=== PATIENT | male | born 1945 | race Caucasian/White ===

== ENCOUNTER 2025-05-04 09:21 | Day surgery (SDC) | payer OTHER ==
[~2025-05-04] VITALS: Ht 170.2 cm; Wt 70.3 kg
[~2025-05-04 09:21] MED LIST: AMLO1TAB23 PO; ASPI1TAB19 PO; ATOR20TA PO; LATA0.008 EACHEYE; TIMO0.5S28 RIGHTEYE
[2025-05-04] MEDS ORDERED: IODIXANOL 320MG/ML 100ML BTL IV ONE (11:57)
[2025-05-04] MEDS ORDERED: MIDAZOLAM HCL 2MG/2ML 2ml VIAL (1mg/ml) ONE (12:44)
[2025-05-04] MEDS ORDERED: fentaNYL CITRATE 100 MCG/2 ML VL ONE (12:44)
[2025-05-04] MEDS ORDERED: VERAPAMIL 2.5MG/ML INJ 2ML VIAL IV ONE (12:44)
[2025-05-04] MEDS ORDERED: LIDOCAINE 2%HCL (LOCAL ANESTH.) INJ 20ML MDV ONE (12:45)
[2025-05-04] MEDS ORDERED: HEPARIN SODIUM (PORCINE) 5000 UNITS/ML 1ML VIAL ONE (13:49)
--- NOTE | 2025-05-04 13:56 | DVHOP2 ---
Operative Report Operative Report CARDIAC BUSINESS INTERN PROCEDURE REPORT [place], [place] Date of Service: 05/04/25 Story Reader: Reyna Bermudez MD PROCEDURES PERFORMED: Coronary angiogram, , conscious sedation administration and supervision, less than 15 minutes; fluoroscopy use and interpretation. US guided vascular access to L LINTER OPERATOR and L Radial artery . PREOPERATIVE DIAGNOSES: Abnormal stress test with CCS class 3 angina, POSTOP DIAGNOSIS: cad DESCRIPTION OF PROCEDURE: The patient or appropriate family signed informed consent understanding the risks, benefits and alternatives of the procedure, they wished to proceed. The patient was brought to the cardiac brine room laborer in n.p.o. state. The patient was prepped in a sterile fashion. Sedation was used per cardiac cath protocol. I administered 2 mL of 2% lidocaine to the right wrist. With an antegrade front wall puncture. I cannulated the right radial artery and placed a 6-Indonesian Glidesheath slender. Next, an intra-arterial spasmolytic was administered. I wired with glide up to shoulder but 4 F and 5F catheter would not go as pt spasm despite getting access in 1 attempt with seamless access. pt has a R sided hostile groin with previous surgery ?endarterectomy .so with US guidance I cannulated the L LINTER OPERATOR with excellent flow but wire wouldn not cross. pt tells me that he was told he has severe pad and his surgeon couldnt cross the vessel. next i got access to L radial artery with US guidance saved to pacsy stem and placed a 6F glidesheat. 200 mcg of IA nitro given. Next, a - 4 F JR4 and JL catheter nd were used for coronary angiogram At the completion of procedure, all guides and wires were removed, and there were no immediate complications. 3000 U of IV heparin given. FINDINGS: RCA: Moderate vessel off the right sinus of Valsalva, there is no severe flow limiting stenosis. mild 30 % mid vessel stenosis LEFT MAIN: Moderate size left main, it bifurcates into LAD and circumflex. no severe stenosis CIRCUMFLEX: Moderate caliber vessel coming off the left main with no flow limiting stenosis. mild plaque .5% mid CX /om stenosis LAD: LAD is a moderate caliber vessel coming of the left main. no severe stenosis in prox mid and distal. D1 has prox 80% stenosis but very small vessel CONCLUSIONS: 1. moderate non critical CAD PLAN: Aggressive risk factor modification and medical management for the patient. REYNA BERMUDEZ MD May 04, 2025 13:56
[2025-05-04 14:00] VITALS: BP 99/63; PULSE 67; RESP 16; TEMP 97.8; O2SAT 93
[2025-05-04 14:15] VITALS: BP 124/72; PULSE 68; RESP 19; O2SAT 92
[2025-05-04 14:30] VITALS: BP 129/72; PULSE 67; RESP 14; O2SAT 94
[2025-05-04 14:45] VITALS: BP 118/75; PULSE 67; RESP 15; O2SAT 93
[2025-05-04 15:00] VITALS: BP 128/78; PULSE 69; RESP 16; O2SAT 94
== END 2025-05-04 16:10 | disposition home or self-care (01) ==
LOC: CATH 09:21
PROVIDERS: ATTEND Internal Medicine
DX: R94.39 Abnormal result of other cardiovascular function study (principal); I25.119 Atherosclerotic heart disease of native coronary artery with unspecified angina pectoris; Z88.2 Allergy status to sulfonamides; Z88.0 Allergy status to penicillin; Z79.899 Other long term (current) drug therapy
CPT/HCPCS: 93454; C1769; C1894; J1644; J2250; J3010; Q9967; 99152; 99153

== ENCOUNTER 2025-05-13 11:56 | Inpatient (IN) | payer OTHER ==
[~2025-05-13] VITALS: Ht 172.7 cm; Wt 72.6 kg
--- NOTE | 2025-05-13 12:31 | ED.PDOC ---
History of Present Illness HPI Comments 79-year-old male with PMHx HTN, HLD brought in by EMS presents with a chief complaint of fall injury x onset midnight this morning. Patient states that he had a mechanical fall and he fell onto his right side. Patient states that he did lose consciousness, but came to and was able to self ambulate back up and onto a chair. Patient is now complaining of 5/10 right hip pain. There is some shortening and rotation to his right leg. Chief Complaint: Fall Injury Time Seen by MD: 12:49 Reviewed Notes: Medications, Allergies Allergies: Coded Allergies: Sulfa Antibiotics (Verified Allergy, Intermediate, HIVES, 05/01/25) Penicillins (Verified Allergy, Unknown, "GOT SICK", 05/01/25) Home Meds Reported Medications Timolol Maleate (Timolol Maleate Ophthalmi) 0.5 % Xuan, 1 DROP RIGHTEYE BID for GLAUCOMA 05/01/25 Latanoprost (LATANOPROST) 0.005 % Xuan, 1 DROP EACHEYE QPM for GLAUCOMA 05/01/25 Aspirin (Aspirin) 81 Mg Tab, 1 TAB PO QAM for HEART DISEASE 05/01/25 Atorvastatin Calcium (Lipitor) 20 Mg Tab, 1 TAB PO QPM for HIGH CHOLESTEROL 05/01/25 Amlodipine Besylate (Amlodipine Besylate) 10 Mg Tab, 1 TAB PO QAM for HYPERTENSION 05/01/25 Information Source: Patient Mode of Arrival: EMS Severity: Moderate Timing: Hours Duration: Since onset Prehospital treatment: Forest Technician, Pain Meds Past Medical History PAST MEDICAL HISTORY: High Lipids, HTN Surgical History: Denies all surgeries Family History Family History: Reviewed,noncontributory to illness Social History Smoker: Non-Smoker Alcohol: Denies ETOH Use Drugs: Denies Drug Use Lives In: Home Constitutional: denies: chills, diaphoresis, fatigue, fever, malaise, sweats, weakness, others EENTM: denies: blurred vision, double vision, ear bleeding, ear discharge, ear drainage, ear pain, ear ringing, eye pain, eye redness, hearing loss, mouth pain, mouth swelling, nasal discharge, nose bleeding, nose congestion, nose pain, photophobia, tearing, throat pain, throat swelling, voice changes, others Respiratory: denies: cough, hemoptysis, orthopnea, SOB at rest, shortness of breath, SOB with excertion, stridor, wheezing, others Cardiovascular: denies: chest pain, dizzy spells, diaphoresis, Dyspnea on exertion, edema, irregular heart beat, left arm pain, lightheadedness, palpitations, PND, syncope, others Gastrointestinal: denies: abdomen distended, abdominal pain, blood streaked bowels, constipated, diarrhea, dysphagia, difficulty swallowing, hematemesis, melena, nausea, poor appetite, poor fluid intake, rectal bleeding, rectal pain, vomiting, others Genitourinary: denies: burning, dysuria, flank pain, frequency, hematuria, incontinence, penile discharge, penile sore, pain, testicle pain, testicle swelling, urgency, others Neurological: denies: dizziness, fainting, headache, left sided numbness, left sided weakness, numbness, paresthesia, pre-existing deficit, right sided numbness, right sided weakness, seizure, speech problems, tingling, tremors, weakness, others Musculoskeletal: reports: joint pain; denies: back pain, gout, joint swelling, muscle pain, muscle stiffness, neck pain, others Integumetry: denies: bruises, change in color, change in hair/nails, dryness, laceration, lesions, lumps, rash, wounds, others Allergic/Immunocompromised: denies: Difficulty Healing, Frequent Infections, Hives, Itching, others Hematologic/Lymphatic: denies: anemia, blood clots, easy bleeding, easy bruising, swollen glands, others Endocrine: denies: excessive hunger, excessive sweating, excessive thirst, excessive urination, flushing, intolerance to cold, intolerance to heat, unexplained weight gain, unexplained weight loss, others Psychiatric: denies: anxiety, bipolar disorder, depression, hopeless, panic disorder, schizophrenia, sleepless, suicidal, others All Other Systems: Reviewed and Negative Physical Exam General Appearance: No Apparent Distress, Normal HEENT: Normal ENT Inspection, Pharynx Normal, TMs Normal Neck: Full Range of Motion, Non-Tender, Normal, Normal Inspection Respiratory: Chest Non-Tender, Lungs Clear, No Accessory Muscle Use, No Respiratory Distress, Normal Breath Sounds Cardiovascular: No Edema, No JVD, No Murmur, No Gallop, Normal Peripheral Pulses, Regular Rate/Rhythm Breast Exam: Deferred Gastrointestinal: No Organomegaly, Non Tender, No Pulsatile Mass, Normal Bowel Sounds, Soft Genitalia: Deferred Pelvic: Deferred Rectal: Deferred Extremities: No calf tenderness, Normal capillary refill, Normal inspection, Normal range of motion, Non-tender, No pedal edema Musculoskeletal : Apperance: Normal Neurologic: Alert, territory service representative II-XII nml as Tested, No Motor Deficits, Normal Affect, Normal Mood, No Sensory Deficits Cerebellar Function: Normal Reflexes: Normal Skin: Dry, Normal Color, Warm Lymphatic: No Adenopathy Was a procedure done? Was a procedure done?: No Differential Dx Considerations may include: Brain bleed, hip fracture, muscle strain X-Ray, Labs, Meds, VS Vital Signs Date Time Temp Pulse Resp B/P (MAP) Pulse Ox O2 Delivery O2 Flow Rate FiO2 05/13/25 13:45 81 17 147/68 05/13/25 13:25 68 18 147/68 05/13/25 12:45 98.0 79 20 162/76 (104) 95 98.0 05/13/25 12:45 79 20 95 Room Air* 0 21 05/13/25 12:18 98.4 76 16 129/72 (91) 97 98.4 Lab Test 05/13/25 13:30 05/13/25 12:44 05/13/25 12:27 Range/Units Troponin I High Sensitivity Pending 7 </=54 ng/L White Blood Count 12.2 H 4.4-10.8 10^3/uL Red Blood Count 3.47 L 4.5-5.90 10^6/uL Hemoglobin 11.8 L 13.5-17.5 g/dL Hematocrit 34.7 L 41.0-53.0 % Mean Corpuscular Volume 99.8 80.0-100.0 fL Mean Corpuscular Hemoglobin 34.0 H 28.0-32.0 pg Mean Corpuscular Hemoglobin Concent 34.0 32.0-36.0 g/dL Red Cell Distribution Width 13.8 11.8-14.3 % Platelet Count 256 140-450 10^3/uL Mean Platelet Volume 7.9 6.9-10.8 fL Neutrophils (%) (Auto) 79.6 37.0-80.0 % Lymphocytes (%) (Auto) 11.0 10.0-50.0 % Monocytes (%) (Auto) 8.5 0.0-12.0 % Eosinophils (%) (Auto) 0.5 0.0-7.0 % Basophils (%) (Auto) 0.4 0.0-2.0 % Neutrophils # (Auto) 9.7 H 1.6-8.6 10 ^3/uL Lymphocytes # (Auto) 1.3 0.4-5.4 10 ^3/uL Monocytes # (Auto) 1.0 0-1.3 10 ^3/uL Eosinophils # (Auto) 0.1 0-0.8 10 ^3/uL Basophils # (Auto) 0 0-0.2 10 ^3/uL Nucleated Red Blood Cells 0.1 % Sodium Level 138 136-145 mmol/L Potassium Level 4.1 3.5-5.1 mmol/L Chloride Level 105 98-107 mmol/L Carbon Dioxide Level 23 20-31 mmol/L Anion Gap 10 5-15 Blood Urea Nitrogen 24 H 9-23 mg/dL Creatinine 1.34 H 0.700-1.30 mg/dL Glomerular Filtration Rate Calc 54 >90 mL/min BUN/Creatinine Ratio 17.9 10.0-20.0 Serum Glucose 103 74-106 mg/dL Calcium Level 9.6 8.7-10.4 mg/dL Urine Color Yellow Yellow Urine Clarity Clear Clear Urine pH 5.5 5.0-9.0 Urine Specific Reva 1.016 1.001-1.035 Urine Protein Trace H Negative Urine Ketones Negative Negative Urine Blood 1+ H Negative /uL Urine Nitrite Negative Negative Urine Bilirubin Negative Negative Urine Urobilinogen Normal Negative mg/dL Urine Leukocyte Esterase 2+ Negative /uL Urine RBC 5 0 - 3 /hpf Urine Microscopic WBC 68 H 0-3 /HPF Urine Squamous Epithelial Cells Few <5 /hpf Urine Bacteria None seen None Seen /hpf Urine Glucose Normal Normal mg/dL Current Medications Medications (Trade) Dose Ordered Sig/Promise Route Start Time Stop Time Status Last Admin Sodium Chloride 1,000 ml @ 1,000 mls/hr Q1H ONCE IV 05/13/25 12:30 05/13/25 13:29 DC 05/13/25 12:47 Ondansetron HCl (Zofran) 4 mg ONCE ONCE IV 05/13/25 12:30 05/13/25 12:31 DC 05/13/25 13:25 Morphine Sulfate 4 mg ONCE ONCE IV 05/13/25 12:30 7/9/25 12:31 DC 05/13/25 13:25 Time of 1ST Reevaluation: 12:49 Reevaluation 1ST: Unchanged Patient Education/Counseling: Diagnosis, Treatment, Need For Follow Up Family Education/Counseling: No Family Present SEPSIS Sepsis Screen Date sepsis recognized/suspect: May 13, 2025 Time Sepsis recognized/suspect: 1200 Recent Procedure: No On Antibiotic Therapy: No Respiratory Rate >20: No Heart Rate >90: No Temp<36 C (96.8 F) or >38.3 C: No SBP <90 or MAP <65 mmHG: No New Acute Mental Status Change: No Is the patient on CPAP, BIPAP,: No Physician Orders R Hip Complete Xray (05/13/25 12:21) Chest Portable (05/13/25 12:21) Troponin-I Hs (05/13/25 13:21) Troponin-I Hs (05/13/25 15:21) Head Without Contrast (05/13/25 12:21) Electrocardigram (05/13/25 12:21) Electrocardigram (05/13/25 13:21) Electrocardigram (05/13/25 15:21) Insert/Manage Urinary Catheter QSHIFT (05/13/25 12:55) * Orthopedic Consult (05/13/25 13:58) Vital Signs Date Time Temp Pulse Resp B/P (MAP) Pulse Ox O2 Delivery O2 Flow Rate FiO2 05/13/25 13:45 81 17 147/68 05/13/25 13:25 68 18 147/68 05/13/25 12:45 98.0 79 20 162/76 (104) 95 98.0 05/13/25 12:45 79 20 95 Room Air* 0 21 05/13/25 12:18 98.4 76 16 129/72 (91) 97 98.4 Laboratory Tests Test 05/13/25 12:44 White Blood Count 12.2 10^3/uL (4.4-10.8) H Medications Medications Dose Ordered Sig/Promise Route Start Time Stop Time Status Last Admin Dose Admin Morphine Sulfate 4 mg ONCE ONCE IV 05/13/25 12:30 05/13/25 12:31 DC 05/13/25 13:25 Ondansetron HCl 4 mg ONCE ONCE IV 05/13/25 12:30 05/13/25 12:31 DC 05/13/25 13:25 Sodium Chloride 1,000 ml @ 1,000 mls/hr Q1H ONCE IV 05/13/25 12:30 05/13/25 13:29 DC 05/13/25 12:47 Departure 1 Departure Time of Disposition: 13:59 (Patient with impacted femoral neck fracture. We will admit patient for further workup and expert consultation.) Impression: Primary Impression: Fracture of femoral neck, right Qualified Codes: S72.001A - Fracture of unspecified part of neck of right femur, initial encounter for closed fracture Additional Impression: Fall Qualified Codes: W19.XXXA - Unspecified fall, initial encounter Disposition: ADMITTED INPATIENT Admit to: Med Surg Condition: Serious Critical Care Note Critical Care Time?: Yes Critical care comment: Hip fracture with intractable pain Authorized and Performed by: Catrachito Nascimento MD Total critical care time: Approximately 41 minutes Due to a high probability of clinically significant, life threatening deterioration, the patient required my highest level of preparedness to intervene emergently and I personally spent this critical care time directly and personally managing the patient. This critical care time included obtaining a history; examining the patient; pulse oximetry; ordering and review of studies; arranging urgent treatment with development of a management plan; evaluation of patient's response to treatment; frequent reassessment; and, discussions with other providers. This critical care time was performed to assess and manage the high probability of imminent, life-threatening deterioration that could result in multi-organ failure. It was exclusive of separately billable procedures and treating other patients and teaching time. Please see my other sections and the rest of the note for further information on patient assessment and treatment. Stability Stability form required: No Heart Score Heart Score: Heart Score Response (Comments) Value History N/A 0 EKG N/A 0 Age N/A 0 Risk Factors N/A 0 Troponin N/A 0 Total 0 I personally scribed for CATRACHITO NASCIMENTO MD ([email or web address]) on 05/13/25 at 12:31. Electronically submitted by Corwin Tyler ([email or web address]). CATRACHITO NASCIMENTO MD May 13, 2025 12:31
[2025-05-13 12:45] VITALS: PULSE 79; RESP 20; O2SAT 95
[2025-05-13] MEDS: SODIUM CHLORIDE 0.9% 1,000 ML IV ONE (12:47)
--- NOTE | 2025-05-13 13:05 | DVH ---
CLINICAL INDICATION: Trauma TECHNIQUE: 2 radiographic views of the right hip were obtained. Comparison: None FINDINGS/IMPRESSION: Impacted fracture in the right femoral neck.
[2025-05-13 13:15] LABS: Chloride 105 mmol/L (98-107); Potassium 4.1 mmol/L (3.5-5.1); Sodium 138 mmol/L (136-145)
--- NOTE | 2025-05-13 13:15 | DVH ---
EXAM: XY CHEST PORTABLE Indication: pain Technique: Single frontal view of the chest was obtained Comparison: None FINDINGS: Lines and Tubes: None Lungs: No focal consolidation. Pleura: No effusion. No pneumothorax. Cardiomediastinal contours: Unremarkable Bones: No acute osseous abnormality. IMPRESSION: No acute cardiopulmonary disease.
[2025-05-13 13:16] LABS: Anion Gap 10 (5-15); Carbon Dioxide 23 mmol/L (20-31)
[2025-05-13 13:17] LABS: Calcium 9.6 mg/dL (8.7-10.4)
[2025-05-13 13:21] LABS: BUN/Creatinine Ratio 17.9 (10.0-20.0); Glucose 103 mg/dL (74-106)
--- NOTE | 2025-05-13 13:21 | DVH ---
Procedure: CT HEAD WITHOUT CONTRAST Study Date and Requested Time: 05/13/2025 12:23 PM History: fall Comparison: None Dose: CTDI: 56.9 mGy DLP: 1121.41 mGycm Technique: Multiplanar images obtained through the brain without intravenous contrast. Findings: Moderate diffuse brain atrophy. Mild chronic small vessel ischemic changes. No hemorrhages, masses, mass effect, midline shift, herniation or cytotoxic edema following a large v ascular territory. No intra-axial or extra-axial fluid collections. No evidence of hydrocephalus. The basal cisterns are patent. The pituitary gland, sella and parasellar regions are unremarkable. The cerebellar tonsils are in nor mal position. The cerebellum is unremarkable. Bilateral lens replacement. Otherwise, orbits and globes are unremarkable. Pansinus mucoperiosteal t hickening. The mastoids are clear. There are no worrisome calvarial lesions. Ayhr-sz-[id number] athero sclerotic calcification of the carotid siphons. Impression: No evidence of acute intracranial abnormality.
[2025-05-13 13:22] LABS: Blood Urea Nitrogen 24 mg/dL (9-23); Hematocrit 34.7 % (41.0-53.0); Hemoglobin 11.8 g/dL (13.5-17.5); Mean Corpuscular Hemoglobin 34.0 pg (28.0-32.0); Mean Corpuscular Volume 99.8 fL (80.0-100.0); Nucleated Red Blood Cells % 0.1 %
[2025-05-13] MEDS: MORPHINE SULFATE 4 MG/ML SYR/VIAL IV ONE (13:25)
[2025-05-13] MEDS: ONDANSETRON HCL 4 MG/2 ML VIAL IV ONE (13:25)
[2025-05-13 13:44] LABS: Urine Protein, UAD TRACE (Negative)
[2025-05-13] MEDS ORDERED: CEFEPIME 2GM/50ML NS 50 ML IV ONE (16:00)
[2025-05-13] MEDS ORDERED: MORPHINE SULFATE INJ 2 MG/ml SYRG IV PRN ×2 (16:15→16:30)
[2025-05-13] MEDS ORDERED: NITROGLYCERIN 0.4 MG SL TAB SL PRN (16:15)
[2025-05-13] MEDS ORDERED: ONDANSETRON HCL 4 MG/2 ML VIAL IV PRN (16:30)
[2025-05-13] MEDS ORDERED: hydrALAZINE HCL 20 MG/ML VL IV PRN (16:30)
[2025-05-13] MEDS: SOD CHL 0.45% 1,000 ML IV ONE (16:54)
--- NOTE | 2025-05-13 17:20 | DVHCONRES ---
Date Seen: May 13, 2025 Resident Creating Document: SIMON REYNOSO RESDIENT History of Present Illness This is an 79-year-old male with past medical history of hypertension, dyslipidemia and peripheral artery disease came to the hospital due to right hip pain. Per patient, last night he was at garbage, the next thing that he remembered was, lying on the floor and had right hip pain. Patient denies chest pain, shortness of breath, cough, and fever. Per patient, he recently had a screening chest CT scan, had found to have some coronary problem subsequently underwent stress test and left heart catheterization which was normal. Patient also reports of loss of consciousness 1 month back. PMHx: Hypertension and dyslipidemia PSHx: Right lower limb bypass graft for peripheral artery disease Home medication: Atorvastatin and amlodipine Allergic history: Penicillins and sulfa antibiotics Patient seen and examined at the bedside. Patient is complaining of right hip pain. Patient denies currently of having chest pain and shortness of breaths. Allergies: Coded Allergies: Penicillins (Verified Allergy, Intermediate, HIVES, 05/13/25) Sulfa Antibiotics (Verified Allergy, Intermediate, HIVES, 05/01/25) Home Meds Reported Medications Timolol Maleate (Timolol Maleate Ophthalmi) 0.5 % Xuan, 1 DROP RIGHTEYE BID for GLAUCOMA 05/01/25 Latanoprost (LATANOPROST) 0.005 % Xuan, 1 DROP EACHEYE QPM for GLAUCOMA 05/01/25 Aspirin (Aspirin) 81 Mg Tab, 1 TAB PO QAM for HEART DISEASE 05/01/25 Atorvastatin Calcium (Lipitor) 20 Mg Tab, 1 TAB PO QPM for HIGH CHOLESTEROL 05/01/25 Amlodipine Besylate (Amlodipine Besylate) 10 Mg Tab, 1 TAB PO QAM for HYPERTENSION 05/01/25 Current Medications Current Medications Medications (Trade) Dose Ordered Sig/Promise Route PRN Reason Start Time Stop Time Status Last Admin Atorvastatin Calcium (Lipitor) 20 mg QPM PO 05/13/25 18:00 Latanoprost (Xalatan) 1 drop QPM EACHEYE 05/13/25 18:00 Patient Own Medication 1 drop BID RIGHTEYE 05/13/25 22:00 Amlodipine Besylate (Norvasc Tablet) 10 mg DAILY PO 05/14/25 10:00 Nitroglycerin (Ntrostat Sublingual) 0.4 mg Q5MINP PRN SL FOR CHEST PAIN 05/13/25 16:15 Morphine Sulfate 2 mg Q30M PRN IV FOR CHEST PAIN 05/13/25 16:15 Ondansetron HCl (Zofran) 4 mg Q4HPRN PRN IV NAUSEA / VOMITING 05/13/25 16:30 Morphine Sulfate 2 mg Q3HPRN PRN IV SEVERE PAIN (7-10 PAIN SCALE) 05/13/25 16:30 Acetaminophen/ Hydrocodone Bitart (White Owl 5/325MG Tab) 1 tab Q4HPRN PRN PO MODERATE PAIN (4-6 PAIN SCALE) 05/13/25 16:30 Famotidine (Pepcid Tablet) 20 mg DAILY PO 05/14/25 10:00 Hydralazine HCl (Apresoline Injection) 10 mg Q6HP PRN IV SBP>150 05/13/25 16:30 Metoprolol Tartrate (Lopressor Tablet) 12.5 mg BID PO 05/13/25 22:00 Vital Signs Vital Signs Date Time Temp Pulse Resp B/P (MAP) Pulse Ox O2 Delivery O2 Flow Rate FiO2 05/13/25 16:00 82 05/13/25 16:00 13 151/72 (98) 95 05/13/25 12:45 98.0 98.0 05/13/25 12:45 Room Air* 0 21 Physical Exam General Appearance: Alert, Oriented X3, Cooperative, No acute distress HEENT: Atraumatic, PERRLA, EOMI, Mucous membrane moist/pink Respiratory: Clear to auscultation, Normal air movement Cardiovascular: Regular rate, Normal S1, Normal S2, No murmurs, no chest wall tenderness Abdominal: Normal bowel sounds, Soft, No tenderness, No hepatospenomegaly, No masses Extremities: Right lower extremity range of motion is decreased due to pain Skin: No rashes, No breakdown, No significant lesion Neuro: Normal gait, Normal speech, Strength at 5/5 X4 ext, Normal tone, Sensation intact, Cranial nerves 3-12 NL, Reflexes 2+ Psych/Mental Status: Mental status NL, Mood NL Labs/Diagnostic Data Labs Test 05/13/25 13:30 05/13/25 12:44 05/13/25 12:27 Range/Units Troponin I High Sensitivity 8 </=54 ng/L White Blood Count 12.2 H 4.4-10.8 10^3/uL Red Blood Count 3.47 L 4.5-5.90 10^6/uL Hemoglobin 11.8 L 13.5-17.5 g/dL Hematocrit 34.7 L 41.0-53.0 % Mean Corpuscular Volume 99.8 80.0-100.0 fL Mean Corpuscular Hemoglobin 34.0 H 28.0-32.0 pg Mean Corpuscular Hemoglobin Concent 34.0 32.0-36.0 g/dL Red Cell Distribution Width 13.8 11.8-14.3 % Platelet Count 256 140-450 10^3/uL Mean Platelet Volume 7.9 6.9-10.8 fL Neutrophils (%) (Auto) 79.6 37.0-80.0 % Lymphocytes (%) (Auto) 11.0 10.0-50.0 % Monocytes (%) (Auto) 8.5 0.0-12.0 % Eosinophils (%) (Auto) 0.5 0.0-7.0 % Basophils (%) (Auto) 0.4 0.0-2.0 % Neutrophils # (Auto) 9.7 H 1.6-8.6 10 ^3/uL Lymphocytes # (Auto) 1.3 0.4-5.4 10 ^3/uL Monocytes # (Auto) 1.0 0-1.3 10 ^3/uL Eosinophils # (Auto) 0.1 0-0.8 10 ^3/uL Basophils # (Auto) 0 0-0.2 10 ^3/uL Nucleated Red Blood Cells 0.1 % Sodium Level 138 136-145 mmol/L Potassium Level 4.1 3.5-5.1 mmol/L Chloride Level 105 98-107 mmol/L Carbon Dioxide Level 23 20-31 mmol/L Anion Gap 10 5-15 Blood Urea Nitrogen 24 H 9-23 mg/dL Creatinine 1.34 H 0.700-1.30 mg/dL Glomerular Filtration Rate Calc 54 >90 mL/min BUN/Creatinine Ratio 17.9 10.0-20.0 Serum Glucose 103 74-106 mg/dL Calcium Level 9.6 8.7-10.4 mg/dL Urine Color Yellow Yellow Urine Clarity Clear Clear Urine pH 5.5 5.0-9.0 Urine Specific [place] 1.016 1.001-1.035 Urine Protein Trace H Negative Urine Ketones Negative Negative Urine Blood 1+ H Negative /uL Urine Nitrite Negative Negative Urine Bilirubin Negative Negative Urine Urobilinogen Normal Negative mg/dL Urine Leukocyte Esterase 2+ Negative /uL Urine RBC 5 0 - 3 /hpf Urine Microscopic WBC 68 H 0-3 /HPF Urine Squamous Epithelial Cells Few <5 /hpf Urine Bacteria None seen None Seen /hpf Urine Glucose Normal Normal mg/dL Assessment (Preoperative risk stratification) Right hip fracture History of hypertension Dyslipidemia Peripheral artery disease * EKGs shows normal sinus rhythm with no significant ST or T-wave changes * Serial trop I is within normal limits * Revised cardiac risk index (leak criteria): 1 * Metabolic equivalent (MET): >4, patient has faire functional capacity con sidering he is able to walk more than 30 minutes without shortness of breaths/chest pain Plan/recommendation (Case discussed with Dr. Ramirez) * Patient is a low risk of cardiovascular event for moderate risk surgery * Patient does not need further cardiology workup at the moment * Considering multiple episodes of loss of consciousness, patient needs event monitoring (Holter monitoring) on outpatient basis with Cardiology * Rest of plan per primary team Thank you for giving us the opportunity to take care of your patient. Please call back if you have any question/concern. Plan discussed with: Patient, Other (RN) SIMON REYNOSO May 13, 2025 17:20
[2025-05-13] MEDS: LATANOPROST 0.005 % OPTH(EYE) SOL 2.5ML EACHEYE SCH (17:44)
[2025-05-13] MEDS: ATORVASTATIN 20 MG TAB PO SCH (17:44)
--- NOTE | 2025-05-13 17:45 | DVHINCON2 ---
Consult Note Consult Consult Note S: Subjective CC: Right hip pain after fall HPI: pt seen in the Emergency Room today, recent hx of GLF unable to WB and noted right groin pain. ER completed Xray, X-ray imaging revealed a right femoral neck impacted fracture, Orthopedic was consulted. On my interview denies any other joint pain, reports moderate right groin pain and is unable to attempt range of motion due to pain. Pt reports hx of HTN, Smoking, and recent cardiac workup with no findings. No Pulm hx , COPD or Asthma or others reported by patient.Lives at home with .Pt reports otherwise active. Denies use of medications other than aspirin, which he reports he is not currently taking. O: Objective Physical Exam (Right Hip): Inspection: Right lower limb externally rotated and shortened Palpation: Pain over right groin ROM: Unable to assess due to pain Neurovascular: Grossly intact; patient able to wiggle toes and move ankle Imaging: Right hip X-ray: Impacted fracture of right femoral neck A: Assessment Fracture of unspecified part of neck of right femur, initial encounter for closed fracture Personal history of nicotine dependence P: Plan Cleared for Cardiology for surgery. Surgery: Open reduction and internal fixation with right hemiarthroplasty scheduled for 05/14/[address] Keith Patient to remain NPO after midnight , ER Nurse to place the order for it and she agrees Consent to be obtained by ER Admission: Patient to be admitted to the hospitalist team for surgical management pain management per Hospitalist team Pt to be NPO Midnight Education: Procedure, risks, benefits, and expected recovery discussed with the patient , Pt remains amenable to surgery at this time. Pt to followup in Orthopedic Clinic at [facility] in 2 weeks post op All questions answered and patient agrees with the plan Plan discussed with: Patient, Other (bed side Nurse , ER Provider, Dr. Mathew araujo) Visit Coding Surgery Date of Service if different f: May 13, 2025 Billing Provider: AVA WARREN Surgery Visit Codes: 88449 - INP CONSULT <40 MIN AVA WARREN May 13, 2025 17:45
[2025-05-13 18:47] LABS: INR 1.01 (0.9-1.15); Partial Thromboplastin Time 27.1 SEC (24.5-34.5); Prothrombin Time 10.7 sec (9.3-11.8)
[2025-05-13 19:15] VITALS: PULSE 80; RESP 14; O2SAT 96
--- NOTE | 2025-05-13 19:31 | ECG ---
[facility] Test Date: 2025-05-13 Test Time: 17:08:26 Pat Name: BONILLA ALCANTARA Department: ED Room: 0292T Gender: M Grocery Clerk: linda : 1945 Requested By: CATRACHITO FALCON Order Number: [id number] Reading MD: Trenton Ramirez Measurements Intervals [place] Rate: 81 P: 45 TN: 156 QRS: -50 QRSD: 106 T: 54 QT: 410 QTc: 476 Interpretive Statements Sinus rhythm Left anterior fascicular block Abnormal R-wave progression, early transition Borderline prolonged QT interval Electronically Signed On 05-14-2025 19:07:04 PDT by Trenton Ramirez Please click the below link to view image of tracing.
[2025-05-13 21:18] VITALS: BP 129/68; PULSE 82; RESP 17; TEMP 98; O2SAT 93
[2025-05-13 21:30] VITALS: BP 129/68; PULSE 82; RESP 17; TEMP 98; O2SAT 93
[2025-05-13] MEDS: METOPROLOL TARTRATE 25 MG TAB PO SCH (21:53)
[2025-05-13] MEDS: PATIENTS OWN MEDICATION (Timolol Maleate (Timolol Maleate Ophthalmi) 1 DROP) RIGHTEYE SCH (22:00)
[2025-05-13] MEDS: HYDROcodone-ACET 5/325MG TAB PO PRN (22:01)
[2025-05-13 23:17] VITALS: PULSE 79; RESP 17; O2SAT 93
[2025-05-14] VITALS (14 sets, daily range): BP systolic 101–132; BP diastolic 46–74; PULSE 67–98; RESP 14–18; TEMP 97.5–98.7; O2SAT 83–98
--- NOTE | 2025-05-14 05:02 | DVHHP2 ---
Admitting Diagnosis: Right hip fracture , mechanical fall, hypertension History of Present Illness History Source: Patient Exam Limitations: No limitations HPI Mr. Darian Starr is an 79-year-old male with a past medical history of HTN, HLD who presents with a chief complaint of mechanical fall with injury x 1 day ago. Patient states that he had a mechanical fall and he fell onto his right side. Patient states that he did lose consciousness, but came to and was able to self ambulate back up and onto a chair. Patient is now complaining of 5/10 right hip pain. There is some shortening and rotation to his right leg. Patient right hip x ray resulted: Impacted fracture in the right femoral neck. Patient denies chest pain, dyspnea, nausea, vomiting. Patient admitted for further treatment. Home Meds Reported Medications Timolol Maleate (Timolol Maleate Ophthalmi) 0.5 % Xuan, 1 DROP RIGHTEYE BID for GLAUCOMA 05/01/25 Latanoprost (LATANOPROST) 0.005 % Xuan, 1 DROP EACHEYE QPM for GLAUCOMA 05/01/25 Aspirin (Aspirin) 81 Mg Tab, 1 TAB PO QAM for HEART DISEASE 05/01/25 Atorvastatin Calcium (Lipitor) 20 Mg Tab, 1 TAB PO QPM for HIGH CHOLESTEROL 05/01/25 Amlodipine Besylate (Amlodipine Besylate) 10 Mg Tab, 1 TAB PO QAM for HYPERTENSION 05/01/25 Past Medical History Cardiac: HTN, Hyperlipidemia Pulmonary: No pertinent Hx Central Nervous System: No pertinent Hx GI: No pertinent Hx Hemotology/Oncology: No pertinent Hx Hepatobiliary: No pertinent Hx Psychiatric: No pertinent Hx Musculoskeletal: No pertinent Hx Rheumotologic: No pertinent Hx Infectious Disease: No peritnent Hx ENT: No pertinent Hx Renal/: No pertinent Hx Endocrine: No pertinent Hx Dermatology: No pertinent Hx Patient Family History: Hypertrophic cardiomyopathy G8 MOTHER Pneumonia G8 FATHER Smoker: No Hx (Negative) Alocohol: None Drugs: None Domestic Violence: Neg Review of Systems Constitutional: No symptom reported Ears, Nose, & Throat: No symptom reported Eyes: No symptom reported Pulmonary/Respiratory: No symptom reported Cardiovascular: No symptom reported Gastrointestinal: No symptom reported Genitourinary: No symptom reported Musculoskeletal: Other (right hip pain s/p mechanical fall) Skin: No symptom reported Psychiatric: No symptom reported Endocrine: No symptom reported Hemotologic/Lymphatic: No symptom reported H&P Exam Vital Signs Vital Signs Date Time Temp Pulse Resp B/P (MAP) Pulse Ox O2 Delivery O2 Flow Rate FiO2 05/14/25 01:00 98.7 79 17 126/74 (91) 92 98.7 05/13/25 19:15 Nasal Cannula* 2 28 General Appeara: Well developed, Well nourished, Normal Appearance Head Exam: Normal inspection Neck Exam: Normal inspection, Non-tender, Normal alignment Eye Exam: bilateral eye Normal inspection, bilateral eye PERRL, bilateral eye EOMI Ear Exam: bilateral ear Auricle normal Nasal Exam: Normal inspection Mouth: Normal Inspection Pulmonary/Respiratory: Normal inspection, Normal breath sounds, Chest non- tender, Lungs clear Cardiovascular/Chest: Normal inspection, Regular rate, Normal Rhythm Peripheral Pulses: 2+ dorsalis pedis (R), 2+ dorsalis pedis (L), 2+ Radial (R), 2+ Radial (L) Abdominal Exam: Normal bowel sounds, Soft, No tenderness Rectal Exam: Deferred Male Genital Exam: Not done Hip exam: Deformity, Evidence of injury, Pain Legs: right leg other (limited range of motion) SOAP MIXER Exam: Normal hearing, Normal speech, PERRL Neuro/Mental St: Alert, Oriented Appearance: Appropriate appearance, Appropriate insight Eye contact/ Speech: Cooperative, Good eye contact, Normal speech Thoughts/Psych: Normal thought pattern Skin Exam: Normal inspection, Normal color, Warm/dry SEPSIS Sepsis Screen Date sepsis recognized/suspect: May 13, 2025 Time Sepsis recognized/suspect: 1925 Recent Procedure: No On Antibiotic Therapy: No Respiratory Rate >20: No Heart Rate >90: No Temp<36 C (96.8 F) or >38.3 C: No SBP <90 or MAP <65 mmHG: No New Acute Mental Status Change: No Is the patient on CPAP, BIPAP,: No Vital Signs Date Time Temp Pulse Resp B/P (MAP) Pulse Ox O2 Delivery O2 Flow Rate FiO2 05/14/25 01:00 98.7 79 17 126/74 (91) 92 98.7 05/13/25 21:53 82 129/68 05/13/25 21:30 98.0 82 17 129/68 (88) 93 98.0 05/13/25 21:30 98.0 82 17 129/68 (88) 93 98.0 05/13/25 21:18 98.0 82 17 129/68 (88) 93 98.0 05/13/25 21:18 98.0 82 17 129/68 (88) 93 98.0 Medications Medications Dose Ordered Sig/Promise Route Start Time Stop Time Status Last Admin Dose Admin Atorvastatin Calcium 20 mg QPM PO 05/13/25 18:00 05/13/25 17:44 20 MG Levofloxacin/ Dextrose 100 ml @ 100 mls/hr ONCE ONCE IV 05/13/25 21:15 05/13/25 22:14 DC 05/14/25 00:00 100 MLS/HR Labs/Xrays Labs Test 05/13/25 18:26 05/13/25 13:30 05/13/25 12:44 05/13/25 12:27 Range/Units Prothrombin Time 10.7 9.3-11.8 sec Prothrombin Time INR 1.01 0.9-1.15 Activated Partial Thromboplast Time 27.1 24.5-34.5 SEC Troponin I High Sensitivity 8 </=54 ng/L White Blood Count 12.2 H 4.4-10.8 10^3/uL Red Blood Count 3.47 L 4.5-5.90 10^6/uL Hemoglobin 11.8 L 13.5-17.5 g/dL Hematocrit 34.7 L 41.0-53.0 % Mean Corpuscular Volume 99.8 80.0-100.0 fL Mean Corpuscular Hemoglobin 34.0 H 28.0-32.0 pg Mean Corpuscular Hemoglobin Concent 34.0 32.0-36.0 g/dL Red Cell Distribution Width 13.8 11.8-14.3 % Platelet Count 256 140-450 10^3/uL Mean Platelet Volume 7.9 6.9-10.8 fL Neutrophils (%) (Auto) 79.6 37.0-80.0 % Lymphocytes (%) (Auto) 11.0 10.0-50.0 % Monocytes (%) (Auto) 8.5 0.0-12.0 % Eosinophils (%) (Auto) 0.5 0.0-7.0 % Basophils (%) (Auto) 0.4 0.0-2.0 % Neutrophils # (Auto) 9.7 H 1.6-8.6 10 ^3/uL Lymphocytes # (Auto) 1.3 0.4-5.4 10 ^3/uL Monocytes # (Auto) 1.0 0-1.3 10 ^3/uL Eosinophils # (Auto) 0.1 0-0.8 10 ^3/uL Basophils # (Auto) 0 0-0.2 10 ^3/uL Nucleated Red Blood Cells 0.1 % Sodium Level 138 136-145 mmol/L Potassium Level 4.1 3.5-5.1 mmol/L Chloride Level 105 98-107 mmol/L Carbon Dioxide Level 23 20-31 mmol/L Anion Gap 10 5-15 Blood Urea Nitrogen 24 H 9-23 mg/dL Creatinine 1.34 H 0.700-1.30 mg/dL Glomerular Filtration Rate Calc 54 >90 mL/min BUN/Creatinine Ratio 17.9 10.0-20.0 Serum Glucose 103 74-106 mg/dL Calcium Level 9.6 8.7-10.4 mg/dL Urine Color Yellow Yellow Urine Clarity Clear Clear Urine pH 5.5 5.0-9.0 Urine Specific [place] 1.016 1.001-1.035 Urine Protein Trace H Negative Urine Ketones Negative Negative Urine Blood 1+ H Negative /uL Urine Nitrite Negative Negative Urine Bilirubin Negative Negative Urine Urobilinogen Normal Negative mg/dL Urine Leukocyte Esterase 2+ Negative /uL Urine RBC 5 0 - 3 /hpf Urine Microscopic WBC 68 H 0-3 /HPF Urine Squamous Epithelial Cells Few <5 /hpf Urine Bacteria None seen None Seen /hpf Urine Glucose Normal Normal mg/dL Assessment/Plan Problem List: (1) Fall (2) Fracture of femoral neck, right Plan This is an 79 yo male with known past history of hypertension, hyperlipidemia who presents to the hospital with right hip pain status post mechanical fall. Patient found to have 1. Right femoral head fracture 2. Mechanical Fall 3. Hypertension 4. Acute UTI Plan Admitted to telemetry unit Orthopedic surgeon consultation Cardiology consultation for cardiac clearance, 2D echo Keep NPO after midnight GI ppx IV antibiotic Urine culture Continue home medications Discussed all above with patient who verbalizes agreement and understanding of care plan. All questions were answered. Discussed with admitting/supervising MD. Plan discussed with: Patient, Other Code Visit Code Visit Total Time (mins): 45 Additional Comments Additional Comments Additional Comments Patient's chart is reviewed and discussed with the nurse practitioner. Patient is seen and evaluated and admitted by nurse practitioner. I agree with her evaluation, documentation, assessment and care plan as outlined. Patient is seen and evaluated by me earlier today. TAPAN CARDENAS May 14, 2025 05:02 CAMMY RUSSELL MD May 14, 2025 15:34
[2025-05-14] MEDS: FAMOTIDINE 20 MG TAB PO SCH (10:00)
[2025-05-14] MEDS ORDERED: VANCOMYCIN HCL 1000 MG VL ONE (12:55)
[2025-05-14] MEDS ORDERED: TETRACAINE 1% INJ 2 ML VIAL IJ ONE (13:00)
[2025-05-14] MEDS ORDERED: MIDAZOLAM HCL 2MG/2ML 2ml VIAL (1mg/ml) ONE (13:02)
[2025-05-14] MEDS ORDERED: ONDANSETRON HCL 4 MG/2 ML VIAL ONE (13:02)
[2025-05-14] MEDS ORDERED: MORPHINE SULF PF 5 MG/10 ML VIAL ONE (13:02)
[2025-05-14] MEDS ORDERED: fentaNYL CITRATE 100 MCG/2 ML VL ONE (13:02)
[2025-05-14] MEDS ORDERED: KETAMINE 50mg/ML 1ml syringe ONE (13:02)
[2025-05-14] MEDS ORDERED: PROPOFOL 10 MG/ML 20 ML IV ONE (13:10)
[2025-05-14] MEDS ORDERED: GLYCOPYRROLATE 0.2 MG/ML 1ML VIAL ONE (13:10)
--- NOTE | 2025-05-14 13:24 | DVHPN2 ---
Date of Progress Note Date of Progress Note Date of Progress Note: 05/14/25 Date of Admission Date of Admission Date of Admission: Date of Admission: May 13, 2025 at 16:15 Overnight Events Overnight events Overnight Events Pt margi pain on PO meds alert oriented , no LANZA Past Medical History Past Medical History Past Medical History see Hand P Family History Family History Family History: Hypertrophic cardiomyopathy G8 MOTHER Pneumonia G8 FATHER Allergies: Coded Allergies: Penicillins (Verified Allergy, Intermediate, HIVES, 05/13/25) Sulfa Antibiotics (Verified Allergy, Intermediate, HIVES, 05/01/25) Home Meds Reported Medications Timolol Maleate (Timolol Maleate Ophthalmi) 0.5 % Xuan, 1 DROP RIGHTEYE BID for G LAUCOMA 05/01/25 Latanoprost (LATANOPROST) 0.005 % Xuan, 1 DROP EACHEYE QPM for GLAUCOMA 05/01/25 Aspirin (Aspirin) 81 Mg Tab, 1 TAB PO QAM for HEART DISEASE 05/01/25 Atorvastatin Calcium (Lipitor) 20 Mg Tab, 1 TAB PO QPM for HIGH CHOLESTEROL 05/01/25 Amlodipine Besylate (Amlodipine Besylate) 10 Mg Tab, 1 TAB PO QAM for HYPERTENSION 05/01/25 Current Medications Current Medications Medications (Trade) Dose Ordered Sig/Promise Route PRN Reason Start Time Stop Time Status Last Admin Atorvastatin Calcium (Lipitor) 20 mg QPM PO 05/13/25 18:00 05/13/25 17:44 Latanoprost (Xalatan) 1 drop QPM EACHEYE 05/13/25 18:00 Patient Own Medication 1 drop BID RIGHTEYE 05/13/25 22:00 Amlodipine Besylate (Norvasc Tablet) 10 mg DAILY PO 05/14/25 10:00 Nitroglycerin (Ntrostat Sublingual) 0.4 mg Q5MINP PRN SL FOR CHEST PAIN 05/13/25 16:15 Morphine Sulfate 2 mg Q30M PRN IV FOR CHEST PAIN 05/13/25 16:15 Ondansetron HCl (Zofran) 4 mg Q4HPRN PRN IV NAUSEA / VOMITING 05/13/25 16:30 Morphine Sulfate 2 mg Q3HPRN PRN IV SEVERE PAIN (7-10 PAIN SCALE) 05/13/25 16:30 Acetaminophen/ Hydrocodone Bitart ([place] 5/325MG Tab) 1 tab Q4HPRN PRN PO MODERATE PAIN (4-6 PAIN SCALE) 05/13/25 16:30 05/13/25 22:01 Famotidine (Pepcid Tablet) 20 mg DAILY PO 05/14/25 10:00 Hydralazine HCl (Apresoline Injection) 10 mg Q6HP PRN IV SBP>150 05/13/25 16:30 Metoprolol Tartrate (Lopressor Tablet) 12.5 mg BID PO 05/13/25 22:00 Levofloxacin/ Dextrose 100 ml @ 100 mls/hr DAILY IV 05/14/25 10:00 Physical Examination General Examination: Last Vital sign Vital Signs Date Time Temp Pulse Resp B/P (MAP) Pulse Ox O2 Delivery O2 Flow Rate FiO2 05/14/25 09:00 97.9 78 18 132/74 (93) 83 97.9 05/13/25 23:17 Nasal Cannula* 2 28 General: General: No apparent distress, appears comfortable. Cooperative. Extremities: Right groin pain with PROM right LE, NVI right LE Skin: intact Neurological Examination: Neurological Examination: Mental Status: Cranial Nerves: Motor Examination: Reflexes: Sensory: Coordination: Gait: NVI Labs: Labs: Laboratory Tests Test 05/13/25 12:27 05/13/25 12:44 05/13/25 13:30 05/13/25 18:26 Range/Units Urine Color Yellow Yellow Urine Clarity Clear Clear Urine pH 5.5 5.0-9.0 Urine Specific [place] 1.016 1.001-1.035 Urine Protein Trace H Negative Urine Ketones Negative Negative Urine Blood 1+ H Negative /uL Urine Nitrite Negative Negative Urine Bilirubin Negative Negative Urine Urobilinogen Normal Negative mg/dL Urine Leukocyte Esterase 2+ Negative /uL Urine RBC 5 0 - 3 /hpf Urine Microscopic WBC 68 H 0-3 /HPF Urine Squamous Epithelial Cells Few <5 /hpf Urine Bacteria None seen None Seen /hpf Urine Glucose Normal Normal mg/dL White Blood Count 12.2 H 4.4-10.8 10^3/uL Red Blood Count 3.47 L 4.5-5.90 10^6/uL Hemoglobin 11.8 L 13.5-17.5 g/dL Hematocrit 34.7 L 41.0-53.0 % Mean Corpuscular Volume 99.8 80.0-100.0 fL Mean Corpuscular Hemoglobin 34.0 H 28.0-32.0 pg Mean Corpuscular Hemoglobin Concent 34.0 32.0-36.0 g/dL Red Cell Distribution Width 13.8 11.8-14.3 % Platelet Count 256 140-450 10^3/uL Mean Platelet Volume 7.9 6.9-10.8 fL Neutrophils (%) (Auto) 79.6 37.0-80.0 % Lymphocytes (%) (Auto) 11.0 10.0-50.0 % Monocytes (%) (Auto) 8.5 0.0-12.0 % Eosinophils (%) (Auto) 0.5 0.0-7.0 % Basophils (%) (Auto) 0.4 0.0-2.0 % Neutrophils # (Auto) 9.7 H 1.6-8.6 10 ^3/uL Lymphocytes # (Auto) 1.3 0.4-5.4 10 ^3/uL Monocytes # (Auto) 1.0 0-1.3 10 ^3/uL Eosinophils # (Auto) 0.1 0-0.8 10 ^3/uL Basophils # (Auto) 0 0-0.2 10 ^3/uL Nucleated Red Blood Cells 0.1 % Sodium Level 138 136-145 mmol/L Potassium Level 4.1 3.5-5.1 mmol/L Chloride Level 105 98-107 mmol/L Carbon Dioxide Level 23 20-31 mmol/L Anion Gap 10 5-15 Blood Urea Nitrogen 24 H 9-23 mg/dL Creatinine 1.34 H 0.700-1.30 mg/dL Glomerular Filtration Rate Calc 54 >90 mL/min BUN/Creatinine Ratio 17.9 10.0-20.0 Serum Glucose 103 74-106 mg/dL Calcium Level 9.6 8.7-10.4 mg/dL Troponin I High Sensitivity 7 8 </=54 ng/L Prothrombin Time 10.7 9.3-11.8 sec Prothrombin Time INR 1.01 0.9-1.15 Activated Partial Thromboplast Time 27.1 24.5-34.5 SEC Imaging Imaging: XR 05/13/25 right hip femoral neck fracture, displaced Assessment/Plan Assessment/Plan Assessment and Plan:Darian Starr is a 79 year old male who presents with right hip femoral neck fracture, displaced, consented for Right hip holli arthroplasty, with full understanding of risks and benefits. Plan discussed with: Patient YUDITH SUBRAMANIAN MD May 14, 2025 13:24
[2025-05-14] MEDS: ceFAZolin 2 GM/D5W50ml 50 ML IV ONE (13:40)
[2025-05-14] MEDS: CEFEPIME 1GM/ 50ML 50 ML IV ONE (13:45)
[2025-05-14] MEDS: TRANEXAMIC ACID 20 ML ONE (13:50)
[2025-05-14] MEDS: VANCOMYCIN HCL 1000 MG VL ONE (14:47)
[2025-05-14 14:51] LABS: Urine Protein, UAD TRACE (Negative); Urine WBC Clumps PRESENT /hpf (None Seen)
--- NOTE | 2025-05-14 15:16 | DVHOP2 ---
Operative Report - 2 Report Details Date: 05/14/25 Preop Diagnosis: Right femoral neck fracture, displaced Postop Diagnosis: same Surgeon: Yudith Agosto MD Ethylene Plant Operator: none Anesthesiologist: Dr Cardozo Anesthesia: Regional Drains: none Implant: holli hip, cemented, size 5, depuy, std neck, 53 hd Consent: The patient was informed of the risks and benefits of the procedure. These include but are not limited to complications of anesthesia, postoperative infection, incomplete relief of symptoms, recurrence of symptoms, damage to blood vessels, nerves and tendons, deep venous thrombosis, pulmonary embolism and possible need for repeat surgery in the future. Complications: none Estimated Blood Loss: 150 cc Fluids: 1500 cc Findings: displaced right femoral neck fracture Indications for Surgery: displaced right femoral neck fracture with expected AVN non union, subsequent poor ambulation and comorbitdities associated with poor ambulation Name of Procedure Performed Right hip cemented hemiarthroplasty Procedure Details Procedure Details: Patient brought into the operating room given Ancef 1 g IV piggyback preopera tively Miller placed very cloudy urine seen expressed from Miller PTP Dr. Foote was called left message with his office for recommendation of broad-spectrum antibiotics urine also sent for culture a spinal anesthetic without complication placed into left lateral decubitus position with axillary roll padding beneath between both knees tympanic beneath and between both arms had an anatomic position padded post right ASIS left lower back to hold into lateral decubitus position sterile prep and drape right hip and lower extremity time-out performed confirmation right side correct side right hip hemiarthroplasty correct procedure after review of the operative consent history and physical and my initials on right buttock standard Teddy Langenbach incision made centered over tip of greater trochanter sharp dissection through skin down to deep fascia deep fascia divided with Bovie cautery tensor fascia eugenio retracted anteriorly gluteus briana posteriorly internal rotation of the leg exposing the external rotators and capsule which were divided off the proximal femur with the Bovie cautery then tearing of the capsule allowing access to the hip joint Momin elevator placed in the hip joint and hip dislocated and femoral neck and RN head removed through fracture site rongeur to smooth off the fractured neck then lateral lateralizing Reamer used to a lateralized greater troch and a put cookie cutter and canal Finder and broaches to prepare canal a significant poor bone quality therefore no press fit and some and yes cementing done broaching up to size 5 standard neck trial with a 53 head and excellent stability with extension external rotation no vertical shocking and excellent stability of the flexion to 98 adduction to 20 internal rotation to 90 true component there for cemented into place using 3rd generation cement technique specifically distal cement restrictor pressurization of cement suction and irrigation of canal vacuum mixing of cement she will components and tapped into place a standard neck and 53 bipolar head irrigation of the acetabulum for any loose fragments and scar and true component cemented urged reduced and excellent stability noted external rotation extension flexion 98 reduction 20 internal rotation to 90 excellent hemostasis noted irrigation performed vancomycin placed deep to the fascia capsule repaired with the attached external rotators the deep fascia repaired with simple interrupted 0 Vicryl suture subcutaneous 2-0 Vicryl suture in a chris fluffs ABD paper tape no drainage specimens complications Specimen: none Condition Stable Disposition Still a Patient YUDITH AGOSTO MD May 14, 2025 15:16
[2025-05-14] MEDS ORDERED: BISACODYL 5 MG EC TAB PO PRN (15:30)
[2025-05-14] MEDS ORDERED: NALOXONE HCL 0.4 MG/ML VIAL IV PRN (15:30)
[2025-05-14] MEDS ORDERED: ONDANSETRON HCL 4 MG/2 ML VIAL IV PRN (15:30)
[2025-05-14] MEDS ORDERED: diphenhdrAMINE HCL 50 MG/1 ML VL IV PRN (15:30)
--- NOTE | 2025-05-14 15:54 | DVH ---
CLINICAL INDICATION: holli HIP ARTHROPLASTY TECHNIQUE: AP view of the pelvis and cross-table lateral view of the right hip were performed. XY R HIP COMPLETE XRAY Comparison: XY R HIP COMPLETE XRAY on DOS: 05/13/25 FINDINGS/IMPRESSION: 1. Interval postoperative changes of right total hip arthroplasty, without evidence of periprosthetic fracture, dislocation, or other complication. 2. Atherosclerotic calcifications of the iliac and proximal femoral arteries. There is a right SFA s tent, not fully imaged here.
--- NOTE | 2025-05-14 16:40 | DVHSR ---
APPROVED REPORT EXAM: LIMITED Two-dimensional and M-mode echocardiogram with Doppler and color Doppler. Blood Pressure: 122/68 mmHg INDICATION htn, hip fix RISK FACTORS Height: 5'8, Weight: 158 DIMENSIONS EF (%) 55.0 (55-70%)Rt. Atrium (1.9-4.0cm)Asc. Aorta cm Mitral Valve MitralMitral Stenosis E wave0.91m/sMV Mean GR.mmHg A wave1.53m/sMV Peak GR.mmHg E/A ratio0.62D MVAcm2 DECEL [id number] 1/2 Timems Aortic Valve Aortic ValveAortic Stenosis V10.92m/[place] Mean GR.2mmHg V20.99m/[place] Peak GR.4mmHg LVOT Diameter2.2 (1.8-2.4cm)Doppler AVA3.53cm2 Other Information Technically limited study due to pt had broken hip unable to turn or move leaning on right side.body habitus. Conclusion Sinus rhythm. Technically difficult study. Difficult acoustic windows. Off axis views. Normal chamber sizes. Valves are normal. Left ventricular function appears preserved. EF of 60% with normal RV function. Doppler appears unremarkable. No pericardial effusion masses or vegetations.
[2025-05-14] MEDS: LACTATED RINGER'S 1,000 ML IV SCH (17:10)
[2025-05-14] MEDS ORDERED: CLINDAMYCIN 600MG IV 50 ML IV SCH (18:00)
[2025-05-14] MEDS: ACETAMINOPHEN IV 1000 MG/100ML (10MG/ML) IV ONE (18:09)
[2025-05-14] MEDS: ceFAZolin 1GM/50ML 50 ML IV SCH (18:52)
[2025-05-14] MEDS: ALBUTEROL SULF 2.5 MG/0.5ML(0.5%) NEB SOLN NEB SCH (19:09)
[2025-05-14] MEDS: IPRATROPIUM BROM 0.5 MG/2.5ML INH SOL NEB SCH (19:09)
[2025-05-14] MEDS: DOCUSATE SOD 100 MG CAP PO SCH (21:18)
[2025-05-14] MEDS: ENOXAPARIN SOD 80 MG/0.8ML SYRINGE SC SCH (21:19)
[2025-05-14] MEDS ORDERED: ENOXAPARIN SOD 30 MG/0.3 ML SYRINGE SC SCH (22:00)
[2025-05-14] MEDS: BUDESONIDE (INHALATION) 0.5 MG/2 ML NEB NEB SCH (22:40)
[2025-05-15] VITALS (12 sets, daily range): BP systolic 101–111; BP diastolic 54–61; PULSE 61–95; RESP 15–19; TEMP 97.8–98.3; O2SAT 85–98
[2025-05-15 05:59] LABS: Hematocrit 29.8 % (41.0-53.0); Hemoglobin 10.2 g/dL (13.5-17.5)
[2025-05-15 06:00] LABS: Chloride 102 mmol/L (98-107); Potassium 4.4 mmol/L (3.5-5.1)
[2025-05-15 06:01] LABS: Anion Gap 5 (5-15); Carbon Dioxide 25 mmol/L (20-31)
[2025-05-15 06:06] LABS: BUN/Creatinine Ratio 14.7 (10.0-20.0); Blood Urea Nitrogen 16 mg/dL (9-23); Glucose 97 mg/dL (74-106)
[2025-05-15 06:14] LABS: Calcium 8.2 mg/dL (8.7-10.4); Sodium 132 mmol/L (136-145)
--- NOTE | 2025-05-15 10:30 | DVHPN2 ---
Progress Note Date Seen: May 15, 2025 Medical Necessity Reason Pt with a Central, PICC or Fol: No Subjective Patient reports: No new complaints Objective vital signs Vital Sign Date Time Temp Pulse Resp B/P (MAP) Pulse Ox O2 Delivery O2 Flow Rate FiO2 05/15/25 09:36 90 101/59 05/15/25 09:00 98.1 17 98 98.1 05/14/25 22:40 Nasal Cannula* 3 32 Total Intake and Output 05/14/25 05/14/25 05/15/25 15:00 23:00 07:00 Intake Total 220 ml 445 ml 0 ml Output Total 1000 ml 600 ml 650 ml Balance -780 ml -155 ml -650 ml medications Current Medications Medications Dose Ordered Sig/Promise Route Start Time Stop Time Status Last Admin Dose Admin Atorvastatin Calcium 20 mg QPM PO 05/13/25 18:00 05/14/25 18:08 20 MG Latanoprost 1 drop QPM EACHEYE 05/13/25 18:00 Patient Own Medication 1 drop BID RIGHTEYE 05/13/25 22:00 Amlodipine Besylate 10 mg DAILY PO 05/14/25 10:00 Nitroglycerin 0.4 mg Q5MINP PRN SL 05/13/25 16:15 Morphine Sulfate 2 mg Q30M PRN IV 05/13/25 16:15 Ondansetron HCl 4 mg Q4HPRN PRN IV 05/13/25 16:30 Cancel Morphine Sulfate 2 mg Q3HPRN PRN IV 05/13/25 16:30 Acetaminophen/ Hydrocodone Bitart 1 tab Q4HPRN PRN PO 05/13/25 16:30 05/15/25 09:22 1 TAB Famotidine 20 mg DAILY PO 05/14/25 10:00 05/15/25 09:22 20 MG Hydralazine HCl 10 mg Q6HP PRN IV 05/13/25 16:30 Metoprolol Tartrate 12.5 mg BID PO 05/13/25 22:00 Levofloxacin/ Dextrose 100 ml @ 100 mls/hr DAILY IV 05/14/25 10:00 05/15/25 09:22 100 MLS/HR Lactated Ringer's 1,000 ml @ 100 mls/hr Q10H IV 05/14/25 15:30 05/14/25 17:10 100 MLS/HR Docusate Sodium 100 mg Q12HR PO 05/14/25 22:00 Bisacodyl 5 mg Q12HP PRN PO 05/14/25 15:30 Diphenhydramine HCl 12.5 mg Q4HP PRN IV 05/14/25 15:30 Ondansetron HCl 4 mg Q4HP PRN IV 05/14/25 15:30 Ketorolac Tromethamine 15 mg Q6HP PRN IV 05/14/25 15:30 05/19/25 15:29 Albuterol 1.25 mg Q4HWA [facility] 05/14/25 18:00 05/14/25 22:40 1.25 MG Ipratropium [place] 0.5 mg Q4HWA [facility] 05/14/25 18:00 05/14/25 22:40 0.5 MG Budesonide 0.5 mg BID [facility] 05/14/25 22:00 05/14/25 22:40 0.5 MG Enoxaparin Sodium 70 mg BID SC 05/14/25 22:00 05/15/25 09:22 70 MG Examination: GENERAL:Normal, MSK:Abnormal laboratory and microbiology Laboratory Tests 05/15/25 04:54 05/13/25 12:44 Test 05/15/25 04:54 Range/Units Serum Glucose 97 74-106 mg/dL Microbiology Date/Time Source Procedure Growth Status 05/13/25 12:27 Urine - Catheterized Urine Culture - Preliminary Resulted Problem List/Assessment/Plan Problem List/Assessment/Plan 79 year old male who is s/p right hip holli POD 1 1. Pain control 2. WBAT 3. DVT pprx 4. physical therapy 5. plan to follow up in [address] Kieth at [facility] ortho clinic 6. clear for discharge from orthopedic standpoint 7. current dressing to remain clean, dry and intact until first postop visit Plan discussed with: Patient Date of Service: May 15, 2025 Billing Provider: JACK TOLLIVER MD Common Visit Codes: NOT BILLABLE SHWETA CASTILLO NP May 15, 2025 10:30
[2025-05-15] MEDS ORDERED: IOHEXOL 350 MG/ML 100ML IJ ONE (13:58)
--- NOTE | 2025-05-15 14:39 | DVH ---
CT CT ANGIO CHEST CONTRAST INDICATION: sob EXAM DATE: 05/15/2025 01:56 PM COMPARISON: None RADIATION DOSE: CTDIvol: 19.98 mGy, DLP: 668.97 mGy*cm PROCEDURE: Helical CT angiographic images were obtained of the chest with intravenous contrast. Sagi ttal and coronal reconstructions as well as MIPS are provided. Maximum intensity projections performe d (MIPs) were performed for CTA. ADDITIONAL IMAGES / REFORMATS: None All CT scans at this medical facility are performed using dose modulation techniques as appropriate t o a performed exam including the following: Automated exposure control was utilized; adjustment of th e MA and/or KV according to patient size; and use of iterative reconstruction technique. FINDINGS: Bones: Scattered degenerative changes are noted in the visualized osseous structures. Visualized Abdomen: Normal. Chest Wall: Normal. Soft tissues: Normal. Mediastinum: Normal. Heart: Normal. Vessels: No filling defects in the visualized pulmonary arteries including the segmental and subsegme ntal pulmonary arteries. Lymph Nodes: Normal. Pleura: Normal. Airways: Right apical pleural scarring with trace left pleural effusion. Lung: Moderate lung emphysema. Bibasilar consolidation with a small 2.1 cm left basilar cavity, which could be a cyst. 5 mm RUL pulmonary nodule. Other: None IMPRESSION: No pulmonary embolism in the visualized pulmonary arteries including the segmental and subsegmental p ulmonary arteries. Moderate lung emphysema. Bibasilar consolidation with a small 2.1 cm left basilar cavity, which could be a cyst. 5 mm RUL pulmonary nodule. Right apical pleural scarring with trace left pleural effusion.
--- NOTE | 2025-05-15 15:42 | DVHPN2 ---
Progress Note - Dictate Date Seen: May 15, 2025 Medical Necessity Reason Pt with a Central, PICC or Fol: No Subjective Patient clinically stable. at bedside. However patient is on 4-5 L of oxygen via nasal cannula. He apparently did refused breathing treatments today. vital signs Vital Sign Date Time Temp Pulse Resp B/P (MAP) Pulse Ox O2 Delivery O2 Flow Rate FiO2 05/15/25 13:00 97.9 89 19 109/59 (76) 94 97.9 05/15/25 10:00 Nasal Cannula 4.0 05/15/25 08:00 36 Total Intake and Output 05/14/25 05/14/25 05/15/25 15:00 23:00 07:00 Intake Total 220 ml 445 ml 0 ml Output Total 1000 ml 600 ml 650 ml Balance -780 ml -155 ml -650 ml medications Current Medications Medications Dose Ordered Sig/Promise Route Start Time Stop Time Status Last Admin Dose Admin Atorvastatin Calcium 20 mg QPM PO 05/13/25 18:00 05/14/25 18:08 20 MG Latanoprost 1 drop QPM EACHEYE 05/13/25 18:00 Patient Own Medication 1 drop BID RIGHTEYE 05/13/25 22:00 Amlodipine Besylate 10 mg DAILY PO 05/14/25 10:00 Nitroglycerin 0.4 mg Q5MINP PRN SL 05/13/25 16:15 Morphine Sulfate 2 mg Q30M PRN IV 05/13/25 16:15 Ondansetron HCl 4 mg Q4HPRN PRN IV 05/13/25 16:30 Cancel Morphine Sulfate 2 mg Q3HPRN PRN IV 05/13/25 16:30 Acetaminophen/ Hydrocodone Bitart 1 tab Q4HPRN PRN PO 05/13/25 16:30 05/15/25 09:22 1 TAB Famotidine 20 mg DAILY PO 05/14/25 10:00 05/15/25 09:22 20 MG Hydralazine HCl 10 mg Q6HP PRN IV 05/13/25 16:30 Metoprolol Tartrate 12.5 mg BID PO 05/13/25 22:00 Levofloxacin/ Dextrose 100 ml @ 100 mls/hr DAILY IV 05/14/25 10:00 05/15/25 09:22 100 MLS/HR Docusate Sodium 100 mg Q12HR PO 05/14/25 22:00 Bisacodyl 5 mg Q12HP PRN PO 05/14/25 15:30 Diphenhydramine HCl 12.5 mg Q4HP PRN IV 05/14/25 15:30 Ondansetron HCl 4 mg Q4HP PRN IV 05/14/25 15:30 Ketorolac Tromethamine 15 mg Q6HP PRN IV 05/14/25 15:30 05/19/25 15:29 Albuterol 1.25 mg Q4HWA NEB 05/14/25 18:00 05/14/25 22:40 1.25 MG Ipratropium Sandy 0.5 mg Q4HWA NEB 05/14/25 18:00 05/14/25 22:40 0.5 MG Budesonide 0.5 mg BID NEB 05/14/25 22:00 05/14/25 22:40 0.5 MG Apixaban 2.5 mg BID PO 05/16/25 09:00 06/20/25 08:59 Methylprednisolone Sodium Succinate 20 mg Q6HR IV 05/15/25 18:00 objective Comfortable in bed. Alert awake oriented to place and person. HEENT neck supple no JVD. Heart regular rate and rhythm S1-S2. Lungs without rales wheezes. Diminished breath sounds in the bases. Abdomen soft positive bowel sounds. Extremities no edema. laboratory and microbiology Laboratory Tests 05/15/25 04:54 05/13/25 12:44 Test 05/15/25 04:54 Range/Units Serum Glucose 97 74-106 mg/dL Assessment/Plan Patient underwent successful right hip surgery yesterday. Patient has history of smoking with COPD. I will order a CT angio of the chest to rule out PE. Otherwise I educated patient as well as his that patient would benefit from incentive spirometry and continue to be on breathing treatments for his COPD given the hypoxemia. Otherwise continue physical therapy consider removing Miller catheter post ambulation and discharge plan to [facility] hopefully tomorrow. Discussed with the nurse as well at bedside Problems(with codes): (1) COPD (chronic obstructive pulmonary disease) (2) Fall (3) Fracture of femoral neck, right Plan discussed with: Patient, Spouse CAMMY RUSSELL MD May 15, 2025 15:42
[2025-05-15] MEDS: methylPREDNISolone SOD SUCC 40 MG/ML VL IV SCH (17:24)
[2025-05-15] MEDS ORDERED: FINA5TAB4 PO (17:46)
[2025-05-16] VITALS (17 sets, daily range): BP systolic 108–127; BP diastolic 56–76; PULSE 71–89; RESP 17–92; TEMP 97.4–98.7; O2SAT 90–99
[2025-05-16 05:58] LABS: Hematocrit 28.5 % (41.0-53.0); Hemoglobin 9.8 g/dL (13.5-17.5)
[2025-05-16] MEDS: APIXABAN 2.5 MG TAB PO SCH (09:57)
--- NOTE | 2025-05-16 11:10 | DVHPN2 ---
Date of Progress Note Date of Progress Note Date of Progress Note: 05/16/25 Date of Admission Date of Admission Date of Admission: Date of Admission: May 13, 2025 at 16:15 Overnight Events Overnight events Overnight Events Pt margi pain on PO meds, difficulty with PT, gordillo in place Past Medical History Past Medical History Past Medical History see Hand P Family History Family History Family History: Hypertrophic cardiomyopathy G8 MOTHER Pneumonia G8 FATHER Allergies: Coded Allergies: Penicillins (Verified Allergy, Intermediate, HIVES, 05/13/25) Sulfa Antibiotics (Verified Allergy, Intermediate, HIVES, 05/01/25) Home Meds Reported Medications Finasteride (Finasteride) 5 Mg Tab, 5 MG PO DAILY for ENLARGED PROSTATE for 30 Days, MG 05/15/25 Timolol Maleate (Timolol Maleate Ophthalmi) 0.5 % Xuan, 1 DROP RIGHTEYE BID for GLAUCOMA 05/01/25 Latanoprost (LATANOPROST) 0.005 % Xuan, 1 DROP EACHEYE QPM for GLAUCOMA 05/01/25 Aspirin (Aspirin) 81 Mg Tab, 1 TAB PO QAM for HEART DISEASE 05/01/25 Atorvastatin Calcium (Lipitor) 20 Mg Tab, 1 TAB PO QPM for HIGH CHOLESTEROL 05/01/25 Amlodipine Besylate (Amlodipine Besylate) 10 Mg Tab, 1 TAB PO QAM for HYPERTENSION 05/01/25 Current Medications Current Medications Medications (Trade) Dose Ordered Sig/Promise Route PRN Reason Start Time Stop Time Status Last Admin Apixaban (Eliquis) 2.5 mg BID PO 05/16/25 10:00 06/20/25 09:59 05/16/25 09:57 Methylprednisolone Sodium Succinate (Solu Medrol) 20 mg Q6HR IV 05/15/25 18:00 05/16/25 05:41 Physical Examination General Examination: Last Vital sign Vital Signs Date Time Temp Pulse Resp B/P (MAP) Pulse Ox O2 Delivery O2 Flow Rate FiO2 05/16/25 09:58 74 127/56 05/16/25 09:42 18 95 05/16/25 09:36 Nasal Cannula* 3 32 05/16/25 08:47 98.6 98.6 General: General: No apparent distress, appears comfortable. Cooperative. HEENT: Alert/oriented x4 Extremities: Right LE, 0/5 dorsiflexion and eversion of foot, nl capp refill Skin: no drainage Neurological Examination: Neurological Examination: Mental Status: Cranial Nerves: Motor Examination: Reflexes: Sensory: Coordination: Gait: Right foot drop , consistent with L5 neuropathy Labs: Labs: Laboratory Tests Test 05/13/25 12:27 05/13/25 12:44 05/13/25 13:30 05/13/25 18:26 Range/Units Urine Color Yellow Yellow Urine Clarity Clear Clear Urine pH 5.5 5.0-9.0 Urine Specific [place] 1.016 1.001-1.035 Urine Protein Trace H Negative Urine Ketones Negative Negative Urine Blood 1+ H Negative /uL Urine Nitrite Negative Negative Urine Bilirubin Negative Negative Urine Urobilinogen Normal Negative mg/dL Urine Leukocyte Esterase 2+ Negative /uL Urine RBC 5 0 - 3 /hpf Urine Microscopic WBC 68 H 0-3 /HPF Urine Squamous Epithelial Cells Few <5 /hpf Urine Bacteria None seen None Seen /hpf Urine Glucose Normal Normal mg/dL White Blood Count 12.2 H 4.4-10.8 10^3/uL Red Blood Count 3.47 L 4.5-5.90 10^6/uL Hemoglobin 11.8 L 13.5-17.5 g/dL Hematocrit 34.7 L 41.0-53.0 % Mean Corpuscular Volume 99.8 80.0-100.0 fL Mean Corpuscular Hemoglobin 34.0 H 28.0-32.0 pg Mean Corpuscular Hemoglobin Concent 34.0 32.0-36.0 g/dL Red Cell Distribution Width 13.8 11.8-14.3 % Platelet Count 256 140-450 10^3/uL Mean Platelet Volume 7.9 6.9-10.8 fL Neutrophils (%) (Auto) 79.6 37.0-80.0 % Lymphocytes (%) (Auto) 11.0 10.0-50.0 % Monocytes (%) (Auto) 8.5 0.0-12.0 % Eosinophils (%) (Auto) 0.5 0.0-7.0 % Basophils (%) (Auto) 0.4 0.0-2.0 % Neutrophils # (Auto) 9.7 H 1.6-8.6 10 ^3/uL Lymphocytes # (Auto) 1.3 0.4-5.4 10 ^3/uL Monocytes # (Auto) 1.0 0-1.3 10 ^3/uL Eosinophils # (Auto) 0.1 0-0.8 10 ^3/uL Basophils # (Auto) 0 0-0.2 10 ^3/uL Nucleated Red Blood Cells 0.1 % Sodium Level 138 136-145 mmol/L Potassium Level 4.1 3.5-5.1 mmol/L Chloride Level 105 98-107 mmol/L Carbon Dioxide Level 23 20-31 mmol/L Anion Gap 10 5-15 Blood Urea Nitrogen 24 H 9-23 mg/dL Creatinine 1.34 H 0.700-1.30 mg/dL Glomerular Filtration Rate Calc 54 >90 mL/min BUN/Creatinine Ratio 17.9 10.0-20.0 Serum Glucose 103 74-106 mg/dL Calcium Level 9.6 8.7-10.4 mg/dL Troponin I High Sensitivity 7 8 </=54 ng/L Prothrombin Time 10.7 9.3-11.8 sec Prothrombin Time INR 1.01 0.9-1.15 Activated Partial Thromboplast Time 27.1 24.5-34.5 SEC Test 05/14/25 14:10 05/15/25 04:54 05/16/25 04:58 Range/Units Urine Color Light-brown Yellow Urine Clarity Ex.turbid Clear Urine pH 5.5 5.0-9.0 Urine Specific [place] 1.013 1.001-1.035 Urine Protein Trace H Negative Urine Ketones Trace Negative Urine Blood 1+ H Negative /uL Urine Nitrite Negative Negative Urine Bilirubin Negative Negative Urine Urobilinogen Normal Negative mg/dL Urine Leukocyte Esterase 3+ Negative /uL Urine RBC 32 0 - 3 /hpf Urine WBC Clumps Present None Seen /hpf Urine Microscopic WBC 1778 H 0-3 /HPF Urine Squamous Epithelial Cells None seen <5 /hpf Urine Bacteria None seen None Seen /hpf Urine Glucose Normal Normal mg/dL Hemoglobin 10.2 L 9.8 L 13.5-17.5 g/dL Hematocrit 29.8 #L 28.5 L 41.0-53.0 % Sodium Level 132 #L 136-145 mmol/L Potassium Level 4.4 3.5-5.1 mmol/L Chloride Level 102 98-107 mmol/L Carbon Dioxide Level 25 20-31 mmol/L Anion Gap 5 5-15 Blood Urea Nitrogen 16 9-23 mg/dL Creatinine 1.09 0.700-1.30 mg/dL Glomerular Filtration Rate Calc 69 >90 mL/min BUN/Creatinine Ratio 14.7 10.0-20.0 Serum Glucose 97 74-106 mg/dL Calcium Level 8.2 L 8.7-10.4 mg/dL Imaging Imagin05/14/25 Left hip hemiarthroplasty, no fracture, well aligned Assessment/Plan Assessment/Plan Assessment and Plan:Darian Starr is a 79 year old male POD 2 s/p Right hip hemiarthroplasty for femoral neck fracture, with Right L5 motor neuropathy, UTI sepsis 1) defer rx of UTI to internal med 2) walker boot Right LE, PT and nurse advised, verbal order placed 3) resume PT with walker boot Plan discussed with: Patient YUDITH SUBRAMANIAN MD May 16, 2025 11:10
[2025-05-16] MEDS: FINASTERIDE 5 MG TAB PO ONE (12:02)
[2025-05-16] MEDS: KETOROLAC TROMETH 30 MG/ML 1ML VIAL IV PRN (12:17)
--- NOTE | 2025-05-16 13:18 | DVHPN2 ---
Progress Note - Dictate Date Seen: May 16, 2025 Medical Necessity Reason Pt with a Central, PICC or Fol: No Subjective Patient clinically stable. Still feels weak. Not participating much with the physical therapy due to right foot drop. Re-evaluated by surgeon and patient to have a foot orthotic today. vital signs Vital Sign Date Time Temp Pulse Resp B/P (MAP) Pulse Ox O2 Delivery O2 Flow Rate FiO2 05/16/25 09:58 74 127/56 05/16/25 09:42 18 95 05/16/25 09:36 Nasal Cannula* 3 32 05/16/25 08:47 98.6 98.6 Total Intake and Output 05/15/25 05/15/25 05/16/25 15:00 23:00 07:00 Intake Total 100 ml 0 ml 0 ml Output Total 300 ml 0 ml Balance 100 ml -300 ml 0 ml medications Current Medications Medications Dose Ordered Sig/Promise Route Start Time Stop Time Status Last Admin Dose Admin Atorvastatin Calcium 20 mg QPM PO 05/13/25 18:00 05/15/25 17:23 20 MG Latanoprost 1 drop QPM EACHEYE 05/13/25 18:00 05/15/25 17:25 1 DROP Patient Own Medication 1 drop BID RIGHTEYE 05/13/25 22:00 05/16/25 09:56 1 DROP Amlodipine Besylate 10 mg DAILY PO 05/14/25 10:00 05/16/25 09:57 10 MG Nitroglycerin 0.4 mg Q5MINP PRN SL 05/13/25 16:15 Morphine Sulfate 2 mg Q30M PRN IV 05/13/25 16:15 Ondansetron HCl 4 mg Q4HPRN PRN IV 05/13/25 16:30 Cancel Morphine Sulfate 2 mg Q3HPRN PRN IV 05/13/25 16:30 Acetaminophen/ Hydrocodone Bitart 1 tab Q4HPRN PRN PO 05/13/25 16:30 05/15/25 17:38 1 TAB Famotidine 20 mg DAILY PO 05/14/25 10:00 05/16/25 09:56 20 MG Hydralazine HCl 10 mg Q6HP PRN IV 05/13/25 16:30 Metoprolol Tartrate 12.5 mg BID PO 05/13/25 22:00 05/16/25 09:58 12.5 MG Levofloxacin/ Dextrose 100 ml @ 100 mls/hr DAILY IV 05/14/25 10:00 05/16/25 10:01 100 MLS/HR Docusate Sodium 100 mg Q12HR PO 05/14/25 22:00 05/16/25 09:57 100 MG Bisacodyl 5 mg Q12HP PRN PO 05/14/25 15:30 Diphenhydramine HCl 12.5 mg Q4HP PRN IV 05/14/25 15:30 Ondansetron HCl 4 mg Q4HP PRN IV 05/14/25 15:30 Albuterol 1.25 mg Q4HWA NEB 05/14/25 18:00 05/16/25 09:36 1.25 MG Ipratropium Alpha 0.5 mg Q4HWA NEB 05/14/25 18:00 05/16/25 09:35 0.5 MG Budesonide 0.5 mg BID NEB 05/14/25 22:00 05/16/25 06:25 0.5 MG Apixaban 2.5 mg BID PO 05/16/25 10:00 06/20/25 09:59 05/16/25 09:57 2.5 MG Methylprednisolone Sodium Succinate 20 mg Q6HR IV 05/15/25 18:00 05/16/25 12:01 20 MG Finasteride 5 mg DAILY PO 05/17/25 10:00 Ferrous Sulfate 300 mg DAILY@BREAKFAST PO 05/17/25 08:00 UNV Ascorbic Acid 500 mg DAILY PO 05/17/25 10:00 UNV objective Comfortable in bed. Alert awake oriented to place and person. HEENT neck supple no JVD. Heart regular rate and rhythm S1-S2. Lungs without rales wheezes. Diminished breath sounds in the bases. Abdomen soft positive bowel sounds. Extremities no edema. laboratory and microbiology Laboratory Tests 05/16/25 04:58 05/15/25 04:54 05/13/25 12:44 Test 05/15/25 04:54 Range/Units Serum Glucose 97 74-106 mg/dL Assessment/Plan Oxygenation is improving. Continue current COPD treatment as he is on. Once right foot orthotic his placed re attempt physical therapy. Once he is able to take few steps we will DC Miller catheter. Otherwise continue rest of supportive care and treatment as he is on. If he remains stable consider [facility]. Discussed with the patient and nurse. Problems(with codes): (1) Fall (2) Fracture of femoral neck, right (3) COPD (chronic obstructive pulmonary disease) Plan discussed with: Patient, Other CAMMY RUSSELL MD May 16, 2025 13:18
[2025-05-17] VITALS (14 sets, daily range): BP systolic 107–133; BP diastolic 64–82; PULSE 70–83; RESP 16–94; TEMP 97.2–98.3; O2SAT 90–99
[2025-05-17 07:04] LABS: Hemoglobin 9.7 g/dL (13.5-17.5)
[2025-05-17 07:06] LABS: Hematocrit 28.0 % (41.0-53.0)
[2025-05-17 07:27] LABS: Anion Gap 9 (5-15); Calcium 9.6 mg/dL (8.7-10.4); Chloride 101 mmol/L (98-107); Potassium 4.3 mmol/L (3.5-5.1)
[2025-05-17 07:29] LABS: Carbon Dioxide 20 mmol/L (20-31); Sodium 130 mmol/L (136-145)
[2025-05-17 07:34] LABS: BUN/Creatinine Ratio 26.7 (10.0-20.0)
[2025-05-17 07:36] LABS: Blood Urea Nitrogen 36 mg/dL (9-23); Glucose 117 mg/dL (74-106)
[2025-05-17] MEDS: FERROUS SULFATE 300 MG/5 ML ORAL LIQ PO SCH (10:46)
--- NOTE | 2025-05-17 10:49 | DVHPN2 ---
Date of Progress Note Date of Progress Note Date of Progress Note: 05/17/25 Date of Admission Date of Admission Date of Admission: Date of Admission: May 13, 2025 at 16:15 Overnight Events Overnight events Overnight Events pt recieved walker boot to Right LE, margi PT , margi pain on PO meds Past Medical History Past Medical History Past Medical History see Hand P Family History Family History Family History: Hypertrophic cardiomyopathy G8 MOTHER Pneumonia G8 FATHER Allergies: Coded Allergies: Penicillins (Verified Allergy, Intermediate, HIVES, 05/13/25) Sulfa Antibiotics (Verified Allergy, Intermediate, HIVES, 05/01/25) Home Meds Reported Medications Finasteride (Finasteride) 5 Mg Tab, 5 MG PO DAILY for ENLARGED PROSTATE for 30 Days, MG 05/15/25 Timolol Maleate (Timolol Maleate Ophthalmi) 0.5 % Xuan, 1 DROP RIGHTEYE BID for GLAUCOMA 05/01/25 Latanoprost (LATANOPROST) 0.005 % Xuan, 1 DROP EACHEYE QPM for GLAUCOMA 05/01/25 Aspirin (Aspirin) 81 Mg Tab, 1 TAB PO QAM for HEART DISEASE 05/01/25 Atorvastatin Calcium (Lipitor) 20 Mg Tab, 1 TAB PO QPM for HIGH CHOLESTEROL 05/01/25 Amlodipine Besylate (Amlodipine Besylate) 10 Mg Tab, 1 TAB PO QAM for HYPERTENSION 05/01/25 Current Medications Current Medications Medications (Trade) Dose Ordered Sig/Promise Route PRN Reason Start Time Stop Time Status Last Admin Finasteride (Proscar Tablet) 5 mg DAILY PO 05/17/25 10:00 Ferrous Sulfate 300 mg DAILY@BREAKFAST PO 05/17/25 08:00 Ascorbic Acid (Vitamin C Tablet) 500 mg DAILY PO 05/17/25 10:00 Physical Examination General Examination: Last Vital sign Vital Signs Date Time Temp Pulse Resp B/P (MAP) Pulse Ox O2 Delivery O2 Flow Rate FiO2 05/17/25 09:17 80 16 99 05/17/25 09:11 Nasal Cannula 2.0 05/17/25 09:11 28 05/17/25 09:00 97.4 124/71 (88) 97.4 General: General: No apparent distress, appears comfortable. Cooperative. Extremities: Right LE, L5 motor deficit, sensory intact no drainage from hip incision Neurological Examination: Neurological Examination: Mental Status: Cranial Nerves: Motor Examination: Reflexes: Sensory: Coordination: Gait: Labs: Labs: Laboratory Tests Test 05/13/25 12:27 05/13/25 12:44 05/13/25 13:30 05/13/25 18:26 Range/Units Urine Color Yellow Yellow Urine Clarity Clear Clear Urine pH 5.5 5.0-9.0 Urine Specific [place] 1.016 1.001-1.035 Urine Protein Trace H Negative Urine Ketones Negative Negative Urine Blood 1+ H Negative /uL Urine Nitrite Negative Negative Urine Bilirubin Negative Negative Urine Urobilinogen Normal Negative mg/dL Urine Leukocyte Esterase 2+ Negative /uL Urine RBC 5 0 - 3 /hpf Urine Microscopic WBC 68 H 0-3 /HPF Urine Squamous Epithelial Cells Few <5 /hpf Urine Bacteria None seen None Seen /hpf Urine Glucose Normal Normal mg/dL White Blood Count 12.2 H 4.4-10.8 10^3/uL Red Blood Count 3.47 L 4.5-5.90 10^6/uL Hemoglobin 11.8 L 13.5-17.5 g/dL Hematocrit 34.7 L 41.0-53.0 % Mean Corpuscular Volume 99.8 80.0-100.0 fL Mean Corpuscular Hemoglobin 34.0 H 28.0-32.0 pg Mean Corpuscular Hemoglobin Concent 34.0 32.0-36.0 g/dL Red Cell Distribution Width 13.8 11.8-14.3 % Platelet Count 256 140-450 10^3/uL Mean Platelet Volume 7.9 6.9-10.8 fL Neutrophils (%) (Auto) 79.6 37.0-80.0 % Lymphocytes (%) (Auto) 11.0 10.0-50.0 % Monocytes (%) (Auto) 8.5 0.0-12.0 % Eosinophils (%) (Auto) 0.5 0.0-7.0 % Basophils (%) (Auto) 0.4 0.0-2.0 % Neutrophils # (Auto) 9.7 H 1.6-8.6 10 ^3/uL Lymphocytes # (Auto) 1.3 0.4-5.4 10 ^3/uL Monocytes # (Auto) 1.0 0-1.3 10 ^3/uL Eosinophils # (Auto) 0.1 0-0.8 10 ^3/uL Basophils # (Auto) 0 0-0.2 10 ^3/uL Nucleated Red Blood Cells 0.1 % Sodium Level 138 136-145 mmol/L Potassium Level 4.1 3.5-5.1 mmol/L Chloride Level 105 98-107 mmol/L Carbon Dioxide Level 23 20-31 mmol/L Anion Gap 10 5-15 Blood Urea Nitrogen 24 H 9-23 mg/dL Creatinine 1.34 H 0.700-1.30 mg/dL Glomerular Filtration Rate Calc 54 >90 mL/min BUN/Creatinine Ratio 17.9 10.0-20.0 Serum Glucose 103 74-106 mg/dL Calcium Level 9.6 8.7-10.4 mg/dL Troponin I High Sensitivity 7 8 </=54 ng/L Prothrombin Time 10.7 9.3-11.8 sec Prothrombin Time INR 1.01 0.9-1.15 Activated Partial Thromboplast Time 27.1 24.5-34.5 SEC Test 05/14/25 14:10 05/15/25 04:54 05/16/25 04:58 05/17/25 05:30 Range/Units Urine Color Light-brown Yellow Urine Clarity Ex.turbid Clear Urine pH 5.5 5.0-9.0 Urine Specific [place] 1.013 1.001-1.035 Urine Protein Trace H Negative Urine Ketones Trace Negative Urine Blood 1+ H Negative /uL Urine Nitrite Negative Negative Urine Bilirubin Negative Negative Urine Urobilinogen Normal Negative mg/dL Urine Leukocyte Esterase 3+ Negative /uL Urine RBC 32 0 - 3 /hpf Urine WBC Clumps Present None Seen /hpf Urine Microscopic WBC 1778 H 0-3 /HPF Urine Squamous Epithelial Cells None seen <5 /hpf Urine Bacteria None seen None Seen /hpf Urine Glucose Normal Normal mg/dL Hemoglobin 10.2 L 9.8 L 13.5-17.5 g/dL Hematocrit 29.8 #L 28.5 L 41.0-53.0 % Sodium Level 132 #L 130 L 136-145 mmol/L Potassium Level 4.4 4.3 3.5-5.1 mmol/L Chloride Level 102 101 98-107 mmol/L Carbon Dioxide Level 25 20 20-31 mmol/L Anion Gap 5 9 5-15 Blood Urea Nitrogen 16 36 H 9-23 mg/dL Creatinine 1.09 1.35 H 0.700-1.30 mg/dL Glomerular Filtration Rate Calc 69 53 >90 mL/min BUN/Creatinine Ratio 14.7 26.7 H 10.0-20.0 Serum Glucose 97 117 H 74-106 mg/dL Calcium Level 8.2 L 9.6 8.7-10.4 mg/dL Test 05/17/25 06:30 Range/Units Hemoglobin 9.7 L 13.5-17.5 g/dL Hematocrit 28.0 L 41.0-53.0 % Assessment/Plan Assessment/Plan Assessment and Plan:Darian Starr is a 79 year old male POD 3 , s/p right hip holli arthroplasty, doing well 1) continue walker boot until right L5 motor neuropathy resolves 2) clear for dc from ortho view, follow up in clinic 2 wks Plan discussed with: Patient YUDITH SUBRAMANIAN MD May 17, 2025 10:49
[2025-05-17] MEDS: FINASTERIDE 5 MG TAB PO SCH (10:51)
[2025-05-17] MEDS: ASCORBIC ACID 500 MG TAB PO SCH (10:56)
--- NOTE | 2025-05-17 12:09 | DVHDS2 ---
Discharge Summary Date of Admission May 13, 2025 at 16:15 Date of Discharge: May 17, 2025 Labs/Diagnostic Data: Laboratory Results Test 05/17/25 06:30 05/17/25 05:30 05/14/25 14:10 05/13/25 18:26 Hemoglobin 9.7 g/dL (13.5-17.5) Hematocrit 28.0 % (41.0-53.0) Sodium Level 130 mmol/L (136-145) Potassium Level 4.3 mmol/L (3.5-5.1) Chloride Level 101 mmol/L (98-107) Carbon Dioxide Level 20 mmol/L (20-31) Anion Gap 9 (5-15) Blood Urea Nitrogen 36 mg/dL (9-23) Creatinine 1.35 mg/dL (0.700-1.30) Glomerular Filtration Rate Calc 53 mL/min (>90) BUN/Creatinine Ratio 26.7 (10.0-20.0) Serum Glucose 117 mg/dL (74-106) Calcium Level 9.6 mg/dL (8.7-10.4) Urine Color Light-brown (Yellow) Urine Clarity Ex.turbid (Clear) Urine pH 5.5 (5.0-9.0) Urine Specific [place] 1.013 (1.001-1.035) Urine Protein Trace (Negative) Urine Ketones Trace (Negative) Urine Blood 1+ /uL (Negative) Urine Nitrite Negative (Negative) Urine Bilirubin Negative (Negative) Urine Urobilinogen Normal mg/dL (Negative) Urine Leukocyte Esterase 3+ /uL (Negative) Urine RBC 32 /hpf (0 - 3) Urine WBC Clumps Present /hpf (None Seen) Urine Microscopic WBC 1778 /HPF (0-3) Urine Squamous Epithelial Cells None seen /hpf (<5) Urine Bacteria None seen /hpf (None Seen) Urine Glucose Normal mg/dL (Normal) Prothrombin Time 10.7 sec (9.3-11.8) Prothrombin Time INR 1.01 (0.9-1.15) Activated Partial Thromboplast Time 27.1 SEC (24.5-34.5) Test 05/13/25 13:30 05/13/25 12:44 Troponin I High Sensitivity 8 ng/L (</=54) White Blood Count 12.2 10^3/uL (4.4-10.8) Red Blood Count 3.47 10^6/uL (4.5-5.90) Mean Corpuscular Volume 99.8 fL (80.0-100.0) Mean Corpuscular Hemoglobin 34.0 pg (28.0-32.0) Mean Corpuscular Hemoglobin Concent 34.0 g/dL (32.0-36.0) Red Cell Distribution Width 13.8 % (11.8-14.3) Platelet Count 256 10^3/uL (140-450) Mean Platelet Volume 7.9 fL (6.9-10.8) Neutrophils (%) (Auto) 79.6 % (37.0-80.0) Lymphocytes (%) (Auto) 11.0 % (10.0-50.0) Monocytes (%) (Auto) 8.5 % (0.0-12.0) Eosinophils (%) (Auto) 0.5 % (0.0-7.0) Basophils (%) (Auto) 0.4 % (0.0-2.0) Neutrophils # (Auto) 9.7 10 ^3/uL (1.6-8.6) Lymphocytes # (Auto) 1.3 10 ^3/uL (0.4-5.4) Monocytes # (Auto) 1.0 10 ^3/uL (0-1.3) Eosinophils # (Auto) 0.1 10 ^3/uL (0-0.8) Basophils # (Auto) 0 10 ^3/uL (0-0.2) Nucleated Red Blood Cells 0.1 % Other Laboratory Tests 05/17/25 06:30 05/17/25 05:30 05/13/25 12:44 Brief Hx & Hospital Course: Mr. Darian Starr is an 79-year-old male with a past medical history of HTN, HLD who presents with a chief complaint of mechanical fall with injury x 1 day ago. Patient states that he had a mechanical fall and he fell onto his right side. Patient states that he did lose consciousness, but came to and was able to self ambulate back up and onto a chair. Patient is now complaining of 5/10 right hip pain. There is some shortening and rotation to his right leg. Patient right hip x ray resulted: Impacted fracture in the right femoral neck. Patient denies chest pain, dyspnea, nausea, vomiting. Patient admitted for further treatment. He is admitted and evaluated by orthopedic surgeon and underwent successful hip surgery. Post hip surgery patient had a right foot drop for which he had a boot placed per orthopedic recommendations. Patient had participate with physical therapy. Therefore it is felt he is stable to be transferred to a intermediate facility for continued physical therapy. Patient is started on anticoagulation for DVT prophylaxis post hip surgery and resume globin mildly dropped. Therefore he is started on iron tablets. Overall pain is controlled. Therefore it is felt he could be safely discharged. I have talked with the patient and his significant other regarding his hospital diagnosis, treatment he received, discharge medications, discharge instructions and follow-up plan of care. They have verbalized understanding of this and agree with the care plan as outlined. Operations or Procedures Operative Report - 2 Report Details Date: 05/14/25 Preop Diagnosis: Right femoral neck fracture, displaced Postop Diagnosis: same Surgeon: Enrique Agosto MD Amortization Clerk: none Anesthesiologist: Dr Cardozo Anesthesia: Regional Drains: none Implant: holli hip, cemented, size 5, depuy, std neck, 53 hd Consent: The patient was informed of the risks and benefits of the procedure. These include but are not limited to complications of anesthesia, postoperative infection, incomplete relief of symptoms, recurrence of symptoms, damage to blood vessels, nerves and tendons, deep venous thrombosis, pulmonary embolism and possible need for repeat surgery in the future. Complications: none Estimated Blood Loss: 150 cc Fluids: 1500 cc Findings: displaced right femoral neck fracture Indications for Surgery: displaced right femoral neck fracture with expected AVN non union, subsequent poor ambulation and comorbitdities associated with poor ambulation Name of Procedure Performed Right hip cemented hemiarthroplasty Procedure Details Procedure Details: Patient brought into the operating room given Ancef 1 g IV piggyback preoperatively Miller placed very cloudy urine seen expressed from Miller PTP Dr. Foote was called left message with his office for recommendation of broad- spectrum antibiotics urine also sent for culture a spinal anesthetic without complication placed into left lateral decubitus position with axillary roll padding beneath between both knees tympanic beneath and between both arms had an anatomic position padded post right ASIS left lower back to hold into lateral decubitus position sterile prep and drape right hip and lower extremity time-out performed confirmation right side correct side right hip hemiarthroplasty correct procedure after review of the operative consent history and physical and my initials on right buttock standard Teddy Langenbach incision made centered over tip of greater trochanter sharp dissection through skin down to deep fascia deep fascia divided with Bovie cautery tensor fascia eugenio retracted anteriorly gluteus briana posteriorly internal rotation of the leg exposing the external rotators and capsule which were divided off the proximal femur with the Bovie cautery then tearing of the capsule allowing access to the hip joint Momin elevator placed in the hip joint and hip dislocated and femoral neck and RN head removed through fracture site rongeur to smooth off the fractured neck then lateral lateralizing Reamer used to a lateralized greater troch and a put cookie cutter and canal Finder and broaches to prepare canal a significant poor bone quality therefore no press fit and some and yes cementing done broaching up to size 5 standard neck trial with a 53 head and excellent stability with extension external rotation no vertical shocking and excellent stability of the flexion to 98 adduction to 20 internal rotation to 90 true component there for cemented into place using 3rd generation cement technique specifically distal cement restrictor pressurization of cement suction and irrigation of canal vacuum mixing of cement she will components and tapped into place a standard neck and 53 bipolar head irrigation of the acetabulum for any loose fragments and scar and true component cemented urged reduced and excellent stability noted external rotation extension flexion 98 reduction 20 internal rotation to 90 excellent hemostasis noted irrigation performed vancomycin placed deep to the fascia capsule repaired with the attached external rotators the deep fascia repaired with simple interrupted 0 Vicryl suture subcutaneous 2-0 Vicryl suture in a chris fluffs ABD paper tape no drainage specimens complications Specimen: none Condition Stable Condition at Discharge: Stable Final Diagnosis/Problems List Mechanical fall with hip fracture, status post hip repair surgery, UTI Discharge Disposition: Halfway Facility Discharge Instruct/Medications Diet: Consistent carbohydrate, Cardiac 2g Na,low cholest Activity: No Restrictions, As Tolerated Activity comment: With the assistance/walker Follow Up/Referral: Orthopedic surgeon in two weeks Medications: Take medications per transfer med reconciliation list Scheduled Amlodipine Besylate (Amlodipine Besylate), 1 TAB PO QAM, (Reported) Aspirin (Aspirin), 1 TAB PO QAM, (Reported) Atorvastatin Calcium (Lipitor), 1 TAB PO QPM, (Reported) Finasteride (Finasteride), 5 MG PO DAILY, (Reported) Latanoprost (Latanoprost), 1 DROP EACHEYE QPM, (Reported) Timolol Maleate (Timolol Maleate Ophthalmi), 1 DROP RIGHTEYE BID, (Reported) Discharge Statement: "Patient was advised to return to the ER or call 911 if any headaches, dizziness, shortness of breath, chest pain, abdominal pain, bleeding, fevers, or worsening of medical condition. Patient was counseled about treatment plan, medications, possible side effects, patientverbalized understanding. All questions were answered to the best of my ability. This discharge took greater then 30 minutes in planning, reviewing documentation, counseling the patient, and discussing with other team members." ASSESSMENT ASSESSMENT Assessment Mechanical fall with hip fracture, status post hip repair surgery, UTI CAMMY RUSSELL MD May 17, 2025 12:09
[2025-05-17] MEDS: TAMSULOSIN HYDROCHLORIDE 0.4 MG CAP PO ONE (15:53)
== END 2025-05-17 16:35 | disposition home or self-care (01) | DRG 522 ==
LOC: EDBD 11:56 → ER 11:56 → OVERFLOW 16:15 → TELE-WESTW 21:18
PROVIDERS: ADMIT Hospitalist; ATTEND Hospitalist
PROC: 0SRR0J9 Replacement of Right Hip Joint, Femoral Surface with Synthetic Substitute, Cemented, Open Approach (ICD-10-PCS; principal; 2025-05-14 13:15)
DX: S72.091A Other fracture of head and neck of right femur, initial encounter for closed fracture (principal); N39.0 Urinary tract infection, site not specified; E78.5 Hyperlipidemia, unspecified; I73.9 Peripheral vascular disease, unspecified; I10 Essential (primary) hypertension; G62.9 Polyneuropathy, unspecified; J44.9 Chronic obstructive pulmonary disease, unspecified; Z82.49 Family history of ischemic heart disease and other diseases of the circulatory system; Z87.891 Personal history of nicotine dependence; Z88.1 Allergy status to other antibiotic agents; Z88.0 Allergy status to penicillin; Z79.82 Long term (current) use of aspirin; Z79.899 Other long term (current) drug therapy; W18.39XA Other fall on same level, initial encounter; Y93.89 Activity, other specified; Y92.89 Other specified places as the place of occurrence of the external cause; Y99.8 Other external cause status
CPT/HCPCS: 36415; 70450; 71045; 71275; 73502; 80048; 81001; 84484; 85014; 85018; 85025; 85610; 85730; 87086; 93005; 93306; 94640; 96361; 96374; 97110; 97116; 97163; 97530; 99291; G0378; J0131; J1885; J1956; J2250; J2405; J2704

== ENCOUNTER 2025-06-04 10:17 | Inpatient (IN) | payer OTHER ==
[~2025-06-04] VITALS: Ht 170.2 cm; Wt 66.7 kg
[~2025-06-04 10:17] MED LIST changes: +FINA5TAB4 PO
--- NOTE | 2025-06-04 11:03 | ED.PDOC ---
History of Present Illness(SKN HPI Comments 79y F who presents to the ED for chief complaint of wound check. Pt presents with who states pt had R hip surgery 2x weeks prior and states he was at SNF recovering. Pt states at facility, he also had boot placed on foot. Pt states over the past 2x days, he noticed a wound to the R foot, palmar surface and states he came to the ED for further evaluation. Pt now in the ED, has lizbeth bandage to the R foot but otherwise denies any other complaints. Pt has stable vitals in the ED. Pt denies fever, cough ,chills, or associated symptoms. Pt denies any other symptoms at this time. Chief Complaint: Wound Check Time Seen by MD: 11:00 History of Present Illness: Nurses Notes, Medications, Allergies Allergies: Coded Allergies: Penicillins (Verified Allergy, Intermediate, HIVES, 05/13/25) Sulfa Antibiotics (Verified Allergy, Intermediate, HIVES, 05/01/25) Home Meds Reported Medications Finasteride (Finasteride) 5 Mg Tab, 5 MG PO DAILY for ENLARGED PROSTATE for 30 Days, MG 05/15/25 Timolol Maleate (Timolol Maleate Ophthalmi) 0.5 % Xuan, 1 DROP RIGHTEYE BID for GLAUCOMA 05/01/25 Latanoprost (LATANOPROST) 0.005 % Xuan, 1 DROP EACHEYE QPM for GLAUCOMA 05/01/25 Aspirin (Aspirin) 81 Mg Tab, 1 TAB PO QAM for HEART DISEASE 05/01/25 Atorvastatin Calcium (Lipitor) 20 Mg Tab, 1 TAB PO QPM for HIGH CHOLESTEROL 05/01/25 Amlodipine Besylate (Amlodipine Besylate) 10 Mg Tab, 1 TAB PO QAM for HYPERTENSION 05/01/25 Information Source: Patient, Spouse Mode of Arrival: Wheelchair Severity: Moderate Timing: Days Duration: Since onset Prehospital treatment: None Location: Foot Mechanism: Preceding Wound Object: None Condition of Object: None Wound Type: Abscess Immunization Status of Animal: Unknown Tetanus: Unknown History of: None Associated Signs and Symptoms: Redness Past Medical History PAST MEDICAL HISTORY: COPD, High Lipids, HTN, NM Surgical History: Appendectomy Surgical History (Other): R hip surgery, cataracts, Family History Family History: Family hx of DM Social History Smoker: Cigarettes Alcohol: Occasionally Drugs: Denies Drug Use Lives In: Home Constitutional: denies: chills, diaphoresis, fatigue, fever, malaise, sweats, weakness, others EENTM: denies: blurred vision, double vision, ear bleeding, ear discharge, ear drainage, ear pain, ear ringing, eye pain, eye redness, hearing loss, mouth pain, mouth swelling, nasal discharge, nose bleeding, nose congestion, nose pain, photophobia, tearing, throat pain, throat swelling, voice changes, others Respiratory: denies: cough, hemoptysis, orthopnea, SOB at rest, shortness of breath, SOB with excertion, stridor, wheezing, others Cardiovascular: denies: chest pain, dizzy spells, diaphoresis, Dyspnea on exertion, edema, irregular heart beat, left arm pain, lightheadedness, palpitations, PND, syncope, others Gastrointestinal: denies: abdomen distended, abdominal pain, blood streaked bowels, constipated, diarrhea, dysphagia, difficulty swallowing, hematemesis, melena, nausea, poor appetite, poor fluid intake, rectal bleeding, rectal pain, vomiting, others Genitourinary: denies: burning, dysuria, flank pain, frequency, hematuria, incontinence, penile discharge, penile sore, pain, testicle pain, testicle swelling, urgency, others Neurological: denies: dizziness, fainting, headache, left sided numbness, left sided weakness, numbness, paresthesia, pre-existing deficit, right sided numbness, right sided weakness, seizure, speech problems, tingling, tremors, weakness, others Musculoskeletal: denies: back pain, gout, joint pain, joint swelling, muscle pain, muscle stiffness, neck pain, others Integumetry: reports: wounds (R foot); denies: bruises, change in color, change in hair/nails, dryness, laceration, lesions, lumps, rash, others Allergic/Immunocompromised: denies: Difficulty Healing, Frequent Infections, Hives, Itching, others Hematologic/Lymphatic: denies: anemia, blood clots, easy bleeding, easy bruising, swollen glands, others Endocrine: denies: excessive hunger, excessive sweating, excessive thirst, excessive urination, flushing, intolerance to cold, intolerance to heat, unexplained weight gain, unexplained weight loss, others Psychiatric: denies: anxiety, bipolar disorder, depression, hopeless, panic disorder, schizophrenia, sleepless, suicidal, others All Other Systems: Reviewed and Negative Physical Exam General Appearance: Moderate Distress HEENT: Normal ENT Inspection, Pharynx Normal, TMs Normal Neck: Full Range of Motion, Non-Tender, Normal, Normal Inspection Respiratory: Chest Non-Tender, Lungs Clear, No Accessory Muscle Use, No Respiratory Distress, Normal Breath Sounds Cardiovascular: No Edema, No JVD, No Murmur, No Gallop, Normal Peripheral Pulses, Regular Rate/Rhythm Breast Exam: Deferred Gastrointestinal: No Organomegaly, Non Tender, No Pulsatile Mass, Normal Bowel Sounds, Soft Genitalia: Deferred Pelvic: Deferred Rectal: Deferred Extremities: No calf tenderness, Normal capillary refill, No pedal edema, Other (Right foot with a dressing as well as the stasis ulcer to the plantar aspect and the calcaneal region with drainage) Musculoskeletal : Apperance: Normal Neurologic: Alert, ccna II-XII nml as Tested, No Motor Deficits, Normal Affect, Normal Mood, No Sensory Deficits Cerebellar Function: Normal Reflexes: Normal Skin: Dry, Normal Color, Warm Lymphatic: No Adenopathy Was a procedure done? Was a procedure done?: No Differential Diagnosis (INTG) Differential Diagnosis: N/A Abscess: Abscess, Bacteremia, Cellulitis Differential Diagnosis: Osteomyelitis, Puncture Wound, Retained Foreign Body X-Ray, Labs, Meds, VS Vital Signs Date Time Temp Pulse Resp B/P (MAP) Pulse Ox O2 Delivery O2 Flow Rate FiO2 06/04/25 10:21 98.7 78 20 125/45 95 98.7 Lab Test 06/04/25 11:03 Range/Units White Blood Count 10.8 4.4-10.8 10^3/uL Red Blood Count 3.23 L 4.5-5.90 10^6/uL Hemoglobin 11.0 L 13.5-17.5 g/dL Hematocrit 32.2 L 41.0-53.0 % Mean Corpuscular Volume 99.5 80.0-100.0 fL Mean Corpuscular Hemoglobin 34.0 H 28.0-32.0 pg Mean Corpuscular Hemoglobin Concent 34.1 32.0-36.0 g/dL Red Cell Distribution Width 13.5 11.8-14.3 % Platelet Count 402 140-450 10^3/uL Mean Platelet Volume 6.8 L 6.9-10.8 fL Neutrophils (%) (Auto) 68.9 37.0-80.0 % Lymphocytes (%) (Auto) 17.4 10.0-50.0 % Monocytes (%) (Auto) 8.5 0.0-12.0 % Eosinophils (%) (Auto) 3.8 0.0-7.0 % Basophils (%) (Auto) 1.4 0.0-2.0 % Neutrophils # (Auto) 7.4 1.6-8.6 10 ^3/uL Lymphocytes # (Auto) 1.9 0.4-5.4 10 ^3/uL Monocytes # (Auto) 0.9 0-1.3 10 ^3/uL Eosinophils # (Auto) 0.4 0-0.8 10 ^3/uL Basophils # (Auto) 0.1 0-0.2 10 ^3/uL Nucleated Red Blood Cells 0.0 % Erythrocyte Sedimentation Rate 80 H 0-20 mm/hr Sodium Level 138 136-145 mmol/L Potassium Level 4.0 3.5-5.1 mmol/L Chloride Level 103 98-107 mmol/L Carbon Dioxide Level 28 20-31 mmol/L Anion Gap 7 5-15 Blood Urea Nitrogen 17 9-23 mg/dL Creatinine 1.16 0.700-1.30 mg/dL Glomerular Filtration Rate Calc 64 >90 mL/min BUN/Creatinine Ratio 14.7 10.0-20.0 Serum Glucose 100 74-106 mg/dL Calcium Level 9.9 8.7-10.4 mg/dL IV Hep-Lock was established The CAT scan of the right foot shows: IMPRESSION: 1. Findings concerning for osteomyelitis in the 1st proximal and distal phalanx as well as the 1st metatarsal head. MRI of the right foot recommended for further evaluation. 2. Cellulitis in the dorsal foot. The patient's CBC is within normal limits The chemistry panel is within normal limits The ESR is elevated at 80 An IV Hep-Lock was established. The patient was given antibiotics IV piggyback for the infection The patient is being admitted at this time The patient will have a Wound consult as well as an orthopedic consult to address the infection in the right foot Images Reviewed?: Images reviewed and evaluated by me Time of 1ST Reevaluation: 11:30 Reevaluation 1ST: Unchanged Patient Education/Counseling: Diagnosis, Treatment, Prognosis Family Education/Counseling: No Family Present SEPSIS Sepsis Screen Date sepsis recognized/suspect: Jun 04, 2025 Time Sepsis recognized/suspect: 1023 Recent Procedure: Yes (R HIP BALL REPLACEMENT ) On Antibiotic Therapy: No Respiratory Rate >20: No Heart Rate >90: No Temp<36 C (96.8 F) or >38.3 C: No SBP <90 or MAP <65 mmHG: No New Acute Mental Status Change: No Is the patient on CPAP, BIPAP,: No Physician Orders Heplock Iv (06/04/25 10:54) Web Development Instructor (06/04/25 10:54) Blood Pressure (06/04/25 10:54) Pulse Oximetry (06/04/25 10:54) Ct R Foot Wo Contrast (06/04/25 10:54) * Wound Consult (06/04/25 ) * Orthopedic Consult (06/04/25 12:37) Vital Signs Date Time Temp Pulse Resp B/P (MAP) Pulse Ox O2 Delivery O2 Flow Rate FiO2 06/04/25 10:21 98.7 78 20 125/45 95 98.7 Laboratory Tests Test 06/04/25 11:03 White Blood Count 10.8 10^3/uL (4.4-10.8) Departure 1 Departure Time of Disposition: 12:32 Impression: Primary Impression: Foot osteomyelitis, right Qualified Codes: M86.9 - Osteomyelitis, unspecified Disposition: 09 ADMITTED INPATIENT Admit to: Med Surg Condition: Fair Critical Care Note Critical Care Time?: No Stability Stability form required: Yes Unstable for transfer: ED Physician Assesment (Clinical assesment) Heart Score Heart Score: Heart Score Response (Comments) Value History N/A 0 EKG N/A 0 Age N/A 0 Risk Factors N/A 0 Troponin N/A 0 Total 0 I personally scribed for RUPESH MARINELLI MD ([email or web address]) on 06/04/25 at 11:03. Electronically submitted by Gary Thomson ([email or web address]). I personally scribed for RUPESH MARINELLI MD ([email or web address]) on 06/04/25 at 11:04. Electronically submitted by Gary Thomson ([email or web address]). RUPESH MARINELLI MD Jun 04, 2025 11:03
[2025-06-04 11:21] LABS: Hematocrit 32.2 % (41.0-53.0); Hemoglobin 11.0 g/dL (13.5-17.5); Mean Corpuscular Hemoglobin 34.0 pg (28.0-32.0); Mean Corpuscular Volume 99.5 fL (80.0-100.0); Nucleated Red Blood Cells % 0.0 %
[2025-06-04 11:29] LABS: Chloride 103 mmol/L (98-107); Potassium 4.0 mmol/L (3.5-5.1); Sodium 138 mmol/L (136-145)
[2025-06-04 11:30] LABS: Anion Gap 7 (5-15); Calcium 9.9 mg/dL (8.7-10.4); Carbon Dioxide 28 mmol/L (20-31)
[2025-06-04 11:35] LABS: BUN/Creatinine Ratio 14.7 (10.0-20.0); Blood Urea Nitrogen 17 mg/dL (9-23); Glucose 100 mg/dL (74-106)
--- NOTE | 2025-06-04 12:11 | DVH ---
CLINICAL INDICATION: PAIN AND INFECTION TECHNIQUE: Noncontrast CT of the right foot was performed. Sagittal and coronal reformatted images ar e provided. COMPARISON: None CT Dose: CTDI volume is 7.8 mGy. Dose-length product is 197 mGy*cm FINDINGS: Abnormal lucency is noted in the 1st distal phalanx, 1st proximal phalanx and the 1st metatarsal head concerning for osteomyelitis. There is 1st MTP arthrosis. Hammertoe deformities. Diffuse dorsal menendez bcutaneous edema which may reflect cellulitis. No obvious fluid collection. IMPRESSION: 1. Findings concerning for osteomyelitis in the 1st proximal and distal phalanx as well as the 1st me tatarsal head. MRI of the right foot recommended for further evaluation. 2. Cellulitis in the dorsal foot. All CT scans at this medical facility are performed using dose modulation techniques as appropriate t o a performed exam including the following: Automated exposure control was utilized; adjustment of th e MA and/or KV according to patient size; and use of iterative reconstruction technique.
[2025-06-04] MEDS: VANCOMYCIN 1GM/200ML PM 200 ML IV ONE (16:32)
[2025-06-04 16:35] VITALS: PULSE 73; RESP 16; O2SAT 97
[2025-06-04] MEDS ORDERED: ONDANSETRON HCL 4 MG/2 ML VIAL IV PRN (19:45)
[2025-06-04] MEDS ORDERED: VANCOMYCIN PER PHARMACY 0 MG IV SCH (19:45)
[2025-06-04 20:39] LABS: INR 1.14 (0.9-1.15); Prothrombin Time 11.9 sec (9.3-11.8)
--- NOTE | 2025-06-04 21:09 | DVH ---
CHEST RADIOGRAPH REASON FOR EXAM: admission COMPARISON: CT CT ANGIO CHEST CONTRAST on DOS: 05/15/25, XY CHEST PORTABLE on DOS: 05/13/25 TECHNIQUE: One view of the chest is provided FINDINGS: The cardiomediastinal silhouette is within normal limits for size. There is aortic atherosc lerosis. The costophrenic sulci are excluded from view. There is no large pleural effusion. There is no pneumothorax. There is bibasilar airspace disease, [id number]. No acute osseous abno rmality is identified. IMPRESSION: Bibasilar airspace disease, [id number]. No significant pleural effusion within the limit ations of this study. The costophrenic sulci are excluded from view.
[2025-06-04] MEDS: FAMOTIDINE 20 MG TAB PO SCH (22:00)
[2025-06-04 22:26] VITALS: BP 152/77; PULSE 83; RESP 18; TEMP 97.6; O2SAT 96
[2025-06-04 22:28] VITALS: BP 152/77; PULSE 83; RESP 18; TEMP 97.5; O2SAT 96
[2025-06-04] MEDS: HYDROcodone-ACET 5/325MG TAB PO PRN (23:06)
[2025-06-05] VITALS (11 sets, daily range): BP systolic 103–140; BP diastolic 50–75; PULSE 70–83; RESP 17–20; TEMP 97.7–98; O2SAT 91–100
[2025-06-05] MEDS ORDERED: hydrALAZINE HCL 20 MG/ML VL IV PRN (00:45)
--- NOTE | 2025-06-05 00:51 | DVHHP2 ---
Admitting Diagnosis: Right foot osteomyelitis , Pneumonia History of Present Illness History Source: Patient Exam Limitations: No limitations HPI Mr. Darian Starr is an 79 yo male with a history of COPD, HLD, HTN, CO, Appendectomy who presents with a chief complaint of wound check. Patient was reported to have R hip surgery x 2 weeks prior and states he was at SNF recovering. Pt states at facility, he also had boot placed on foot. Pt states over the past 2x days, he noticed a wound to the R foot, palmar surface and states he came to the hospital for further evaluation. Pt denies fever, cough ,chills, or associated symptoms. Pt denies any other symptoms at this time. Patient CT of right foot resulted : 1. Findings concerning for osteomyelitis in the 1st proximal and distal phalanx as well as the 1st metatarsal head. MRI of the right foot recommended for further evaluation. 2. Cellulitis in the dorsal foot. Patient admitted for further evaluation and treatment. Home Meds Reported Medications Finasteride (Finasteride) 5 Mg Tab, 5 MG PO DAILY for ENLARGED PROSTATE for 30 Days, MG 05/15/25 Timolol Maleate (Timolol Maleate Ophthalmi) 0.5 % Xuan, 1 DROP RIGHTEYE BID for GLAUCOMA 05/01/25 Latanoprost (LATANOPROST) 0.005 % Xuan, 1 DROP EACHEYE QPM for GLAUCOMA 05/01/25 Aspirin (Aspirin) 81 Mg Tab, 1 TAB PO QAM for HEART DISEASE 05/01/25 Atorvastatin Calcium (Lipitor) 20 Mg Tab, 1 TAB PO QPM for HIGH CHOLESTEROL 05/01/25 Amlodipine Besylate (Amlodipine Besylate) 10 Mg Tab, 1 TAB PO QAM for HYPERTENSION 05/01/25 Past Medical History Cardiac: HTN, CO, Hyperlipidemia Pulmonary: COPD Central Nervous System: No pertinent Hx GI: No pertinent Hx Hemotology/Oncology: No pertinent Hx Hepatobiliary: No pertinent Hx Psychiatric: No pertinent Hx Musculoskeletal: No pertinent Hx Rheumotologic: No pertinent Hx Infectious Disease: No peritnent Hx ENT: No pertinent Hx Renal/: No pertinent Hx Endocrine: No pertinent Hx Dermatology: No pertinent Hx Past Surgical History: Appendectomy Others right hip surgery, right leg stents Patient Family History: Hypertrophic cardiomyopathy G8 MOTHER Pneumonia G8 FATHER Smoker: No Hx (Negative) Alocohol: None Drugs: None Lives with: With family Domestic Violence: Neg Review of Systems Constitutional: No symptom reported Ears, Nose, & Throat: No symptom reported Eyes: No symptom reported Pulmonary/Respiratory: No symptom reported Cardiovascular: No symptom reported Gastrointestinal: No symptom reported Genitourinary: No symptom reported Musculoskeletal: Foot pain (right foot pain) Skin: No symptom reported Psychiatric: No symptom reported Endocrine: No symptom reported Hemotologic/Lymphatic: No symptom reported H&P Exam Vital Signs Vital Signs Date Time Temp Pulse Resp B/P (MAP) Pulse Ox O2 Delivery O2 Flow Rate FiO2 06/04/25 22:28 97.5 83 18 152/77 (102) 96 97.5 06/04/25 22:26 Room Air* 0 21 General Appeara: Well developed, Well nourished, Normal Appearance Head Exam: Normal inspection Neck Exam: Normal inspection, Non-tender, Normal alignment Eye Exam: bilateral eye Normal inspection, bilateral eye PERRL, bilateral eye EOMI Ear Exam: bilateral ear Auricle normal Nasal Exam: Normal inspection Mouth: Normal Inspection Pulmonary/Respiratory: Normal inspection, Normal breath sounds, Chest non- tender, Lungs clear Cardiovascular/Chest: Normal inspection, Regular rate, Normal Rhythm Peripheral Pulses: 2+ dorsalis pedis (R), 2+ dorsalis pedis (L), 2+ Radial (R), 2+ Radial (L) Abdominal Exam: Normal bowel sounds, Soft, No tenderness Back Exam: Normal inspection Foot: right foot bone tenderness, right foot infection, right foot soft tissue tenderness, right foot other (wound) CLINICAL MENTAL HEALTH COUNSELOR Exam: Normal hearing, Normal speech, PERRL Motor/Sensory: Normal sensory function, Normal motor function Neuro/Mental St: Alert, Oriented Appearance: Appropriate appearance, Appropriate insight Eye contact/ Speech: Cooperative, Good eye contact, Normal speech Thoughts/Psych: Normal thought pattern Skin Exam: Normal inspection, Normal color, Warm/dry SEPSIS Sepsis Screen Date sepsis recognized/suspect: Jun 04, 2025 Time Sepsis recognized/suspect: 1622 Recent Procedure: No On Antibiotic Therapy: Yes Respiratory Rate >20: No Heart Rate >90: No Temp<36 C (96.8 F) or >38.3 C: No SBP <90 or MAP <65 mmHG: No New Acute Mental Status Change: No Is the patient on CPAP, BIPAP,: No Physician Orders Admit (06/04/25 19:39) * Infectious Margy- Dr. Castañeda (06/04/25 19:39) Full Code (06/04/25:39) Pt Request For Service (06/04/25:39) Complete Blood Count (06/05/25 05:00) Complete Blood Count (06/06/25 05:00) Basic Metabolic Panel (06/05/25 05:00) Basic Metabolic Panel (06/06/25 05:00) Mri R Foot Wo Contrast (06/04/25:39) Stat Ekg For Chest Pain (06/04/25:39) Notify Md Of Changes From Base (06/04/25:39) Point Of Sale Associate For 24 Hours (06/04/25:39) Emergency Dysrhythmia Protocol (06/04/25:39) Rhythm Strips Once Every Shift (06/04/25:39) Oxygen By Nasal Cannula (06/04/25:39) Communication Order (06/04/25:39) Chest Portable (06/04/25:39) Vancomycin Per Pharmacy (06/04/25 19:45) Ondansetron Hcl (Zofran) (06/04/25 19:45) Hydrocodone-Acet 5/325mg Tab ([place] 5/32 (06/04/25 19:45) Famotidine Tablet (Pepcid Tablet) (06/04/25 22:00) Acetaminophen Tablet (Tylenol Tablet) (06/04/25 19:45) Enoxaparin Sodium (Lovenox) (06/05/25 10:00) Ceftriaxone 2gm/50ml D5w (Rocephin 2gm/5 (06/05/25 10:00) 2 Gm Sodium Diet (06/05/25 Breakfast) Full Code (06/04/25 19:39) Fall Risk Precautions In Place QSHIFT (06/04/25 19:39) Urinalysis (06/04/25 19:58) Vancomycin,Random (06/05/25 05:00) Mrsa Screen (06/04/25 23:36) Vital Signs Date Time Temp Pulse Resp B/P (MAP) Pulse Ox O2 Delivery O2 Flow Rate FiO2 06/04/25 22:28 97.5 83 18 152/77 (102) 96 97.5 06/04/25 22:26 83 18 96 Room Air* 0 21 06/04/25 22:26 97.6 83 18 152/77 (102) 96 97.6 06/04/25 22:04 97.8 78 12 125/58 (80) 95 97.8 06/04/25 21:48 97.5 78 12 125/58 (80) 95 97.5 06/04/25 18:27 98.2 76 16 139/69 (92) 96 98.2 Laboratory Tests Test 06/04/25 20:06 Lactic Acid Level 1.2 mmol/L (0.4-2.0) Medications Medications Dose Ordered Sig/Promise Route Start Time Stop Time Status Last Admin Dose Admin Acetaminophen/ Hydrocodone Bitart 1 tab Q6HPRN PRN PO 06/04/25 19:45 06/04/25 23:06 1 TAB Wounds right foot wound Labs/Xrays Labs Test 06/04/25 20:06 06/04/25 11:03 Range/Units Prothrombin Time 11.9 H 9.3-11.8 sec Prothrombin Time INR 1.14 0.9-1.15 Lactic Acid Level 1.2 0.4-2.0 mmol/L White Blood Count 10.8 4.4-10.8 10^3/uL Red Blood Count 3.23 L 4.5-5.90 10^6/uL Hemoglobin 11.0 L 13.5-17.5 g/dL Hematocrit 32.2 L 41.0-53.0 % Mean Corpuscular Volume 99.5 80.0-100.0 fL Mean Corpuscular Hemoglobin 34.0 H 28.0-32.0 pg Mean Corpuscular Hemoglobin Concent 34.1 32.0-36.0 g/dL Red Cell Distribution Width 13.5 11.8-14.3 % Platelet Count 402 140-450 10^3/uL Mean Platelet Volume 6.8 L 6.9-10.8 fL Neutrophils (%) (Auto) 68.9 37.0-80.0 % Lymphocytes (%) (Auto) 17.4 10.0-50.0 % Monocytes (%) (Auto) 8.5 0.0-12.0 % Eosinophils (%) (Auto) 3.8 0.0-7.0 % Basophils (%) (Auto) 1.4 0.0-2.0 % Neutrophils # (Auto) 7.4 1.6-8.6 10 ^3/uL Lymphocytes # (Auto) 1.9 0.4-5.4 10 ^3/uL Monocytes # (Auto) 0.9 0-1.3 10 ^3/uL Eosinophils # (Auto) 0.4 0-0.8 10 ^3/uL Basophils # (Auto) 0.1 0-0.2 10 ^3/uL Nucleated Red Blood Cells 0.0 % Erythrocyte Sedimentation Rate 80 H 0-20 mm/hr Sodium Level 138 136-145 mmol/L Potassium Level 4.0 3.5-5.1 mmol/L Chloride Level 103 98-107 mmol/L Carbon Dioxide Level 28 20-31 mmol/L Anion Gap 7 5-15 Blood Urea Nitrogen 17 9-23 mg/dL Creatinine 1.16 0.700-1.30 mg/dL Glomerular Filtration Rate Calc 64 >90 mL/min BUN/Creatinine Ratio 14.7 10.0-20.0 Serum Glucose 100 74-106 mg/dL Calcium Level 9.9 8.7-10.4 mg/dL Assessment/Plan Problem List: (1) Foot osteomyelitis, right (2) Pneumonia Plan This is an 79 yo male with known history of COPD, HLD, HTN, CO, Appendectomy who presents to the hospital with right foot wound check. Patient found to have 1. Right foot Osteomyelitis 2. Right foot cellulitis 3. Pneumonia 4. COPD 5. Hypertension Plan Admit telemetry unit Infectious disease consultation, IV antibiotics Vascular surgeon consultation PT evaluation Wound consult GI ppx DVT ppx Bronchodilators as needed Continue home medications when reconciled Discussed all above with patient who verbalizes agreement and understanding of care plan . All questions were answered. Discussed with supervising MD. Plan discussed with: Patient, Other Code Visit Code Visit Total Time (mins): 45 TAPAN CARDENAS Jun 05, 2025 00:51 JENNI MATOS MD Jun 05, 2025 17:11
[2025-06-05] MEDS ORDERED: IPRATROPIUM BROM 0.5 MG/2.5ML INH SOL NEB PRN (01:00)
[2025-06-05 05:25] LABS: Chloride 106 mmol/L (98-107); Potassium 3.6 mmol/L (3.5-5.1); Sodium 137 mmol/L (136-145)
[2025-06-05 05:26] LABS: Anion Gap 6 (5-15); Calcium 8.8 mg/dL (8.7-10.4); Carbon Dioxide 25 mmol/L (20-31)
[2025-06-05 05:31] LABS: BUN/Creatinine Ratio 14.4 (10.0-20.0); Blood Urea Nitrogen 16 mg/dL (9-23); Glucose 80 mg/dL (74-106)
[2025-06-05 05:42] LABS: Hemoglobin 10.0 g/dL (13.5-17.5); Mean Corpuscular Hemoglobin 34.4 pg (28.0-32.0); Nucleated Red Blood Cells % 0.1 %
[2025-06-05 05:45] LABS: Hematocrit 28.7 % (41.0-53.0); Mean Corpuscular Volume 98.4 fL (80.0-100.0)
[2025-06-05 07:08] LABS: Urine Protein, UAD Negative (Negative)
[2025-06-05] MEDS: cefTRIAXone 2GM/50ML D5W 50 ML IV SCH (09:43)
[2025-06-05] MEDS: ENOXAPARIN SOD 40 MG/0.4 ML SYRINGE SC SCH (09:43)
[2025-06-05] MEDS: VANCOMYCIN 1.25GM/250ML 250 ML IV SCH (11:48)
[2025-06-05] MEDS: ACETAMINOPHEN 325 MG TAB PO PRN (11:52)
[2025-06-05] MEDS: IPRATROPIUM BROM 0.5 MG/2.5ML INH SOL NEB SCH (12:09)
--- NOTE | 2025-06-05 14:00 | DVHINCON2 ---
Date of service: Jun 04, 2025 Family History: Hypertrophic cardiomyopathy G8 MOTHER Pneumonia G8 FATHER Allergies: Coded Allergies: Penicillins (Verified Allergy, Intermediate, HIVES, 05/13/25) Sulfa Antibiotics (Verified Allergy, Intermediate, HIVES, 05/01/25) Home Meds Reported Medications Finasteride (Finasteride) 5 Mg Tab, 5 MG PO DAILY for ENLARGED PROSTATE for 30 Days, MG 05/15/25 Timolol Maleate (Timolol Maleate Ophthalmi) 0.5 % Xuan, 1 DROP RIGHTEYE BID for GLAUCOMA 05/01/25 Latanoprost (LATANOPROST) 0.005 % Xuan, 1 DROP EACHEYE QPM for GLAUCOMA 05/01/25 Aspirin (Aspirin) 81 Mg Tab, 1 TAB PO QAM for HEART DISEASE 05/01/25 Atorvastatin Calcium (Lipitor) 20 Mg Tab, 1 TAB PO QPM for HIGH CHOLESTEROL 05/01/25 Amlodipine Besylate (Amlodipine Besylate) 10 Mg Tab, 1 TAB PO QAM for H YPERTENSION 05/01/25 Current Medications Current Medications Medications (Trade) Dose Ordered Sig/Promise Route PRN Reason Start Time Stop Time Status Last Admin Vancomycin HCl 0 ml @ 0 mls/hr UD IV 06/04/25 19:45 Ondansetron HCl (Zofran) 4 mg Q6HPRN PRN IV NAUSEA OR VOMITING 06/04/25 19:45 Acetaminophen/ Hydrocodone Bitart ([place] 5/325MG Tab) 1 tab Q6HPRN PRN PO PAIN SCALE 1 THRU 6 06/04/25 19:45 06/05/25 13:16 Famotidine (Pepcid Tablet) 20 mg BID PO 06/04/25 22:00 06/05/25 09:41 Acetaminophen (Tylenol Tablet) 650 mg Q6HPRN PRN PO PAIN SCALE 1-3 OR TEMP>100.4 06/04/25 19:45 06/05/25 11:52 Enoxaparin Sodium (Lovenox) 40 mg DAILY SC 06/05/25 10:00 06/05/25 09:43 Ceftriaxone Sodium/Dextrose 50 ml @ 50 mls/hr DAILY IV 06/05/25 10:00 06/05/25 09:43 Hydralazine HCl (Apresoline Injection) 10 mg Q6HP PRN IV SBP>160 06/05/25 00:45 Ipratropium [place] (Atrovent Medneb) 0.5 mg Q4HPRN PRN NEB SHORTNESS OF BREATH 06/05/25 01:00 Ipratropium [place] (Atrovent Medneb) 0.5 mg Q6HWA NEB 06/05/25 12:00 06/05/25 12:09 Vancomycin HCl 250 ml @ 200 mls/hr Q24H IV 06/05/25 12:00 06/05/25 11:48 Vital Signs Vital Signs Date Time Temp Pulse Resp B/P (MAP) Pulse Ox O2 Delivery O2 Flow Rate FiO2 06/05/25 08:00 79 06/05/25 08:00 18 93 Room Air* 0 21 06/05/25 05:00 97.9 103/50 (67) 97.9 Labs/Diagnostic Data Labs Test 06/05/25 05:00 06/05/25 04:57 06/04/25 20:06 06/04/25 11:03 Range/Units Urine Color Light-yellow Yellow Urine Clarity Clear Clear Urine pH 6.5 5.0-9.0 Urine Specific [place] 1.014 1.001-1.035 Urine Protein Negative Negative Urine Ketones Negative Negative Urine Blood Negative Negative /uL Urine Nitrite Negative Negative Urine Bilirubin Negative Negative Urine Urobilinogen Normal Negative mg/dL Urine Leukocyte Esterase Negative Negative /uL Urine RBC 1 0 - 3 /hpf Urine Microscopic WBC 6 H 0-3 /HPF Urine Squamous Epithelial Cells Few <5 /hpf Urine Bacteria None seen None Seen /hpf Urine Glucose Normal Normal mg/dL White Blood Count 8.8 4.4-10.8 10^3/uL Red Blood Count 2.91 L 4.5-5.90 10^6/uL Hemoglobin 10.0 L 13.5-17.5 g/dL Hematocrit 28.7 #L 41.0-53.0 % Mean Corpuscular Volume 98.4 80.0-100.0 fL Mean Corpuscular Hemoglobin 34.4 H 28.0-32.0 pg Mean Corpuscular Hemoglobin Concent 34.9 32.0-36.0 g/dL Red Cell Distribution Width 13.2 11.8-14.3 % Platelet Count 341 140-450 10^3/uL Mean Platelet Volume 6.9 6.9-10.8 fL Neutrophils (%) (Auto) 64.4 37.0-80.0 % Lymphocytes (%) (Auto) 19.0 10.0-50.0 % Monocytes (%) (Auto) 9.9 0.0-12.0 % Eosinophils (%) (Auto) 6.0 0.0-7.0 % Basophils (%) (Auto) 0.7 0.0-2.0 % Neutrophils # (Auto) 5.6 1.6-8.6 10 ^3/uL Lymphocytes # (Auto) 1.7 0.4-5.4 10 ^3/uL Monocytes # (Auto) 0.9 0-1.3 10 ^3/uL Eosinophils # (Auto) 0.5 0-0.8 10 ^3/uL Basophils # (Auto) 0.1 0-0.2 10 ^3/uL Nucleated Red Blood Cells 0.1 % Sodium Level 137 136-145 mmol/L Potassium Level 3.6 3.5-5.1 mmol/L Chloride Level 106 98-107 mmol/L Carbon Dioxide Level 25 20-31 mmol/L Anion Gap 6 5-15 Blood Urea Nitrogen 16 9-23 mg/dL Creatinine 1.11 0.700-1.30 mg/dL Glomerular Filtration Rate Calc 67 >90 mL/min BUN/Creatinine Ratio 14.4 10.0-20.0 Serum Glucose 80 74-106 mg/dL Calcium Level 8.8 8.7-10.4 mg/dL Random Vancomycin Level 9.5 5-10 ug/mL Prothrombin Time 11.9 H 9.3-11.8 sec Prothrombin Time INR 1.14 0.9-1.15 Lactic Acid Level 1.2 0.4-2.0 mmol/L Erythrocyte Sedimentation Rate 80 H 0-20 mm/hr Problems(with codes): (1) Foot osteomyelitis, right (2) COPD (chronic obstructive pulmonary disease) (3) Fracture of femoral neck, right (4) Pneumonia Plan/Recommendation ASSESSMENT AND PLAN: ID Problem List: \-- Right foot cellulitis \-- Suspected right foot osteomyelitis \-- Plantar foot ulcer with necrosis \-- Recent right total hip arthroplasty \-- Coronary artery disease \-- Hypertension \-- Chronic obstructive pulmonary disease (COPD) \-- Mechanical fall (recent) Assessment This is an 79-year-old male with a past medical history of coronary artery disease, hypertension, COPD, and recent right total hip arthroplasty (two weeks ago), who presents with a plantar foot ulcer and findings concerning for right foot osteomyelitis and cellulitis. The ulcer is believed secondary to pressure from a boot placed post-surgery to offload weight. CT of the right foot shows findings concerning for osteomyelitis involving the first proximal and distal phalanx as well as the first metatarsal head, with associated dorsal foot cellulitis. Minimal drainage from the plantar ulcer noted, with necrosis and odorrecommend addition of metronidazole (Flagyl). Orthopedic evaluation requested for assessment and possible surgical debridement. Current antibiotics include vancomycin and ceftriaxone empirically for cellulitis/osteomyelitis. CRP to be checked to monitor inflammatory activity. Blood cultures to be drawn. Recommend consult with wound surgery and reassessment of offloading strategy to prevent further complications from the boot. Patients current vitals are stable. No acute findings on chest X-ray or periprosthetic complication on recent hip imaging. YOLA rate is elevated, WBC mildly elevated at 10.8, Hb 11, platelets 402. Plan: \-- Continue vancomycin and ceftriaxone IV for now \-- Add Flagyl for foot ulcer with necrosis and odor \-- Check CRP, blood cultures \-- Continue wound care and offload pressure from plantar surface \-- Consult ortho surgery (Dr. Latif/Dr. Velázquez) for evaluation and debridem ent as indicated \-- Orthopedic input on alternative offloading strategy to reduce ulcer risk \-- Monitor for systemic infection or worsening necrosis \-- Treat comorbidities as per current regimen (see medication list below) Isolation Precautions: Standard \*Assessment and plan were discussed with the patient as written above. \*Plan is subject to change pending new diagnostic findings. Updates may be added as an addendum. Thank you for interesting consult. ID will continue to follow. Please contact In fectious Disease for any questions or concerns. Hernán Liriaon M.D. [facility] Ph: ? Teams text: [email or web address] Electronically signed by: Hernán Liriano MD, 06/05/2025 \ History: The patient's chart and medications were reviewed in detail and the patient was seen and examined. History obtained from: patient 79-year-old male with coronary artery disease, hypertension, COPD, status post right total hip arthroplasty two weeks ago, currently with plantar ulcer and suspected osteomyelitis from post-op boot placement. Presents with right foot ulcer, minimal drainage, necrosis, positive for odor. Vitals stable. On home medications as below. Review of Systems: A complete 10-system review of systems was completed and negative except as noted in the HPI or here. ROS: -CONSTITUTIONAL: Denies weight loss, fever, or chills. -HEENT: Denies changes in vision or hearing. -RESPIRATORY: Denies shortness of breath or cough. -CV: Denies chest pain or palpitations. -GI: Denies abdominal pain, nausea, vomiting, or diarrhea. -: Denies dysuria or urinary frequency. -MSK: Denies myalgia or joint pain (apart from right hip surgical recovery). -SKIN: Denies rash or pruritus. Positive for plantar right foot ulceration and local necrosis. -NEUROLOGICAL: Denies headache or syncope. -PSYCHIATRIC: Denies mood changes, anxiety, or depression. Past Medical History: Coronary artery disease Hypertension COPD Past Surgical History: Right total hip arthroplasty (two weeks ago) No other pertinent surgical history provided. Home Medications: Medication Sig amlodipine Take as directed (dose not specified) atorvastatin Take as directed (dose not specified) finasteride Take as directed (dose not specified) Current Inpatient Antibiotics: vancomycin IV (dose/frequency not specified) ceftriaxone IV (dose/frequency not specified) Plan to add: metronidazole (Flagyl) (route/dose/frequency not specified) Any ambiguities in medication dosing as patients home medication details are not fully provided. Allergies: No known allergies Family History: Not discussed Social History: Not discussed Social Determinants of Health: Not discussed Objective: Vital Signs on Arrival: Temp: 97.7 F (36.5 C) BP: 152/77 Pulse: 83 Resp: 18 SpO2: 96% on room air Most Recent Labs: WBC: 10.8 Hemoglobin: 11 Platelets: 402 YOLA rate: 80 No baseline CRP available Admission Weight / BMI: Not provided in transcript Physical Exam: General: NAD Neck: Supple. No masses. HEENT: PERRL. Normal lids and conjunctiva. Moist mucous membranes. Oropharynx without lesions, exudates or excessive erythema. Normal appearance of the external aspects of the nose and ears. Heart: Regular rhythm, normal rate. No murmur. No lower extremity edema. Lungs: Normal respiratory effort. Clear to auscultation bilaterally. No wheezes. No crackles. Abdomen: Soft. Non-tender. Non-distended. No masses or abdominal hernia. Msk: No digital cyanosis. Normal strength and tone in all 4 limbs. Right hip with clean, dry, intact surgical scar, mild edema, Steri-Strips in place. Skin: Warm and dry, no rashes. Right plantar foot with ulcer, minimal drainage, necrosis, odor. Neuro: Alert. No facial droop or slurred speech. Extra-ocular movements intact. Sensation intact to soft touch in all 4 limbs. Psych: Appropriate mood. Full affect. Oriented to person, place, time, and situation. Lines: Not discussed Diagnostic Studies: Available diagnostic studies reviewed. Pertinent Imaging: Recent Results: -CT Right Foot: Concerning for osteomyelitis of first proximal/distal phalanx and first metatarsal head. Cellulitis of dorsal foot. -Chest X-ray: No acute cardiopulmonary disease. -X-ray Right Hip: Impacted fracture right femoral neck. Right total hip arthroplasty without periprosthetic fracture, dislocation, or other complication. -Chest X-ray (repeat): Airspace disease left > right, no significant pleural effusions. Electronically signed by: Hernán Liriano MD, 06/04/2025 Plan discussed with: Patient HERNÁN LIRIANO MD Jun 05, 2025 14:00
--- NOTE | 2025-06-05 18:05 | DVHPN2 ---
Consult Progress Note Date Seen: Jun 05, 2025 Subjective Patient reports: Other (continues to have odorous drainage from right foot , denies being in pain or that the foot is bothersome . andres has leg neuropathies . mildly SOB , wheezing and diffusing in the lungs ) Objective vital signs Vital Sign Date Time Temp Pulse Resp B/P (MAP) Pulse Ox O2 Delivery O2 Flow Rate FiO2 06/05/25 17:09 98.0 74 18 136/70 (92) 95 98.0 06/05/25 12:09 Room Air 0.0 06/05/25 12:09 21 Total Intake and Output 06/04/25 06/04/25 06/05/25 15:00 23:00 07:00 Intake Total 200 ml 500 ml Output Total 300 ml Balance 200 ml 200 ml medications Current Medications Medications Dose Ordered Sig/Promise Route Start Time Stop Time Status Last Admin Dose Admin Vancomycin HCl 0 ml @ 0 mls/hr UD IV 06/04/25 19:45 Ondansetron HCl 4 mg Q6HPRN PRN IV 06/04/25 19:45 Acetaminophen/ Hydrocodone Bitart 1 tab Q6HPRN PRN PO 06/04/25 19:45 06/05/25 13:16 1 TAB Famotidine 20 mg BID PO 06/04/25 22:00 06/05/25 09:41 20 MG Acetaminophen 650 mg Q6HPRN PRN PO 06/04/25 19:45 06/05/25 11:52 650 MG Enoxaparin Sodium 40 mg DAILY SC 06/05/25 10:00 06/05/25 09:43 40 MG Ceftriaxone Sodium/Dextrose 50 ml @ 50 mls/hr DAILY IV 06/05/25 10:00 06/05/25 09:43 50 MLS/HR Hydralazine HCl 10 mg Q6HP PRN IV 06/05/25 00:45 Ipratropium [place] 0.5 mg Q4HPRN PRN NEB 06/05/25 01:00 Ipratropium [place] 0.5 mg Q6HWA NEB 06/05/25 12:00 06/05/25 12:09 0.5 MG Vancomycin HCl 250 ml @ 200 mls/hr Q24H IV 06/05/25 12:00 06/05/25 11:48 200 MLS/HR Metronidazole 500 mg Q8HR PO 06/05/25 22:00 UNV Physical Exam: General: NAD Neck: Supple. No masses. HEENT: PERRL. Normal lids and conjunctiva. Moist mucous membranes. Oropharynx without lesions, exudates or excessive erythema. Normal appearance of the external aspects of the nose and ears. Heart: Regular rhythm, normal rate. No murmur. No lower extremity edema. Lungs: Normal respiratory effort. Clear to auscultation bilaterally. No wheezes. No crackles. Abdomen: Soft. Non-tender. Non-distended. No masses or abdominal hernia. Msk: No digital cyanosis. Normal strength and tone in all 4 limbs. Right hip with clean, dry, intact surgical scar, mild edema, Steri-Strips in place. Skin: Warm and dry, no rashes. Right plantar foot with ulcer, minimal drainage, necrosis, odor. Neuro: Alert. No facial droop or slurred speech. Extra-ocular movements intact. Sensation intact to soft touch in all 4 limbs. Psych: Appropriate mood. Full affect. Oriented to person, place, time, and situation. laboratory and microbiology Laboratory Tests 06/05/25 04:57 Test 06/05/25 04:57 Range/Units Serum Glucose 80 74-106 mg/dL Problem List/Assessment/Plan Problems(with codes): (1) Fracture of femoral neck, right (2) COPD (chronic obstructive pulmonary disease) (3) Pneumonia (4) Foot osteomyelitis, right (5) Fall Problem List/Assessment/Plan ASSESSMENT AND PLAN: ID Problem List: \-- Right foot cellulitis \-- Suspected right foot osteomyelitis \-- Plantar foot ulcer with necrosis \-- Recent right total hip arthroplasty \-- Coronary artery disease \-- Hypertension \-- Chronic obstructive pulmonary disease (COPD) \-- Mechanical fall (recent) Assessment This is an 79-year-old male with a past medical history of coronary artery disease, hypertension, COPD, and recent right total hip arthroplasty (two weeks ago), who presents with a plantar foot ulcer and findings concerning for right foot osteomyelitis and cellulitis. The ulcer is believed secondary to pressure from a boot placed post-surgery to offload weight. CT of the right foot shows findings concerning for osteomyelitis involving the first proximal and distal phalanx as well as the first metatarsal head, with associated dorsal foot cellulitis. Minimal drainage from the plantar ulcer noted, with necrosis and odorrecommend addition of metronidazole (Flagyl). Orthopedic evaluation requested for assessment and possible surgical debridement. Current antibiotics include vancomycin and ceftriaxone empirically for cellulitis/osteomyelitis. CRP to be checked to monitor inflammatory activity. Blood cultures to be drawn. Recommend consult with wound surgery and reassessment of offloading strategy to prevent further complications from the boot. Patients current vitals are stable. No acute findings on chest X-ray or periprosthetic complication on recent hip imaging. YOLA rate is elevated, WBC mildly elevated at 10.8, Hb 11, platelets 402. 8/1: ongoing COPD exacerbation , osteomyelitis of the foot that is requiring debridement Plan: \-- Continue vancomycin and ceftriaxone IV for now \-- Add Flagyl for foot ulcer with necrosis and odor \-- Check CRP, blood cultures \-- Continue wound care and offload pressure from plantar surface \-- Consult ortho surgery (Dr. Latif/Dr. Velázquez) for evaluation and debridement as indicated \-- Orthopedic input on alternative offloading strategy to reduce ulcer risk \-- Monitor for systemic infection or worsening necrosis \-- Treat comorbidities as per current regimen (see medication list below) Isolation Precautions: Standard Plan discussed with: HERNÁN Keita MD Jun 05, 2025 18:05
[2025-06-05] MEDS: metroNIDAZOLE 500 MG TAB PO SCH (21:48)
[2025-06-06] VITALS (14 sets, daily range): BP systolic 101–134; BP diastolic 49–76; PULSE 70–107; RESP 18–20; TEMP 97.4–98.3; O2SAT 91–100
[2025-06-06 07:32] LABS: Hematocrit 29.2 % (41.0-53.0); Hemoglobin 10.2 g/dL (13.5-17.5); Mean Corpuscular Hemoglobin 34.5 pg (28.0-32.0); Mean Corpuscular Volume 98.7 fL (80.0-100.0); Nucleated Red Blood Cells % 0.0 %
[2025-06-06 07:36] LABS: Chloride 102 mmol/L (98-107); Potassium 4.0 mmol/L (3.5-5.1)
[2025-06-06 07:37] LABS: Anion Gap 8 (5-15); Calcium 8.9 mg/dL (8.7-10.4); Carbon Dioxide 26 mmol/L (20-31)
[2025-06-06 07:42] LABS: BUN/Creatinine Ratio 13.4 (10.0-20.0); Blood Urea Nitrogen 15 mg/dL (9-23); Glucose 71 mg/dL (74-106); Sodium 136 mmol/L (136-145)
--- NOTE | 2025-06-06 13:21 | DVHPN2 ---
Consult Progress Note Date Seen: Jun 06, 2025 Subjective Patient reports: Feels better (ongoing cellulitis, clinically stable, having foot pain. continue vancomycin, ceftriaxone and flagyl, recommend debridement by podiatry of necrotic ulcers. orthopedics should evaluate for boot alternative ) Objective vital signs Vital Sign Date Time Temp Pulse Resp B/P (MAP) Pulse Ox O2 Delivery O2 Flow Rate FiO2 06/06/25 11:59 70 18 95 06/06/25 09:00 97.9 122/70 (87) 97.9 06/06/25 07:20 Room Air 06/06/25 07:20 0 21 Total Intake and Output 06/05/25 06/05/25 06/06/25 15:00 23:00 07:00 Intake Total 300 ml 390 ml 800 ml Output Total 2400 ml 1500 ml Balance 300 ml -2010 ml -700 ml medications Current Medications Medications Dose Ordered Sig/Promise Route Start Time Stop Time Status Last Admin Dose Admin Vancomycin HCl 0 ml @ 0 mls/hr UD IV 06/04/25 19:45 Ondansetron HCl 4 mg Q6HPRN PRN IV 06/04/25 19:45 Acetaminophen/ Hydrocodone Bitart 1 tab Q6HPRN PRN PO 06/04/25 19:45 06/06/25 11:22 1 TAB Famotidine 20 mg BID PO 06/04/25 22:00 06/05/25 09:41 20 MG Acetaminophen 650 mg Q6HPRN PRN PO 06/04/25 19:45 06/05/25 11:52 650 MG Enoxaparin Sodium 40 mg DAILY SC 06/05/25 10:00 06/06/25 09:45 40 MG Ceftriaxone Sodium/Dextrose 50 ml @ 50 mls/hr DAILY IV 06/05/25 10:00 06/06/25 09:47 50 MLS/HR Hydralazine HCl 10 mg Q6HP PRN IV 06/05/25 00:45 Ipratropium [place] 0.5 mg Q4HPRN PRN NEB 06/05/25 01:00 Ipratropium [place] 0.5 mg Q6HWA NEB 06/05/25 12:00 06/06/25 11:47 0.5 MG Vancomycin HCl 250 ml @ 200 mls/hr Q24H IV 06/05/25 12:00 06/06/25 12:51 200 MLS/HR Metronidazole 500 mg Q8HR PO 06/05/25 22:00 06/06/25 04:56 500 MG Physical Exam: General: NAD Neck: Supple. No masses. HEENT: PERRL. Normal lids and conjunctiva. Moist mucous membranes. Oropharynx without lesions, exudates or excessive erythema. Normal appearance of the external aspects of the nose and ears. Heart: Regular rhythm, normal rate. No murmur. No lower extremity edema. Lungs: Normal respiratory effort. Clear to auscultation bilaterally. No wheezes. No crackles. Abdomen: Soft. Non-tender. Non-distended. No masses or abdominal hernia. Msk: No digital cyanosis. Normal strength and tone in all 4 limbs. Right hip with clean, dry, intact surgical scar, mild edema, Steri-Strips in place. Skin: Warm and dry, no rashes. Right plantar foot with ulcer, minimal drainage, necrosis, odor. Neuro: Alert. No facial droop or slurred speech. Extra-ocular movements intact. Sensation intact to soft touch in all 4 limbs. Psych: Appropriate mood. Full affect. Oriented to person, place, time, and situation. laboratory and microbiology Laboratory Tests 06/06/25 05:50 Test 06/06/25 05:50 Range/Units Serum Glucose 71 L 74-106 mg/dL Problem List/Assessment/Plan Problem List/Assessment/Plan ASSESSMENT AND PLAN: ID Problem List: \-- Right foot cellulitis \-- Suspected right foot osteomyelitis \-- Plantar foot ulcer with necrosis \-- Recent right total hip arthroplasty \-- Coronary artery disease \-- Hypertension \-- Chronic obstructive pulmonary disease (COPD) \-- Mechanical fall (recent) Assessment This is an 79-year-old male with a past medical history of coronary artery disease, hypertension, COPD, and recent right total hip arthroplasty (two weeks ago), who presents with a plantar foot ulcer and findings concerning for right foot osteomyelitis and cellulitis. The ulcer is believed secondary to pressure from a boot placed post-surgery to offload weight. CT of the right foot shows findings concerning for osteomyelitis involving the first proximal and distal phalanx as well as the first metatarsal head, with associated dorsal foot cellulitis. Minimal drainage from the plantar ulcer noted, with necrosis and odorrecommend addition of metronidazole (Flagyl). Orthopedic evaluation requested for assessment and possible surgical debridement. Current antibiotics include vancomycin and ceftriaxone empirically for cellulitis/osteomyelitis. CRP to be checked to monitor inflammatory activity. Blood cultures to be drawn. Recommend consult with wound surgery and reassessment of offloading strategy to prevent further complications from the boot. Patients current vitals are stable. No acute findings on chest X-ray or periprosthetic complication on recent hip imaging. YOLA rate is elevated, WBC mildly elevated at 10.8, Hb 11, platelets 402. 8/1: ongoing COPD exacerbation , osteomyelitis of the foot that is requiring debridement Plan: \-- Continue vancomycin and ceftriaxone IV for now \-- Add Flagyl for foot ulcer with necrosis and odor \-- Check CRP, blood cultures \-- Continue wound care and offload pressure from plantar surface \-- Consult ortho surgery (Dr. Latif/Dr. Velázquez) for evaluation and debridement as indicated \-- Orthopedic input on alternative offloading strategy to reduce ulcer risk \-- Monitor for systemic infection or worsening necrosis \-- Treat comorbidities as per current regimen (see medication list below) Isolation Precautions: Standard HERNÁN TIMMONS MD Jun 06, 2025 13:21
--- NOTE | 2025-06-06 18:28 | DVHPN2 ---
Subjective Denies any complaints. 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 Medications Current Medications Medications Dose Ordered Sig/Promise Route Start Time Stop Time Status Last Admin Dose Admin Vancomycin HCl 0 ml @ 0 mls/hr UD IV 06/04/25 19:45 Ondansetron HCl 4 mg Q6HPRN PRN IV 06/04/25 19:45 Acetaminophen/ Hydrocodone Bitart 1 tab Q6HPRN PRN PO 06/04/25 19:45 06/06/25 11:22 1 TAB Famotidine 20 mg BID PO 06/04/25 22:00 06/05/25 09:41 20 MG Acetaminophen 650 mg Q6HPRN PRN PO 06/04/25 19:45 06/05/25 11:52 650 MG Enoxaparin Sodium 40 mg DAILY SC 06/05/25 10:00 06/06/25 09:45 40 MG Ceftriaxone Sodium/Dextrose 50 ml @ 50 mls/hr DAILY IV 06/05/25 10:00 06/06/25 09:47 50 MLS/HR Hydralazine HCl 10 mg Q6HP PRN IV 06/05/25 00:45 Ipratropium [place] 0.5 mg Q4HPRN PRN NEB 06/05/25 01:00 Ipratropium [place] 0.5 mg Q6HWA NEB 06/05/25 12:00 06/06/25 11:47 0.5 MG Vancomycin HCl 250 ml @ 200 mls/hr Q24H IV 06/05/25 12:00 06/06/25 12:51 200 MLS/HR Metronidazole 500 mg Q8HR PO 06/05/25 22:00 06/06/25 13:56 500 MG Mupirocin 1 applic BID EACHNOSTRI 06/06/25 22:00 06/11/25 21:59 Laboratory Results Laboratory Tests 06/06/25 05:50 Chemistry Test 06/06/25 05:50 Calcium Level 8.9 mg/dL (8.7-10.4) Urinalysis Test 06/05/25 05:00 Urine Color Light-yellow (Yellow) Urine Clarity Clear (Clear) Urine pH 6.5 (5.0-9.0) Urine Specific [place] 1.014 (1.001-1.035) Urine Protein Negative (Negative) Urine Ketones Negative (Negative) Urine Blood Negative /uL (Negative) Urine Nitrite Negative (Negative) Urine Bilirubin Negative (Negative) Urine Urobilinogen Normal mg/dL (Negative) Urine Leukocyte Esterase Negative /uL (Negative) Urine RBC 1 /hpf (0 - 3) Urine Microscopic WBC 6 /HPF (0-3) H Urine Squamous Epithelial Cells Few /hpf (<5) Urine Bacteria None seen /hpf (None Seen) Urine Glucose Normal mg/dL (Normal) Microbiology Microbiology Date/Time Source Procedure Growth Status 06/04/25 23:58 Nose MRSA Screen - Final Methicillin Resistant S.aureus Complete Assessment/Plan Assessment/Plan 79-year-old male with a known history of COPD, hypertension, dyslipidemia, coronary artery disease, recent right hip surgery for right femur neck fracture was recovering in correction facility came for right foot wound found to have 1. Right foot osteomyelitis 2. Right foot cellulitis 3. Pneumonia 4. COPD not in exacerbation 5. Hypertension 6. Coronary artery disease status post PCI 7. Recent right hip surgery -MRI right foot, IV antibiotics including vancomycin Rocephin and Flagyl, Infectious Disease consultation -physical therapy evaluation and treatment. Plan discussed with: Patient Date of Service: Jun 06, 2025 Billing Provider: JENNI MATOS MD Common Visit Codes: NOT BILLABLE JENNI MATOS MD Jun 06, 2025 18:28
[2025-06-06] MEDS: HYDROcodone-ACET 5/325MG TAB PO PRN (20:04)
[2025-06-06] MEDS: DOCUSATE SOD 100 MG CAP PO SCH (21:22)
[2025-06-06] MEDS: MUPIROCIN 2% OINT 15gm or 22gm FOR MRSA NARES EACHNOSTRI SCH (21:22)
[2025-06-07] VITALS (14 sets, daily range): BP systolic 113–136; BP diastolic 64–77; PULSE 70–78; RESP 17–20; TEMP 97.5–98.1; O2SAT 92–100
[2025-06-07 07:47] LABS: Hemoglobin 10.5 g/dL (13.5-17.5)
[2025-06-07 07:53] LABS: Hematocrit 29.6 % (41.0-53.0); Mean Corpuscular Hemoglobin 34.6 pg (28.0-32.0); Mean Corpuscular Volume 98.0 fL (80.0-100.0); Nucleated Red Blood Cells % 0.1 %
--- NOTE | 2025-06-07 16:53 | DVHPN2 ---
Subjective Overnight events noted. Currently MRI right foot is pending as well as Podiatry consultation. 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 Medications Current Medications Medications Dose Ordered Sig/Promise Route Start Time Stop Time Status Last Admin Dose Admin Vancomycin HCl 0 ml @ 0 mls/hr UD IV 06/04/25 19:45 Ondansetron HCl 4 mg Q6HPRN PRN IV 06/04/25 19:45 Famotidine 20 mg BID PO 06/04/25 22:00 06/05/25 09:41 20 MG Acetaminophen 650 mg Q6HPRN PRN PO 06/04/25 19:45 06/05/25 11:52 650 MG Enoxaparin Sodium 40 mg DAILY SC 06/05/25 10:00 06/07/25 10:38 40 MG Ceftriaxone Sodium/Dextrose 50 ml @ 50 mls/hr DAILY IV 06/05/25 10:00 06/07/25 10:00 50 MLS/HR Hydralazine HCl 10 mg Q6HP PRN IV 06/05/25 00:45 Ipratropium [place] 0.5 mg Q4HPRN PRN NEB 06/05/25 01:00 Ipratropium [place] 0.5 mg Q6HWA NEB 06/05/25 12:00 06/07/25 11:35 0.5 MG Vancomycin HCl 250 ml @ 200 mls/hr Q24H IV 06/05/25 12:00 06/07/25 12:27 200 MLS/HR Metronidazole 500 mg Q8HR PO 06/05/25 22:00 06/07/25 14:09 500 MG Mupirocin 1 applic BID EACHNOSTRI 06/06/25 22:00 06/11/25 21:59 06/07/25 10:36 1 APPLIC Acetaminophen/ Hydrocodone Bitart 1 tab Q4HPRN PRN PO 06/06/25 19:15 06/07/25 14:10 1 TAB Docusate Sodium 100 mg BID PO 06/06/25 22:00 06/07/25 10:37 100 MG Laboratory Results Laboratory Tests 06/06/25 05:50 06/07/25 07:15 Urinalysis Test 06/05/25 05:00 Urine Color Light-yellow (Yellow) Urine Clarity Clear (Clear) Urine pH 6.5 (5.0-9.0) Urine Specific [place] 1.014 (1.001-1.035) Urine Protein Negative (Negative) Urine Ketones Negative (Negative) Urine Blood Negative /uL (Negative) Urine Nitrite Negative (Negative) Urine Bilirubin Negative (Negative) Urine Urobilinogen Normal mg/dL (Negative) Urine Leukocyte Esterase Negative /uL (Negative) Urine RBC 1 /hpf (0 - 3) Urine Microscopic WBC 6 /HPF (0-3) H Urine Squamous Epithelial Cells Few /hpf (<5) Urine Bacteria None seen /hpf (None Seen) Urine Glucose Normal mg/dL (Normal) Microbiology Microbiology Date/Time Source Procedure Growth Status 06/05/25 19:31 Blood Blood Culture - Preliminary NO GROWTH AFTER 24 HOURS OF INCUBATION. Resulted 06/04/25 23:58 Nose MRSA Screen - Final Methicillin Resistant S.aureus Complete Assessment/Plan Assessment/Plan 79-year-old male with a known history of COPD, hypertension, dyslipidemia, coronary artery disease, recent right hip surgery for right femur neck fracture was recovering in [facility] facility came for right foot wound found to have 1. Right foot osteomyelitis 2. Right foot cellulitis 3. Pneumonia 4. COPD not in exacerbation 5. Hypertension 6. Coronary artery disease status post PCI 7. Recent right hip surgery -MRI right foot, IV antibiotics including vancomycin Rocephin and Flagyl, Infectious Disease consultation -physical therapy evaluation and treatment. Plan discussed with: Patient My Orders Orders - JENNI MATOS MD Procedure Category Date Status Time Hydrocodone-Acet PHA 06/06/25 In Process 5/325mg Tab ([place] 19:15 Docusate Sodium PHA 06/06/25 In Process Capsule ([place] 22:00 Date of Service: Jun 06, 2025 Billing Provider: JENNI MATOS MD Common Visit Codes: NOT BILLABLE JENNI MATOS MD Jun 07, 2025 16:53
[2025-06-08] VITALS (10 sets, daily range): BP systolic 100–139; BP diastolic 60–73; PULSE 72–83; RESP 15–19; TEMP 36.2; O2SAT 91–100
--- NOTE | 2025-06-08 12:48 | DVH ---
CLINICAL INDICATION: Right foot osteomyelitis COMPARISON: CT CT R FOOT WO CONTRAST on DOS: 06/04/25 TECHNIQUE: Multiplanar, multisequence MRI of the right foot was performed without intravenous contras t. Contrast: None. INTERPRETATION: Evaluation is limited by motion artifact. Bones: No evidence of acute fracture. There is no marrow replacing lesion. Joints: There is midfoot arthrosis. Soft tissues: No high-grade tendon or ligament injury. There is edema in the intrinsic muscles of th e foot which may reflect myositis or denervation. Trace fluid in the retrocalcaneal bursa. No signifi cant joint effusion. IMPRESSION: 1. No MR evidence of osteomyelitis.
[2025-06-08] MEDS ORDERED: CLIN1CAP70 PO (16:10)
[2025-06-08] MEDS ORDERED: CEFD300C2 PO (16:10)
--- NOTE | 2025-06-08 16:13 | DVHDS2 ---
Discharge Summary Date of Admission Jun 04, 2025 at 19:39 Date of Discharge: Jun 08, 2025 Labs/Diagnostic Data: Laboratory Results Test 06/08/25 11:58 06/07/25 07:15 06/06/25 05:50 06/05/25 05:00 Creatinine 1.14 mg/dL (0.700-1.30) Glomerular Filtration Rate Calc 65 mL/min (>90) Vancomycin Level Trough 19.1 ug/mL (5-10) White Blood Count 7.4 10^3/uL (4.4-10.8) Red Blood Count 3.02 10^6/uL (4.5-5.90) Hemoglobin 10.5 g/dL (13.5-17.5) Hematocrit 29.6 % (41.0-53.0) Mean Corpuscular Volume 98.0 fL (80.0-100.0) Mean Corpuscular Hemoglobin 34.6 pg (28.0-32.0) Mean Corpuscular Hemoglobin Concent 35.4 g/dL (32.0-36.0) Red Cell Distribution Width 13.5 % (11.8-14.3) Platelet Count 336 10^3/uL (140-450) Mean Platelet Volume 6.9 fL (6.9-10.8) Neutrophils (%) (Auto) 61.4 % (37.0-80.0) Lymphocytes (%) (Auto) 16.6 % (10.0-50.0) Monocytes (%) (Auto) 14.5 % (0.0-12.0) Eosinophils (%) (Auto) 6.7 % (0.0-7.0) Basophils (%) (Auto) 0.8 % (0.0-2.0) Neutrophils # (Auto) 4.6 10 ^3/uL (1.6-8.6) Lymphocytes # (Auto) 1.2 10 ^3/uL (0.4-5.4) Monocytes # (Auto) 1.1 10 ^3/uL (0-1.3) Eosinophils # (Auto) 0.5 10 ^3/uL (0-0.8) Basophils # (Auto) 0.1 10 ^3/uL (0-0.2) Nucleated Red Blood Cells 0.1 % Sodium Level 136 mmol/L (136-145) Potassium Level 4.0 mmol/L (3.5-5.1) Chloride Level 102 mmol/L (98-107) Carbon Dioxide Level 26 mmol/L (20-31) Anion Gap 8 (5-15) Blood Urea Nitrogen 15 mg/dL (9-23) BUN/Creatinine Ratio 13.4 (10.0-20.0) Serum Glucose 71 mg/dL (74-106) Calcium Level 8.9 mg/dL (8.7-10.4) C-Reactive Protein High Sensitivity 3.65 mg/dL (<1.0) Urine Color Light-yellow (Yellow) Urine Clarity Clear (Clear) Urine pH 6.5 (5.0-9.0) Urine Specific Mcneal 1.014 (1.001-1.035) Urine Protein Negative (Negative) Urine Ketones Negative (Negative) Urine Blood Negative /uL (Negative) Urine Nitrite Negative (Negative) Urine Bilirubin Negative (Negative) Urine Urobilinogen Normal mg/dL (Negative) Urine Leukocyte Esterase Negative /uL (Negative) Urine RBC 1 /hpf (0 - 3) Urine Microscopic WBC 6 /HPF (0-3) Urine Squamous Epithelial Cells Few /hpf (<5) Urine Bacteria None seen /hpf (None Seen) Urine Glucose Normal mg/dL (Normal) Test 06/05/25 04:57 06/04/25 20:06 06/04/25 11:03 Random Vancomycin Level 9.5 ug/mL (5-10) Prothrombin Time 11.9 sec (9.3-11.8) Prothrombin Time INR 1.14 (0.9-1.15) Lactic Acid Level 1.2 mmol/L (0.4-2.0) Erythrocyte Sedimentation Rate 80 mm/hr (0-20) Other Laboratory Tests 06/08/25 11:58 06/07/25 07:15 06/06/25 05:50 Brief Hx & Hospital Course: 79-year-old male with a known history of COPD, hypertension, dyslipidemia, coronary artery disease, recent right hip surgery for right femur neck fracture was recovering in prison facility came for right foot wound found to have right foot cellulitis with right foot wound. Patient also has a known history of COPD hypertension CAD status post PCI and recent right hip surgery. Patient was started on IV antibiotics. CT right foot shows questionable osteomyelitis, MRI right foot ruled out osteomyelitis. Patient is given IV antibiotics during the hospital stay vancomycin IV as well as Rocephin infectious Disease was following the patient. Patient will be switched to p.o. antibiotics upon discharge. Please provide right foot wound care for home. simon Condition at Discharge: Stable Final Diagnosis/Problems List 79-year-old male with a known history of COPD, hypertension, dyslipidemia, coronary artery disease, recent right hip surgery for right femur neck fracture was recovering in prison facility came for right foot wound found to have 1. Right foot pain 2. Right foot cellulitis, osteomyelitis ruled out 3. Pneumonia 4. COPD not in exacerbation 5. Hypertension 6. Coronary artery disease status post PCI 7. Recent right hip surgery Discharge Disposition: Home with Health Services [facility] Discharge Will this Physician continue t: No Discharge Instruct/Medications Diet: Cardiac 2g Na,low cholest Activity: No Restrictions, As Tolerated Follow Up/Referral: Follow up with PCP in 1 week Follow up with Orthopedics in 1 week Follow up with Infectious Disease in 1 week Medications: Resume home medications new prescription as prescribed New Medications: Cefdinir (Cefdinir) 300 Mg Cap 1 CAP PO BID for 14 Days, #28 CAP Clindamycin Hcl (Clindamycin Hcl) 300 Mg Cap 300 MG PO QID for 14 Days, #56 CAP Continued Medications: Amlodipine Besylate (Amlodipine Besylate) 10 Mg Tab 1 TAB PO QAM for HYPERTENSION Aspirin (Aspirin) 81 Mg Tab 1 TAB PO QAM for HEART DISEASE Atorvastatin Calcium (Lipitor) 20 Mg Tab 1 TAB PO QPM for HIGH CHOLESTEROL Finasteride (Finasteride) 5 Mg Tab 5 MG PO DAILY for ENLARGED PROSTATE for 30 Days, MG Latanoprost (Latanoprost) 0.005 % Xuan 1 DROP EACHEYE QPM for GLAUCOMA Timolol Maleate (Timolol Maleate Ophthalmi) 0.5 % Xuan 1 DROP RIGHTEYE BID for GLAUCOMA Scheduled Amlodipine Besylate (Amlodipine Besylate), 1 TAB PO QAM, (Reported) Aspirin (Aspirin), 1 TAB PO QAM, (Reported) Atorvastatin Calcium (Lipitor), 1 TAB PO QPM, (Reported) Cefdinir (Cefdinir), 1 CAP PO BID Clindamycin Hcl (Clindamycin Hcl), 300 MG PO QID Finasteride (Finasteride), 5 MG PO DAILY, (Reported) Latanoprost (Latanoprost), 1 DROP EACHEYE QPM, (Reported) Timolol Maleate (Timolol Maleate Ophthalmi), 1 DROP RIGHTEYE BID, (Reported) Discharge Statement: "Patient was advised to return to the ER or call 911 if any headaches, dizziness, shortness of breath, chest pain, abdominal pain, bleeding, fevers, or worsening of medical condition. Patient was counseled about treatment plan, medications, possible side effects, patientverbalized understanding. All questions were answered to the best of my ability. This discharge took greater then 30 minutes in planning, reviewing documentation, counseling the patient, and discussing with other team members." ASSESSMENT ASSESSMENT Assessment 79-year-old male with a known history of COPD, hypertension, dyslipidemia, coronary artery disease, recent right hip surgery for right femur neck fracture was recovering in prison facility came for right foot wound found to have 1. Right foot pain 2. Right foot cellulitis, osteomyelitis ruled out 3. Pneumonia 4. COPD not in exacerbation 5. Hypertension 6. Coronary artery disease status post PCI 7. Recent right hip surgery Date of Service: Jun 08, 2025 Billing Provider: JENNI MATOS MD Common Visit Codes: NOT BILLABLE JENNI MATOS MD Jun 08, 2025 16:13
--- NOTE | 2025-06-09 10:22 | DVHPN2 ---
Consult Progress Note Objective vital signs Vital Sign Date Time Temp Pulse Resp B/P (MAP) Pulse Ox O2 Delivery O2 Flow Rate FiO2 06/08/25 16:50 97.8 77 17 139/73 (95) 93 97.8 06/08/25 12:04 Room Air* 0 21 Total Intake and Output 06/08/25 06/08/25 06/09/25 15:00 23:00 07:00 Intake Total 50 ml 1000 ml Output Total 450 ml Balance 50 ml 550 ml laboratory and microbiology Laboratory Tests 06/08/25 11:58 06/07/25 07:15 06/06/25 05:50 Test 06/06/25 05:50 Range/Units Serum Glucose 71 L 74-106 mg/dL Problem List/Assessment/Plan Problem List/Assessment/Plan ASSESSMENT AND PLAN: ID Problem List: \-- Right foot cellulitis \-- Suspected right foot osteomyelitis \-- Plantar foot ulcer with necrosis \-- Recent right total hip arthroplasty \-- Coronary artery disease \-- Hypertension \-- Chronic obstructive pulmonary disease (COPD) \-- Mechanical fall (recent) Assessment This is an 79-year-old male with a past medical history of coronary artery disease, hypertension, COPD, and recent right total hip arthroplasty (two weeks ago), who presents with a plantar foot ulcer and findings concerning for right foot osteomyelitis and cellulitis. The ulcer is believed secondary to pressure from a boot placed post-surgery to offload weight. CT of the right foot shows findings concerning for osteomyelitis involving the first proximal and distal phalanx as well as the first metatarsal head, with associated dorsal foot cellulitis. Minimal drainage from the plantar ulcer noted, with necrosis and odorrecommend addition of metronidazole (Flagyl). Orthopedic evaluation requested for assessment and possible surgical debridement. Current antibiotics include vancomycin and ceftriaxone empirically for cellulitis/osteomyelitis. CRP to be checked to monitor inflammatory activity. Blood cultures to be drawn. Recommend consult with wound surgery and reassessment of offloading strategy to prevent further complications from the boot. Patients current vitals are stable. No acute findings on chest X-ray or periprosthetic complication on recent hip imaging. YOLA rate is elevated, WBC mildly elevated at 10.8, Hb 11, platelets 402. 8/1: ongoing COPD exacerbation , osteomyelitis of the foot that is requiring debridement Plan: \-- Continue vancomycin and ceftriaxone IV for now \-- Add Flagyl for foot ulcer with necrosis and odor \-- Check CRP, blood cultures \-- Continue wound care and offload pressure from plantar surface \-- Consult ortho surgery (Dr. Latif/Dr. Velázquez) for evaluation and debridement as indicated \-- Orthopedic input on alternative offloading strategy to reduce ulcer risk \-- Monitor for systemic infection or worsening necrosis \-- Treat comorbidities as per current regimen (see medication list below) Isolation Precautions: Standard Dietary Evaluation Review Comments: 1) Ish 1pk BID 2) Ensure enlive 240ml BID if PO intake <50% 3) Monitor PO intake, lab values, weight trend, and I/O Expected Outcomes/Goals: Wound to improve Fu 3-5 days HERNÁN TIMMONS MD Jun 09, 2025 10:22
[2025-06-09] MEDS ORDERED: VANCOMYCIN 1GM/200ML PM 200 ML IV SCH (15:00)
== END 2025-06-08 17:24 | disposition home health service (06) | DRG 602 ==
LOC: ER 10:17 → OVERFLOW 19:39 → TELE-WESTW 22:28
PROVIDERS: ADMIT Internal Medicine; ATTEND Internal Medicine
DX: L03.115 Cellulitis of right lower limb (principal); J15.9 Unspecified bacterial pneumonia; J44.0 Chronic obstructive pulmonary disease with (acute) lower respiratory infection; L97.519 Non-pressure chronic ulcer of other part of right foot with unspecified severity; F17.210 Nicotine dependence, cigarettes, uncomplicated; E78.5 Hyperlipidemia, unspecified; I10 Essential (primary) hypertension; I25.10 Atherosclerotic heart disease of native coronary artery without angina pectoris; Z96.641 Presence of right artificial hip joint; Z88.0 Allergy status to penicillin; Z88.2 Allergy status to sulfonamides; Z79.82 Long term (current) use of aspirin; Z79.899 Other long term (current) drug therapy; Z98.61 Coronary angioplasty status; Z83.3 Family history of diabetes mellitus; I25.2 Old myocardial infarction; Z82.49 Family history of ischemic heart disease and other diseases of the circulatory system
CPT/HCPCS: 36415; 71045; 73700; 73718; 80048; 80202; 81001; 82565; 83605; 85025; 85610; 85652; 86141; 87040; 87081; 94640; 97110; 97163; 97530; G0378

== ENCOUNTER 2025-06-09 22:16 | Inpatient (IN) | payer OTHER ==
[~2025-06-09] VITALS: Ht 177.8 cm; Wt 70.5 kg
[~2025-06-09 22:16] MED LIST changes: +CEFD300C2 PO; +CLIN1CAP70 PO
[2025-06-09 22:30] VITALS: PULSE 76; RESP 18; O2SAT 94
--- NOTE | 2025-06-09 22:41 | ECG ---
[facility] Test Date: 2025-06-09 Test Time: 22:25:10 Pat Name: BONILLA ALCANTARA Department: ED Room: 0233T Gender: M [employer] Chair: joan : 1945 Requested By: BLAIR HAND Order Number: [id number] Reading MD: Trenton Ramirez Measurements Intervals [place] Rate: 73 P: 64 LA: 163 QRS: -58 QRSD: 105 T: 74 QT: 421 QTc: 464 Interpretive Statements Sinus rhythm Left anterior fascicular block Abnormal R-wave progression, early transition Electronically Signed On 06-15-2025 17:49:55 PDT by Trenton Ramirez Please click the below link to view image of tracing.
[2025-06-09 22:46] LABS: Base Excess -5.1 mmol/L (-2.0-3.0)
--- NOTE | 2025-06-09 22:52 | ED.PDOC ---
Altered Mental Status HPI Comments [age] year old male with a history of hypertension, UTIs, sepsis, hyperlipidemia and current right foot infection, was brought in by ambulance with a chief complaint of altered mental status, with the associated shortness of breath, bilateral wheezing, and hypotensive on scene. Per EMS patient was On scene patient was started to be 81% on room air (patient is on 4 L nasal cannula at baseline), but it has since improved to 94% after 4 L O2, and NC. Alert and oriented X2 at this point in time. PHYSICAL EXAM: General: No acute distress. Skin: Skin in warm, dry and intact. Appropriate color for ethnicity. HEENT: The head is normocephalic and atraumatic. Conjunctivae are clear without exudates or hemorrhage. Sclera is non-icteric. EOM are intact. No signs of nystagmus. Eyelids are normal in appearance without swelling or lesions. Oral mucosa is pink and moist Neck: The neck is supple with normal range of motion. No JVD. Cardiac: Heart rate and rhythm are normal. No murmurs, gallops, or rubs are auscultated. Respiratory: No signs of respiratory distress. Lung sounds are clear in all lobes bilaterally without rales, rhonchi, or wheezes. Abdominal: Abdomen is soft, non-tender without distention, guarding or rigidity. Bowel sounds are present and normoactive in all four quadrants. Extremities: Surgical scar healing well right hip , right ankle deformity with overlying erythema Neurological: The patient is awake, lethargic, there was no facial asymmetry REVIEW OF SYSTEMS: Unable to obtain due to altered mental status Chief Complaint: ALOC Time Seen by MD: 22:33 Reviewed Notes: Nurses Notes, Metabolic Specialist Notes, Medications, Allergies Allergies: Coded Allergies: Penicillins (Verified Allergy, Intermediate, HIVES, 05/13/25) Sulfa Antibiotics (Verified Allergy, Intermediate, HIVES, 05/01/25) Home Meds Active Scripts Cefdinir (Cefdinir) 300 Mg Cap, 1 CAP PO BID for 14 Days, #28 CAP Prov:JENNI MATOS MD 06/08/25 Clindamycin Hcl (Clindamycin Hcl) 300 Mg Cap, 300 MG PO QID for 14 Days, #56 CAP Prov:JENNI MATOS MD 06/08/25 Reported Medications Finasteride (Finasteride) 5 Mg Tab, 5 MG PO DAILY for ENLARGED PROSTATE for 30 Days, MG 05/15/25 Timolol Maleate (Timolol Maleate Ophthalmi) 0.5 % Xuan, 1 DROP RIGHTEYE BID for GLAUCOMA 05/01/25 Latanoprost (LATANOPROST) 0.005 % Xuan, 1 DROP EACHEYE QPM for GLAUCOMA 05/01/25 Aspirin (Aspirin) 81 Mg Tab, 1 TAB PO QAM for HEART DISEASE 05/01/25 Atorvastatin Calcium (Lipitor) 20 Mg Tab, 1 TAB PO QPM for HIGH CHOLESTEROL 05/01/25 Amlodipine Besylate (Amlodipine Besylate) 10 Mg Tab, 1 TAB PO QAM for HYPERTENSION 05/01/25 Information Source: Patient, Emergency Med Personnel Mode of Arrival: EMS Severity: Moderate Timing: Hours Duration: Since onset, Hours Prehospital treatment: 12 Lead EKG, Accucheck, Breathing Tx, Factory Hand, Oxygen Quality: Decreased Alertness, Change in Behavior Recent: None History of: None Associated Signs and Symptoms: None Past Medical History PAST MEDICAL HISTORY: COPD, High Lipids, HTN, CO Surgical History: Appendectomy Family History Family History: Family hx of DM Social History Smoker: Cigarettes Alcohol: Occasionally Drugs: Denies Drug Use Lives In: Home EKG EKG : Pulse Rate (adult): 73 [place]: Normal Cardiac Rhythm: NSR Block: None Hypertrophy: None ST: Normal Comments No STEMI Was a procedure done? Was a procedure done?: No Differential Diagnosis (ALOC) Differential Diagnosis: Dehydration, Hypoglycemia, Encephalopathy, Meningitis, Sepsis, Closed Head Injury, CVA, Renal Failure X-Ray, Labs, Meds, VS Vital Signs Date Time Temp Pulse Resp B/P (MAP) Pulse Ox O2 Delivery O2 Flow Rate FiO2 06/09/25 22:52 73 06/09/25 22:30 76 18 94 Nasal Cannula* 5 N/A Non-Rebreather 06/09/25 22:30 98.6 76 18 101/54 (70) 94 98.6 06/09/25 22:29 98.6 81 26 94/62 94 98.6 06/09/25 22:25 73 Lab Test 06/10/25 02:16 06/10/25 01:21 06/10/25 01:10 06/10/25 00:30 Range/Units White Blood Count Pending Red Blood Count Pending Hemoglobin Pending Hematocrit Pending Mean Corpuscular Volume Pending Mean Corpuscular Hemoglobin Pending Mean Corpuscular Hemoglobin Concent Pending Red Cell Distribution Width Pending Platelet Count Pending Mean Platelet Volume Pending Neutrophils (%) (Auto) Pending Lymphocytes (%) (Auto) Pending Monocytes (%) (Auto) Pending Basophils (%) (Auto) Pending Neutrophils # (Auto) Pending Lymphocytes # (Auto) Pending Monocytes # (Auto) Pending Lactic Acid Level Pending Sodium Level Pending Potassium Level Pending Chloride Level Pending Carbon Dioxide Level Pending Anion Gap Pending Blood Urea Nitrogen Pending Creatinine Pending Glomerular Filtration Rate Calc Pending BUN/Creatinine Ratio Pending Serum Glucose Pending Calcium Level Pending Troponin I High Sensitivity 6 </=54 ng/L Urine Color Yellow Yellow Urine Clarity Clear Clear Urine pH 5.5 5.0-9.0 Urine Specific [place] 1.021 1.001-1.035 Urine Protein Trace H Negative Urine Ketones Negative Negative Urine Blood Negative Negative /uL Urine Nitrite Negative Negative Urine Bilirubin Negative Negative Urine Urobilinogen Normal Negative mg/dL Urine Leukocyte Esterase Negative Negative /uL Urine RBC None seen 0 - 3 /hpf Urine Microscopic WBC 7 H 0-3 /HPF Urine Squamous Epithelial Cells Few <5 /hpf Urine Bacteria None seen None Seen /hpf Urine Hyaline Casts Few 0 - 2 /lpf Urine Mucus Few None Seen Urine Glucose Normal Normal mg/dL Urine Opiates Screen Pos NEGATIVE Urine Fentanyl Screen Neg NEGATIVE Urine Barbiturates Screen Neg NEGATIVE Urine Phencyclidine Screen Neg NEGATIVE Urine Amphetamines Screen Neg NEGATIVE Urine Benzodiazepines Screen Neg NEGATIVE Urine Cocaine Screen Neg NEGATIVE Urine Cannabinoids Screen Pos NEGATIVE Influenza Type A Antigen Negative Negative Influenza Type B Antigen Negative Negative SARS-CoV-2 Antigen (Rapid) Negative NEGATIVE Test 06/09/25 23:35 06/09/25 22:40 06/09/25 22:34 05/31/25 23:35 Range/Units Troponin I High Sensitivity 5 8 </=54 ng/L Blood Gas Specimen Type Arterial Blood Gas Sample Site Left radial Blood Gas Patient Temperature 37.0 Arterial Blood Date Drawn [id number] Arterial Blood pH 7.408 7.350-7.450 Arterial Blood Partial Pressure CO2 30.2 L 35.0-48.0 mmHg Arterial Blood Partial Pressure O2 73.9 L 83.0-108.0 mmHg Arterial Blood HCO3 18.6 L 21.0-28.0 mmol/L Arterial Blood Oxygen Saturation 92.7 L 94.0-98.0 % Arterial Blood Base Excess -5.1 L -2.0-3.0 mmol/L Arterial Blood Oxyhemoglobin 91.6 L 94.0-98.0 % Arterial Blood Carboxyhemoglobin 0.6 0.5-1.5 % Arterial Blood Methemoglobin 0.6 0.0-1.5 % Ryan Test Modified Blood Gas Total Hemoglobin 10.20 L 13.5-17.5 g/dL Blood Gas Liter Flow 15.00 Blood Gas Modality Mask - nrb FiO2 % 100.0 White Blood Count 8.6 4.4-10.8 10^3/uL Red Blood Count 2.92 L 4.5-5.90 10^6/uL Hemoglobin 9.8 L 13.5-17.5 g/dL Hematocrit 29.2 L 41.0-53.0 % Mean Corpuscular Volume 99.9 80.0-100.0 fL Mean Corpuscular Hemoglobin 33.4 H 28.0-32.0 pg Mean Corpuscular Hemoglobin Concent 33.5 32.0-36.0 g/dL Red Cell Distribution Width 13.5 11.8-14.3 % Platelet Count 300 140-450 10^3/uL Mean Platelet Volume 7.2 6.9-10.8 fL Neutrophils (%) (Auto) 72.7 37.0-80.0 % Lymphocytes (%) (Auto) 15.5 10.0-50.0 % Monocytes (%) (Auto) 10.9 0.0-12.0 % Eosinophils (%) (Auto) 0.1 0.0-7.0 % Basophils (%) (Auto) 0.8 0.0-2.0 % Neutrophils # (Auto) 6.3 1.6-8.6 10 ^3/uL Lymphocytes # (Auto) 1.3 0.4-5.4 10 ^3/uL Monocytes # (Auto) 0.9 0-1.3 10 ^3/uL Eosinophils # (Auto) 0 0-0.8 10 ^3/uL Basophils # (Auto) 0.1 0-0.2 10 ^3/uL Nucleated Red Blood Cells 0.0 % Prothrombin Time 13.0 H 9.3-11.8 sec Prothrombin Time INR 1.25 H 0.9-1.15 D-Dimer, Quantitative Pending Sodium Level 133 L 136-145 mmol/L Potassium Level 4.4 3.5-5.1 mmol/L Chloride Level 104 98-107 mmol/L Carbon Dioxide Level 20 20-31 mmol/L Anion Gap 9 5-15 Blood Urea Nitrogen 34 H 9-23 mg/dL Creatinine 2.11 H 0.700-1.30 mg/dL Glomerular Filtration Rate Calc 31 >90 mL/min BUN/Creatinine Ratio 16.1 10.0-20.0 Serum Glucose 140 H 74-106 mg/dL Lactic Acid Level 1.9 0.4-2.0 mmol/L Calcium Level 8.7 8.7-10.4 mg/dL Magnesium Level 2.1 1.6-2.6 mg/dL Total Bilirubin 0.3 0.2-1.0 mg/dL Aspartate Amino Transferase (AST) 79 H 13-40 U/L Alanine Aminotransferase (ALT) 25 7-40 U/L Alkaline Phosphatase 66 46-116 U/L B-Type Natriuretic Peptide 97.03 0-100 pg/mL Total Protein 6.1 5.7-8.2 g/dL Albumin 3.6 3.2-4.8 g/dL Lipase 26 12-53 U/L Thyroid Stimulating Hormone (TSH) 1.09 0.55-4.78 uIU/mL Plasma/Serum Blood Alcohol < 3.0 <10 mg/dL Vitamin B12 Level Pending Current Medications Medications (Trade) Dose Ordered Sig/Promise Route Start Time Stop Time Status Last Admin Sodium Chloride 1,000 ml @ 1,000 mls/hr Q1H ONCE IV 06/10/25 00:00 06/10/25 00:59 DC 06/10/25 00:02 Levofloxacin/ Dextrose 100 ml @ 100 mls/hr ONCE ONCE IV 06/10/25 00:00 06/10/25 00:59 DC 06/10/25 00:08 Vancomycin HCl 100 ml @ 200 mls/hr ONCE ONCE IV 06/10/25 00:15 06/10/25 00:44 DC 06/10/25 00:51 Vancomycin HCl 100 ml @ 200 mls/hr ONCE ONCE IV 06/10/25 00:15 06/10/25 00:44 DC 06/10/25 01:21 PATIENT: BONILLA ALCANTARA ACCT: [id number] UNIT: [id number] : 1945 LOC: ER ROOM / BED: / AGE / SEX: 79 / M ADM STATUS: REG ER SERVICE 31 ORDERING PHYSICIAN: BLAIR HAND MD PROCEDURE(s): HWOCT - HEAD WITHOUT CONTRAST REASON: AMS ORDER NUMBER(s): [id number], ACCESSION NUMBER(s): [id number] Indication: AMS Comparison: CT HEAD WITHOUT CONTRAST on DOS: 05/13/25 Technique: Utilizing a multislice CT scanner, a CT scan of the brain was performed without intravenous contrast. Coronal and sagittal reformatted images. All CT scans at this facility use dose modulation, iterative reconstruction, and/or weight based dosing when appropriate to reduce radiation dose to as low as reasonably achievable. Findings: There is no acute infarct, intracranial hemorrhage, or mass effect. There is no hydrocephalus or significant midline shift. There is moderate chronic microvascular ischemic changes and moderate parenchymal volume loss. No acute, depressed calvarial fractures. No large scalp hematomas. Bilateral lens surgery. Scattered paranasal sinus fluid may reflect sinusitis. Impression: 1. No acute intracranial process. 2. Scattered paranasal sinus fluid may reflect sinusitis. [place] [id number] Ph: [phone] DIAGNOSTIC IMAGING Diagnostic Imaging Report : [id number] Signed PATIENT: BONILLA ALCANTARA ACCT: [id number] UNIT: [id number] : 1945 LOC: ER ROOM / BED: / AGE / SEX: 79 / M ADM STATUS: REG ER SERVICE 31 ORDERING PHYSICIAN: BLAIR HAND MD PROCEDURE(s): CXR1 - CHEST XRAY 1 VIEW REASON: AMS ORDER NUMBER(s): [id number], ACCESSION NUMBER(s): [id number] CHEST RADIOGRAPH Indication: AMS Technique: Single frontal view of the chest was obtained Comparison: XY CHEST PORTABLE on DOS: 06/04/25, CT CT ANGIO CHEST CONTRAST on DOS: 05/15/25, XY CHEST PORTABLE on DOS: 05/13/25 FINDINGS: Lines and Tubes: None Lungs: Right middle lobe opacity not excluded. Pleura: No effusion. No pneumothorax. Cardiomediastinal contours: Unremarkable Bones: No acute osseous abnormality. IMPRESSION: 1. Right middle lobe opacity not excluded. ATED BY: DENIA TOLLIVER MD DICTATED DATE/TIME: 06/09/252300 SIGNED BY: DENIA TOLLIVER MD SIGNED DATE/TIME: 06/09/252300 CC: Time of 1ST Reevaluation: 23:00 Reevaluation 1ST: Unchanged Patient Education/Counseling: Diagnosis, Treatment, Need For Follow Up Family Education/Counseling: No Family Present SEPSIS Sepsis Screen Physician Orders Head Without Contrast (06/09/25 22:32) Chest Xray 1 View (06/09/25 22:32) Blood Culture (06/09/25 22:32) Abg W/ Co-Ox (06/09/25 22:32) Saline Lock (06/09/25 22:32) Factory Hand (06/09/25 ) Straight Cath. (06/09/25 ) Electrocardigram (06/09/25 19:21) Electrocardigram (06/09/25 21:21) Electrocardigram (06/09/25 23:32) D-Dimer (06/10/25 02:01) Admit (06/10/25 02:01) Code Status (06/10/25 02:01) Vital Signs .PER UNIT PROTOCOL (06/10/25 02:01) Review Orders With Adm. (06/10/25 02:01) Encourage Activity As Tolerate (06/10/25 02:01) Consistent Carb(Ccho)Diabetes (06/10/25 Breakfast) Sodium Chloride 0.9% (06/10/25 02:15) Oxygen By Face Mask (06/10/25 02:01) Acetaminophen Tablet (Tylenol Tablet) (06/10/25 02:15) Notify Md Of Changes From Base (06/10/25 02:01) Advance Directive (06/10/25 02:01) Basic Metabolic Panel (06/10/25 05:00) Basic Metabolic Panel (06/11/25 05:00) Basic Metabolic Panel (06/12/25 05:00) Basic Metabolic Panel (06/13/25 05:00) Basic Metabolic Panel (06/14/25 05:00) Complete Blood Count (06/10/25 05:00) Complete Blood Count (06/11/25 05:00) Complete Blood Count (06/12/25 05:00) Complete Blood Count (06/13/25 05:00) Complete Blood Count (06/14/25 05:00) Patient Condition (06/10/25 02:01) Allergies (06/10/25 02:01) Hydrocodone-Acet 5/325mg Tab ([place] 5/32 (06/10/25 02:15) Ondansetron Hcl (Zofran) (06/10/25 02:15) Morphine Sulfate Injection (06/10/25 02:15) Nitroglycerin Sublingual (Ntrostat Subli (06/10/25 02:15) Morphine Sulfate Injection (06/10/25 02:15) Stat Ekg For Chest Pain (06/10/25 02:01) Notify Md Of Changes From Base (06/10/25 02:01) [employer] Developer For 24 Hours (06/10/25 02:01) Emergency Dysrhythmia Protocol (06/10/25 02:01) Rhythm Strips Once Every Shift (06/10/25 02:01) Oxygen By Nasal Cannula (06/10/25 02:01) Cefepime 1gm/ 50ml (Maxipime 1gm/50ml) (06/10/25 10:00) Vancomycin Per Pharmacy (06/10/25 02:15) Lactic Acid W/ Reflex Order (06/10/25 02:07) Vitamin B12 (06/10/25 02:09) Albuterol Medneb (Ventolin Medneb) (06/10/25 06:00) Ipratropium Medneb (Atrovent Medneb) (06/10/25 06:00) *Consult / (06/10/25 02:10) * Infectious [place]- Dr. Lisette Liriano (06/10/25 02:10) Basic Metabolic Panel (06/10/25 02:10) Complete Blood Count (06/10/25 02:10) *Dr[facility] Abiel [facility] (06/10/25 02:15) Enoxaparin Sodium (Lovenox) (06/10/25 10:00) Vital Signs Date Time Temp Pulse Resp B/P (MAP) Pulse Ox O2 Delivery O2 Flow Rate FiO2 06/09/25 22:52 73 06/09/25 22:30 76 18 94 Nasal Cannula* 5 N/A Non-Rebreather 06/09/25 22:30 98.6 76 18 101/54 (70) 94 98.6 06/09/25 22:29 98.6 81 26 94/62 94 98.6 06/09/25 22:25 73 Laboratory Tests Test 06/09/25 22:34 06/10/25 02:16 Lactic Acid Level 1.9 mmol/L (0.4-2.0) Pending White Blood Count 8.6 10^3/uL (4.4-10.8) Pending Medications Medications Dose Ordered Sig/Promise Route Start Time Stop Time Status Last Admin Dose Admin Levofloxacin/ Dextrose 100 ml @ 100 mls/hr ONCE ONCE IV 06/10/25 00:00 06/10/25 00:59 DC 06/10/25 00:08 Sodium Chloride 1,000 ml @ 1,000 mls/hr Q1H ONCE IV 06/10/25 00:00 06/10/25 00:59 DC 06/10/25 00:02 Vancomycin HCl 100 ml @ 200 mls/hr ONCE ONCE IV 06/10/25 00:15 06/10/25 00:44 DC 06/10/25 00:51 Vancomycin HCl 100 ml @ 200 mls/hr ONCE ONCE IV 06/10/25 00:15 06/10/25 00:44 DC 06/10/25 01:21 Departure 1 Departure Time of Disposition: 23:53 Impression: Primary Impression: Pneumonia Additional Impressions: SHEILA (acute kidney injury) Severe anemia Disposition: ADMITTED INPATIENT Condition: Serious Comments Patient admitted to hospitalist service for further treatment, evaluation and monitoring. Critical Care Note Critical Care Time?: No Stability Stability form required: No Heart Score Heart Score: Heart Score Response (Comments) Value History N/A 0 EKG N/A 0 Age N/A 0 Risk Factors N/A 0 Troponin N/A 0 Total 0 I personally scribed for BLAIR HAND MD ([email or web address]) on 06/09/25 at 22:52. Electronically submitted by Bonilla Singh ([email or web address]). I personally scribed for BLAIR HAND MD ([email or web address]) on 06/10/25 at 00:15. Electronically submitted by Bonilla Singh ([email or web address]). BLAIR HAND MD Jun 09, 2025 22:52
--- NOTE | 2025-06-09 23:03 | DVH ---
CHEST RADIOGRAPH Indication: AMS Technique: Single frontal view of the chest was obtained Comparison: XY CHEST PORTABLE on DOS: 06/04/25, CT CT ANGIO CHEST CONTRAST on DOS: 05/15/25, XY CHEST P ORTABLE on DOS: 05/13/25 FINDINGS: Lines and Tubes: None Lungs: Right middle lobe opacity not excluded. Pleura: No effusion. No pneumothorax. Cardiomediastinal contours: Unremarkable Bones: No acute osseous abnormality. IMPRESSION: 1. Right middle lobe opacity not excluded.
[2025-06-09 23:05] LABS: Hematocrit 29.2 % (41.0-53.0); Hemoglobin 9.8 g/dL (13.5-17.5); Mean Corpuscular Hemoglobin 33.4 pg (28.0-32.0); Mean Corpuscular Volume 99.9 fL (80.0-100.0); Nucleated Red Blood Cells % 0.0 %
[2025-06-09 23:21] LABS: INR 1.25 (0.9-1.15); Prothrombin Time 13.0 sec (9.3-11.8)
[2025-06-09 23:22] LABS: Alanine Aminotransferase 25 U/L (7-40); Albumin 3.6 g/dL (3.2-4.8); Alkaline Phosphatase 66 U/L (46-116); Anion Gap 9 (5-15); BUN/Creatinine Ratio 16.1 (10.0-20.0); Chloride 104 mmol/L (98-107); Magnesium 2.1 mg/dL (1.6-2.6); Potassium 4.4 mmol/L (3.5-5.1); Total Protein 6.1 g/dL (5.7-8.2)
--- NOTE | 2025-06-09 23:27 | DVH ---
Indication: AMS Comparison: CT HEAD WITHOUT CONTRAST on DOS: 05/13/25 Technique: Utilizing a multislice CT scanner, a CT scan of the brain was performed without intravenou s contrast. Coronal and sagittal reformatted images. All CT scans at this facility use dose modulation, iterative reconstruction, and/or weight based dosi ng when appropriate to reduce radiation dose to as low as reasonably achievable. Findings: There is no acute infarct, intracranial hemorrhage, or mass effect. There is no hydrocephalus or sign ificant midline shift. There is moderate chronic microvascular ischemic changes and moderate parenchymal volume loss. No acute, depressed calvarial fractures. No large scalp hematomas. Bilateral lens surgery. Scattered paranasal sinus fluid may reflect sinusitis. Impression: 1. No acute intracranial process. 2. Scattered paranasal sinus fluid may reflect sinusitis.
[2025-06-09 23:28] LABS: Bilirubin, Total 0.3 mg/dL (0.2-1.0); Blood Urea Nitrogen 34 mg/dL (9-23); Calcium 8.7 mg/dL (8.7-10.4); Carbon Dioxide 20 mmol/L (20-31); Glucose 140 mg/dL (74-106); Sodium 133 mmol/L (136-145)
[2025-06-10] VITALS (14 sets, daily range): BP systolic 101; BP diastolic 54; PULSE 62–82; RESP 11–18; TEMP 98.6; O2SAT 93–98
[2025-06-10] MEDS ORDERED: VANCOMYCIN 1GM/200ML PM 200 ML IV ONE
[2025-06-10 00:01] LABS: Lipase 26 U/L (12-53)
[2025-06-10] MEDS: SODIUM CHLORIDE 0.9% 1,000 ML IV ONE (00:02)
[2025-06-10] MEDS: VANCOMYCIN 500mg/100mL 100 ML IV ONE ×2 (00:51→01:21)
[2025-06-10 01:09] LABS: COVID19 ANTIGEN SOFIA FIA NEGATIVE (NEGATIVE)
[2025-06-10 01:41] LABS: Urine Protein, UAD TRACE (Negative)
[2025-06-10 01:44] LABS: Cannabinoid Screen, Urine Pos (NEGATIVE)
[2025-06-10 01:49] LABS: Amphetamine Screen, Urine Neg (NEGATIVE); Barbiturate Scree,Urine Neg (NEGATIVE); Benzodiazephine Screen, Urine Neg (NEGATIVE); Cocaine Screen, Urine Neg (NEGATIVE); Opiate Scree,Urine Pos (NEGATIVE); Phencyclidine Screen, Urine Neg (NEGATIVE)
[2025-06-10] MEDS ORDERED: VANCOMYCIN PER PHARMACY 0 MG IV SCH (02:15)
[2025-06-10] MEDS ORDERED: MORPHINE SULFATE INJ 2 MG/ml SYRG IV PRN (02:15)
[2025-06-10] MEDS ORDERED: NITROGLYCERIN 0.4 MG SL TAB SL PRN (02:15)
[2025-06-10] MEDS ORDERED: ONDANSETRON HCL 4 MG/2 ML VIAL IV PRN (02:15)
[2025-06-10] MEDS: SODIUM CHLORIDE 0.9% 1,000 ML IV SCH (02:22)
[2025-06-10 02:37] LABS: Hematocrit 26.5 % (41.0-53.0); Hemoglobin 8.8 g/dL (13.5-17.5); Mean Corpuscular Hemoglobin 33.5 pg (28.0-32.0); Mean Corpuscular Volume 100.7 fL (80.0-100.0); Nucleated Red Blood Cells % 0.0 %
[2025-06-10] MEDS: NOREPINEPHRINE 8 MG/250ML KIT 250 ML IV SCH (03:05)
[2025-06-10] MEDS: NOREPINEPHRINE 8 MG/250ML KIT 250 ML IV ONE (03:13)
--- NOTE | 2025-06-10 03:53 | DVHHP2 ---
HELDER ARITA SCRAP BURNER 06/10/25 0353: History of Present Illness Reason for Visit: Altered mental status, hypoxia History of Present Illness 79-year-old male with past medical history of COPD with intermittent oxygen use at home, hypertension, hyperlipidemia, ND, recent right hip surgery, right foot wound presents for altered mental status and hypoxia x1 day. Information in this HPI is limited due to the patient's current cognitive status. it is ac quired with the assistance of the patient's via telephone. As per the patient's Lizzy, patient has not been acting like himself all day. Not eating or drinking well. States that he was trying to eat a piece of [place] pie and was sitting there hitting it with a spoon. When she asked what he was doing he stated he was cutting tile. Patient's endorsed that she went to go check his oxygen saturation in the evening and it was in the low to mid 70s. Family members instructed her to increase oxygen level to 5 L. when EMS encounter the patient the patient was found to be hypoxic and alert and oriented x2. Arrived to the emergency department where a non-rebreather mask. While in the emergency department was treated with 1 L normal saline, however despite fluid resuscitation patient remained hypotensive. At this time the patient is admitted for further evaluation and treatment. During the emergency department evaluation W8.6, H&H 9.8/29.2, PLT 300. Na 133, K4.4, BUN 34, creatinine 2.11, GFR 31, troponin 8, BNP 97. LA 1.9. UA negative for infection. UDS positive for marijuana opioids. Viral swabs negative for influenza a and B/CV 19. CXR impression right middle lobe opacity not excluded. CT of the head without contrast impression no acute intracranial process. Scattered paranasal sinus fluid may reflect sinusitis. Cardiovascular: CAD, HTN, ND Pulmonary: COPD Past Surgical History: Total hip replacement Smoke: No ALCOHOL: none Drugs: Marijuana Lives: with Family Review of Systems Review of Systems Unable to obtain from patient due to condition Allergies: Coded Allergies: Penicillins (Verified Allergy, Intermediate, HIVES, 05/13/25) Sulfa Antibiotics (Verified Allergy, Intermediate, HIVES, 05/01/25) Medications Current Medications Medications Dose Ordered Sig/Promise Route Start Time Stop Time Status Last Admin Dose Admin Sodium Chloride 1,000 ml @ 100 mls/hr Q10H IV 06/10/25 02:15 06/10/25 02:22 100 MLS/HR Acetaminophen 650 mg Q6HP PRN PO 06/10/25 02:15 Acetaminophen/ Hydrocodone Bitart 1 tab Q6HPRN PRN PO 06/10/25 02:15 Ondansetron HCl 4 mg Q4HP PRN IV 06/10/25 02:15 Morphine Sulfate 2 mg Q4HPRN PRN IV 06/10/25 02:15 Enoxaparin Sodium 30 mg DAILY SC 06/10/25 10:00 Nitroglycerin 0.4 mg Q5MINP PRN SL 06/10/25 02:15 Morphine Sulfate 2 mg Q30M PRN IV 06/10/25 02:15 Cefepime HCl 50 ml @ 12.5 mls/hr BID IV 06/10/25 10:00 Vancomycin HCl 0 ml @ 0 mls/hr UD IV 06/10/25 02:15 UNV Albuterol 2.5 mg Q4HR NEB 06/10/25 06:00 Ipratropium [place] 0.5 mg Q4HR NEB 06/10/25 06:00 Norepinephrine Bitartrate 250 ml @ 3.75 mls/hr Q24H IV 06/10/25 03:30 Exam Vital Signs Vital Signs Date Time Temp Pulse Resp B/P (MAP) Pulse Ox O2 Delivery O2 Flow Rate FiO2 06/10/25 02:44 98.6 62 18 101/54 93 5.0 40 98.6 06/10/25 02:30 Nasal Cannula* General Appearance: Alert, moderate distress HEENT: Atraumatic, PERRLA, EOMI Respiratory: Other (Decreased air exchange) Cardiovascular: Regular rate, Normal S1, Normal S2 Abdominal: Normal bowel sounds, Soft, No tenderness Extremities: No edema, Normal pulses, Other (Wound to right foot with necrosis/ right foot internal rotation. right hip tenderness to palpation. ) Neuro: Normal speech, Strength at 5/5 X4 ext Psych/Mental Status: Mental status NL, Mood NL Labs/Xrays Labs Test 06/10/25 03:13 06/10/25 02:16 06/10/25 01:21 06/10/25 01:10 Range/Units White Blood Count 8.0 4.4-10.8 10^3/uL Red Blood Count 2.63 L 4.5-5.90 10^6/uL Hemoglobin 8.8 L 13.5-17.5 g/dL Hematocrit 26.5 L 41.0-53.0 % Mean Corpuscular Volume 100.7 H 80.0-100.0 fL Mean Corpuscular Hemoglobin 33.5 H 28.0-32.0 pg Mean Corpuscular Hemoglobin Concent 33.3 32.0-36.0 g/dL Red Cell Distribution Width 13.6 11.8-14.3 % Platelet Count 268 140-450 10^3/uL Mean Platelet Volume 7.0 6.9-10.8 fL Neutrophils (%) (Auto) 74.3 37.0-80.0 % Lymphocytes (%) (Auto) 13.1 10.0-50.0 % Monocytes (%) (Auto) 12.1 H 0.0-12.0 % Eosinophils (%) (Auto) 0.1 0.0-7.0 % Basophils (%) (Auto) 0.4 0.0-2.0 % Neutrophils # (Auto) 5.9 1.6-8.6 10 ^3/uL Lymphocytes # (Auto) 1.0 0.4-5.4 10 ^3/uL Monocytes # (Auto) 1.0 0-1.3 10 ^3/uL Eosinophils # (Auto) 0 0-0.8 10 ^3/uL Basophils # (Auto) 0 0-0.2 10 ^3/uL Nucleated Red Blood Cells 0.0 % Lactic Acid Level 1.1 0.4-2.0 mmol/L Troponin I High Sensitivity 6 </=54 ng/L Urine Color Yellow Yellow Urine Clarity Clear Clear Urine pH 5.5 5.0-9.0 Urine Specific [place] 1.021 1.001-1.035 Urine Protein Trace H Negative Urine Ketones Negative Negative Urine Blood Negative Negative /uL Urine Nitrite Negative Negative Urine Bilirubin Negative Negative Urine Urobilinogen Normal Negative mg/dL Urine Leukocyte Esterase Negative Negative /uL Urine RBC None seen 0 - 3 /hpf Urine Microscopic WBC 7 H 0-3 /HPF Urine Squamous Epithelial Cells Few <5 /hpf Urine Bacteria None seen None Seen /hpf Urine Hyaline Casts Few 0 - 2 /lpf Urine Mucus Few None Seen Urine Glucose Normal Normal mg/dL Urine Opiates Screen Pos NEGATIVE Urine Fentanyl Screen Neg NEGATIVE Urine Barbiturates Screen Neg NEGATIVE Urine Phencyclidine Screen Neg NEGATIVE Urine Amphetamines Screen Neg NEGATIVE Urine Benzodiazepines Screen Neg NEGATIVE Urine Cocaine Screen Neg NEGATIVE Urine Cannabinoids Screen Pos NEGATIVE Test 06/10/25 00:30 06/09/25 22:40 06/09/25 22:34 05/31/25 23:35 Range/Units Influenza Type A Antigen Negative Negative Influenza Type B Antigen Negative Negative SARS-CoV-2 Antigen (Rapid) Negative NEGATIVE Blood Gas Specimen Type Arterial Blood Gas Sample Site Left radial Blood Gas Patient Temperature 37.0 Arterial Blood Date Drawn [id number] Arterial Blood pH 7.408 7.350-7.450 Arterial Blood Partial Pressure CO2 30.2 L 35.0-48.0 mmHg Arterial Blood Partial Pressure O2 73.9 L 83.0-108.0 mmHg Arterial Blood HCO3 18.6 L 21.0-28.0 mmol/L Arterial Blood Oxygen Saturation 92.7 L 94.0-98.0 % Arterial Blood Base Excess -5.1 L -2.0-3.0 mmol/L Arterial Blood Oxyhemoglobin 91.6 L 94.0-98.0 % Arterial Blood Carboxyhemoglobin 0.6 0.5-1.5 % Arterial Blood Methemoglobin 0.6 0.0-1.5 % Ryan Test Modified Blood Gas Total Hemoglobin 10.20 L 13.5-17.5 g/dL Blood Gas Liter Flow 15.00 Blood Gas Modality Mask - nrb FiO2 % 100.0 Prothrombin Time 13.0 H 9.3-11.8 sec Prothrombin Time INR 1.25 H 0.9-1.15 D-Dimer, Quantitative 1.55 H 0.0-0.49 mg/L FEU Magnesium Level 2.1 1.6-2.6 mg/dL Total Bilirubin 0.3 0.2-1.0 mg/dL Aspartate Amino Transferase (AST) 79 H 13-40 U/L Alanine Aminotransferase (ALT) 25 7-40 U/L Alkaline Phosphatase 66 46-116 U/L B-Type Natriuretic Peptide 97.03 0-100 pg/mL Total Protein 6.1 5.7-8.2 g/dL Albumin 3.6 3.2-4.8 g/dL Lipase 26 12-53 U/L Thyroid Stimulating Hormone (TSH) 1.09 0.55-4.78 uIU/mL Plasma/Serum Blood Alcohol < 3.0 <10 mg/dL Vitamin B12 Level 474 211-911 pg/mL SEPSIS Sepsis Screen Date sepsis recognized/suspect: Jun 09, 2025 Time Sepsis recognized/suspect: 2229 Recent Procedure: No On Antibiotic Therapy: No Respiratory Rate >20: No Heart Rate >90: No Temp<36 C (96.8 F) or >38.3 C: No SBP <90 or MAP <65 mmHG: No New Acute Mental Status Change: Yes Is the patient on CPAP, BIPAP,: No Physician Orders Head Without Contrast (06/09/25 22:32) Chest Xray 1 View (06/09/25 22:32) Blood Culture (06/09/25 22:32) Abg W/ Co-Ox (06/09/25 22:32) Saline Lock (06/09/25 22:32) Warehouse Associate (06/09/25 ) Straight Cath. (06/09/25 ) Electrocardigram (06/09/25 19:21) Electrocardigram (06/09/25 21:21) Electrocardigram (06/09/25 23:32) Admit (06/10/25 02:01) Code Status (06/10/25 02:01) Vital Signs .PER UNIT PROTOCOL (06/10/25 02:01) Review Orders With Adm. (06/10/25 02:01) Encourage Activity As Tolerate (06/10/25 02:01) Consistent Carb(Ccho)Diabetes (06/10/25 Breakfast) Sodium Chloride 0.9% (06/10/25 02:15) Oxygen By Face Mask (06/10/25 02:01) Acetaminophen Tablet (Tylenol Tablet) (06/10/25 02:15) Notify Md Of Changes From Base (06/10/25 02:01) Advance Directive (06/10/25 02:01) Basic Metabolic Panel (06/10/25 05:00) Basic Metabolic Panel (06/11/25 05:00) Basic Metabolic Panel (06/12/25 05:00) Basic Metabolic Panel (06/13/25 05:00) Basic Metabolic Panel (06/14/25 05:00) Complete Blood Count (06/10/25 05:00) Complete Blood Count (06/11/25 05:00) Complete Blood Count (06/12/25 05:00) Complete Blood Count (06/13/25 05:00) Complete Blood Count (06/14/25 05:00) Patient Condition (06/10/25 02:01) Allergies (06/10/25 02:01) Hydrocodone-Acet 5/325mg Tab ([place] 5/32 (06/10/25 02:15) Ondansetron Hcl (Zofran) (06/10/25 02:15) Morphine Sulfate Injection (06/10/25 02:15) Nitroglycerin Sublingual (Ntrostat Subli (06/10/25 02:15) Morphine Sulfate Injection (06/10/25 02:15) Stat Ekg For Chest Pain (06/10/25 02:01) Notify Md Of Changes From Base (06/10/25 02:01) Senior Attorney For 24 Hours (06/10/25 02:01) Emergency Dysrhythmia Protocol (06/10/25 02:01) Rhythm Strips Once Every Shift (06/10/25 02:01) Oxygen By Nasal Cannula (06/10/25 02:01) Cefepime 1gm/ 50ml (Maxipime 1gm/50ml) (06/10/25 10:00) Vancomycin Per Pharmacy (06/10/25 02:15) Albuterol Medneb (Ventolin Medneb) (06/10/25 06:00) Ipratropium Medneb (Atrovent Medneb) (06/10/25 06:00) *Consult / (06/10/25 02:10) * Infectious [place]- Dr. Lisette Liriano (06/10/25 02:10) Basic Metabolic Panel (06/10/25 02:10) *[facility] (06/10/25 02:15) Enoxaparin Sodium (Lovenox) (06/10/25 10:00) Transfer Orders (06/10/25 03:23) Norepinephrine 8 Mg/250ml Kit (Levophed) (06/10/25 03:30) Vital Signs Date Time Temp Pulse Resp B/P (MAP) Pulse Ox O2 Delivery O2 Flow Rate FiO2 06/10/25 02:44 98.6 62 18 101/54 93 5.0 40 98.6 06/10/25 02:30 94 Nasal Cannula* 5 40 06/10/25 02:30 94 Nasal Cannula 5.0 06/10/25 00:00 69 06/09/25 22:52 73 06/09/25 22:30 76 18 94 Nasal Cannula* 5 N/A Non-Rebreather 06/09/25 22:30 98.6 76 18 101/54 (70) 94 98.6 06/09/25 22:29 98.6 81 26 94/62 94 98.6 06/09/25 22:25 73 Laboratory Tests Test 06/09/25 22:34 06/10/25 02:16 Lactic Acid Level 1.9 mmol/L (0.4-2.0) 1.1 mmol/L (0.4-2.0) White Blood Count 8.6 10^3/uL (4.4-10.8) 8.0 10^3/uL (4.4-10.8) Medications Medications Dose Ordered Sig/Promise Route Start Time Stop Time Status Last Admin Dose Admin Levofloxacin/ Dextrose 100 ml @ 100 mls/hr ONCE ONCE IV 06/10/25 00:00 06/10/25 00:59 DC 06/10/25 00:08 100 MLS/HR Sodium Chloride 1,000 ml @ 100 mls/hr Q10H IV 06/10/25 02:15 06/10/25 02:22 100 MLS/HR Sodium Chloride 1,000 ml @ 1,000 mls/hr Q1H ONCE IV 06/10/25 00:00 06/10/25 00:59 DC 06/10/25 00:02 1,000 MLS/HR Vancomycin HCl 100 ml @ 200 mls/hr ONCE ONCE IV 06/10/25 00:15 06/10/25 00:44 DC 06/10/25 00:51 200 MLS/HR Vancomycin HCl 100 ml @ 200 mls/hr ONCE ONCE IV 06/10/25 00:15 06/10/25 00:44 DC 06/10/25 01:21 200 MLS/HR Assessment/Plan Assessment/Plan Acute encephalopathy, mild improvement patient A&O x 3. Acute on chronic respiratory failure with hypoxia COPD Right lobe pneumonia Elevated d dimer Hypotension Acute kidney injury on CKD, likely hemodynamically mediated Right foot planter wound Dislocated right hip arthroplasty Hx s/p right hip surgery Plan Upgrade ICU Pulmonology consult. Bronchodilators. As needed, supplemental O2 to maintain oxygen saturation greater than 92%. Consider CTA of the chest vs VQ scan pending result of repeat BMP. Echocardiogram (05/14/25 estimated LVEF 60%). Vasopressors to maintain MAP > 65. Consult nephrology. Monitor BMP. Trend BUN/creatinine. Strict intake and output Infectious disease consult. IVF, Broad spectrum IV ABX Blood cultures, pending, B12, TSH, monitor LA. Consult orthopedic surgeon Wound care consult DVT ppx lovenox Patient condition, prognosis and plan of care discussed in detail with the patient's (Lizzy) via telephone. Who states she understands and will be in later to see him. Condition critical / Prognosis Guarded Plan discussed with: Patient, Spouse (Spoke to Lizzy via telephone) My Orders Orders - HELDER ARITA NP Procedure Category Date Status Time Admit ADMIT 06/10/25 Transmitted 02:01 Code Status CODE 06/10/25 Transmitted 02:01 Vital Signs ZAHEER 06/10/25 In Process 02:01 Review Orders With ZAHEER 06/10/25 In Process Adm. 02:01 Encourage Activity As ZAHEER 06/10/25 In Process Tolerate 02:01 Consistent DIET 06/10/25 Transmitted Carb(Ccho)Diabetes Breakfast Sodium Chloride 0.9% PHA 06/10/25 In Process 02:15 Oxygen By Face Mask RT 06/10/25 Transmitted 02:01 Acetaminophen Tablet PHA 06/10/25 In Process (Tylenol Tablet) 02:15 Notify Of Changes ZAHEER 06/10/25 In Process From Base 02:01 Advance Directive ZAHEER 06/10/25 In Process 02:01 Basic Metabolic Panel LAB 06/10/25 Logged 05:00 Basic Metabolic Panel LAB 06/11/25 Verified 05:00 Basic Metabolic Panel LAB 06/12/25 Verified 05:00 Basic Metabolic Panel LAB 06/13/25 Verified 05:00 Basic Metabolic Panel LAB 06/14/25 Verified 05:00 Complete Blood Count LAB 06/10/25 Logged 05:00 Complete Blood Count LAB 06/11/25 Verified 05:00 Complete Blood Count LAB 06/12/25 Verified 05:00 Complete Blood Count LAB 06/13/25 Verified 05:00 Complete Blood Count LAB 06/14/25 Verified 05:00 Patient Condition ORDERS 06/10/25 Transmitted 02:01 Allergies ZAHEER 06/10/25 In Process 02:01 Hydrocodone-Acet PHA 06/10/25 In Process 5/325mg Tab ([place] 02:15 Ondansetron Hcl PHA 06/10/25 In Process (Zofran) 02:15 Morphine Sulfate PHA 06/10/25 In Process Injection 02:15 Nitroglycerin PHA 06/10/25 In Process Sublingual (Ntrostat 02:15 Morphine Sulfate PHA 06/10/25 In Process Injection 02:15 Stat Ekg For Chest ZAHEER 06/10/25 In Process Pain 02:01 Notify Of Changes ZAHEER 06/10/25 In Process From Base 02:01 Senior Attorney For ZAHEER 06/10/25 In Process 24 Hours 02:01 Emergency Dysrhythmia ZAHEER 06/10/25 In Process Protocol 02:01 Rhythm Strips Once ZAHEER 06/10/25 In Process Every Shift 02:01 Oxygen By Nasal RT 06/10/25 Transmitted Cannula 02:01 Cefepime 1gm/ 50ml PHA 06/10/25 In Process (Maxipime 1gm/50ml) 10:00 Vancomycin Per PHA 06/10/25 Pending Pharmacy 02:15 Albuterol Medneb PHA 06/10/25 In Process (Ventolin Medneb) 06:00 Ipratropium Medneb PHA 06/10/25 In Process (Atrovent Medneb) 06:00 *Consult CONS 06/10/25 Transmitted / 02:10 * Infectious [place]- CONS 06/10/25 Transmitted Lisette Liriano 02:10 Basic Metabolic Panel LAB 06/10/25 In Process 02:10 *[facility] CONS 06/10/25 Transmitted -[place] 02:15 Enoxaparin Sodium PHA 06/10/25 In Process (Lovenox) 10:00 Transfer Orders XFER 06/10/25 Transmitted 03:23 Norepinephrine 8 PHA 06/10/25 In Process Mg/250ml Kit 03:30 Date of Service: Jun 10, 2025 Billing Provider: CAMMY RUSSELL MD Common Visit Codes: NOT BILLABLE CAMMY RUSSELL MD 06/10/25 1205: Review of Systems Allergies: Coded Allergies: Penicillins (Verified Allergy, Intermediate, HIVES, 05/13/25) Sulfa Antibiotics (Verified Allergy, Intermediate, HIVES, 05/01/25) Additional Comments Additional Comments Additional Comments Patient chart is reviewed and discussed with the nurse practitioner. Patient is seen and evaluated by me today. I agree with the nurse practitioner's evaluation, documentation, assessment and care plan as outlined. HELDER ARITA NP Jun 10, 2025 03:53 CAMMY RUSSELL MD Jun 10, 2025 12:05
[2025-06-10 04:40] LABS: Anion Gap 8 (5-15); BUN/Creatinine Ratio 18.8 (10.0-20.0); Blood Urea Nitrogen 36 mg/dL (9-23); Calcium 8.2 mg/dL (8.7-10.4); Carbon Dioxide 21 mmol/L (20-31); Chloride 106 mmol/L (98-107); Glucose 117 mg/dL (74-106); Potassium 3.8 mmol/L (3.5-5.1); Sodium 135 mmol/L (136-145)
[2025-06-10 05:25] LABS: Hematocrit 26.1 % (41.0-53.0); Hemoglobin 9.0 g/dL (13.5-17.5); Mean Corpuscular Hemoglobin 34.0 pg (28.0-32.0); Mean Corpuscular Volume 99.1 fL (80.0-100.0); Nucleated Red Blood Cells % 0.0 %
[2025-06-10 05:34] LABS: Anion Gap 8 (5-15); Carbon Dioxide 21 mmol/L (20-31); Chloride 107 mmol/L (98-107); Potassium 3.6 mmol/L (3.5-5.1); Sodium 136 mmol/L (136-145)
[2025-06-10 05:40] LABS: BUN/Creatinine Ratio 19.4 (10.0-20.0)
[2025-06-10 05:42] LABS: Blood Urea Nitrogen 35 mg/dL (9-23); Calcium 8.2 mg/dL (8.7-10.4); Glucose 125 mg/dL (74-106)
--- NOTE | 2025-06-10 05:42 | DVH ---
CLINICAL INDICATION: RLE internal rotation, tender TECHNIQUE: 3 views XY R HIP COMPLETE XRAY Comparison: XY R HIP COMPLETE XRAY on DOS: 05/14/25, XY R HIP COMPLETE XRAY on DOS: 05/13/25 FINDINGS/IMPRESSION: : Right hip hemiarthroplasty with superior displacement of the replaced femoral head relative to the ac etabulum, appearing as a posterior dislocation on oblique view. No obvious acute fracture although th e posterior acetabular wall appears remodeled. No additional acute abnormality. Diffuse osteopenia. Lumbosacral degenerative changes. Surgical cli ps overlying the right acetabular fossa.
[2025-06-10] MEDS: ALBUTEROL SULF 2.5 MG/0.5ML(0.5%) NEB SOLN NEB SCH (06:28)
[2025-06-10] MEDS: IPRATROPIUM BROM 0.5 MG/2.5ML INH SOL NEB SCH (06:28)
[2025-06-10] MEDS: fentaNYL CITRATE 100 MCG/2 ML VL IV ONE (08:46)
[2025-06-10] MEDS: PROPOFOL 10 MG/ML 20 ML IV ONE ×2 (09:36→09:37)
--- NOTE | 2025-06-10 09:47 | DVH ---
CLINICAL INDICATION: POST REDUCTION TECHNIQUE: 1 radiographic views of the pelvis were obtained. Comparison: XY R HIP COMPLETE XRAY on DOS: 06/10/25, XY R HIP COMPLETE XRAY on DOS: 05/14/25, XY R HIP C OMPLETE XRAY on DOS: 05/13/25 FINDINGS/IMPRESSION: Superior displacement of the right hip arthroplasty again visualized
--- NOTE | 2025-06-10 09:52 | DVHINCON2 ---
Consult Note Consult Consult Note Location: Emergency Department --- Reason for Consultation: Evaluate and manage right hip dislocation in a patient with prior right hip hemiarthroplasty following ground-level fall. --- History of Present Illness: Mr. Matty Farmer is a [79]-year-old male with a known history of right hip hemiarthroplasty who was brought to the emergency department today after a reported ground-level fall. On interview, the patient was noted to be a poor historian, unable to provide significant details regarding the mechanism of injury, 1 prior hip dislocation. He reported right hip pain and inability to move the right lower extremity since the incident. --- Past Medical/Surgical History: Right hip hemiarthroplasty Other history: Not clearly known due to poor recall --- Medications: Unknown per chart or family if available --- Allergies: Unknown --- Review of Systems: Limited due to poor patient history. No fever or other systemic symptoms reported. No head trauma noted. --- Physical Examination: System Findings General Alert, appears uncomfortable. Poor historian. Vitals stable. MSK Right LE Leg shortened, internally rotated, limited ROM. No gross deformity of femur or knee. Skin intact. Neurovascular Distal pulses palpable. Sensation grossly intact in foot and toes. No obvious motor deficit noted. Capillary refill <2 sec. Skin Intact, no abrasions or open wounds over right hip or thigh. --- Imaging: X-ray Right Hip: Clear evidence of posterior dislocation of the right hip prosthesis No obvious periprosthetic fracture Right hemiarthroplasty head displaced posterior to the acetabulum --- Hospital Course / ED Course: Two attempts at closed reduction in the ED under sedation (Propofol + Fentanyl) were unsuccessful. No immediate complications noted during attempts. Patient remained hemodynamically stable. Ortho and OR team consulted for closed reduction under general anesthesia. --- Assessment: 1. Right Hip Dislocation Posterior, status-post prior hemiarthroplasty 2. Failed ED reduction attempts 3. History of ground-level fall --- Plan: Patient will be taken to the operating room today (approx. 12:001:00 PM) for closed reduction of right hip dislocation under general anesthesia. HANA table required for optimal positioning. Post-reduction immobilization with knee extension brace. Preoperative orders already placed by ED: Labs: CBC, CMP, PT, PTT, INR Imaging: EKG, Chest X-ray Informed consent has been obtained for the procedure. Follow-up X-ray post-reduction to confirm alignment. Patient to remain NPO until surgery. Plan discussed with: Other (bedside nurse and ER provider) Visit Coding Surgery Date of Service if different f: Jun 10, 2025 Billing Provider: AVA WARREN Surgery Visit Codes: 13154 - INP CONSULT <55 MIN AVA WARREN Jun 10, 2025 09:52
[2025-06-10] MEDS: CEFEPIME 1GM/50ML 50 ML IV SCH (10:13)
[2025-06-10] MEDS: ENOXAPARIN SOD 30 MG/0.3 ML SYRINGE SC SCH (10:14)
[2025-06-10 13:25] LABS: INR 1.24 (0.9-1.15); Partial Thromboplastin Time 33.3 SEC (24.5-34.5); Prothrombin Time 12.9 sec (9.3-11.8)
[2025-06-10] MEDS: HYDROcodone-ACET 5/325MG TAB PO PRN (20:05)
--- NOTE | 2025-06-10 20:18 | DVHINCON2 ---
Date of service: Jun 10, 2025 Referring Physician MALOU Nielsen Reason for Consultation Acute on chronic hypoxic respiratory failure, COPD and pneumonia. History of Present Illness An 79-year-old man with past medical history of COPD with intermittent oxygen use at home, hypertension, hyperlipidemia, [place], recent right hip surgery and right foot wound who presents to ED today with c/o altered mental status and hypoxia x1 day. HPI information limited due to the patient's current cognitive status. Per , patient has not been acting like himself all day, not eating or drinking well. She noted patient's O2 saturation in the evening was in the low to mid 70s, and increased his oxygen level to 5 LPM. Upon EMS arrival, pt was found to be hypoxic and alert and oriented x2. He arrived to the emergency department with a non-rebreather mask. While in the emergency department he was treated with 1 L normal saline, however despite fluid resuscitation patient remained hypotensive. Initial labs showed WBC 8.6, H&H 9.8/29.2, PLT 300. Na 133, K4.4, BUN 34, creatinine 2.11, GFR 31. Troponin 8, BNP 97. LA 1.9. UA negative for infection. UDS positive for marijuana, opioids. Viral swabs negative for influenza A and B/CV 19. CXR revealed right middle lobe opacity. CT head showed no acute intracranial process, possible sinusitis. Patient was admitted for further care, and pulmonary consultation is requested for evaluation and management of acute on chronic hypoxic respiratory failure, COPD and pneumonia. Review of Systems: 14-point review of systems negative unless otherwise noted above. Past Medical History: COPD, coronary artery disease, [place], hypertension Past Surgical History: Total hip replacement Medications: Reviewed. Allergies: Penicillin Sulfa antibiotics. Family History: Hypertrophic cardiomyopathy Pneumonia Social History: Nonsmoker. No alcohol use. Positive drug use - marijuana. Family History: Hypertrophic cardiomyopathy G8 MOTHER Pneumonia G8 FATHER Allergies: Coded Allergies: Penicillins (Verified Allergy, Intermediate, HIVES, 05/13/25) Sulfa Antibiotics (Verified Allergy, Intermediate, HIVES, 05/01/25) Home Meds Active Scripts Mupirocin (Pseudomonas Fluores (Mupirocin) 2 % Oin, 1 APPLIC EACHNOSTRI BID for 14 Days, #1 OIN Prov:CAMMY RUSSELL MD 06/16/25 Oxycodone W/ Acetaminophen (Percocet 5/325MG) 1 Tab Tb, 1 TAB PO TID PRN, #14 TAB Prov:CAMMY RUSSELL MD 06/16/25 Cefdinir (Cefdinir) 300 Mg Cap, 1 CAP PO BID for 14 Days, #28 CAP Prov:JENNI MATOS MD 06/08/25 Reported Medications Finasteride (Finasteride) 5 Mg Tab, 5 MG PO DAILY for ENLARGED PROSTATE for 30 Days, MG 05/15/25 Timolol Maleate (Timolol Maleate Ophthalmi) 0.5 % Xuan, 1 DROP RIGHTEYE BID for GLAUCOMA 05/01/25 Latanoprost (LATANOPROST) 0.005 % Xuan, 1 DROP EACHEYE QPM for GLAUCOMA 05/01/25 Aspirin (Aspirin) 81 Mg Tab, 1 TAB PO QAM for HEART DISEASE 05/01/25 Atorvastatin Calcium (Lipitor) 20 Mg Tab, 1 TAB PO QPM for HIGH CHOLESTEROL 05/01/25 Amlodipine Besylate (Amlodipine Besylate) 10 Mg Tab, 1 TAB PO QAM for HYPERTENSION 05/01/25 Discontinued Scripts Clindamycin Hcl (Clindamycin Hcl) 300 Mg Cap, 300 MG PO QID for 14 Days, #56 CAP Prov:JENNI MATOS MD 06/08/25 Current Medications Current Medications Medications (Trade) Dose Ordered Sig/Promise Route PRN Reason Start Time Stop Time Status Last Admin Sodium Chloride 1,000 ml @ 100 mls/hr Q10H IV 06/10/25 02:15 06/10/25 02:22 Acetaminophen (Tylenol Tablet) 650 mg Q6HP PRN PO PAIN SCALE 1-3 OR TEMP>100.4 06/10/25 02:15 Acetaminophen/ Hydrocodone Bitart ([place] 5/325MG Tab) 1 tab Q6HPRN PRN PO MODERATE PAIN (4-6 PAIN SCALE) 06/10/25 02:15 06/10/25 20:05 Ondansetron HCl (Zofran) 4 mg Q4HP PRN IV NAUSEA / VOMITING 06/10/25 02:15 Morphine Sulfate 2 mg Q4HPRN PRN IV SEVERE PAIN (7-10 PAIN SCALE) 06/10/25 02:15 Enoxaparin Sodium (Lovenox) 30 mg DAILY SC 06/10/25 10:00 06/10/25 10:14 Nitroglycerin (Ntrostat Sublingual) 0.4 mg Q5MINP PRN SL FOR CHEST PAIN 06/10/25 02:15 Morphine Sulfate 2 mg Q30M PRN IV FOR CHEST PAIN 06/10/25 02:15 Cefepime HCl 50 ml @ 12.5 mls/hr BID IV 06/10/25 10:00 06/10/25 10:13 Vancomycin HCl 0 ml @ 0 mls/hr UD IV 06/10/25 02:15 Albuterol (Ventolin Medneb) 2.5 mg Q4HR NEB 06/10/25 06:00 06/10/25 18:17 Ipratropium [place] (Atrovent Medneb) 0.5 mg Q4HR NEB 06/10/25 06:00 06/10/25 18:17 Norepinephrine Bitartrate 250 ml @ 3.75 mls/hr Q24H IV 06/10/25 03:30 06/10/25 03:05 Vancomycin HCl 250 ml @ 250 mls/hr DAILY@0100 IV 06/11/25 01:00 Vital Signs Vital Signs Date Time Temp Pulse Resp B/P (MAP) Pulse Ox O2 Delivery O2 Flow Rate FiO2 06/10/25 19:00 97.2 79 18 117/67 (84) 97.2 06/10/25 18:27 95 06/10/25 18:17 Oxymizer 10 N/A Physical Exam Gen.: Patient lying in bed in no apparent distress. On supplemental oxygen. Head: Normocephalic, atraumatic. Eyes: EOMI/PERRLA. Ears: Normal hearing. Normal anatomy. Neck/trachea: Trachea midline, supple. Nose: Normal external anatomy. Mouth: Moist mucous membranes. Chest: Decreased air entry bilaterally. No wheezing or rhonchi. Cardiovascular: Positive S1, positive S2. Regular rate and rhythm. Abdomen: Positive bowel sounds in all 4 quadrants. Soft, non-tender, non- distended. : Deferred. Rectal: Deferred. Skin: Warm, dry. Intact. Extremities: 2+ radial pulses bilaterally. No lower extremity edema. Neuro: Awake, alert, oriented x3. No gross motor or sensory deficits. Cranial nerves II through XII intact. Gait not assessed. Labs/Diagnostic Data Labs Test 06/10/25 12:57 06/10/25 04:49 06/10/25 02:16 06/10/25 01:21 Range/Units Prothrombin Time 12.9 H 9.3-11.8 sec Prothrombin Time INR 1.24 H 0.9-1.15 Activated Partial Thromboplast Time 33.3 24.5-34.5 SEC White Blood Count 8.1 4.4-10.8 10^3/uL Red Blood Count 2.63 L 4.5-5.90 10^6/uL Hemoglobin 9.0 L 13.5-17.5 g/dL Hematocrit 26.1 L 41.0-53.0 % Mean Corpuscular Volume 99.1 80.0-100.0 fL Mean Corpuscular Hemoglobin 34.0 H 28.0-32.0 pg Mean Corpuscular Hemoglobin Concent 34.3 32.0-36.0 g/dL Red Cell Distribution Width 13.3 11.8-14.3 % Platelet Count 279 140-450 10^3/uL Mean Platelet Volume 7.3 6.9-10.8 fL Neutrophils (%) (Auto) 71.4 37.0-80.0 % Lymphocytes (%) (Auto) 15.5 10.0-50.0 % Monocytes (%) (Auto) 12.7 H 0.0-12.0 % Eosinophils (%) (Auto) 0.0 0.0-7.0 % Basophils (%) (Auto) 0.4 0.0-2.0 % Neutrophils # (Auto) 5.8 1.6-8.6 10 ^3/uL Lymphocytes # (Auto) 1.3 0.4-5.4 10 ^3/uL Monocytes # (Auto) 1.0 0-1.3 10 ^3/uL Eosinophils # (Auto) 0 0-0.8 10 ^3/uL Basophils # (Auto) 0 0-0.2 10 ^3/uL Nucleated Red Blood Cells 0.0 % Sodium Level 136 136-145 mmol/L Potassium Level 3.6 3.5-5.1 mmol/L Chloride Level 107 98-107 mmol/L Carbon Dioxide Level 21 20-31 mmol/L Anion Gap 8 5-15 Blood Urea Nitrogen 35 H 9-23 mg/dL Creatinine 1.80 H 0.700-1.30 mg/dL Glomerular Filtration Rate Calc 38 >90 mL/min BUN/Creatinine Ratio 19.4 10.0-20.0 Serum Glucose 125 H 74-106 mg/dL Calcium Level 8.2 L 8.7-10.4 mg/dL Lactic Acid Level 1.1 0.4-2.0 mmol/L Troponin I High Sensitivity 6 </=54 ng/L Test 06/10/25 01:10 06/10/25 00:30 06/09/25 22:40 06/09/25 22:34 Range/Units Urine Color Yellow Yellow Urine Clarity Clear Clear Urine pH 5.5 5.0-9.0 Urine Specific [place] 1.021 1.001-1.035 Urine Protein Trace H Negative Urine Ketones Negative Negative Urine Blood Negative Negative /uL Urine Nitrite Negative Negative Urine Bilirubin Negative Negative Urine Urobilinogen Normal Negative mg/dL Urine Leukocyte Esterase Negative Negative /uL Urine RBC None seen 0 - 3 /hpf Urine Microscopic WBC 7 H 0-3 /HPF Urine Squamous Epithelial Cells Few <5 /hpf Urine Bacteria None seen None Seen /hpf Urine Hyaline Casts Few 0 - 2 /lpf Urine Mucus Few None Seen Urine Glucose Normal Normal mg/dL Urine Opiates Screen Pos NEGATIVE Urine Fentanyl Screen Neg NEGATIVE Urine Barbiturates Screen Neg NEGATIVE Urine Phencyclidine Screen Neg NEGATIVE Urine Amphetamines Screen Neg NEGATIVE Urine Benzodiazepines Screen Neg NEGATIVE Urine Cocaine Screen Neg NEGATIVE Urine Cannabinoids Screen Pos NEGATIVE Influenza Type A Antigen Negative Negative Influenza Type B Antigen Negative Negative SARS-CoV-2 Antigen (Rapid) Negative NEGATIVE Blood Gas Specimen Type Arterial Blood Gas Sample Site Left radial Blood Gas Patient Temperature 37.0 Arterial Blood Date Drawn [id number] Arterial Blood pH 7.408 7.350-7.450 Arterial Blood Partial Pressure CO2 30.2 L 35.0-48.0 mmHg Arterial Blood Partial Pressure O2 73.9 L 83.0-108.0 mmHg Arterial Blood HCO3 18.6 L 21.0-28.0 mmol/L Arterial Blood Oxygen Saturation 92.7 L 94.0-98.0 % Arterial Blood Base Excess -5.1 L -2.0-3.0 mmol/L Arterial Blood Oxyhemoglobin 91.6 L 94.0-98.0 % Arterial Blood Carboxyhemoglobin 0.6 0.5-1.5 % Arterial Blood Methemoglobin 0.6 0.0-1.5 % Ryan Test Modified Blood Gas Total Hemoglobin 10.20 L 13.5-17.5 g/dL Blood Gas Liter Flow 15.00 Blood Gas Modality Mask - nrb FiO2 % 100.0 D-Dimer, Quantitative 1.55 H 0.0-0.49 mg/L FEU Magnesium Level 2.1 1.6-2.6 mg/dL Total Bilirubin 0.3 0.2-1.0 mg/dL Aspartate Amino Transferase (AST) 79 H 13-40 U/L Alanine Aminotransferase (ALT) 25 7-40 U/L Alkaline Phosphatase 66 46-116 U/L B-Type Natriuretic Peptide 97.03 0-100 pg/mL Total Protein 6.1 5.7-8.2 g/dL Albumin 3.6 3.2-4.8 g/dL Lipase 26 12-53 U/L Thyroid Stimulating Hormone (TSH) 1.09 0.55-4.78 uIU/mL Plasma/Serum Blood Alcohol < 3.0 <10 mg/dL Test 05/31/25 23:35 Range/Units Vitamin B12 Level 474 211-911 pg/mL Assessment Impression: Acute on chronic hypoxic respiratory failure Chronic obstructive pulmonary disease Septic shock Acute metabolic encephalopathy Pneumonia, RML, likely GNR/GPC Acute kidney injury Anemia, normocytic Marijuana use Elevated D-dimer Plan: On 10 L/min via Oxymizer Keep O2 saturation above 92% Taper O2 as tolerated - goal is 4 LPM NC or less. Monitor respiratory status closely d/t increased oxygen requirements ABG reviewed. Compensated. Metabolic acidosis with respiratory compensation. PF ratio indicative of severe lung injury Chest x-ray reveals right middle lobe opacities. Continue antibiotics Follow up cultures Follow up ID recommendations Pressors as necessary for hemodynamic support Maintain mean arterial blood pressure greater than 65 mmHg - off pressors since 4 AM. Continue bronchodilators Wound care Follow up Orthopedics recommendations Monitor hemoglobin Monitor renal function Monitor electrolytes. Supplement as necessary. Monitor ins and outs. DVT prophylaxis Lovenox Condition: Critical Prognosis: Poor given multiple comorbidities. Rest of plan per hospitalist and other consultants. A total of 35 minutes of critical care time was spent reviewing the patient record, examining the patient, making a diagnostic and therapeutic plan, discussing this plan with the medical personnel, following up on diagnostic studies and following the patient for clinical stability excluding any and all procedures. At least 50% of this time was spent in direct, [id number] contact. Thank you MALOU Nielsen for allowing me to participate in this patient's care. Further recommendations will depend on patient's clinical course. Please do not hesitate to contact me if you have any questions or concerns. This medical document was created using an electronic medical record system with [employer] system. Although this document has been carefully reviewed, there may still be some phonetic and typographical errors. These areas are purely typographical due to imperfections of the software programs, and do not reflect any compromise in the patient's medical care. Plan discussed with: Patient, Other (JASON Robertson/MALOU Nielsen/) JEN HORTON MD Jun 10, 2025 20:18
--- NOTE | 2025-06-10 20:59 | DVHINCON2 ---
Date of service: Jun 10, 2025 Reason for Consultation Acute kidney injury History of Present Illness 79 years old male past medical history of COPD, hypertension, dyslipidemia needs surgery presented with chief complaints unknown to be needed status he was also found to be hypoxic patient found to be hypotensive needing vasopressors Past Medical History per hpi Past Surgical History per hpi Allergies: Coded Allergies: Penicillins (Verified Allergy, Intermediate, HIVES, 05/13/25) Sulfa Antibiotics (Verified Allergy, Intermediate, HIVES, 05/01/25) Home Meds Active Scripts Cefdinir (Cefdinir) 300 Mg Cap, 1 CAP PO BID for 14 Days, #28 CAP Prov:JENNI MATOS MD 06/08/25 Clindamycin Hcl (Clindamycin Hcl) 300 Mg Cap, 300 MG PO QID for 14 Days, #56 CAP Prov:JENNI MATOS MD 06/08/25 Reported Medications Finasteride (Finasteride) 5 Mg Tab, 5 MG PO DAILY for ENLARGED PROSTATE for 30 Days, MG 05/15/25 Timolol Maleate (Timolol Maleate Ophthalmi) 0.5 % Xuan, 1 DROP RIGHTEYE BID for GLAUCOMA 05/01/25 Latanoprost (LATANOPROST) 0.005 % Xuan, 1 DROP EACHEYE QPM for GLAUCOMA 05/01/25 Aspirin (Aspirin) 81 Mg Tab, 1 TAB PO QAM for HEART DISEASE 05/01/25 Atorvastatin Calcium (Lipitor) 20 Mg Tab, 1 TAB PO QPM for HIGH CHOLESTEROL 05/01/25 Amlodipine Besylate (Amlodipine Besylate) 10 Mg Tab, 1 TAB PO QAM for HYPERTENSION 05/01/25 Current Medications Current Medications Medications (Trade) Dose Ordered Sig/Promise Route PRN Reason Start Time Stop Time Status Last Admin Sodium Chloride 1,000 ml @ 100 mls/hr Q10H IV 06/10/25 02:15 06/10/25 02:22 Acetaminophen (Tylenol Tablet) 650 mg Q6HP PRN PO PAIN SCALE 1-3 OR TEMP>100.4 06/10/25 02:15 Acetaminophen/ Hydrocodone Bitart ([place] 5/325MG Tab) 1 tab Q6HPRN PRN PO MODERATE PAIN (4-6 PAIN SCALE) 06/10/25 02:15 06/10/25 20:05 Ondansetron HCl (Zofran) 4 mg Q4HP PRN IV NAUSEA / VOMITING 06/10/25 02:15 Morphine Sulfate 2 mg Q4HPRN PRN IV SEVERE PAIN (7-10 PAIN SCALE) 06/10/25 02:15 Enoxaparin Sodium (Lovenox) 30 mg DAILY SC 06/10/25 10:00 06/10/25 10:14 Nitroglycerin (Ntrostat Sublingual) 0.4 mg Q5MINP PRN SL FOR CHEST PAIN 06/10/25 02:15 Morphine Sulfate 2 mg Q30M PRN IV FOR CHEST PAIN 06/10/25 02:15 Cefepime HCl 50 ml @ 12.5 mls/hr BID IV 06/10/25 10:00 06/10/25 10:13 Vancomycin HCl 0 ml @ 0 mls/hr UD IV 06/10/25 02:15 Albuterol (Ventolin Medneb) 2.5 mg Q4HR NEB 06/10/25 06:00 06/10/25 18:17 Ipratropium [place] (Atrovent Medneb) 0.5 mg Q4HR NEB 06/10/25 06:00 06/10/25 18:17 Norepinephrine Bitartrate 250 ml @ 3.75 mls/hr Q24H IV 06/10/25 03:30 06/10/25 03:05 Vancomycin HCl 250 ml @ 250 mls/hr DAILY@0100 IV 06/11/25 01:00 Family History: Hypertrophic cardiomyopathy G8 MOTHER Pneumonia G8 FATHER Review of Systems Patient altered unable to obtain H&P Exam Vital Signs/I&O Vital Sign Date Time Temp Pulse Resp B/P (MAP) Pulse Ox O2 Delivery O2 Flow Rate FiO2 06/10/25 19:00 97.2 79 18 117/67 (84) 97.2 06/10/25 18:27 95 06/10/25 18:17 Oxymizer 10 N/A Intake and Output 06/09/25 06/10/25 19:00 07:00 Intake Total 1703.75 ml Balance 1703.75 ml Intake IV Total 1703.75 ml Physical Exam General-appears lethargic HEENT-normocephalic, no icterus, Respiratory-fair air entry bilateral, no rhonchi, no wheeze [id number] heard, no murmurs appreciated Abdominal-soft, nontender, nondistended Labs/Diagnostic Data Labs/Diagnostic Data Laboratory Tests Test 06/10/25 12:57 06/10/25 04:49 06/10/25 03:13 06/10/25 02:16 Range/Units Prothrombin Time 12.9 H 9.3-11.8 sec Prothrombin Time INR 1.24 H 0.9-1.15 Activated Partial Thromboplast Time 33.3 24.5-34.5 SEC White Blood Count 8.1 8.0 4.4-10.8 10^3/uL Red Blood Count 2.63 L 2.63 L 4.5-5.90 10^6/uL Hemoglobin 9.0 L 8.8 L 13.5-17.5 g/dL Hematocrit 26.1 L 26.5 L 41.0-53.0 % Mean Corpuscular Volume 99.1 100.7 H 80.0-100.0 fL Mean Corpuscular Hemoglobin 34.0 H 33.5 H 28.0-32.0 pg Mean Corpuscular Hemoglobin Concent 34.3 33.3 32.0-36.0 g/dL Red Cell Distribution Width 13.3 13.6 11.8-14.3 % Platelet Count 279 268 140-450 10^3/uL Mean Platelet Volume 7.3 7.0 6.9-10.8 fL Neutrophils (%) (Auto) 71.4 74.3 37.0-80.0 % Lymphocytes (%) (Auto) 15.5 13.1 10.0-50.0 % Monocytes (%) (Auto) 12.7 H 12.1 H 0.0-12.0 % Eosinophils (%) (Auto) 0.0 0.1 0.0-7.0 % Basophils (%) (Auto) 0.4 0.4 0.0-2.0 % Neutrophils # (Auto) 5.8 5.9 1.6-8.6 10 ^3/uL Lymphocytes # (Auto) 1.3 1.0 0.4-5.4 10 ^3/uL Monocytes # (Auto) 1.0 1.0 0-1.3 10 ^3/uL Eosinophils # (Auto) 0 0 0-0.8 10 ^3/uL Basophils # (Auto) 0 0 0-0.2 10 ^3/uL Nucleated Red Blood Cells 0.0 0.0 % Sodium Level 136 135 L 136-145 mmol/L Potassium Level 3.6 3.8 3.5-5.1 mmol/L Chloride Level 107 106 98-107 mmol/L Carbon Dioxide Level 21 21 20-31 mmol/L Anion Gap 8 8 5-15 Blood Urea Nitrogen 35 H 36 H 9-23 mg/dL Creatinine 1.80 H 1.91 H 0.700-1.30 mg/dL Glomerular Filtration Rate Calc 38 35 >90 mL/min BUN/Creatinine Ratio 19.4 18.8 10.0-20.0 Serum Glucose 125 H 117 H 74-106 mg/dL Calcium Level 8.2 L 8.2 L 8.7-10.4 mg/dL Lactic Acid Level 1.1 0.4-2.0 mmol/L Test 06/10/25 01:21 06/10/25 01:10 06/10/25 00:30 06/09/25 23:35 Range/Units Troponin I High Sensitivity 6 5 </=54 ng/L Urine Color Yellow Yellow Urine Clarity Clear Clear Urine pH 5.5 5.0-9.0 Urine Specific [place] 1.021 1.001-1.035 Urine Protein Trace H Negative Urine Ketones Negative Negative Urine Blood Negative Negative /uL Urine Nitrite Negative Negative Urine Bilirubin Negative Negative Urine Urobilinogen Normal Negative mg/dL Urine Leukocyte Esterase Negative Negative /uL Urine RBC None seen 0 - 3 /hpf Urine Microscopic WBC 7 H 0-3 /HPF Urine Squamous Epithelial Cells Few <5 /hpf Urine Bacteria None seen None Seen /hpf Urine Hyaline Casts Few 0 - 2 /lpf Urine Mucus Few None Seen Urine Glucose Normal Normal mg/dL Urine Opiates Screen Pos NEGATIVE Urine Fentanyl Screen Neg NEGATIVE Urine Barbiturates Screen Neg NEGATIVE Urine Phencyclidine Screen Neg NEGATIVE Urine Amphetamines Screen Neg NEGATIVE Urine Benzodiazepines Screen Neg NEGATIVE Urine Cocaine Screen Neg NEGATIVE Urine Cannabinoids Screen Pos NEGATIVE Influenza Type A Antigen Negative Negative Influenza Type B Antigen Negative Negative SARS-CoV-2 Antigen (Rapid) Negative NEGATIVE Test 06/09/25 22:40 06/09/25 22:34 05/31/25 23:35 Range/Units Blood Gas Specimen Type Arterial Blood Gas Sample Site Left radial Blood Gas Patient Temperature 37.0 Arterial Blood Date Drawn [id number] Arterial Blood pH 7.408 7.350-7.450 Arterial Blood Partial Pressure CO2 30.2 L 35.0-48.0 mmHg Arterial Blood Partial Pressure O2 73.9 L 83.0-108.0 mmHg Arterial Blood HCO3 18.6 L 21.0-28.0 mmol/L Arterial Blood Oxygen Saturation 92.7 L 94.0-98.0 % Arterial Blood Base Excess -5.1 L -2.0-3.0 mmol/L Arterial Blood Oxyhemoglobin 91.6 L 94.0-98.0 % Arterial Blood Carboxyhemoglobin 0.6 0.5-1.5 % Arterial Blood Methemoglobin 0.6 0.0-1.5 % Ryan Test Modified Blood Gas Total Hemoglobin 10.20 L 13.5-17.5 g/dL Blood Gas Liter Flow 15.00 Blood Gas Modality Mask - nrb FiO2 % 100.0 White Blood Count 8.6 4.4-10.8 10^3/uL Red Blood Count 2.92 L 4.5-5.90 10^6/uL Hemoglobin 9.8 L 13.5-17.5 g/dL Hematocrit 29.2 L 41.0-53.0 % Mean Corpuscular Volume 99.9 80.0-100.0 fL Mean Corpuscular Hemoglobin 33.4 H 28.0-32.0 pg Mean Corpuscular Hemoglobin Concent 33.5 32.0-36.0 g/dL Red Cell Distribution Width 13.5 11.8-14.3 % Platelet Count 300 140-450 10^3/uL Mean Platelet Volume 7.2 6.9-10.8 fL Neutrophils (%) (Auto) 72.7 37.0-80.0 % Lymphocytes (%) (Auto) 15.5 10.0-50.0 % Monocytes (%) (Auto) 10.9 0.0-12.0 % Eosinophils (%) (Auto) 0.1 0.0-7.0 % Basophils (%) (Auto) 0.8 0.0-2.0 % Neutrophils # (Auto) 6.3 1.6-8.6 10 ^3/uL Lymphocytes # (Auto) 1.3 0.4-5.4 10 ^3/uL Monocytes # (Auto) 0.9 0-1.3 10 ^3/uL Eosinophils # (Auto) 0 0-0.8 10 ^3/uL Basophils # (Auto) 0.1 0-0.2 10 ^3/uL Nucleated Red Blood Cells 0.0 % Prothrombin Time 13.0 H 9.3-11.8 sec Prothrombin Time INR 1.25 H 0.9-1.15 D-Dimer, Quantitative 1.55 H 0.0-0.49 mg/L FEU Sodium Level 133 L 136-145 mmol/L Potassium Level 4.4 3.5-5.1 mmol/L Chloride Level 104 98-107 mmol/L Carbon Dioxide Level 20 20-31 mmol/L Anion Gap 9 5-15 Blood Urea Nitrogen 34 H 9-23 mg/dL Creatinine 2.11 H 0.700-1.30 mg/dL Glomerular Filtration Rate Calc 31 >90 mL/min BUN/Creatinine Ratio 16.1 10.0-20.0 Serum Glucose 140 H 74-106 mg/dL Lactic Acid Level 1.9 0.4-2.0 mmol/L Calcium Level 8.7 8.7-10.4 mg/dL Magnesium Level 2.1 1.6-2.6 mg/dL Total Bilirubin 0.3 0.2-1.0 mg/dL Aspartate Amino Transferase (AST) 79 H 13-40 U/L Alanine Aminotransferase (ALT) 25 7-40 U/L Alkaline Phosphatase 66 46-116 U/L Troponin I High Sensitivity 8 </=54 ng/L B-Type Natriuretic Peptide 97.03 0-100 pg/mL Total Protein 6.1 5.7-8.2 g/dL Albumin 3.6 3.2-4.8 g/dL Lipase 26 12-53 U/L Thyroid Stimulating Hormone (TSH) 1.09 0.55-4.78 uIU/mL Plasma/Serum Blood Alcohol < 3.0 <10 mg/dL Vitamin B12 Level 474 211-911 pg/mL Assessment Acute kidney injury likely hemodynamic mediated etiology in the setting of hypotension/shock Shock Encephalopathy COPD Femoral head displacement Recommendations IV fluids Maintain map greater than 65 Kidney ultrasound Orthopedic consult--hip arthroplasty likely tomorrow We will follow renal function closely Plan discussed with: Patient LOGAN BECKHAM MD Jun 10, 2025 20:59
[2025-06-11] VITALS (39 sets, daily range): BP systolic 96–212; BP diastolic 45–183; PULSE 72–100; RESP 11–25; TEMP 97.3–99.1; O2SAT 89–100
[2025-06-11] MEDS: VANCOMYCIN 1GM/250ML KIT 250 ML IV SCH (01:39)
[2025-06-11 06:15] LABS: Hematocrit 26.9 % (41.0-53.0); Hemoglobin 9.2 g/dL (13.5-17.5); Mean Corpuscular Hemoglobin 33.5 pg (28.0-32.0); Mean Corpuscular Volume 98.5 fL (80.0-100.0); Nucleated Red Blood Cells % 0.1 %
[2025-06-11 06:31] LABS: INR 1.19 (0.9-1.15); Partial Thromboplastin Time 29.1 SEC (24.5-34.5); Prothrombin Time 12.4 sec (9.3-11.8)
[2025-06-11 06:35] LABS: Alkaline Phosphatase 67 U/L (46-116); Anion Gap 5 (5-15); BUN/Creatinine Ratio 25.8 (10.0-20.0); Carbon Dioxide 23 mmol/L (20-31); Potassium 4.0 mmol/L (3.5-5.1); Sodium 139 mmol/L (136-145)
[2025-06-11 06:37] LABS: Alanine Aminotransferase 55 U/L (7-40); Albumin 3.1 g/dL (3.2-4.8); Bilirubin, Total 0.2 mg/dL (0.2-1.0); Blood Urea Nitrogen 32 mg/dL (9-23); Calcium 8.6 mg/dL (8.7-10.4); Chloride 111 mmol/L (98-107); Glucose 144 mg/dL (74-106); Total Protein 5.6 g/dL (5.7-8.2)
--- NOTE | 2025-06-11 08:39 | MEDREC ---
[facility] Intervention Section I [facility] Intervention: Review courses of therapy (MAY CONSIDER ADDING AZITHROMYCIN 500MG ONCE DAILY FOR EMPIRIC THERAPY OF PNEUMONIA FOR ATYPICAL COVERAGE) RAYMOND MAX [facility] RESIDENT Jun 11, 2025 08:39
[2025-06-11] MEDS: MORPHINE SULFATE INJ 2 MG/ml SYRG IV PRN (09:12)
[2025-06-11] MEDS: SODIUM CHLORIDE 0.9% 1,000 ML IV SCH (13:00)
--- NOTE | 2025-06-11 13:55 | DVHPN2 ---
Progress Note Date Seen: Jun 11, 2025 Medical Necessity Reason Pt with a Central, PICC or Fol: No Subjective Patient reports: No new complaints Objective vital signs Vital Sign Date Time Temp Pulse Resp B/P (MAP) Pulse Ox O2 Delivery O2 Flow Rate FiO2 06/11/25 13:36 80 17 97 06/11/25 13:28 Nasal Cannula 3.0 06/11/25 13:28 32 06/11/25 12:00 98.0 121/53 (75) 98.0 Total Intake and Output 06/10/25 06/10/25 06/11/25 15:00 23:00 07:00 Intake Total 50 ml 950 ml Output Total 175 ml Balance 50 ml 775 ml medications Current Medications Medications Dose Ordered Sig/Promise Route Start Time Stop Time Status Last Admin Dose Admin Acetaminophen 650 mg Q6HP PRN PO 06/10/25 02:15 Acetaminophen/ Hydrocodone Bitart 1 tab Q6HPRN PRN PO 06/10/25 02:15 06/10/25 20:05 1 TAB Ondansetron HCl 4 mg Q4HP PRN IV 06/10/25 02:15 Morphine Sulfate 2 mg Q4HPRN PRN IV 06/10/25 02:15 06/11/25 09:12 2 MG Enoxaparin Sodium 30 mg DAILY SC 06/10/25 10:00 06/10/25 10:14 30 MG Nitroglycerin 0.4 mg Q5MINP PRN SL 06/10/25 02:15 Morphine Sulfate 2 mg Q30M PRN IV 06/10/25 02:15 Cefepime HCl 50 ml @ 12.5 mls/hr BID IV 06/10/25 10:00 06/11/25 07:47 12.5 MLS/HR Vancomycin HCl 0 ml @ 0 mls/hr UD IV 06/10/25 02:15 Albuterol 2.5 mg Q4HR NEB 06/10/25 06:00 06/11/25 13:27 2.5 MG Ipratropium [place] 0.5 mg Q4HR NEB 06/10/25 06:00 06/11/25 13:27 0.5 MG Norepinephrine Bitartrate 250 ml @ 3.75 mls/hr Q24H IV 06/10/25 03:30 06/10/25 03:05 3.75 MLS/HR Vancomycin HCl 250 ml @ 250 mls/hr DAILY@0100 IV 06/11/25 01:00 06/11/25 01:39 250 MLS/HR Sodium Chloride 1,000 ml @ 70 mls/hr [id number] IV 06/11/25 13:45 Examination: GENERAL:Abnormal, CVS:Normal, MSK:Abnormal laboratory and microbiology Laboratory Tests 06/11/25 05:49 Test 06/11/25 05:49 Range/Units Serum Glucose 144 H 74-106 mg/dL Microbiology Date/Time Source Procedure Growth Status 06/09/25 22:36 Blood Blood Culture - Preliminary NO GROWTH AFTER 24 HOURS OF INCUBATION. Resulted Problem List/Assessment/Plan Problem List/Assessment/Plan Acute kidney injury likely hemodynamic mediated etiology in the setting of hypotension/shock Shock Encephalopathy COPD Femoral head displacement IV fluids reduced to 70cc/hr Maintain map greater than 65 Kidney ultrasound not done but renal function has improved with fluids Orthopedic consult--hip arthroplasty is pending cardiac clearance check phos vitamin D anemia panel Plan discussed with: Patient Dietary Evaluation Review Comments: Advance to Cardiac CCHO-60 diet when medically feasible. Offer Glucerna BID if PO intake <75% Expected Outcomes/Goals: Improved healing of the sugical site, and gradual wt gains Total Time (mins): 22 ZACH BERNABE MD Jun 11, 2025 13:55
--- NOTE | 2025-06-11 13:57 | DVHPN2 ---
Progress Note - Dictate Date Seen: Jun 11, 2025 Medical Necessity Reason Pt with a Central, PICC or Fol: No Subjective Patient remains confused. Pending orthopedic evaluation for hip dislocation surgery. Patient on 4 L of oxygen. vital signs Vital Sign Date Time Temp Pulse Resp B/P (MAP) Pulse Ox O2 Delivery O2 Flow Rate FiO2 06/11/25 13:36 80 17 97 06/11/25 13:28 Nasal Cannula 3.0 06/11/25 13:28 32 06/11/25 12:00 98.0 121/53 (75) 98.0 Total Intake and Output 06/10/25 06/10/25 06/11/25 15:00 23:00 07:00 Intake Total 50 ml 950 ml Output Total 175 ml Balance 50 ml 775 ml medications Current Medications Medications Dose Ordered Sig/Promise Route Start Time Stop Time Status Last Admin Dose Admin Acetaminophen 650 mg Q6HP PRN PO 06/10/25 02:15 Acetaminophen/ Hydrocodone Bitart 1 tab Q6HPRN PRN PO 06/10/25 02:15 06/10/25 20:05 1 TAB Ondansetron HCl 4 mg Q4HP PRN IV 06/10/25 02:15 Morphine Sulfate 2 mg Q4HPRN PRN IV 06/10/25 02:15 06/11/25 09:12 2 MG Enoxaparin Sodium 30 mg DAILY SC 06/10/25 10:00 06/10/25 10:14 30 MG Nitroglycerin 0.4 mg Q5MINP PRN SL 06/10/25 02:15 Morphine Sulfate 2 mg Q30M PRN IV 06/10/25 02:15 Cefepime HCl 50 ml @ 12.5 mls/hr BID IV 06/10/25 10:00 06/11/25 07:47 12.5 MLS/HR Vancomycin HCl 0 ml @ 0 mls/hr UD IV 06/10/25 02:15 Albuterol 2.5 mg Q4HR NEB 06/10/25 06:00 06/11/25 13:27 2.5 MG Ipratropium [place] 0.5 mg Q4HR NEB 06/10/25 06:00 06/11/25 13:27 0.5 MG Norepinephrine Bitartrate 250 ml @ 3.75 mls/hr Q24H IV 06/10/25 03:30 06/10/25 03:05 3.75 MLS/HR Vancomycin HCl 250 ml @ 250 mls/hr DAILY@0100 IV 06/11/25 01:00 06/11/25 01:39 250 MLS/HR Sodium Chloride 1,000 ml @ 70 mls/hr [id number] IV 06/11/25 13:45 objective Alert awake oriented to name. HEENT neck supple no JVD. Heart regular rate and rhythm S1-S2. Lungs fair air movement degraded breath sounds in the bases. Abdomen soft positive bowel sounds nontender. Extremities no significant edema. laboratory and microbiology Laboratory Tests 06/11/25 05:49 Test 06/11/25 05:49 Range/Units Serum Glucose 144 H 74-106 mg/dL Assessment/Plan Patient is evaluated vice president process and felt stable to undergo hip surgery. Patient already had a hip surgery a month ago at this hospital. At that time he had an echocardiogram and did well postop and recovered without any periodic postoperative medical complications. He is at intermediate risk for perioperative postoperative complications given his age and comorbid medical conditions. At present patient is stable to undergo revision of his hip d islocations surgery. Discussed with the on the phone regarding the patient's care plan. Also discussed with the nurse at bedside regarding care plan. Problems(with codes): (1) SHEILA (acute kidney injury) (2) Fall (3) COPD (chronic obstructive pulmonary disease) (4) Fracture of femoral neck, right Dietary Evaluation Review Comments: Advance to Cardiac CCHO-60 diet when medically feasible. Offer Glucerna BID if PO intake <75% Expected Outcomes/Goals: Improved healing of the sugical site, and gradual wt gains Plan discussed with: Patient, Spouse CAMMY RUSSELL MD Jun 11, 2025 13:57
--- NOTE | 2025-06-11 14:50 | DVH ---
CHEST RADIOGRAPH Indication: sob Technique: Single frontal view of the chest was obtained Comparison: XY CHEST XRAY 1 VIEW on DOS: 06/09/25, XY CHEST PORTABLE on DOS: 06/04/25, CT CT ANGIO CHEST CONTRAST on DOS: 05/15/25 FINDINGS: Lines and Tubes: None Lungs: Right middle lobe airspace disease resolved. Left lower lobe airspace disease or atelectasis p resent Pleura: No effusion. No pneumothorax. Cardiomediastinal contours: Unremarkable Bones: No acute osseous abnormality. IMPRESSION: 1. Resolved right lower lobe airspace disease 2. Development of left lower lobe airspace disease or atelectasis.
--- NOTE | 2025-06-11 15:32 | DVH ---
INDICATION: sreedhar TECHNIQUE: Multiple real-time sonographic images of the kidneys and bladder were obtained. COMPARISON: None FINDINGS: The right kidney measures 10 cm in length, which is normal in size. No hydronephrosis. The left kidney measures 9 cm in length, which is normal in size. No hydronephrosis. No large intraluminal masses are seen in the bladder. Prior to voiding the bladder volume measures vo lume 2094 cc. IMPRESSION: Bilateral medical renal disease. Prior to voiding the bladder volume measures volume 2094 cc.
--- NOTE | 2025-06-11 15:53 | DVHINCON2 ---
Date of service: Jun 11, 2025 Family History: Alzheimer's disease G8 FATHER Diabetes mellitus G8 MOTHER Hypertrophic cardiomyopathy G8 MOTHER Pneumonia G8 FATHER Allergies: Coded Allergies: Penicillins (Verified Allergy, Intermediate, HIVES, 05/13/25) Sulfa Antibiotics (Verified Allergy, Intermediate, HIVES, 05/01/25) Home Meds Active Scripts Cefdinir (Cefdinir) 300 Mg Cap, 1 CAP PO BID for 14 Days, #28 CAP Prov:JENNI MATOS MD 06/08/25 Clindamycin Hcl (Clindamycin Hcl) 300 Mg Cap, 300 MG PO QID for 14 Days, #56 CAP Prov:JENNI MATOS MD 06/08/25 Reported Medications Finasteride (Finasteride) 5 Mg Tab, 5 MG PO DAILY for ENLARGED PROSTATE for 30 Days, MG 05/15/25 Timolol Maleate (Timolol Maleate Ophthalmi) 0.5 % Xuan, 1 DROP RIGHTEYE BID for GLAUCOMA 05/01/25 Latanoprost (LATANOPROST) 0.005 % Xuan, 1 DROP EACHEYE QPM for GLAUCOMA 05/01/25 Aspirin (Aspirin) 81 Mg Tab, 1 TAB PO QAM for HEART DISEASE 05/01/25 Atorvastatin Calcium (Lipitor) 20 Mg Tab, 1 TAB PO QPM for HIGH CHOLESTEROL 05/01/25 Amlodipine Besylate (Amlodipine Besylate) 10 Mg Tab, 1 TAB PO QAM for HYPERTENSI ON 05/01/25 Current Medications Current Medications Medications (Trade) Dose Ordered Sig/Promise Route PRN Reason Start Time Stop Time Status Last Admin Vancomycin HCl 250 ml @ 250 mls/hr DAILY@0100 IV 06/11/25 01:00 06/11/25 01:39 Sodium Chloride 1,000 ml @ 70 mls/hr [id number] IV 06/11/25 13:45 06/11/25 13:00 Finasteride (Proscar Tablet) 5 mg DAILY PO 06/12/25 10:00 UNV Vital Signs Vital Signs Date Time Temp Pulse Resp B/P (MAP) Pulse Ox O2 Delivery O2 Flow Rate FiO2 06/11/25 15:00 80 18 118/54 (75) 96 06/11/25 13:28 Nasal Cannula 3.0 06/11/25 13:28 32 06/11/25 12:00 98.0 98.0 Labs/Diagnostic Data Labs Test 06/11/25 05:49 06/10/25 02:16 06/10/25 01:21 06/10/25 01:10 Range/Units White Blood Count 8.0 4.4-10.8 10^3/uL Red Blood Count 2.73 L 4.5-5.90 10^6/uL Hemoglobin 9.2 L 13.5-17.5 g/dL Hematocrit 26.9 L 41.0-53.0 % Mean Corpuscular Volume 98.5 80.0-100.0 fL Mean Corpuscular Hemoglobin 33.5 H 28.0-32.0 pg Mean Corpuscular Hemoglobin Concent 34.1 32.0-36.0 g/dL Red Cell Distribution Width 13.5 11.8-14.3 % Platelet Count 289 140-450 10^3/uL Mean Platelet Volume 7.0 6.9-10.8 fL Neutrophils (%) (Auto) 75.3 37.0-80.0 % Lymphocytes (%) (Auto) 13.3 10.0-50.0 % Monocytes (%) (Auto) 11.0 0.0-12.0 % Eosinophils (%) (Auto) 0.1 0.0-7.0 % Basophils (%) (Auto) 0.3 0.0-2.0 % Neutrophils # (Auto) 6.1 1.6-8.6 10 ^3/uL Lymphocytes # (Auto) 1.1 0.4-5.4 10 ^3/uL Monocytes # (Auto) 0.9 0-1.3 10 ^3/uL Eosinophils # (Auto) 0 0-0.8 10 ^3/uL Basophils # (Auto) 0 0-0.2 10 ^3/uL Nucleated Red Blood Cells 0.1 % Prothrombin Time 12.4 H 9.3-11.8 sec Prothrombin Time INR 1.19 H 0.9-1.15 Activated Partial Thromboplast Time 29.1 24.5-34.5 SEC Sodium Level 139 136-145 mmol/L Potassium Level 4.0 3.5-5.1 mmol/L Chloride Level 111 H 98-107 mmol/L Carbon Dioxide Level 23 20-31 mmol/L Anion Gap 5 5-15 Blood Urea Nitrogen 32 H 9-23 mg/dL Creatinine 1.24 0.700-1.30 mg/dL Glomerular Filtration Rate Calc 59 >90 mL/min BUN/Creatinine Ratio 25.8 H 10.0-20.0 Serum Glucose 144 H 74-106 mg/dL Calcium Level 8.6 L 8.7-10.4 mg/dL Total Bilirubin 0.2 0.2-1.0 mg/dL Aspartate Amino Transferase (AST) 246 H 13-40 U/L Alanine Aminotransferase (ALT) 55 H 7-40 U/L Alkaline Phosphatase 67 46-116 U/L Total Protein 5.6 L 5.7-8.2 g/dL Albumin 3.1 L 3.2-4.8 g/dL Lactic Acid Level 1.1 0.4-2.0 mmol/L Troponin I High Sensitivity 6 </=54 ng/L Urine Color Yellow Yellow Urine Clarity Clear Clear Urine pH 5.5 5.0-9.0 Urine Specific [place] 1.021 1.001-1.035 Urine Protein Trace H Negative Urine Ketones Negative Negative Urine Blood Negative Negative /uL Urine Nitrite Negative Negative Urine Bilirubin Negative Negative Urine Urobilinogen Normal Negative mg/dL Urine Leukocyte Esterase Negative Negative /uL Urine RBC None seen 0 - 3 /hpf Urine Microscopic WBC 7 H 0-3 /HPF Urine Squamous Epithelial Cells Few <5 /hpf Urine Bacteria None seen None Seen /hpf Urine Hyaline Casts Few 0 - 2 /lpf Urine Mucus Few None Seen Urine Glucose Normal Normal mg/dL Urine Opiates Screen Pos NEGATIVE Urine Fentanyl Screen Neg NEGATIVE Urine Barbiturates Screen Neg NEGATIVE Urine Phencyclidine Screen Neg NEGATIVE Urine Amphetamines Screen Neg NEGATIVE Urine Benzodiazepines Screen Neg NEGATIVE Urine Cocaine Screen Neg NEGATIVE Urine Cannabinoids Screen Pos NEGATIVE Test 06/10/25 00:30 06/09/25 22:40 06/09/25 22:34 05/31/25 23:35 Range/Units Influenza Type A Antigen Negative Negative Influenza Type B Antigen Negative Negative SARS-CoV-2 Antigen (Rapid) Negative NEGATIVE Blood Gas Specimen Type Arterial Blood Gas Sample Site Left radial Blood Gas Patient Temperature 37.0 Arterial Blood Date Drawn [id number] Arterial Blood pH 7.408 7.350-7.450 Arterial Blood Partial Pressure CO2 30.2 L 35.0-48.0 mmHg Arterial Blood Partial Pressure O2 73.9 L 83.0-108.0 mmHg Arterial Blood HCO3 18.6 L 21.0-28.0 mmol/L Arterial Blood Oxygen Saturation 92.7 L 94.0-98.0 % Arterial Blood Base Excess -5.1 L -2.0-3.0 mmol/L Arterial Blood Oxyhemoglobin 91.6 L 94.0-98.0 % Arterial Blood Carboxyhemoglobin 0.6 0.5-1.5 % Arterial Blood Methemoglobin 0.6 0.0-1.5 % Ryan Test Modified Blood Gas Total Hemoglobin 10.20 L 13.5-17.5 g/dL Blood Gas Liter Flow 15.00 Blood Gas Modality Mask - nrb FiO2 % 100.0 D-Dimer, Quantitative 1.55 H 0.0-0.49 mg/L FEU Magnesium Level 2.1 1.6-2.6 mg/dL B-Type Natriuretic Peptide 97.03 0-100 pg/mL Lipase 26 12-53 U/L Thyroid Stimulating Hormone (TSH) 1.09 0.55-4.78 uIU/mL Plasma/Serum Blood Alcohol < 3.0 <10 mg/dL Vitamin B12 Level 474 211-911 pg/mL Microbiology Date/Time Source Procedure Growth Status 06/11/25 01:00 Nose MRSA Screen - Final Methicillin Resistant S.aureus Complete 06/09/25 22:36 Blood Blood Culture - Preliminary NO GROWTH AFTER 24 HOURS OF INCUBATION. Resulted Problems(with codes): (1) COPD (chronic obstructive pulmonary disease) (2) SHEILA (acute kidney injury) (3) Pneumonia (4) Foot osteomyelitis, right (5) Fracture of femoral neck, right (6) Acute hypoxemic respiratory failure (7) Pneumonia Plan/Recommendation ASSESSMENT AND PLAN: ID Problem List: \-- Acute hypoxic respiratory failure \-- COPD exacerbation \-- Pneumonia (suspected aspiration) \-- Right foot cellulitis and wound with necrosis \-- Recent right hip surgery with postoperative pain \-- Acute kidney injury (SHEILA) \-- Hypertension \-- Hyperlipidemia \-- Myocardial infarction (history) \-- Drug allergies: penicillins and sulfa (hives) Assessment Mr. Starr is an 79-year-old male with history of COPD (intermittent home oxygen), hypertension, hyperlipidemia, and myocardial infarction, recently admitted for right hip surgery. He re-presented with acute hypoxia and altered mental status at home, requiring escalation of oxygen to 5L by family due to sustained hypoxemia (SpO2 in mid-70s) before admission. In the ED, he was noted to be alert and oriented times two, placed on non-rebreather and given 1L of normal saline, but remained hypotensive. He has a right foot wound (from surgical boot) with necrosis, cellulitic changes extending from ankle to heel/dorsal foot, and a tender right hip (without induration). Labs notable for WBC 8.6, Hgb 9.8, platelets 300, creatinine 2.11, BUN 34. UA and urine drug screen negative (except for marijuana), and negative for influenza, COVID-19, and RSV. Chest X-ray revealed right middle lobe opacity concerning for aspiration pneumonia with some interval improvement, though left lower lobe opacification is now noted. He has been on cefdinir and clindamycin at home but is allergic to penicillins and sulfa (hives). He tolerated ceftriaxone during recent hospitalization. On admission, he was transitioned from vancomycin and levofloxacin to cefepime and vancomycin due to concern for hospital-acquired pneumonia. With subsequent improvement, plan today is to continue vancomycin for MRSA coverage, discontinue cefepime (given allergy history and SHEILA), and resume levofloxacin. ECG with borderline QTc (464 ms). SHEILA may be multifactorial (hypotension, infection, nephrotoxins possible). The patient is now stable off pressors, back on the floor. Nephrology following for renal management. Ortho to evaluate need for wound boot alternative. Pulmonology to manage COPD exacerbation. Plan: \-- Continue vancomycin for MRSA pneumonia concern \-- Discontinue cefepime in context of SHEILA and possible drug allergy \-- Initiate/continue levofloxacin; consider monotherapy for discharge \-- Stop cefdinir and clindamycin given allergy risk \-- Avoid nephrotoxins; nephrology co-managing SHEILA \-- Maintain MAP ~65 mmHg \-- Pulmonology to manage COPD with bronchodilators and mucolytics \-- Orthopedics evaluation for boot/wound care and right hip pain \-- Monitor for pulmonary edema/fluid overload \-- Monitor for electrolyte and QTc changes (baseline QTc 464); cautious with levofloxacin \-- Monitor oxygen requirements and titrate as tolerated \-- Infectious Disease follow as needed Isolation Precautions: Standard Assessment and plan was discussed with the patient as written above. Plan may change pending new findings. Updates will be included as addenda as needed. Thank you for the consult. Please contact me for any further questions. Hernán Liriano M.D. [facility] Ph: ? Teams text: Electronically signed by: Hernán Liriano MD, 06/11/2025 \ History: The patient's chart and medications were reviewed in detail and the patient was seen and examined. History obtained from: patient and family Mr. Starr is an 79-year-old male with a history including COPD (on intermittent oxygen at home), hypertension, hyperlipidemia, and myocardial infarction, as well as recent right hip surgery and right foot wound, initially managed post-discharge with cefdinir and clindamycin. He re-presented to the ED for worsening confusion and severe hypoxia at home, with family escalating home oxygen to 5L and continued desaturation. On arrival, he was alert and oriented x2, given a nonrebreather and IV fluids, but remained hypotensive and hypoxic. Current issues include acute on chronic hypoxia, pneumonia (aspiration vs. hospital-acquired) with radiographic improvement but new LLL findings, persistent right foot wound with necrosis and cellulitis, right hip pain (postop), and SHEILA (creatinine up to 2.11). Review of Systems: A complete 10-system review of systems was completed and negative except as noted in the HPI or here. ROS: -CONSTITUTIONAL: Denies weight loss, fever, chills. -HEENT: Denies changes in vision, hearing. -RESPIRATORY: Positive for acute SOB and hypoxia (per HPI). No cough reported. -CARDIOVASCULAR: Denies chest pain, palpitations. -GASTROINTESTINAL: Denies abdominal pain, nausea, vomiting, diarrhea. -GENITOURINARY: Denies dysuria or urinary frequency. -MUSCULOSKELETAL: Positive for right hip pain and right foot wound/cellulitis. -SKIN: Positive for right foot wound with necrosis/cellulitis. -NEUROLOGICAL: Altered mentation/orientation at presentation (improving); denies headache, syncope. -PSYCHIATRIC: No recent mood changes; denies anxiety and depression. Past Medical History: COPD Hypertension Hyperlipidemia Myocardial infarction Recent right hip surgery Past Surgical History: Recent right hip surgery. Further details not provided. Home Medications: Cefdinir (stopped) Clindamycin (stopped) Other medications not specified in transcript. Allergies: Penicillins hives Sulfa drugs hives Family History: Not provided in transcript. Social History: Not provided in transcript. Objective: Vital Signs on Arrival: Not fully specified in transcript. Most Recent Vital Signs: Temperature: 98.6 F, Pulse: 62, BP: not fully provided, SpO2: 93% on 5L nasal cannula. Lines: Nonrebreather and later nasal cannula used for oxygen support. No other lines specifically mentioned. Physical Exam: General: NAD Neck: Supple. No masses. HEENT: PERRL. Normal lids and conjunctiva. Moist mucous membranes. Oropharynx without lesions, exudates or excessive erythema. Normal appearance of the external aspects of the nose and ears. Heart: Regular rhythm, normal rate. No murmur. No lower extremity edema. Lungs: Normal respiratory effort. Clear to auscultation bilaterally. No wheezes. No crackles. Abdomen: Soft. Non-tender. Non-distended. No masses or abdominal hernia. Msk: No digital cyanosis. Normal strength and tone in all 4 limbs. Notable for right hip tenderness to palpation, right foot with necrosis, internally rotated, with cellulitic changes up ankle, heel, and dorsal foot. Skin: Warm and dry; right foot wound with necrosis and cellulitis. Neuro: Alert. No facial droop or slurred speech. Extra-ocular movements intact. Sensation intact to soft touch in all 4 limbs. Psych: Appropriate mood. Full affect. Oriented to person, place, time, and situation (noting that was decreased on presentation, now improved). Diagnostic Studies: Available diagnostic studies were reviewed. Significant findings as below. Pertinent Imaging: Chest X-ray: Right middle lobe opacity (aspiration pneumonia), interval improvement. New left lower lobe opacification noted. Echocardiogram (05/14/2025): EF 70%. Labs: -WBC: 8.6; Hgb: 9.8; Platelets: 300 -Creatinine: up to 2.11, currently 1.9 -BUN: 34-36 -Sodium: 135 -Lipase: 26; AST 79; ALP: 25 -UA negative; urine drug screen positive for marijuana only -Influenza, COVID-19, RSV negative ECG: QTc 464 ms Further imaging and laboratory details not specified. End of note. Plan discussed with: Patient HERNÁN LIRIANO MD Jun 11, 2025 15:53
--- NOTE | 2025-06-11 17:17 | DVHINCON2 ---
Date Seen: Jun 11, 2025 Referring Physician MD Luis Daniel Reason for Consultation Cardiac risk stratification History of Present Illness This is an 79-year-old man who presented to the emergency room via EMS with a chief complaint of shortness of breath. Per records, upon EMS arrival the patient was found to be hypoxic with a O2 saturation of 81% on room air and hypotensive. At time of assessment, the patient was found A&O x4 on O2 via NC with optimal O2 sats and off vasopressors. Cardiology consulted for cardiac risk stratification prior to closed reduction of right hip dislocation. Denies chest pain, palpitations, diaphoresis, SOB, dizziness, or any other cardiac symptoms. Denies exertional angina or dyspnea on exertion. Given right hip dislocation the patient's functional capacity has decreased significantly during the past month. A 12 lead electrocardiogram revealed a sinus rhythm with premature atrial contractions. Serial troponin levels are negative. Significant medical history includes right lower limb bypass graft for periph eral artery disease, hypertension, dyslipidemia, COPD with intermittent O2 dependence, recent right hip surgery, right foot wound, and obesity. Past Medical History Past medical history reviewed. No other significant than mentioned above. Past Surgical History Right lower limb bypass graft for peripheral artery disease Right hip surgery Family History: Alzheimer's disease G8 FATHER Diabetes mellitus G8 MOTHER Hypertrophic cardiomyopathy G8 MOTHER Pneumonia G8 FATHER Family History Family history reviewed. Social History Denies the use of alcohol, or tobacco use. Admits to occasional cannabinoid use. Allergies: Coded Allergies: Penicillins (Verified Allergy, Intermediate, HIVES, 05/13/25) Sulfa Antibiotics (Verified Allergy, Intermediate, HIVES, 05/01/25) Home Meds Active Scripts Cefdinir (Cefdinir) 300 Mg Cap, 1 CAP PO BID for 14 Days, #28 CAP Prov:JENNI MATOS MD 06/08/25 Clindamycin Hcl (Clindamycin Hcl) 300 Mg Cap, 300 MG PO QID for 14 Days, #56 CAP Prov:JENNI MATOS MD 06/08/25 Reported Medications Finasteride (Finasteride) 5 Mg Tab, 5 MG PO DAILY for ENLARGED PROSTATE for 30 Days, MG 05/15/25 Timolol Maleate (Timolol Maleate Ophthalmi) 0.5 % Xuan, 1 DROP RIGHTEYE BID for GLAUCOMA 05/01/25 Latanoprost (LATANOPROST) 0.005 % Xuan, 1 DROP EACHEYE QPM for GLAUCOMA 05/01/25 Aspirin (Aspirin) 81 Mg Tab, 1 TAB PO QAM for HEART DISEASE 05/01/25 Atorvastatin Calcium (Lipitor) 20 Mg Tab, 1 TAB PO QPM for HIGH CHOLESTEROL 05/01/25 Amlodipine Besylate (Amlodipine Besylate) 10 Mg Tab, 1 TAB PO QAM for HYP ERTENSION 05/01/25 Home Meds Home medications reviewed. Current Medications Current Medications Medications (Trade) Dose Ordered Sig/Promise Route PRN Reason Start Time Stop Time Status Last Admin Vancomycin HCl 250 ml @ 250 mls/hr DAILY@0100 IV 06/11/25 01:00 06/11/25 01:39 Sodium Chloride 1,000 ml @ 70 mls/hr [id number] IV 06/11/25 13:45 06/11/25 13:00 Finasteride (Proscar Tablet) 5 mg DAILY PO 06/12/25 10:00 Levofloxacin (Levaquin Tablet) 750 mg Q48H PO 06/12/25 10:00 Review of Systems Constitutional: No symptom reported Ears, Nose, & Throat: No symptom reported Eyes: No symptom reported Neurological: No symptoms reported Pulmonary/Respiratory: No symptom reported Cardiovascular: No symptom reported Gastrointestinal: No symptom reported Genitourinary: No symptom reported Musculoskeletal: Right hip pain, right foot pain Skin: No symptom reported Psychiatric: No symptom reported Endocrine: No symptom reported Hemotologic/Lymphatic: No symptom reported Vital Signs Vital Signs Date Time Temp Pulse Resp B/P (MAP) Pulse Ox O2 Delivery O2 Flow Rate FiO2 06/11/25 16:32 86 14 116/59 06/11/25 16:00 97.4 98 97.4 06/11/25 13:28 Nasal Cannula 3.0 06/11/25 13:28 32 Physical Exam General Appearance: Cooperative. Well developed. Obese. In no acute distress Head Exam: Normal inspection Neck Exam: Normal inspection. Non-tender. Normal alignment Pulmonary/Respiratory: Chest non-tender. Clear bilateral breath sounds Cardiovascular/Chest: Regular rate and rhythm. S1, S2. Sinus rhythm with PACs. No murmurs. No JVD. Peripheral Pulses: 2+ Radial (R). 2+ Radial (L). 2+ Pedal (R). 2+ Pedal (L) Abdominal Exam: Normal bowel sounds. Soft. Nontender. No hepatospenomegaly. No masses Ankle Exam: Negative ankle edema Lower extremities: Negative lower extremity edema. Right lower extremity shortening Neuro/Mental Status: A&O x4. Coherent Thoughts/Psych: Normal thought pattern. Appropriate mood and affect. Good judgement and insight Appearance: In no acute distress Skin Exam: Normal inspection. Normal color. Warm. Dry Labs/Diagnostic Data Labs Test 06/11/25 05:49 06/10/25 02:16 06/10/25 01:21 06/10/25 01:10 Range/Units White Blood Count 8.0 4.4-10.8 10^3/uL Red Blood Count 2.73 L 4.5-5.90 10^6/uL Hemoglobin 9.2 L 13.5-17.5 g/dL Hematocrit 26.9 L 41.0-53.0 % Mean Corpuscular Volume 98.5 80.0-100.0 fL Mean Corpuscular Hemoglobin 33.5 H 28.0-32.0 pg Mean Corpuscular Hemoglobin Concent 34.1 32.0-36.0 g/dL Red Cell Distribution Width 13.5 11.8-14.3 % Platelet Count 289 140-450 10^3/uL Mean Platelet Volume 7.0 6.9-10.8 fL Neutrophils (%) (Auto) 75.3 37.0-80.0 % Lymphocytes (%) (Auto) 13.3 10.0-50.0 % Monocytes (%) (Auto) 11.0 0.0-12.0 % Eosinophils (%) (Auto) 0.1 0.0-7.0 % Basophils (%) (Auto) 0.3 0.0-2.0 % Neutrophils # (Auto) 6.1 1.6-8.6 10 ^3/uL Lymphocytes # (Auto) 1.1 0.4-5.4 10 ^3/uL Monocytes # (Auto) 0.9 0-1.3 10 ^3/uL Eosinophils # (Auto) 0 0-0.8 10 ^3/uL Basophils # (Auto) 0 0-0.2 10 ^3/uL Nucleated Red Blood Cells 0.1 % Prothrombin Time 12.4 H 9.3-11.8 sec Prothrombin Time INR 1.19 H 0.9-1.15 Activated Partial Thromboplast Time 29.1 24.5-34.5 SEC Sodium Level 139 136-145 mmol/L Potassium Level 4.0 3.5-5.1 mmol/L Chloride Level 111 H 98-107 mmol/L Carbon Dioxide Level 23 20-31 mmol/L Anion Gap 5 5-15 Blood Urea Nitrogen 32 H 9-23 mg/dL Creatinine 1.24 0.700-1.30 mg/dL Glomerular Filtration Rate Calc 59 >90 mL/min BUN/Creatinine Ratio 25.8 H 10.0-20.0 Serum Glucose 144 H 74-106 mg/dL Calcium Level 8.6 L 8.7-10.4 mg/dL Total Bilirubin 0.2 0.2-1.0 mg/dL Aspartate Amino Transferase (AST) 246 H 13-40 U/L Alanine Aminotransferase (ALT) 55 H 7-40 U/L Alkaline Phosphatase 67 46-116 U/L Total Protein 5.6 L 5.7-8.2 g/dL Albumin 3.1 L 3.2-4.8 g/dL Lactic Acid Level 1.1 0.4-2.0 mmol/L Troponin I High Sensitivity 6 </=54 ng/L Urine Color Yellow Yellow Urine Clarity Clear Clear Urine pH 5.5 5.0-9.0 Urine Specific [place] 1.021 1.001-1.035 Urine Protein Trace H Negative Urine Ketones Negative Negative Urine Blood Negative Negative /uL Urine Nitrite Negative Negative Urine Bilirubin Negative Negative Urine Urobilinogen Normal Negative mg/dL Urine Leukocyte Esterase Negative Negative /uL Urine RBC None seen 0 - 3 /hpf Urine Microscopic WBC 7 H 0-3 /HPF Urine Squamous Epithelial Cells Few <5 /hpf Urine Bacteria None seen None Seen /hpf Urine Hyaline Casts Few 0 - 2 /lpf Urine Mucus Few None Seen Urine Glucose Normal Normal mg/dL Urine Opiates Screen Pos NEGATIVE Urine Fentanyl Screen Neg NEGATIVE Urine Barbiturates Screen Neg NEGATIVE Urine Phencyclidine Screen Neg NEGATIVE Urine Amphetamines Screen Neg NEGATIVE Urine Benzodiazepines Screen Neg NEGATIVE Urine Cocaine Screen Neg NEGATIVE Urine Cannabinoids Screen Pos NEGATIVE Test 06/10/25 00:30 06/09/25 22:40 06/09/25 22:34 05/31/25 23:35 Range/Units Influenza Type A Antigen Negative Negative Influenza Type B Antigen Negative Negative SARS-CoV-2 Antigen (Rapid) Negative NEGATIVE Blood Gas Specimen Type Arterial Blood Gas Sample Site Left radial Blood Gas Patient Temperature 37.0 Arterial Blood Date Drawn [id number] Arterial Blood pH 7.408 7.350-7.450 Arterial Blood Partial Pressure CO2 30.2 L 35.0-48.0 mmHg Arterial Blood Partial Pressure O2 73.9 L 83.0-108.0 mmHg Arterial Blood HCO3 18.6 L 21.0-28.0 mmol/L Arterial Blood Oxygen Saturation 92.7 L 94.0-98.0 % Arterial Blood Base Excess -5.1 L -2.0-3.0 mmol/L Arterial Blood Oxyhemoglobin 91.6 L 94.0-98.0 % Arterial Blood Carboxyhemoglobin 0.6 0.5-1.5 % Arterial Blood Methemoglobin 0.6 0.0-1.5 % Ryan Test Modified Blood Gas Total Hemoglobin 10.20 L 13.5-17.5 g/dL Blood Gas Liter Flow 15.00 Blood Gas Modality Mask - nrb FiO2 % 100.0 D-Dimer, Quantitative 1.55 H 0.0-0.49 mg/L FEU Magnesium Level 2.1 1.6-2.6 mg/dL B-Type Natriuretic Peptide 97.03 0-100 pg/mL Lipase 26 12-53 U/L Thyroid Stimulating Hormone (TSH) 1.09 0.55-4.78 uIU/mL Plasma/Serum Blood Alcohol < 3.0 <10 mg/dL Vitamin B12 Level 474 211-911 pg/mL Microbiology Date/Time Source Procedure Growth Status 06/11/25 01:00 Nose MRSA Screen - Final Methicillin Resistant S.aureus Complete 06/09/25 22:36 Blood Blood Culture - Preliminary NO GROWTH AFTER 24 HOURS OF INCUBATION. Resulted Assessment Preprocedural cardiovascular examination PAD status post RLE bypass graft Right hip dislocation Hypertension Dyslipidemia Obesity Plan/Recommendation (Dr. Ramirez) Echocardiogram revealed EF 60%. Revised cardiac risk index (Phani criteria): Class I at 3.9% risk of , MS or cardiac arrest. Patient has no underlying history of congestive heart failure, coronary artery disease, and had a fair functional capacity prior to right hip fracture. Per Cardiology standpoint, the patient is at an acceptable-risk for moderate-risk surgery. There is no additional cardiac workup indicated prior to surgery. Thank you for allowing us to care for this patient. Please call with any questions or concerns. This medical document was created using an electronic medical record system with voice recognition software and computerized dictation system. Although this document has been carefully reviewed, there might still be some phonetic and typographical errors. Occasional wrong-word or ``sound-alike substitutions may have occurred due to the inherent limitations of voice recognition software. These areas are purely typographical due to imperfections of the software programs and do not reflect any compromise in the patient's medical care. Please read the chart carefully and recognize, using context, where these substitutions have occurred. Plan discussed with: Patient, Spouse, Other NYHA Physical activity limitations: NA Date of Service: Jun 11, 2025 Billing Provider: JESUS BETH Cardiology Common Codes: 32586-[id number] INP/OBS CARE (High) JESUS BETH Jun 11, 2025 17:17
[2025-06-11] MEDS: MUPIROCIN 2% OINT 15gm or 22gm FOR MRSA NARES EACHNOSTRI SCH (22:00)
--- NOTE | 2025-06-11 22:45 | DVHPN2 ---
Progress Note - Dictate Date Seen: Jun 11, 2025 Medical Necessity Reason Pt with a Central, PICC or Fol: No Subjective Patient seen and examined at bedside. Remains on supplemental oxygen Overnight events reviewed. vital signs Vital Sign Date Time Temp Pulse Resp B/P (MAP) Pulse Ox O2 Delivery O2 Flow Rate FiO2 06/11/25 22:06 83 16 100 06/11/25 22:00 Nasal Cannula 2.0 06/11/25 22:00 28 06/11/25 22:00 117/51 (73) 06/11/25 20:01 98.6 98.6 Total Intake and Output 06/10/25 06/10/25 06/11/25 15:00 23:00 07:00 Intake Total 50 ml 950 ml Output Total 175 ml Balance 50 ml 775 ml medications Current Medications Medications Dose Ordered Sig/Promise Route Start Time Stop Time Status Last Admin Dose Admin Acetaminophen 650 mg Q6HP PRN PO 06/10/25 02:15 Acetaminophen/ Hydrocodone Bitart 1 tab Q6HPRN PRN PO 06/10/25 02:15 06/10/25 20:05 1 TAB Ondansetron HCl 4 mg Q4HP PRN IV 06/10/25 02:15 Morphine Sulfate 2 mg Q4HPRN PRN IV 06/10/25 02:15 06/11/25 16:01 2 MG Enoxaparin Sodium 30 mg DAILY SC 06/10/25 10:00 06/10/25 10:14 30 MG Nitroglycerin 0.4 mg Q5MINP PRN SL 06/10/25 02:15 Morphine Sulfate 2 mg Q30M PRN IV 06/10/25 02:15 Vancomycin HCl 0 ml @ 0 mls/hr UD IV 06/10/25 02:15 Albuterol 2.5 mg Q4HR NEB 06/10/25 06:00 06/11/25 22:00 2.5 MG Ipratropium [place] 0.5 mg Q4HR NEB 06/10/25 06:00 06/11/25 22:00 0.5 MG Vancomycin HCl 250 ml @ 250 mls/hr DAILY@0100 IV 06/11/25 01:00 06/11/25 01:39 250 MLS/HR Sodium Chloride 1,000 ml @ 70 mls/hr [id number] IV 06/11/25 13:45 06/11/25 13:00 70 MLS/HR Finasteride 5 mg DAILY PO 06/12/25 10:00 Levofloxacin 750 mg Q48H PO 06/12/25 10:00 Mupirocin 1 applic BID EACHNOSTRI 06/11/25 22:00 06/16/25 21:59 objective Gen.: Patient lying in bed in no apparent distress. On supplemental oxygen. Head: Normocephalic, atraumatic. Eyes: EOMI/PERRLA. Ears: Normal hearing. Normal anatomy. Neck/trachea: Trachea midline, supple. Nose: Normal external anatomy. Mouth: Moist mucous membranes. Chest: Decreased air entry bilaterally. No wheezing or rhonchi. Cardiovascular: Positive S1, positive S2. Regular rate and rhythm. Abdomen: Positive bowel sounds in all 4 quadrants. Soft, non-tender, non- distended. : Deferred. Rectal: Deferred. Skin: Warm, dry. Intact. Extremities: 2+ radial pulses bilaterally. No lower extremity edema. Neuro: Awake, alert, oriented x3. No gross motor or sensory deficits. Cranial nerves II through XII intact. Gait not assessed. laboratory and microbiology Laboratory Tests 06/11/25 05:49 Test 06/11/25 05:49 Range/Units Serum Glucose 144 H 74-106 mg/dL Assessment/Plan Impression: Acute on chronic hypoxic respiratory failure Chronic obstructive pulmonary disease Septic shock Acute metabolic encephalopathy Pneumonia, RML, likely GNR/GPC Acute kidney injury Anemia, normocytic Marijuana use Elevated D-dimer Events: Remains on supplemental oxygen Improved O2 requirements Currently on 4 LPM NC (down from 10 L/min via Oxymizer) Patient is stable from the pulmonary standpoint to undergo the orthopedic procedure. No further pulmonary testing is required. Patient is at moderate risk for pulmonary complications for this moderate-risk procedure. Follow up Orthopedic recommendations Continue bronchodilators Continue antibiotics MRSA positive Follow up ID recommendations Labs and imaging reviewed. Rest of plan as noted below. Plan: Supplemental oxygen Keep O2 saturation above 92% ABG reviewed. Compensated. Metabolic acidosis with respiratory compensation. PF ratio indicative of severe lung injury Chest x-ray reveals right middle lobe opacities. Continue antibiotics Follow up cultures Follow up ID recommendations Pressors as necessary for hemodynamic support Maintain mean arterial blood pressure greater than 65 mmHg - off pressors since 4 AM. Continue bronchodilators Wound care Follow up Orthopedics recommendations Monitor hemoglobin Monitor renal function Monitor electrolytes. Supplement as necessary. Monitor ins and outs. DVT prophylaxis Lovenox Condition: Critical Prognosis: Poor given multiple comorbidities. Rest of plan per hospitalist and other consultants. A total of 35 minutes of critical care time was spent reviewing the patient record, examining the patient, making a diagnostic and therapeutic plan, discussing this plan with the medical personnel, following up on diagnostic studies and following the patient for clinical stability excluding any and all procedures. At least 50% of this time was spent in direct, [id number] contact. Thank you MALOU Nielsen for allowing me to participate in this patient's care. Further recommendations will depend on patient's clinical course. Please do not hesitate to contact me if you have any questions or concerns. This medical document was created using an electronic medical record system with [employer] dictation system. Although this document has been carefully reviewed, there may still be some phonetic and typographical errors. These areas are purely typographical due to imperfections of the software programs, and do not reflect any compromise in the patient's medical care. Dietary Evaluation Review Comments: Advance to Cardiac CCHO-60 diet when medically feasible. Offer Glucerna BID if PO intake <75% Expected Outcomes/Goals: Improved healing of the sugical site, and gradual wt gains Plan discussed with: Other (JASON Ly) Critical Care Time(min): 35 JEN HORTON MD Jun 11, 2025 22:45
[2025-06-12] VITALS (36 sets, daily range): BP systolic 110–146; BP diastolic 46–69; PULSE 73–91; RESP 12–18; TEMP 98.1–99; O2SAT 86–100
[2025-06-12 07:27] LABS: Hematocrit 26.8 % (41.0-53.0); Hemoglobin 9.1 g/dL (13.5-17.5); Mean Corpuscular Hemoglobin 33.4 pg (28.0-32.0); Mean Corpuscular Volume 98.3 fL (80.0-100.0); Nucleated Red Blood Cells % 0.1 %
[2025-06-12 07:34] LABS: INR 1.16 (0.9-1.15); Partial Thromboplastin Time 28.7 SEC (24.5-34.5); Prothrombin Time 12.1 sec (9.3-11.8)
[2025-06-12 07:38] LABS: Albumin 3.3 g/dL (3.2-4.8); Alkaline Phosphatase 63 U/L (46-116); Anion Gap 6 (5-15); BUN/Creatinine Ratio 20.7 (10.0-20.0); Blood Urea Nitrogen 19 mg/dL (9-23); Carbon Dioxide 23 mmol/L (20-31); Glucose 99 mg/dL (74-106); Potassium 3.9 mmol/L (3.5-5.1); Sodium 144 mmol/L (136-145); Total Protein 5.7 g/dL (5.7-8.2)
[2025-06-12 07:39] LABS: Bilirubin, Total 0.4 mg/dL (0.2-1.0)
[2025-06-12 07:46] LABS: Alanine Aminotransferase 43 U/L (7-40); Calcium 8.6 mg/dL (8.7-10.4); Chloride 115 mmol/L (98-107)
[2025-06-12 07:47] LABS: Iron 24.0 ug/dL (65-175); Total Iron Binding Capacity 178.0 ug/dL (250-425)
[2025-06-12] MEDS ORDERED: ONDANSETRON HCL 4 MG/2 ML VIAL ONE (09:08)
[2025-06-12] MEDS ORDERED: fentaNYL CITRATE 100 MCG/2 ML VL ONE (09:08)
[2025-06-12] MEDS ORDERED: LIDOCAINE 1% INJ PF 5ML AMP ONE (09:08)
[2025-06-12] MEDS ORDERED: METOCLOPRAMIDE HCL 5MG/ml INJ 2ml VIAL ONE (09:08)
[2025-06-12] MEDS ORDERED: PROPOFOL 10 MG/ML 20 ML IV ONE (09:09)
[2025-06-12] MEDS: BUPIVACAINE 0.25% INJ 50ML VIAL ONE (09:10)
[2025-06-12] MEDS ORDERED: LIDOCAINE W/ EPINEPHRINE 1% 20ML VIAL ONE (09:18)
--- NOTE | 2025-06-12 09:39 | DVHOP2 ---
Operative Report - 2 Report Details Date: 06/12/25 Preop Diagnosis: Right hip prosthetic dislocation hemiarthroplasty Postop Diagnosis: Right hip prosthetic dislocation hemiarthroplasty Surgeon: Darian Polk MD Anesthesiologist: Bola soto CRNA Anesthesia: Mac Consent: The patient was informed of the risks and benefits of the procedure. These include but are not limited to complications of anesthesia, postoperative infection, incomplete relief of symptoms, recurrence of symptoms, damage to blood vessels, nerves and tendons, deep venous thrombosis, pulmonary embolism and possible need for repeat surgery in the future. Complications: None Estimated Blood Loss: None Fluids: See anesthesia record Findings: Dislocated right hip bipolar hemiarthroplasty Indications for Surgery: Dislocated hip Name of Procedure Performed Closed reduction right hip prosthetic dislocation C-arm fluoroscopy Procedure Details Procedure Details: Patient was brought to the operating room and given conscious sedation then transferred to the [place] table in supine position. Right lower extremity was placed in boot traction left lower extremity in the well leg jones. Surgical time-out was performed verifying patient, laterality, and procedure. I then performed closed reduction maneuver with the extremity in adduction and the hip in internal rotation and traction followed by external rotation. C-arm was brought in and demonstrated that the bipolar shell head disengaged from the femoral head. At this point, it was clear that closed reduction would not be p ossible so the case was terminated. Patient was brought to the recovery room in stable condition. Condition Stable Disposition Still a Patient DARIAN POLK MD Jun 12, 2025 09:39
--- NOTE | 2025-06-12 09:58 | DVHPN2 ---
Progress Note Date Seen: Jun 12, 2025 Medical Necessity Reason Pt with a Central, PICC or Fol: Yes The following are medically ne: Gordillo Catheter Reason for gordillo catheter: Bladder Retention/Obstruc Subjective Patient reports: Feels better Objective vital signs Vital Sign Date Time Temp Pulse Resp B/P (MAP) Pulse Ox O2 Delivery O2 Flow Rate FiO2 06/12/25 09:31 97 Nasal Cannula 3.0 06/12/25 09:31 32 06/12/25 08:41 72 20 127/56 06/12/25 07:00 99.0 99.0 Total Intake and Output 06/11/25 06/11/25 06/12/25 15:00 23:00 07:00 Intake Total 690 ml 960 ml 810 ml Output Total 1750 ml 500 ml Balance 690 ml -790 ml 310 ml medications Current Medications Medications Dose Ordered Sig/Promise Route Start Time Stop Time Status Last Admin Dose Admin Acetaminophen 650 mg Q6HP PRN PO 06/10/25 02:15 Acetaminophen/ Hydrocodone Bitart 1 tab Q6HPRN PRN PO 06/10/25 02:15 06/10/25 20:05 1 TAB Ondansetron HCl 4 mg Q4HP PRN IV 06/10/25 02:15 Morphine Sulfate 2 mg Q4HPRN PRN IV 06/10/25 02:15 06/12/25 08:11 2 MG Enoxaparin Sodium 30 mg DAILY SC 06/10/25 10:00 06/10/25 10:14 30 MG Nitroglycerin 0.4 mg Q5MINP PRN SL 06/10/25 02:15 Morphine Sulfate 2 mg Q30M PRN IV 06/10/25 02:15 Vancomycin HCl 0 ml @ 0 mls/hr UD IV 06/10/25 02:15 Albuterol 2.5 mg Q4HR NEB 06/10/25 06:00 06/12/25 06:03 2.5 MG Ipratropium [place] 0.5 mg Q4HR NEB 06/10/25 06:00 06/12/25 06:03 0.5 MG Vancomycin HCl 250 ml @ 250 mls/hr DAILY@0100 IV 06/11/25 01:00 06/12/25 00:39 250 MLS/HR Sodium Chloride 1,000 ml @ 70 mls/hr [id number] IV 06/11/25 13:45 06/12/25 04:03 70 MLS/HR Finasteride 5 mg DAILY PO 06/12/25 10:00 Levofloxacin 750 mg Q48H PO 06/12/25 10:00 Mupirocin 1 applic BID EACHNOSTRI 06/11/25 22:00 06/16/25 21:59 Examination: GENERAL:Normal, HEENT:Normal, CVS:Normal, MSK:Abnormal laboratory and microbiology Laboratory Tests 06/12/25 06:28 Test 06/12/25 06:28 Range/Units Serum Glucose 99 74-106 mg/dL Microbiology Date/Time Source Procedure Growth Status 06/11/25 01:00 Nose MRSA Screen - Final Methicillin Resistant S.aureus Complete 06/09/25 22:36 Blood Blood Culture - Preliminary NO GROWTH AFTER 48 HOURS OF INCUBATION. Resulted Problem List/Assessment/Plan Problem List/Assessment/Plan Acute kidney injury likely hemodynamic mediated etiology in the setting of hypotension BPH obstruction s/p gordillo Encephalopathy COPD Femoral head displacement anemia Renal function improved after Gordillo catheter IV fluids 70cc/hr Orthopedic consult--hip arthroplasty went this am Rec postoperatively continue Gordillo catheter due to obstruction resume home prostate medications anemia panel IV iron Plan discussed with: Spouse My Orders My Orders Orders - ZACH BERNABE MD Procedure Category Date Status Time Kidney US 06/11/25 Resulted 14:21 Insert Gordillo Catheter ZAHEER 06/11/25 In Process 15:47 Finasteride Tablet PHA 06/12/25 In Process (Proscar Tablet) 10:00 Strict I & O ZAHEER 06/11/25 In Process 20:11 Dietary Evaluation Review Comments: Advance to Cardiac CCHO-60 diet when medically feasible. Offer Glucerna BID if PO intake <75% Expected Outcomes/Goals: Improved healing of the sugical site, and gradual wt gains Total Time (mins): 27 ZACH BERNABE MD Jun 12, 2025 09:58
[2025-06-12] MEDS ORDERED: FINASTERIDE 5 MG TAB PO SCH (10:00)
[2025-06-12] MEDS: levoFLOXacin 250 MG TAB PO SCH (10:00)
[2025-06-12] MEDS: ONDANSETRON HCL 4 MG/2 ML VIAL IV ONE (10:15)
[2025-06-12] MEDS ORDERED: HYDROmorphone HCL 2 MG/ML VL/or syr IV PRN (10:15)
--- NOTE | 2025-06-12 11:20 | DVH ---
FLUOROSCOPY TIME: 9 seconds TECHNIQUE: Intraoperative radiographs of the right hip were obtained. COMPARISON: None FINDINGS: Refer to intraoperative report for further evaluation. IMPRESSION: Refer to intraoperative report for further evaluation.
--- NOTE | 2025-06-12 12:13 | DVHPN2 ---
Progress Note - Dictate Date Seen: Jun 12, 2025 Medical Necessity Reason Pt with a Central, PICC or Fol: Yes The following are medically ne: Gordillo Catheter Reason for gordillo catheter: Bladder Retention/Obstruc vital signs Vital Sign Date Time Temp Pulse Resp B/P (MAP) Pulse Ox O2 Delivery O2 Flow Rate FiO2 06/12/25 11:00 87 18 144/59 (87) 93 06/12/25 09:40 Mask 5.0 99 06/12/25 09:40 97.8 97.8 Total Intake and Output 06/11/25 06/11/25 06/12/25 15:00 23:00 07:00 Intake Total 690 ml 960 ml 810 ml Output Total 1750 ml 500 ml Balance 690 ml -790 ml 310 ml medications Current Medications Medications Dose Ordered Sig/Promise Route Start Time Stop Time Status Last Admin Dose Admin Acetaminophen 650 mg Q6HP PRN PO 06/10/25 02:15 Acetaminophen/ Hydrocodone Bitart 1 tab Q6HPRN PRN PO 06/10/25 02:15 06/10/25 20:05 1 TAB Ondansetron HCl 4 mg Q4HP PRN IV 06/10/25 02:15 Morphine Sulfate 2 mg Q4HPRN PRN IV 06/10/25 02:15 06/12/25 08:11 2 MG Enoxaparin Sodium 30 mg DAILY SC 06/10/25 10:00 06/10/25 10:14 30 MG Nitroglycerin 0.4 mg Q5MINP PRN SL 06/10/25 02:15 Morphine Sulfate 2 mg Q30M PRN IV 06/10/25 02:15 Vancomycin HCl 0 ml @ 0 mls/hr UD IV 06/10/25 02:15 Albuterol 2.5 mg Q4HR NEB 06/10/25 06:00 06/12/25 06:03 2.5 MG Ipratropium [place] 0.5 mg Q4HR NEB 06/10/25 06:00 06/12/25 06:03 0.5 MG Vancomycin HCl 250 ml @ 250 mls/hr DAILY@0100 IV 06/11/25 01:00 06/12/25 00:39 250 MLS/HR Sodium Chloride 1,000 ml @ 70 mls/hr [id number] IV 06/11/25 13:45 06/12/25 04:03 70 MLS/HR Levofloxacin 750 mg Q48H PO 06/12/25 10:00 Mupirocin 1 applic BID EACHNOSTRI 06/11/25 22:00 06/16/25 21:59 Iron Sucrose 110 ml @ 110 mls/hr DAILY@1200 IV 06/12/25 12:00 06/16/25 12:59 Finasteride 5 mg HS PO 06/12/25 22:00 UNV Morphine Sulfate 4 mg Q4HPRN PRN IV 06/12/25 12:00 UNV laboratory and microbiology Laboratory Tests 06/12/25 06:28 Test 06/12/25 06:28 Range/Units Serum Glucose 99 74-106 mg/dL Assessment/Plan Acute on chronic hypoxic respiratory failure Chronic obstructive pulmonary disease Septic shock Acute metabolic encephalopathy Pneumonia, RML, likely GNR/GPC Acute kidney injury Anemia, normocytic Marijuana use Elevated D-dimer Events: Remains on supplemental oxygen deconditioned no active complaints Plan: Supplemental oxygen Keep O2 saturation above 92% Chest x-ray reveals right middle lobe opacities. Continue antibiotics Follow up cultures Follow up ID recommendations Continue bronchodilators Wound care Follow up Orthopedics recommendations Monitor renal function Monitor electrolytes. Supplement as necessary. Monitor ins and outs. DVT prophylaxis Lovenox Dietary Evaluation Review Comments: Advance to Cardiac CCHO-60 diet when medically feasible. Offer Glucerna BID if PO intake <75% Expected Outcomes/Goals: Improved healing of the sugical site, and gradual wt gains Plan discussed with: Patient REECE AHUJA MD Jun 12, 2025 12:13
[2025-06-12] MEDS ORDERED: OXYCODONE W/ ACETAMINOPHEN 5/325MG TABLET PO PRN ×2 (12:15→23:30)
[2025-06-12] MEDS: IRON SUCROSE COMPLEX 110 ML IV SCH (12:21)
[2025-06-12] MEDS: MORPHINE SULFATE 4 MG/ML SYR/VIAL IV PRN (13:48)
[2025-06-12] MEDS: ALBUTEROL SULF 2.5 MG/0.5ML(0.5%) NEB SOLN ONE (14:10)
[2025-06-12] MEDS: IPRATROPIUM BROM 0.5 MG/2.5ML INH SOL ONE (14:10)
--- NOTE | 2025-06-12 14:56 | ECG ---
[facility] Test Date: 2025-06-10 Test Time: 10:59:26 Pat Name: BONILLA ALCANTARA Department: [facility] ED Patient ID: [facility]-[id number] Room: 0233T Gender: M [employer] Crewmember: JHONATAN : 1945 Requested By: BLAIR HAND Order Number: [id number] Reading MD: Trenton Ramirez Measurements Intervals [place] Rate: 61 P: 78 MD: 161 QRS: -57 QRSD: 122 T: 86 QT: 487 QTc: 491 Interpretive Statements Sinus rhythm Atrial premature complex Nonspecific IVCD with LAD Electronically Signed On 06-15-2025 17:56:18 PDT by Trenton Ramirez Please click the below link to view image of tracing.
--- NOTE | 2025-06-12 21:10 | DVHPN2 ---
Progress Note - Dictate Date Seen: Jun 12, 2025 Medical Necessity Reason Pt with a Central, PICC or Fol: Yes The following are medically ne: Gordillo Catheter Reason for gordillo catheter: Bladder Retention/Obstruc Subjective Patient remains confused. Underwent attempt of his hip dislocation surgery this morning however apparently it was unsuccessful. C-arm was brought in and demonstrated that the bipolar shell head disengaged from the femoral head. At this point, it was clear that closed reduction would not be possible so the case was terminated. vital signs Vital Sign Date Time Temp Pulse Resp B/P (MAP) Pulse Ox O2 Delivery O2 Flow Rate FiO2 06/12/25 20:00 98.7 85 18 118/54 (75) 98 98.7 06/12/25 19:00 Nasal Cannula 2.0 06/12/25 19:00 28 Total Intake and Output 06/11/25 06/11/25 06/12/25 15:00 23:00 07:00 Intake Total 690 ml 960 ml 810 ml Output Total 1750 ml 500 ml Balance 690 ml -790 ml 310 ml medications Current Medications Medications Dose Ordered Sig/Promise Route Start Time Stop Time Status Last Admin Dose Admin Acetaminophen 650 mg Q6HP PRN PO 06/10/25 02:15 Acetaminophen/ Hydrocodone Bitart 1 tab Q6HPRN PRN PO 06/10/25 02:15 06/10/25 20:05 1 TAB Ondansetron HCl 4 mg Q4HP PRN IV 06/10/25 02:15 Morphine Sulfate 2 mg Q4HPRN PRN IV 06/10/25 02:15 06/12/25 08:11 2 MG Enoxaparin Sodium 30 mg DAILY SC 06/10/25 10:00 06/10/25 10:14 30 MG Nitroglycerin 0.4 mg Q5MINP PRN SL 06/10/25 02:15 Morphine Sulfate 2 mg Q30M PRN IV 06/10/25 02:15 Vancomycin HCl 0 ml @ 0 mls/hr UD IV 06/10/25 02:15 Albuterol 2.5 mg Q4HR NEB 06/10/25 06:00 06/12/25 19:59 2.5 MG Ipratropium [place] 0.5 mg Q4HR NEB 06/10/25 06:00 06/12/25 19:59 0.5 MG Vancomycin HCl 250 ml @ 250 mls/hr DAILY@0100 IV 06/11/25 01:00 06/12/25 00:39 250 MLS/HR Sodium Chloride 1,000 ml @ 70 mls/hr [id number] IV 06/11/25 13:45 06/12/25 04:03 70 MLS/HR Mupirocin 1 applic BID EACHNOSTRI 06/11/25 22:00 06/16/25 21:59 06/12/25 15:00 1 APPLIC Iron Sucrose 110 ml @ 110 mls/hr DAILY@1200 IV 06/12/25 12:00 06/16/25 12:59 06/12/25 12:21 110 MLS/HR Finasteride 5 mg HS PO 06/12/25 22:00 Morphine Sulfate 4 mg Q4HPRN PRN IV 06/12/25 12:00 06/12/25 13:48 4 MG Oxycodone/ Acetaminophen 1 tab Q6HP PRN PO 06/12/25 12:15 Levofloxacin/ Dextrose 100 ml @ 100 mls/hr DAILY IV 06/13/25 10:00 objective Alert awake oriented to name. HEENT neck supple no JVD. Heart regular rate and rhythm S1-S2. Lungs fair air movement degraded breath sounds in the bases. Abdomen soft positive bowel sounds nontender. Extremities no significant edema. laboratory and microbiology Laboratory Tests 06/12/25 06:28 Test 06/12/25 06:28 Range/Units Serum Glucose 99 74-106 mg/dL Assessment/Plan Given the patient's hip dislocation was not fixed patient is still complaining of significant pain. Therefore we will increase his morphine for adequate pain control and alternate with the [place]. Otherwise continue rest of supportive care and treatment. Monitor for any respiratory distress or depression. Further clinical management per clinical course and recommendations of consultants. Discussed with the nurse at bedside. Overall prognosis remains guarded. Problems(with codes): (1) Hip dislocation, right (2) Fall (3) Pneumonia (4) Acute hypoxemic respiratory failure (5) SHEILA (acute kidney injury) Dietary Evaluation Review Comments: Advance to Cardiac CCHO-60 diet when medically feasible. Offer Glucerna BID if PO intake <75% Expected Outcomes/Goals: Improved healing of the sugical site, and gradual wt gains Plan discussed with: CAMMY Dsouza MD Jun 12, 2025 21:10
[2025-06-12] MEDS: FINASTERIDE 5 MG TAB PO SCH (21:46)
[2025-06-13] VITALS (52 sets, daily range): BP systolic 111–140; BP diastolic 48–76; PULSE 72–92; RESP 8–28; TEMP 97.5–98.9; O2SAT 85–98
[2025-06-13] MEDS: VANCOMYCIN 1GM/250ML KIT 250 ML IV SCH (01:15)
[2025-06-13] MEDS ORDERED: KETAMINE 50mg/ML 10ml Vial 10 ML ONE (07:09)
[2025-06-13] MEDS: ALBUMIN 5% 250 ML IV ONE (07:23)
[2025-06-13 07:24] LABS: Hemoglobin 8.0 g/dL (13.5-17.5)
[2025-06-13 07:25] LABS: Hematocrit 23.9 % (41.0-53.0); Mean Corpuscular Hemoglobin 33.2 pg (28.0-32.0); Mean Corpuscular Volume 98.5 fL (80.0-100.0); Nucleated Red Blood Cells % 0.2 %
[2025-06-13 07:26] LABS: Alanine Aminotransferase 36 U/L (7-40); Alkaline Phosphatase 61 U/L (46-116); Anion Gap 7 (5-15); BUN/Creatinine Ratio 20.0 (10.0-20.0); Bilirubin, Total 0.4 mg/dL (0.2-1.0); Blood Urea Nitrogen 18 mg/dL (9-23); Carbon Dioxide 23 mmol/L (20-31); Magnesium 1.7 mg/dL (1.6-2.6); Potassium 4.1 mmol/L (3.5-5.1); Sodium 143 mmol/L (136-145)
[2025-06-13 07:27] LABS: Albumin 3.1 g/dL (3.2-4.8); Calcium 8.5 mg/dL (8.7-10.4); Chloride 113 mmol/L (98-107); Glucose 130 mg/dL (74-106); Total Protein 5.5 g/dL (5.7-8.2)
[2025-06-13] MEDS: VANCOMYCIN HCL 1000 MG VL ONE (07:28)
[2025-06-13] MEDS ORDERED: fentaNYL CITRATE 100 MCG/2 ML VL ONE (07:32)
--- NOTE | 2025-06-13 07:51 | DVHHP2 ---
History Allergies: Coded Allergies: Penicillins (Verified Allergy, Intermediate, HIVES, 05/13/25) Sulfa Antibiotics (Verified Allergy, Intermediate, HIVES, 05/01/25) Chief Complaint: Right hip dislocation s/p fall forward from wheelchair on approximately May 31,two weeks ago. Pt brought to [facility] ER on 06/04/25, hypoxic, anemic and hypotensive. Closed reduction was attempted without success. Present Illness(Onset/Duration 79 M, right femoral neck fracture in April, presented to [facility] 4-6 wks later on May 15, 2025. I performed a right hip hemiarthroplasty on May 15, 2025. Pt was noted to have a right foot drop post operatively and placed in a walkerboot. He developed a lateral foot sore. He was in rehabb until approx 05/29/25 at which time he was discharged to home. He was walking with a FWW , household ambulation. On 05/31/25 he was sitting in a wheelchair in the garage and fell forward in the wheelchair, huperflexing his hip, falling to the ground, dislocating his right holli hip. He was brought to the ER on 06/04/25, XR showed a dislocated right holli hip. Pt admitted and cleared for surgery after on week. Dr Bautista then performed an attempted closed reduction of the right hip dislocated holli arthroplasty. He was unable to achieve reduction and the innner ball of the bipolar component was pulled from the outer shell. I was then contacted and I scheduled for open revision of holli arthroplasty vs conversion to MARYSE. Past Surgical History 05/17/25 Right hip holli arthhroplasty x cardiac stents and vascular stents see also adimitting H and P Physical Exam EENT slow but baseline, atraumatic Chest and Lungs mild rales B Heart RRR neg MRG Abdomen NBS ND NT Extremities Right hip, incision healed, no drainage, leg short. Right foot L5 nerve palsy 0/5 dorsiflexion, later foot ulcer grade 3, no exposed bone or tendon Vital Signs Vital Signs Date Time Temp Pulse Resp B/P (MAP) Pulse Ox O2 Delivery O2 Flow Rate FiO2 06/13/25 06:00 86 19 118/52 (74) 91 06/13/25 04:00 98.7 98.7 06/13/25 00:57 2.0 28 06/12/25 20:00 Nasal Cannula* Impressions/Description 79 M, significant PMH, dislocated R holli hip R Foot ulcer R L 5 neuropathy, post op Plan Pt consented for surgery with clear explanation to pt and family of non-surgical options given moderately high risk of intraop AR, CVA. Given his tolerance of surgery yesterday, and his caridac clearance, I consider it reasonable to perform surgery exchange of holli hip ball components posible revision of components possible MARYSE family understands high probability of inability to reduce due to 2 wk period of dislocation. YUDITH SUBRAMANIAN MD Jun 13, 2025 07:51
[2025-06-13] MEDS: BUPIVACAINE HCL 50 ML ONE (07:58)
[2025-06-13] MEDS ORDERED: HYDROmorphone HCL 2 MG/ML VL/or syr ONE (08:10)
[2025-06-13] MEDS: VANCOMYCIN HCL 1000 MG VL IR ONE (08:20)
[2025-06-13 08:54] LABS: INR 1.19 (0.9-1.15); Partial Thromboplastin Time 29.9 SEC (24.5-34.5); Prothrombin Time 12.4 sec (9.3-11.8)
[2025-06-13] MEDS: ACETAMINOPHEN IV 1000 MG/100ML (10MG/ML) IV ONE (09:00)
[2025-06-13] MEDS: ACETAMINOPHEN IV 100 ML IV ONE (09:07)
--- NOTE | 2025-06-13 09:23 | DVHOP2 ---
Operative Report - 2 Report Details Date: 06/13/25 Preop Diagnosis: Dislocated right hip hemiarthroplasty Postop Diagnosis: same, dislocated right hip hemiarthroplasty Surgeon: Yudith Subramanian MD [place] Or Wind Instrument Tuner: none Anesthesiologist: Dr Garcia Anesthesia: General, Mac Drains: none Implant: Ryan hip stem, 5, bipolar head 53, standard neck, Bj Biomet Consent: The patient was informed of the risks and benefits of the procedure. These include but are not limited to complications of anesthesia, postoperative infection, incomplete relief of symptoms, recurrence of symptoms, damage to blood vessels, nerves and tendons, deep venous thrombosis, pulmonary embolism and possible need for repeat surgery in the future. Complications: dislocated ryan hip with separation of bipolar components on attempted reduction Estimated Blood Loss: 25cc Fluids: 500 cc crystalloid Findings: right ryan hip doslocatino, bipolar components off of trocar and , with plastic liner remaining in shell Indications for Surgery: Dislocated right ryan hip with unsuccessful attempted closed reduction Name of Procedure Performed Revision right hip hemiarthroplasty Procedure Details Procedure Details: Pt brought into the OR, general anestheisa, placed in left aleteral decubitus position, stabilized with pegs, well padded, head in anatomic position, arms well paded, pillows beneath and between both legs. time out perofremed, confirmation right side correct side and revision ryan vs conversion to MARYSE correct porcedure after review of consent, H and P, and my initials on [facility]. All present in OR agreed right side correct and revision ryan hip correct procedure. Incision made through prior zac langenbach incision, rosa to deep fascia, deep fasica dividec, charnley retractor placed wbtween TFL and gluteus briana muscles, biploar outer shell was found posterior iwth poastic component in shell. this was removed. Inner ball was seen to be stable to trocar. there was no evidence of damage to the acetabulum, the sciatic ner was decompressed digitally, a new Bj 53 bipolar head was tapped in place, reduction was performed, stability assessed with excellent stability with flexion 90, adduction 20 , IR to 90. I was able to fully extend the hip. Irrigation performed, vanco powder placed, posterior capsule repaired, deep fasica closed with 0 vicryl, skin closed with 2.0 vicryl, no drains sepcimens, complication of dislocated ryan hip arthroplasty. Specimen: none Condition Stable Disposition Still a Patient YUDITH SUBRAMANIAN MD Jun 13, 2025 09:23
[2025-06-13] MEDS ORDERED: BISACODYL 5 MG EC TAB PO PRN (09:30)
[2025-06-13] MEDS: LACTATED RINGER'S 1,000 ML IV SCH (10:00)
--- NOTE | 2025-06-13 10:04 | DVH ---
XY PELVIS AP HISTORY: post op revision rith holli hip TECHNICAL DATA: Frontal view was obtained of the pelvis. COMPARISON: XY R HIP 1V XRAY on DOS: 06/12/25, XY R HIP 1V XRAY on DOS: 06/10/25, XY R HIP COMPLETE XRAY on DOS: 06/10/25 FINDINGS: There is no acute abnormality involving the bony pelvis. The sacroiliac joints appear normal. There i s no abnormality of the symphysis pubis. The hip joint spaces are symmetric. IMPRESSION: Right hip arthroplasty appears intact and in good alignment. Subcutaneous gas is expected post op. No acute fracture or dislocation of the pelvis.
[2025-06-13] MEDS: DOCUSATE SOD 100 MG CAP PO SCH (10:11)
[2025-06-13] MEDS: FUROSEMIDE 20 MG/2 ML VIAL IV ONE (12:57)
--- NOTE | 2025-06-13 14:09 | DVHPN2 ---
Consult Progress Note Date Seen: Jun 12, 2025 Subjective Patient reports: Other (n 3 liters nasal canula , feeling less SOB and a bit volume overloaded with crackles in the lungs bilaterally ) Objective vital signs Vital Sign Date Time Temp Pulse Resp B/P (MAP) Pulse Ox O2 Delivery O2 Flow Rate FiO2 06/13/25 13:45 83 14 130/67 (88) 92 06/13/25 12:30 97.5 97.5 06/13/25 09:40 Oxymizer 8.0 95 Total Intake and Output 06/12/25 06/12/25 06/13/25 15:00 23:00 07:00 Intake Total 680 ml 960 ml 1010 ml Output Total 650 ml 250 ml Balance 680 ml 310 ml 760 ml medications Current Medications Medications Dose Ordered Sig/Promise Route Start Time Stop Time Status Last Admin Dose Admin Acetaminophen 650 mg Q6HP PRN PO 06/10/25 02:15 Acetaminophen/ Hydrocodone Bitart 1 tab Q6HPRN PRN PO 06/10/25 02:15 06/10/25 20:05 1 TAB Ondansetron HCl 4 mg Q4HP PRN IV 06/10/25 02:15 Morphine Sulfate 2 mg Q4HPRN PRN IV 06/10/25 02:15 06/13/25 01:47 2 MG Enoxaparin Sodium 30 mg DAILY SC 06/10/25 10:00 06/10/25 10:14 30 MG Nitroglycerin 0.4 mg Q5MINP PRN SL 06/10/25 02:15 Morphine Sulfate 2 mg Q30M PRN IV 06/10/25 02:15 Vancomycin HCl 0 ml @ 0 mls/hr UD IV 06/10/25 02:15 Albuterol 2.5 mg Q4HR NEB 06/10/25 06:00 06/13/25 02:08 2.5 MG Ipratropium [place] 0.5 mg Q4HR NEB 06/10/25 06:00 06/13/25 02:08 0.5 MG Sodium Chloride 1,000 ml @ 70 mls/hr [id number] IV 06/11/25 13:45 06/13/25 06:30 70 MLS/HR Mupirocin 1 applic BID EACHNOSTRI 06/11/25 22:00 06/16/25 21:59 06/13/25 10:10 1 APPLIC Iron Sucrose 110 ml @ 110 mls/hr DAILY@1200 IV 06/12/25 12:00 06/16/25 12:59 06/13/25 11:37 110 MLS/HR Finasteride 5 mg HS PO 06/12/25 22:00 06/12/25 21:46 5 MG Morphine Sulfate 4 mg Q4HPRN PRN IV 06/12/25 12:00 06/12/25 13:48 4 MG Levofloxacin/ Dextrose 100 ml @ 100 mls/hr DAILY IV 06/13/25 10:00 06/13/25 10:10 100 MLS/HR Oxycodone/ Acetaminophen 1 tab Q6HP PRN PO 06/12/25 23:30 Vancomycin HCl 250 ml @ 250 mls/hr DAILY@0100 IV 06/13/25 01:00 06/13/25 01:15 250 MLS/HR Lactated Ringer's 1,000 ml @ 100 mls/hr Q10H IV 06/13/25 09:30 06/13/25 10:00 100 MLS/HR Docusate Sodium 100 mg Q12HR PO 06/13/25 10:00 06/13/25 10:11 100 MG Bisacodyl 5 mg Q12HP PRN PO 06/13/25 09:30 Physical Exam: General: NAD Neck: Supple. No masses. HEENT: PERRL. Normal lids and conjunctiva. Moist mucous membranes. Oropharynx without lesions, exudates or excessive erythema. Normal appearance of the external aspects of the nose and ears. Heart: Regular rhythm, normal rate. No murmur. No lower extremity edema. Lungs: Normal respiratory effort. Clear to auscultation bilaterally. No wheezes. No crackles. Abdomen: Soft. Non-tender. Non-distended. No masses or abdominal hernia. Msk: No digital cyanosis. Normal strength and tone in all 4 limbs. Notable for right hip tenderness to palpation, right foot with necrosis, internally rotated, with cellulitic changes up ankle, heel, and dorsal foot. Skin: Warm and dry; right foot wound with necrosis and cellulitis. Neuro: Alert. No facial droop or slurred speech. Extra-ocular movements intact. Sensation intact to soft touch in all 4 limbs. Psych: Appropriate mood. Full affect. Oriented to person, place, time, and situation (noting that was decreased on presentation, now improved). laboratory and microbiology Laboratory Tests 06/13/25 06:20 Test 06/13/25 06:20 Range/Units Serum Glucose 130 H 74-106 mg/dL Problem List/Assessment/Plan Problems(with codes): (1) Pneumonia (2) SHEILA (acute kidney injury) (3) Severe anemia (4) COPD (chronic obstructive pulmonary disease) (5) Fall (6) Fracture of femoral neck, right (7) Foot osteomyelitis, right (8) Pneumonia (9) Acute hypoxemic respiratory failure (10) Hip dislocation, right Problem List/Assessment/Plan ASSESSMENT AND PLAN: ID Problem List: \-- Acute hypoxic respiratory failure \-- COPD exacerbation \-- Pneumonia (suspected aspiration) \-- Right foot cellulitis and wound with necrosis \-- Recent right hip surgery with postoperative pain \-- Acute kidney injury (SHEILA) \-- Hypertension \-- Hyperlipidemia \-- Myocardial infarction (history) \-- Drug allergies: penicillins and sulfa (hives) Assessment Mr. Starr is an 79-year-old male with history of COPD (intermittent home oxygen), hypertension, hyperlipidemia, and myocardial infarction, recently admitted for right hip surgery. He re-presented with acute hypoxia and altered mental status at home, requiring escalation of oxygen to 5L by family due to sustained hypoxemia (SpO2 in mid-70s) before admission. In the ED, he was noted to be alert and oriented times two, placed on non-rebreather and given 1L of normal saline, but remained hypotensive. He has a right foot wound (from surgical boot) with necrosis, cellulitic changes extending from ankle to heel/dorsal foot, and a tender right hip (without induration). Labs notable for WBC 8.6, Hgb 9.8, platelets 300, creatinine 2.11, BUN 34. UA and urine drug screen negative (except for marijuana), and negative for influenza, COVID-19, and RSV. Chest X-ray revealed right middle lobe opacity concerning for aspiration pneumonia with some interval improvement, though left lower lobe opacification is now noted. He has been on cefdinir and clindamycin at home but is allergic to penicillins and sulfa (hives). He tolerated ceftriaxone during recent hospitalization. On admission, he was transitioned from vancomycin and levofloxacin to cefepime and vancomycin due to concern for hospital-acquired pneumonia. With subsequent improvement, plan today is to continue vancomycin for MRSA coverage, discontinue cefepime (given allergy history and SHEILA), and resume levofloxacin. ECG with borderline QTc (464 ms). SHEILA may be multifactorial (hypotension, infection, nephrotoxins possible). The patient is now stable off pressors, back on the floor. Nephrology following for renal management. Ortho to evaluate need for wound boot alternative. Pulmonology to manage COPD exacerbation. 06/12: hemodynamically stable , oxygen needs are coming down slowly , off pressers . s/p closed reduction of right hip prosthetic dislocation , will continue to monitor patient after operative procedure Plan: \-- Continue vancomycin for MRSA pneumonia concern \-- Discontinue cefepime in context of SHEILA and possible drug allergy \-- Initiate/continue levofloxacin; consider monotherapy for discharge \-- Stop cefdinir and clindamycin given allergy risk \-- Avoid nephrotoxins; nephrology co-managing SHEILA \-- Maintain MAP ~65 mmHg \-- Pulmonology to manage COPD with bronchodilators and mucolytics \-- Orthopedics evaluation for boot/wound care and right hip pain \-- Monitor for pulmonary edema/fluid overload \-- Monitor for electrolyte and QTc changes (baseline QTc 464); cautious with levofloxacin \-- Monitor oxygen requirements and titrate as tolerated \-- Infectious Disease follow as needed Isolation Precautions: Standard Plan discussed with: Other Dietary Evaluation Review Comments: Advance to Cardiac CCHO-60 diet when medically feasible. Offer Glucerna BID if PO intake <75% Expected Outcomes/Goals: Improved healing of the sugical site, and gradual wt gains HERNÁN TIMMONS MD Jun 13, 2025 14:09
--- NOTE | 2025-06-13 15:34 | DVHPN2 ---
Progress Note - Dictate Date Seen: Jun 13, 2025 Medical Necessity Reason Pt with a Central, PICC or Fol: Yes The following are medically ne: Gordillo Catheter Reason for gordillo catheter: Bladder Retention/Obstruc Subjective Patient's mental status has improved and appears back to baseline normal status steady. Patient underwent a successful revision of his hip dislocations surgery this morning. His pain has significantly improved. vital signs Vital Sign Date Time Temp Pulse Resp B/P (MAP) Pulse Ox O2 Delivery O2 Flow Rate FiO2 06/13/25 14:45 89 12 130/59 (82) 91 06/13/25 14:22 [place] 6.0 06/13/25 14:22 N/A 06/13/25 12:30 97.5 97.5 Total Intake and Output 06/12/25 06/12/25 06/13/25 15:00 23:00 07:00 Intake Total 680 ml 960 ml 1010 ml Output Total 650 ml 250 ml Balance 680 ml 310 ml 760 ml medications Current Medications Medications Dose Ordered Sig/Promise Route Start Time Stop Time Status Last Admin Dose Admin Acetaminophen 650 mg Q6HP PRN PO 06/10/25 02:15 Acetaminophen/ Hydrocodone Bitart 1 tab Q6HPRN PRN PO 06/10/25 02:15 06/10/25 20:05 1 TAB Ondansetron HCl 4 mg Q4HP PRN IV 06/10/25 02:15 Enoxaparin Sodium 30 mg DAILY SC 06/10/25 10:00 06/10/25 10:14 30 MG Nitroglycerin 0.4 mg Q5MINP PRN SL 06/10/25 02:15 Morphine Sulfate 2 mg Q30M PRN IV 06/10/25 02:15 Vancomycin HCl 0 ml @ 0 mls/hr UD IV 06/10/25 02:15 Albuterol 2.5 mg Q4HR NEB 06/10/25 06:00 06/13/25 14:22 2.5 MG Ipratropium [place] 0.5 mg Q4HR NEB 06/10/25 06:00 06/13/25 14:22 0.5 MG Mupirocin 1 applic BID EACHNOSTRI 06/11/25 22:00 06/16/25 21:59 06/13/25 10:10 1 APPLIC Iron Sucrose 110 ml @ 110 mls/hr DAILY@1200 IV 06/12/25 12:00 06/16/25 12:59 06/13/25 11:37 110 MLS/HR Finasteride 5 mg HS PO 06/12/25 22:00 06/12/25 21:46 5 MG Levofloxacin/ Dextrose 100 ml @ 100 mls/hr DAILY IV 06/13/25 10:00 06/13/25 10:10 100 MLS/HR Oxycodone/ Acetaminophen 1 tab Q6HP PRN PO 06/12/25 23:30 Vancomycin HCl 250 ml @ 250 mls/hr DAILY@0100 IV 06/13/25 01:00 06/13/25 01:15 250 MLS/HR Docusate Sodium 100 mg Q12HR PO 06/13/25 10:00 06/13/25 10:11 100 MG Bisacodyl 5 mg Q12HP PRN PO 06/13/25 09:30 Morphine Sulfate 2 mg Q4HPRN PRN IV 06/13/25 14:45 Dextrose/Sodium Chloride 1,000 ml @ 50 mls/hr Q20H IV 06/13/25 14:45 objective Alert awake oriented to place and person. HEENT neck supple no JVD. Heart regular rate and rhythm S1-S2. Lungs fair air movement degraded breath sounds in the bases. Abdomen soft positive bowel sounds nontender. Extremities no significant edema. laboratory and microbiology Laboratory Tests 06/13/25 06:20 Test 06/13/25 06:20 Range/Units Serum Glucose 130 H 74-106 mg/dL Assessment/Plan Status post successful revision of his hip dislocation surgery this morning. We will cut down his IV pain medicines. Physical therapy evaluation. DC IV fluids. Advance diet as he tolerates. He is on Oxymizer oxygen therefore we will provide incentive spirometry and breathing treatments. Titrate oxygen as he tolerates. Follow up chest x-ray in the morning. Otherwise further clinical management per clinical course. Discussed with the patient and nurse regarding care plan Problems(with codes): (1) COPD (chronic obstructive pulmonary disease) (2) Acute hypoxemic respiratory failure (3) Hip dislocation, right Dietary Evaluation Review Comments: Advance to Cardiac CCHO-60 diet when medically feasible. Offer Glucerna BID if PO intake <75% Expected Outcomes/Goals: Improved healing of the sugical site, and gradual wt gains Plan discussed with: Patient GANAPAVARAPU,CAMMY MD Jun 13, 2025 15:34
[2025-06-13] MEDS: D5W/SOD CHL 0.45% 1,000 ML IV SCH (16:20)
--- NOTE | 2025-06-13 17:21 | DVHPN2 ---
Progress Note - Dictate Date Seen: Jun 13, 2025 Medical Necessity Reason Pt with a Central, PICC or Fol: Yes The following are medically ne: Gordillo Catheter Reason for gordillo catheter: Bladder Retention/Obstruc vital signs Vital Sign Date Time Temp Pulse Resp B/P (MAP) Pulse Ox O2 Delivery O2 Flow Rate FiO2 06/13/25 15:30 89 14 122/59 (80) 89 06/13/25 14:22 Oxymizer 6.0 06/13/25 14:22 N/A 06/13/25 12:30 97.5 97.5 Total Intake and Output 06/12/25 06/12/25 06/13/25 15:00 23:00 07:00 Intake Total 680 ml 960 ml 1010 ml Output Total 650 ml 250 ml Balance 680 ml 310 ml 760 ml medications Current Medications Medications Dose Ordered Sig/Promise Route Start Time Stop Time Status Last Admin Dose Admin Acetaminophen 650 mg Q6HP PRN PO 06/10/25 02:15 Acetaminophen/ Hydrocodone Bitart 1 tab Q6HPRN PRN PO 06/10/25 02:15 06/13/25 16:16 1 TAB Ondansetron HCl 4 mg Q4HP PRN IV 06/10/25 02:15 Enoxaparin Sodium 30 mg DAILY SC 06/10/25 10:00 06/10/25 10:14 30 MG Nitroglycerin 0.4 mg Q5MINP PRN SL 06/10/25 02:15 Morphine Sulfate 2 mg Q30M PRN IV 06/10/25 02:15 Vancomycin HCl 0 ml @ 0 mls/hr UD IV 06/10/25 02:15 Albuterol 2.5 mg Q4HR NEB 06/10/25 06:00 06/13/25 14:22 2.5 MG Ipratropium [place] 0.5 mg Q4HR NEB 06/10/25 06:00 06/13/25 14:22 0.5 MG Mupirocin 1 applic BID EACHNOSTRI 06/11/25 22:00 06/16/25 21:59 06/13/25 10:10 1 APPLIC Iron Sucrose 110 ml @ 110 mls/hr DAILY@1200 IV 06/12/25 12:00 06/16/25 12:59 06/13/25 11:37 110 MLS/HR Finasteride 5 mg HS PO 06/12/25 22:00 06/12/25 21:46 5 MG Levofloxacin/ Dextrose 100 ml @ 100 mls/hr DAILY IV 06/13/25 10:00 06/13/25 10:10 100 MLS/HR Oxycodone/ Acetaminophen 1 tab Q6HP PRN PO 06/12/25 23:30 Vancomycin HCl 250 ml @ 250 mls/hr DAILY@0100 IV 06/13/25 01:00 06/13/25 01:15 250 MLS/HR Docusate Sodium 100 mg Q12HR PO 06/13/25 10:00 06/13/25 10:11 100 MG Bisacodyl 5 mg Q12HP PRN PO 06/13/25 09:30 Morphine Sulfate 2 mg Q4HPRN PRN IV 06/13/25 14:45 Dextrose/Sodium Chloride 1,000 ml @ 50 mls/hr Q20H IV 06/13/25 14:45 06/13/25 16:20 50 MLS/HR laboratory and microbiology Laboratory Tests 06/13/25 06:20 Test 06/13/25 06:20 Range/Units Serum Glucose 130 H 74-106 mg/dL Assessment/Plan Acute on chronic hypoxic respiratory failure Chronic obstructive pulmonary disease Septic shock Acute metabolic encephalopathy Pneumonia, RML, likely GNR/GPC Acute kidney injury Anemia, normocytic Marijuana use Elevated D-dimer Events: Remains on supplemental oxygen no new complaints s/p right hip repair today Plan: Supplemental oxygen Keep O2 saturation above 92% Continue antibiotics Follow up cultures Follow up ID recommendations Continue bronchodilators Wound care Follow up Orthopedics recommendations Monitor renal function Monitor electrolytes. Supplement as necessary. Monitor ins and outs. DVT prophylaxis Lovenox Dietary Evaluation Review Comments: Advance to Cardiac CCHO-60 diet when medically feasible. Offer Glucerna BID if PO intake <75% Expected Outcomes/Goals: Improved healing of the sugical site, and gradual wt gains Plan discussed with: Patient REECE AHUJA MD Jun 13, 2025 17:21
--- NOTE | 2025-06-13 17:41 | DVHPN2 ---
Progress Note Date Seen: Jun 13, 2025 Medical Necessity Reason Pt with a Central, PICC or Fol: Yes The following are medically ne: Gordillo Catheter Reason for gordillo catheter: Bladder Retention/Obstruc Subjective Patient reports: Feels better Objective vital signs Vital Sign Date Time Temp Pulse Resp B/P (MAP) Pulse Ox O2 Delivery O2 Flow Rate FiO2 06/13/25 15:30 89 14 122/59 (80) 89 06/13/25 14:22 Oxymizer 6.0 06/13/25 14:22 N/A 06/13/25 12:30 97.5 97.5 Total Intake and Output 06/12/25 06/12/25 06/13/25 15:00 23:00 07:00 Intake Total 680 ml 960 ml 1010 ml Output Total 650 ml 250 ml Balance 680 ml 310 ml 760 ml medications Current Medications Medications Dose Ordered Sig/Promise Route Start Time Stop Time Status Last Admin Dose Admin Acetaminophen 650 mg Q6HP PRN PO 06/10/25 02:15 Acetaminophen/ Hydrocodone Bitart 1 tab Q6HPRN PRN PO 06/10/25 02:15 06/13/25 16:16 1 TAB Ondansetron HCl 4 mg Q4HP PRN IV 06/10/25 02:15 Enoxaparin Sodium 30 mg DAILY SC 06/10/25 10:00 06/10/25 10:14 30 MG Nitroglycerin 0.4 mg Q5MINP PRN SL 06/10/25 02:15 Morphine Sulfate 2 mg Q30M PRN IV 06/10/25 02:15 Vancomycin HCl 0 ml @ 0 mls/hr UD IV 06/10/25 02:15 Albuterol 2.5 mg Q4HR NEB 06/10/25 06:00 06/13/25 14:22 2.5 MG Ipratropium [place] 0.5 mg Q4HR NEB 06/10/25 06:00 06/13/25 14:22 0.5 MG Mupirocin 1 applic BID EACHNOSTRI 06/11/25 22:00 06/16/25 21:59 06/13/25 10:10 1 APPLIC Iron Sucrose 110 ml @ 110 mls/hr DAILY@1200 IV 06/12/25 12:00 06/16/25 12:59 06/13/25 11:37 110 MLS/HR Finasteride 5 mg HS PO 06/12/25 22:00 06/12/25 21:46 5 MG Levofloxacin/ Dextrose 100 ml @ 100 mls/hr DAILY IV 06/13/25 10:00 06/13/25 10:10 100 MLS/HR Oxycodone/ Acetaminophen 1 tab Q6HP PRN PO 06/12/25 23:30 Vancomycin HCl 250 ml @ 250 mls/hr DAILY@0100 IV 06/13/25 01:00 06/13/25 01:15 250 MLS/HR Docusate Sodium 100 mg Q12HR PO 06/13/25 10:00 06/13/25 10:11 100 MG Bisacodyl 5 mg Q12HP PRN PO 06/13/25 09:30 Morphine Sulfate 2 mg Q4HPRN PRN IV 06/13/25 14:45 Dextrose/Sodium Chloride 1,000 ml @ 50 mls/hr Q20H IV 06/13/25 14:45 06/13/25 16:20 50 MLS/HR Examination: GENERAL:Normal, CVS:Normal, :Abnormal laboratory and microbiology Laboratory Tests 06/13/25 06:20 Test 06/13/25 06:20 Range/Units Serum Glucose 130 H 74-106 mg/dL Microbiology Date/Time Source Procedure Growth Status 06/11/25 16:33 Urine - Gordillo Port Urine Culture - Preliminary Resulted 06/11/25 01:00 Nose MRSA Screen - Final Methicillin Resistant S.aureus Complete 06/09/25 22:36 Blood Blood Culture - Preliminary NO GROWTH AFTER 72 HOURS OF INCUBATION. Resulted Problem List/Assessment/Plan Problem List/Assessment/Plan Acute kidney injury likely hemodynamic mediated etiology in the setting of hypotension BPH obstruction s/p gordillo Encephalopathy COPD Femoral head displacement anemia Renal function improved after Gordillo catheter Orthopedic consult--hip arthroplasty resolved Rec postoperatively continue Gordillo catheter due to obstruction, trial of void and continue prostate medications. after gordillo remove check PVR after urination. if fails place gordillo back and urology resume home prostate medications anemia panel IV iron Plan discussed with: Patient Dietary Evaluation Review Comments: Advance to Cardiac CCHO-60 diet when medically feasible. Offer Glucerna BID if PO intake <75% Expected Outcomes/Goals: Improved healing of the sugical site, and gradual wt gains Total Time (mins): 33 ZACH BERNABE MD Jun 13, 2025 17:41
[2025-06-14] VITALS (32 sets, daily range): BP systolic 105–144; BP diastolic 43–81; PULSE 77–105; RESP 11–23; TEMP 97.9–99.5; O2SAT 90–96
--- NOTE | 2025-06-14 04:00 | DVH ---
CHEST RADIOGRAPH Indication: sob Technique: Single frontal view of the chest was obtained COMPARISON: XY CHEST PORTABLE on DOS: 06/11/25, XY CHEST XRAY 1 VIEW on DOS: 06/09/25, XY CHEST PORTABLE on DOS: 06/04/25, CT CT ANGIO CHEST CONTRAST on DOS: 05/15/25, XY CHEST PORTABLE on DOS: 05/13/25 FINDINGS: Left costophrenic angle excluded from the image. Lines and Tubes: None Lungs: New mild predominantly bilateral perihilar increased prominence of the interstitium and pulmon sola vasculature. Pleura: No definite effusion. No pneumothorax. Cardiomediastinal contours: Unremarkable Bones: Unremarkable IMPRESSION: 1. No acute disease. New mild predominantly bilateral perihilar increased prominence of the interstit ium and pulmonary vasculature. Left costophrenic angle excluded.
[2025-06-14 04:44] LABS: Hematocrit 22.2 % (41.0-53.0); Hemoglobin 7.4 g/dL (13.5-17.5); Mean Corpuscular Hemoglobin 32.8 pg (28.0-32.0); Mean Corpuscular Volume 98.3 fL (80.0-100.0); Nucleated Red Blood Cells % 0.2 %
[2025-06-14 05:19] LABS: Potassium 4.1 mmol/L (3.5-5.1); Sodium 142 mmol/L (136-145)
[2025-06-14 05:20] LABS: Anion Gap 11 (5-15); Carbon Dioxide 20 mmol/L (20-31)
[2025-06-14 05:21] LABS: Calcium 8.1 mg/dL (8.7-10.4); Chloride 111 mmol/L (98-107)
[2025-06-14 05:25] LABS: BUN/Creatinine Ratio 21.2 (10.0-20.0); Blood Urea Nitrogen 22 mg/dL (9-23)
[2025-06-14 05:31] LABS: Glucose 127 mg/dL (74-106)
[2025-06-14 07:02] LABS: Hematocrit 22.3 % (41.0-53.0)
[2025-06-14 07:04] LABS: Hemoglobin 7.6 g/dL (13.5-17.5)
[2025-06-14] MEDS: MAGNESIUM SULFATE 1GM/100ML 100 ML IV ONE (13:07)
--- NOTE | 2025-06-14 15:20 | DVHPN2 ---
Progress Note - Dictate Date Seen: Jun 14, 2025 Medical Necessity Reason Pt with a Central, PICC or Fol: Yes The following are medically ne: Gordillo Catheter Reason for gordillo catheter: Bladder Retention/Obstruc vital signs Vital Sign Date Time Temp Pulse Resp B/P (MAP) Pulse Ox O2 Delivery O2 Flow Rate FiO2 06/14/25 14:55 86 20 91 06/14/25 14:55 Oxymizer 5.0 06/14/25 14:55 N/A 06/14/25 14:00 105/43 (63) 06/14/25 12:00 99.5 99.5 Total Intake and Output 06/13/25 06/13/25 06/14/25 15:00 23:00 07:00 Intake Total 610 ml 550 ml 950 ml Output Total 150 ml 900 ml 450 ml Balance 460 ml -350 ml 500 ml medications Current Medications Medications Dose Ordered Sig/Promise Route Start Time Stop Time Status Last Admin Dose Admin Acetaminophen 650 mg Q6HP PRN PO 06/10/25 02:15 Acetaminophen/ Hydrocodone Bitart 1 tab Q6HPRN PRN PO 06/10/25 02:15 06/14/25 10:30 1 TAB Ondansetron HCl 4 mg Q4HP PRN IV 06/10/25 02:15 Enoxaparin Sodium 30 mg DAILY SC 06/10/25 10:00 06/14/25 10:39 30 MG Nitroglycerin 0.4 mg Q5MINP PRN SL 06/10/25 02:15 Morphine Sulfate 2 mg Q30M PRN IV 06/10/25 02:15 Vancomycin HCl 0 ml @ 0 mls/hr UD IV 06/10/25 02:15 Albuterol 2.5 mg Q4HR NEB 06/10/25 06:00 06/14/25 14:56 2.5 MG Ipratropium [place] 0.5 mg Q4HR NEB 06/10/25 06:00 06/14/25 14:56 0.5 MG Mupirocin 1 applic BID EACHNOSTRI 06/11/25 22:00 06/16/25 21:59 06/14/25 07:12 1 APPLIC Iron Sucrose 110 ml @ 110 mls/hr DAILY@1200 IV 06/12/25 12:00 06/16/25 12:59 06/14/25 10:50 110 MLS/HR Finasteride 5 mg HS PO 06/12/25 22:00 06/13/25 20:30 5 MG Levofloxacin/ Dextrose 100 ml @ 100 mls/hr DAILY IV 06/13/25 10:00 06/14/25 07:12 100 MLS/HR Oxycodone/ Acetaminophen 1 tab Q6HP PRN PO 06/12/25 23:30 Vancomycin HCl 250 ml @ 250 mls/hr DAILY@0100 IV 06/13/25 01:00 06/14/25 01:37 250 MLS/HR Docusate Sodium 100 mg Q12HR PO 06/13/25 10:00 06/14/25 07:11 100 MG Bisacodyl 5 mg Q12HP PRN PO 06/13/25 09:30 Morphine Sulfate 2 mg Q4HPRN PRN IV 06/13/25 14:45 Dextrose/Sodium Chloride 1,000 ml @ 50 mls/hr Q20H IV 06/13/25 14:45 06/13/25 16:20 50 MLS/HR laboratory and microbiology Laboratory Tests 06/14/25 06:54 06/14/25 04:18 Test 06/14/25 04:18 Range/Units Serum Glucose 127 H 74-106 mg/dL Assessment/Plan Acute on chronic hypoxic respiratory failure Chronic obstructive pulmonary disease Septic shock Acute metabolic encephalopathy Pneumonia, RML, likely GNR/GPC Acute kidney injury Anemia, normocytic Marijuana use Elevated D-dimer Events: Remains on supplemental oxygen no new complaints s/p right hip repair Plan: Supplemental oxygen Keep O2 saturation above 92% Continue antibiotics Follow up cultures Follow up ID recommendations Continue bronchodilators Wound care Follow up Orthopedics recommendations Monitor renal function Monitor electrolytes. Supplement as necessary. Monitor ins and outs. DVT prophylaxis Lovenox Dietary Evaluation Review Comments: Advance to Cardiac CCHO-60 diet when medically feasible. Offer Glucerna BID if PO intake <75% Expected Outcomes/Goals: Improved healing of the sugical site, and gradual wt gains Plan discussed with: Patient REECE AHUJA MD Jun 14, 2025 15:19
[2025-06-14] MEDS: MORPHINE SULFATE INJ 2 MG/ml SYRG IV PRN (15:24)
--- NOTE | 2025-06-14 15:37 | DVHPN2 ---
Progress Note Date Seen: Jun 14, 2025 Medical Necessity Reason Pt with a Central, PICC or Fol: Yes The following are medically ne: Gordillo Catheter Reason for gordillo catheter: Bladder Retention/Obstruc Subjective Patient reports: Feels better Objective vital signs Vital Sign Date Time Temp Pulse Resp B/P (MAP) Pulse Ox O2 Delivery O2 Flow Rate FiO2 06/14/25 15:24 72 18 131/74 06/14/25 14:55 91 06/14/25 14:55 Oxymizer 5.0 06/14/25 14:55 N/A 06/14/25 12:00 99.5 99.5 Total Intake and Output 06/13/25 06/13/25 06/14/25 15:00 23:00 07:00 Intake Total 610 ml 550 ml 950 ml Output Total 150 ml 900 ml 450 ml Balance 460 ml -350 ml 500 ml medications Current Medications Medications Dose Ordered Sig/Promise Route Start Time Stop Time Status Last Admin Dose Admin Acetaminophen 650 mg Q6HP PRN PO 06/10/25 02:15 Acetaminophen/ Hydrocodone Bitart 1 tab Q6HPRN PRN PO 06/10/25 02:15 06/14/25 10:30 1 TAB Ondansetron HCl 4 mg Q4HP PRN IV 06/10/25 02:15 Enoxaparin Sodium 30 mg DAILY SC 06/10/25 10:00 06/14/25 10:39 30 MG Nitroglycerin 0.4 mg Q5MINP PRN SL 06/10/25 02:15 Morphine Sulfate 2 mg Q30M PRN IV 06/10/25 02:15 Vancomycin HCl 0 ml @ 0 mls/hr UD IV 06/10/25 02:15 Albuterol 2.5 mg Q4HR NEB 06/10/25 06:00 06/14/25 14:56 2.5 MG Ipratropium [place] 0.5 mg Q4HR NEB 06/10/25 06:00 06/14/25 14:56 0.5 MG Mupirocin 1 applic BID EACHNOSTRI 06/11/25 22:00 06/16/25 21:59 06/14/25 07:12 1 APPLIC Iron Sucrose 110 ml @ 110 mls/hr DAILY@1200 IV 06/12/25 12:00 06/16/25 12:59 06/14/25 10:50 110 MLS/HR Finasteride 5 mg HS PO 06/12/25 22:00 06/13/25 20:30 5 MG Levofloxacin/ Dextrose 100 ml @ 100 mls/hr DAILY IV 06/13/25 10:00 06/14/25 07:12 100 MLS/HR Oxycodone/ Acetaminophen 1 tab Q6HP PRN PO 06/12/25 23:30 Vancomycin HCl 250 ml @ 250 mls/hr DAILY@0100 IV 06/13/25 01:00 06/14/25 01:37 250 MLS/HR Docusate Sodium 100 mg Q12HR PO 06/13/25 10:00 06/14/25 07:11 100 MG Bisacodyl 5 mg Q12HP PRN PO 06/13/25 09:30 Morphine Sulfate 2 mg Q4HPRN PRN IV 06/13/25 14:45 06/14/25 15:24 2 MG Dextrose/Sodium Chloride 1,000 ml @ 50 mls/hr Q20H IV 06/13/25 14:45 06/13/25 16:20 50 MLS/HR Examination: GENERAL:Normal, CVS:Normal, MSK:Abnormal, :Abnormal laboratory and microbiology Laboratory Tests 06/14/25 06:54 06/14/25 04:18 Test 06/14/25 04:18 Range/Units Serum Glucose 127 H 74-106 mg/dL Microbiology Date/Time Source Procedure Growth Status 06/11/25 16:33 Urine - G[place]illo [place] Urine Culture - Preliminary Presumptive [place] albicans Resulted 06/11/25 01:00 Nose MRSA Screen - Final Methicillin Resistant S.aureus Complete 06/09/25 22:36 Blood Blood Culture - Preliminary NO GROWTH AFTER 72 HOURS OF INCUBATION. Resulted Problem List/Assessment/Plan Problem List/Assessment/Plan Acute kidney injury likely hemodynamic mediated etiology in the setting of hypotension BPH obstruction s/p gordillo due to large PVR Encephalopathy resolved COPD Femoral head displacement s/p OR repair anemia Renal function has normalized after Gordillo catheter & IVF Orthopedic consult--hip arthroplasty resolved Rec postoperatively continue Gordillo catheter due to obstruction, trial of void and continue prostate medications. after gordillo remove check PVR after urination. if fails place gordillo back and urology w/ leg bag continue home prostate medications anemia panel IV iron from renal standpoint patient is stable will sign off case Plan discussed with: Patient Dietary Evaluation Review Comments: Advance to Cardiac CCHO-60 diet when medically feasible. Offer Glucerna BID if PO intake <75% Expected Outcomes/Goals: Improved healing of the sugical site, and gradual wt gains Total Time (mins): 33 ZACH BERNABE MD Jun 14, 2025 15:37
--- NOTE | 2025-06-14 18:20 | DVHPN2 ---
Progress Note - Dictate Date Seen: Jun 14, 2025 Medical Necessity Reason Pt with a Central, PICC or Fol: Yes The following are medically ne: Gordillo Catheter Reason for gordillo catheter: Bladder Retention/Obstruc Subjective Patient is comfortable in bed. No acute distress. No complaints of pain. Patient has right leg brace all the way up to upper thigh. Says he can not bend of the knee. On nasal cannula for oxygenation. vital signs Vital Sign Date Time Temp Pulse Resp B/P (MAP) Pulse Ox O2 Delivery O2 Flow Rate FiO2 06/14/25 17:39 88 06/14/25 17:00 98.1 15 120/60 (80) 92 98.1 06/14/25 14:55 Oxymizer 5.0 06/14/25 14:55 N/A Total Intake and Output 06/13/25 06/13/25 06/14/25 15:00 23:00 07:00 Intake Total 610 ml 550 ml 950 ml Output Total 150 ml 900 ml 450 ml Balance 460 ml -350 ml 500 ml medications Current Medications Medications Dose Ordered Sig/Promise Route Start Time Stop Time Status Last Admin Dose Admin Acetaminophen 650 mg Q6HP PRN PO 06/10/25 02:15 Acetaminophen/ Hydrocodone Bitart 1 tab Q6HPRN PRN PO 06/10/25 02:15 06/14/25 18:11 1 TAB Ondansetron HCl 4 mg Q4HP PRN IV 06/10/25 02:15 Enoxaparin Sodium 30 mg DAILY SC 06/10/25 10:00 06/14/25 10:39 30 MG Nitroglycerin 0.4 mg Q5MINP PRN SL 06/10/25 02:15 Morphine Sulfate 2 mg Q30M PRN IV 06/10/25 02:15 Vancomycin HCl 0 ml @ 0 mls/hr UD IV 06/10/25 02:15 Albuterol 2.5 mg Q4HR NEB 06/10/25 06:00 06/14/25 14:56 2.5 MG Ipratropium [place] 0.5 mg Q4HR NEB 06/10/25 06:00 06/14/25 14:56 0.5 MG Mupirocin 1 applic BID EACHNOSTRI 06/11/25 22:00 06/16/25 21:59 06/14/25 07:12 1 APPLIC Iron Sucrose 110 ml @ 110 mls/hr DAILY@1200 IV 06/12/25 12:00 06/16/25 12:59 06/14/25 10:50 110 MLS/HR Finasteride 5 mg HS PO 06/12/25 22:00 06/13/25 20:30 5 MG Levofloxacin/ Dextrose 100 ml @ 100 mls/hr DAILY IV 06/13/25 10:00 06/14/25 07:12 100 MLS/HR Oxycodone/ Acetaminophen 1 tab Q6HP PRN PO 06/12/25 23:30 Vancomycin HCl 250 ml @ 250 mls/hr DAILY@0100 IV 06/13/25 01:00 06/14/25 01:37 250 MLS/HR Docusate Sodium 100 mg Q12HR PO 06/13/25 10:00 06/14/25 07:11 100 MG Bisacodyl 5 mg Q12HP PRN PO 06/13/25 09:30 Morphine Sulfate 2 mg Q4HPRN PRN IV 06/13/25 14:45 06/14/25 15:24 2 MG objective Alert awake oriented to place and person. HEENT neck supple no JVD. Heart regular rate and rhythm S1-S2. Lungs fair air movement degraded breath sounds in the bases. Abdomen soft positive bowel sounds nontender. Extremities no significant edema. laboratory and microbiology Laboratory Tests 06/14/25 06:54 06/14/25 04:18 Test 06/14/25 04:18 Range/Units Serum Glucose 127 H 74-106 mg/dL Assessment/Plan We will try to reach out to orthopedic surgeon to see if right leg brace can be adjusted or manipulated so patient can ambulate. Given his clinical stability we will downgrade and transferred him to telemetry floor. Otherwise continue rest of supportive care and treatment and further clinical management per clinical course. Discussed with the patient and nurse regarding care plan Problems(with codes): (1) Hip dislocation, right (2) Acute hypoxemic respiratory failure (3) Fall (4) COPD (chronic obstructive pulmonary disease) Dietary Evaluation Review Comments: Advance to Cardiac CCHO-60 diet when medically feasible. Offer Glucerna BID if PO intake <75% Expected Outcomes/Goals: Improved healing of the sugical site, and gradual wt gains Plan discussed with: Patient, Other CAMMY RUSSELL MD Jun 14, 2025 18:20
[2025-06-14] MEDS: ALBUTEROL SULF 2.5 MG/0.5ML(0.5%) NEB SOLN ONE (19:13)
[2025-06-14] MEDS: IPRATROPIUM BROM 0.5 MG/2.5ML INH SOL ONE (19:13)
[2025-06-15] VITALS (19 sets, daily range): BP systolic 132–140; BP diastolic 66–85; PULSE 78–88; RESP 16–20; TEMP 97.7–98; O2SAT 91–98
[2025-06-15 06:24] LABS: Alanine Aminotransferase 39 U/L (7-40); Alkaline Phosphatase 62 U/L (46-116); Anion Gap 6 (5-15); BUN/Creatinine Ratio 18.0 (10.0-20.0); Blood Urea Nitrogen 18 mg/dL (9-23); Carbon Dioxide 24 mmol/L (20-31); Glucose 83 mg/dL (74-106); Magnesium 1.7 mg/dL (1.6-2.6); Potassium 3.9 mmol/L (3.5-5.1); Sodium 140 mmol/L (136-145)
[2025-06-15 06:25] LABS: Bilirubin, Total 0.4 mg/dL (0.2-1.0)
[2025-06-15 06:34] LABS: Albumin 3.1 g/dL (3.2-4.8); Calcium 8.4 mg/dL (8.7-10.4); Chloride 110 mmol/L (98-107); Total Protein 5.1 g/dL (5.7-8.2)
[2025-06-15 06:38] LABS: Hematocrit 24.3 % (41.0-53.0); Hemoglobin 8.3 g/dL (13.5-17.5); Mean Corpuscular Hemoglobin 33.4 pg (28.0-32.0); Mean Corpuscular Volume 98.1 fL (80.0-100.0)
[2025-06-15 08:33] LABS: Total Cells Counted 100.0 (100)
[2025-06-15] MEDS: ACETAMINOPHEN 325 MG TAB PO PRN (12:12)
--- NOTE | 2025-06-15 12:30 | DVHPN2 ---
Progress Note - Dictate Date Seen: Jun 15, 2025 Medical Necessity Reason Pt with a Central, PICC or Fol: Yes The following are medically ne: Gordillo Catheter Reason for gordillo catheter: Bladder Retention/Obstruc vital signs Vital Sign Date Time Temp Pulse Resp B/P (MAP) Pulse Ox O2 Delivery O2 Flow Rate FiO2 06/15/25 10:36 80 20 98 06/15/25 10:30 Nasal Cannula 5.0 06/15/25 10:30 40 06/15/25 09:00 97.8 139/66 (90) 97.8 Total Intake and Output 06/14/25 06/14/25 06/15/25 15:00 23:00 07:00 Intake Total 260 ml 400 ml 1000 ml Output Total 430 ml 725 ml Balance 260 ml -30 ml 275 ml medications Current Medications Medications Dose Ordered Sig/[place] Route Start Time Stop Time Status Last Admin Dose Admin Acetaminophen 650 mg Q6HP PRN PO 06/10/25 02:15 06/15/25 12:12 650 MG Acetaminophen/ Hydrocodone Bitart 1 tab Q6HPRN PRN PO 06/10/25 02:15 06/15/25 10:10 1 TAB Ondansetron HCl 4 mg Q4HP PRN IV 06/10/25 02:15 Enoxaparin Sodium 30 mg DAILY SC 06/10/25 10:00 06/15/25 10:10 30 MG Nitroglycerin 0.4 mg Q5MINP PRN SL 06/10/25 02:15 Morphine Sulfate 2 mg Q30M PRN IV 06/10/25 02:15 Vancomycin HCl 0 ml @ 0 mls/hr UD IV 06/10/25 02:15 Albuterol 2.5 mg Q4HR NEB 06/10/25 06:00 06/15/25 10:32 2.5 MG Ipratropium [place] 0.5 mg Q4HR NEB 06/10/25 06:00 06/15/25 10:32 0.5 MG Mupirocin 1 applic BID EACHNOSTRI 06/11/25 22:00 06/16/25 21:59 06/15/25 10:11 1 APPLIC Iron Sucrose 110 ml @ 110 mls/hr DAILY@1200 IV 06/12/25 12:00 06/16/25 12:59 06/15/25 12:04 110 MLS/HR Finasteride 5 mg HS PO 06/12/25 22:00 06/14/25 21:25 5 MG Levofloxacin/ Dextrose 100 ml @ 100 mls/hr DAILY IV 06/13/25 10:00 06/15/25 10:09 100 MLS/HR Oxycodone/ Acetaminophen 1 tab Q6HP PRN PO 06/12/25 23:30 Vancomycin HCl 250 ml @ 250 mls/hr DAILY@0100 IV 06/13/25 01:00 06/15/25 01:20 250 MLS/HR Docusate Sodium 100 mg Q12HR PO 06/13/25 10:00 06/14/25 07:11 100 MG Bisacodyl 5 mg Q12HP PRN PO 06/13/25 09:30 Morphine Sulfate 2 mg Q4HPRN PRN IV 06/13/25 14:45 06/14/25 20:21 2 MG laboratory and microbiology Laboratory Tests 06/15/25 05:30 Test 06/15/25 05:30 Range/Units Serum Glucose 83 74-106 mg/dL Assessment/Plan Acute on chronic hypoxic respiratory failure Chronic obstructive pulmonary disease Septic shock Acute metabolic encephalopathy Pneumonia, RML, likely GNR/GPC Acute kidney injury Anemia, normocytic Marijuana use Elevated D-dimer Events: Remains on supplemental oxygen no new complaints s/p right hip repair Plan: Supplemental oxygen Keep O2 saturation above 92% Continue antibiotics Follow up cultures Follow up ID recommendations Continue bronchodilators Wound care Follow up Orthopedics recommendations Monitor renal function Monitor electrolytes. Supplement as necessary. Monitor ins and outs. DVT prophylaxis Lovenox Dietary Evaluation Review Comments: Advance to Cardiac CCHO-60 diet when medically feasible. Offer Glucerna BID if PO intake <75% Expected Outcomes/Goals: Improved healing of the sugical site, and gradual wt gains Plan discussed with: Patient REECE AHUJA MD Jun 15, 2025 12:30
--- NOTE | 2025-06-15 16:04 | DVHPN2 ---
Progress Note - Dictate Date Seen: Jun 15, 2025 Medical Necessity Reason Pt with a Central, PICC or Fol: Yes The following are medically ne: Gordillo Catheter Reason for gordillo catheter: Bladder Retention/Obstruc Subjective Patient is comfortable in bed. No acute distress. No complaints of pain. Patient has right leg brace all the way up to upper thigh. vital signs Vital Sign Date Time Temp Pulse Resp B/P (MAP) Pulse Ox O2 Delivery O2 Flow Rate FiO2 06/15/25 14:38 82 20 98 06/15/25 14:32 Nasal Cannula 5.0 06/15/25 14:32 40 06/15/25 09:00 97.8 139/66 (90) 97.8 Total Intake and Output 06/14/25 06/14/25 06/15/25 15:00 23:00 07:00 Intake Total 260 ml 400 ml 1000 ml Output Total 430 ml 725 ml Balance 260 ml -30 ml 275 ml medications Current Medications Medications Dose Ordered Sig/Promise Route Start Time Stop Time Status Last Admin Dose Admin Acetaminophen 650 mg Q6HP PRN PO 06/10/25 02:15 06/15/25 12:12 650 MG Acetaminophen/ Hydrocodone Bitart 1 tab Q6HPRN PRN PO 06/10/25 02:15 06/15/25 10:10 1 TAB Ondansetron HCl 4 mg Q4HP PRN IV 06/10/25 02:15 Enoxaparin Sodium 30 mg DAILY SC 06/10/25 10:00 06/15/25 10:10 30 MG Nitroglycerin 0.4 mg Q5MINP PRN SL 06/10/25 02:15 Morphine Sulfate 2 mg Q30M PRN IV 06/10/25 02:15 Vancomycin HCl 0 ml @ 0 mls/hr UD IV 06/10/25 02:15 Albuterol 2.5 mg Q4HR NEB 06/10/25 06:00 06/15/25 14:39 2.5 MG Ipratropium [place] 0.5 mg Q4HR NEB 06/10/25 06:00 06/15/25 14:38 0.5 MG Mupirocin 1 applic BID EACHNOSTRI 06/11/25 22:00 06/16/25 21:59 06/15/25 10:11 1 APPLIC Iron Sucrose 110 ml @ 110 mls/hr DAILY@1200 IV 06/12/25 12:00 06/16/25 12:59 06/15/25 12:04 110 MLS/HR Finasteride 5 mg HS PO 06/12/25 22:00 06/14/25 21:25 5 MG Levofloxacin/ Dextrose 100 ml @ 100 mls/hr DAILY IV 06/13/25 10:00 06/15/25 10:09 100 MLS/HR Oxycodone/ Acetaminophen 1 tab Q6HP PRN PO 06/12/25 23:30 Vancomycin HCl 250 ml @ 250 mls/hr DAILY@0100 IV 06/13/25 01:00 06/15/25 01:20 250 MLS/HR Docusate Sodium 100 mg Q12HR PO 06/13/25 10:00 06/14/25 07:11 100 MG Bisacodyl 5 mg Q12HP PRN PO 06/13/25 09:30 Morphine Sulfate 2 mg Q4HPRN PRN IV 06/13/25 14:45 06/14/25 20:21 2 MG objective Alert awake oriented to place and person. HEENT neck supple no JVD. Heart regular rate and rhythm S1-S2. Lungs fair air movement degraded breath sounds in the bases. Abdomen soft positive bowel sounds nontender. Extremities no significant edema. laboratory and microbiology Laboratory Tests 06/15/25 05:30 Test 06/15/25 05:30 Range/Units Serum Glucose 83 74-106 mg/dL Assessment/Plan Orthopedic recommending to okay to take of brace with ambulation with a walker. Otherwise rest of the time to keep the right leg brace on. Patient wants to go home today. His is discussing with a [facility] regarding home discharge planning. We will have social Service involved and plan to discharge home on hospice for tomorrow. Discussed with the patient along with the nurse at bedside. Meantime continue present management as he is on. Problems(with codes): (1) Acute hypoxemic respiratory failure (2) Hip dislocation, right (3) Fracture of femoral neck, right (4) Fall (5) COPD (chronic obstructive pulmonary disease) Dietary Evaluation Review Comments: Advance to Cardiac CCHO-60 diet when medically feasible. Offer Glucerna BID if PO intake <75% Expected Outcomes/Goals: Improved healing of the sugical site, and gradual wt gains Plan discussed with: Patient GANAPAVARAPU,CAMMY MD Jun 15, 2025 16:04
[2025-06-16] VITALS (17 sets, daily range): BP systolic 114–146; BP diastolic 67–73; PULSE 75–92; RESP 16–22; TEMP 97.8–98; O2SAT 90–100
--- NOTE | 2025-06-16 10:52 | MEDREC ---
[facility] Intervention Section I [facility] Intervention: Review courses of therapy (PLEASE CONSIDER D/C ANTIBIOTIC IF NO MORE CONCERNS FOR INFECTION AND PATIENT CLINICALLY STABLE ) CORWIN ESCALERA PHARMACIST Jun 16, 2025 10:52
[2025-06-16] MEDS ORDERED: PERCOT PO (13:49)
--- NOTE | 2025-06-16 13:51 | DVHDS2 ---
Discharge Summary Date of Admission Jun 10, 2025 at 02:01 Date of Discharge: Jun 16, 2025 Labs/Diagnostic Data: Laboratory Results Test 06/16/25 04:48 06/15/25 05:30 06/14/25 04:18 06/13/25 06:20 Creatinine 0.93 mg/dL (0.700-1.30) Glomerular Filtration Rate Calc 83 mL/min (>90) White Blood Count 14.9 10^3/uL (4.4-10.8) Red Blood Count 2.47 10^6/uL (4.5-5.90) Hemoglobin 8.3 g/dL (13.5-17.5) Hematocrit 24.3 % (41.0-53.0) Mean Corpuscular Volume 98.1 fL (80.0-100.0) Mean Corpuscular Hemoglobin 33.4 pg (28.0-32.0) Mean Corpuscular Hemoglobin Concent 34.0 g/dL (32.0-36.0) Red Cell Distribution Width 13.4 % (11.8-14.3) Platelet Count 300 10^3/uL (140-450) Mean Platelet Volume 7.1 fL (6.9-10.8) Neutrophils (%) (Auto) % (37.0-80.0) Lymphocytes (%) (Auto) % (10.0-50.0) Monocytes (%) (Auto) % (0.0-12.0) Basophils (%) (Auto) % (0.0-2.0) Neutrophils # (Auto) 10 ^3/uL (1.6-8.6) Lymphocytes # (Auto) 10 ^3/uL (0.4-5.4) Monocytes # (Auto) 10 ^3/uL (0-1.3) Differential Total Cells Counted 100.0 (100) Neutrophils % (Manual) 63 (37.0-80.0) Band Neutrophils % (Manual) 0 Lymphocytes % (Manual) 26 (10.0-50.0) Monocytes % (Manual) 11 (0-12) Eosinophils % (Manual) 0 (0-7) Basophils % (Manual) 0 (0.0-2.0) Metamyelocytes % (manual) 0 Myelocytes % (Manual) 0 Promyelocytes % (Manual) 0 Blast Cells % (Manual) 0 Reactive Lymphocytes 0 Platelet Estimate Adequate Sodium Level 140 mmol/L (136-145) Potassium Level 3.9 mmol/L (3.5-5.1) Chloride Level 110 mmol/L (98-107) Carbon Dioxide Level 24 mmol/L (20-31) Anion Gap 6 (5-15) Blood Urea Nitrogen 18 mg/dL (9-23) BUN/Creatinine Ratio 18.0 (10.0-20.0) Serum Glucose 83 mg/dL (74-106) Calcium Level 8.4 mg/dL (8.7-10.4) Magnesium Level 1.7 mg/dL (1.6-2.6) Total Bilirubin 0.4 mg/dL (0.2-1.0) Aspartate Amino Transferase (AST) 64 U/L (13-40) Alanine Aminotransferase (ALT) 39 U/L (7-40) Alkaline Phosphatase 62 U/L (46-116) Total Protein 5.1 g/dL (5.7-8.2) Albumin 3.1 g/dL (3.2-4.8) Eosinophils (%) (Auto) 0.0 % (0.0-7.0) Eosinophils # (Auto) 0 10 ^3/uL (0-0.8) Basophils # (Auto) 0 10 ^3/uL (0-0.2) Nucleated Red Blood Cells 0.2 % Prothrombin Time 12.4 sec (9.3-11.8) Prothrombin Time INR 1.19 (0.9-1.15) Activated Partial Thromboplast Time 29.9 SEC (24.5-34.5) Test 06/13/25 00:26 06/12/25 06:28 06/10/25 02:16 06/10/25 01:21 Vancomycin Level Trough 16.8 ug/mL (5-10) Phosphorus Level 2.5 mg/dL (2.4-5.1) Iron Level 24 ug/dL (65-175) Total Iron Binding Capacity 178 ug/dL (250-425) Percent Iron Saturation 13.5 % (20-55) Ferritin 160.6 ng/mL (22-322) Lactic Acid Level 1.1 mmol/L (0.4-2.0) Troponin I High Sensitivity 6 ng/L (</=54) Test 06/10/25 01:10 06/10/25 00:30 06/09/25 22:40 06/09/25 22:34 Urine Color Yellow (Yellow) Urine Clarity Clear (Clear) Urine pH 5.5 (5.0-9.0) Urine Specific [place] 1.021 (1.001-1.035) Urine Protein Trace (Negative) Urine Ketones Negative (Negative) Urine Blood Negative /uL (Negative) Urine Nitrite Negative (Negative) Urine Bilirubin Negative (Negative) Urine Urobilinogen Normal mg/dL (Negative) Urine Leukocyte Esterase Negative /uL (Negative) Urine RBC None seen /hpf (0 - 3) Urine Microscopic WBC 7 /HPF (0-3) Urine Squamous Epithelial Cells Few /hpf (<5) Urine Bacteria None seen /hpf (None Seen) Urine Hyaline Casts Few /lpf (0 - 2) Urine Mucus Few (None Seen) Urine Glucose Normal mg/dL (Normal) Urine Opiates Screen Pos (NEGATIVE) Urine Fentanyl Screen Neg (NEGATIVE) Urine Barbiturates Screen Neg (NEGATIVE) Urine Phencyclidine Screen Neg (NEGATIVE) Urine Amphetamines Screen Neg (NEGATIVE) Urine Benzodiazepines Screen Neg (NEGATIVE) Urine Cocaine Screen Neg (NEGATIVE) Urine Cannabinoids Screen Pos (NEGATIVE) Influenza Type A Antigen Negative (Negative) Influenza Type B Antigen Negative (Negative) SARS-CoV-2 Antigen (Rapid) Negative (NEGATIVE) Blood Gas Specimen Type Arterial Blood Gas Sample Site Left radial Blood Gas Patient Temperature 37.0 Arterial Blood Date Drawn [id number] Arterial Blood pH 7.408 (7.350-7.450) Arterial Blood Partial Pressure CO2 30.2 mmHg (35.0-48.0) Arterial Blood Partial Pressure O2 73.9 mmHg (83.0-108.0) Arterial Blood HCO3 18.6 mmol/L (21.0-28.0) Arterial Blood Oxygen Saturation 92.7 % (94.0-98.0) Arterial Blood Base Excess -5.1 mmol/L (-2.0-3.0) Arterial Blood Oxyhemoglobin 91.6 % (94.0-98.0) Arterial Blood Carboxyhemoglobin 0.6 % (0.5-1.5) Arterial Blood Methemoglobin 0.6 % (0.0-1.5) Ryan Test Modified Blood Gas Total Hemoglobin 10.20 g/dL (13.5-17.5) Blood Gas Liter Flow 15.00 Blood Gas Modality Mask - nrb FiO2 % 100.0 D-Dimer, Quantitative 1.55 mg/L FEU (0.0-0.49) B-Type Natriuretic Peptide 97.03 pg/mL (0-100) Lipase 26 U/L (12-53) Thyroid Stimulating Hormone (TSH) 1.09 uIU/mL (0.55-4.78) Plasma/Serum Blood Alcohol < 3.0 mg/dL (<10) Test 05/31/25 23:35 Vitamin B12 Level 474 pg/mL (211-911) Other Laboratory Tests 06/16/25 04:48 06/15/25 05:30 Brief Hx & Hospital Course: 79-year-old male with past medical history of COPD with intermittent oxygen use at home, hypertension, hyperlipidemia, GA, recent right hip surgery, right foot wound presents for altered mental status and hypoxia x1 day. Information in this HPI is limited due to the patient's current cognitive status. it is acquired with the assistance of the patient's via telephone. As per the patient's Lizzy, patient has not been acting like himself all day. Not eating or drinking well. States that he was trying to eat a piece of [place] pie and was sitting there hitting it with a spoon. When she asked what he was doing he stated he was cutting tile. Patient's endorsed that she went to go check his oxygen saturation in the evening and it was in the low to mid 70s. Family members instructed her to increase oxygen level to 5 L. when EMS encounter the patient the patient was found to be hypoxic and alert and oriented x2. Arrived to the emergency department where a non-rebreather mask. While in the emergency department was treated with 1 L normal saline, however despite fluid resuscitation patient remained hypotensive. At this time the patient is admitted for further evaluation and treatment. During the emergency department evaluation W8.6, H&H 9.8/29.2, PLT 300. Na 133, K4.4, BUN 34, creatinine 2.11, GFR 31, troponin 8, BNP 97. LA 1.9. UA negative for infection. UDS positive for marijuana opioids. Viral swabs negative for influenza a and B/CV 19. CXR impression right middle lobe opacity not excluded. CT of the head without contrast impression no acute intracranial process. Scattered paranasal sinus fluid may reflect sinusitis. He is admitted and evaluated by dental associate and orthopedic surgeon. Patient eventually underwent hip dislocation repair surgery. Postop patient had a brace. Patient counseled and educated regarding his opiate marijuana use. Patient is evaluated by hay sorter. His oxygenation requirements have improved. Overall clinically stable. However patient has multiple comorbid conditions with a poor ambulatory status. Therefore felt he is appropriate candidate for hospice. Does hospice evaluation was done and they are able to accept him and being discharged home on hospice. Patient to continue the medications per his discharge med rec list and adjust meds per hospice as appropriate. Patient and his verbalized understanding of this and agree with the discharge care plan as outlined. Operations or Procedures Operative Report - 2 Report Details Date: 06/13/25 Preop Diagnosis: Dislocated right hip hemiarthroplasty Postop Diagnosis: same, dislocated right hip hemiarthroplasty Surgeon: Enrique Agosto MD Starchmaker: none Anesthesiologist: Dr Garcia Anesthesia: General, Mac Drains: none Implant: Ryan hip stem, 5, bipolar head 53, standard neck, Bj Biomet Consent: The patient was informed of the risks and benefits of the procedure. These include but are not limited to complications of anesthesia, postoperative infection, incomplete relief of symptoms, recurrence of symptoms, damage to blood vessels, nerves and tendons, deep venous thrombosis, pulmonary embolism and possible need for repeat surgery in the future. Complications: dislocated ryan hip with separation of bipolar components on attempted reduction Estimated Blood Loss: 25cc Fluids: 500 cc crystalloid Findings: right ryan hip doslocatino, bipolar components off of trocar and , with plastic liner remaining in shell Indications for Surgery: Dislocated right ryan hip with unsuccessful attempted closed reduction Name of Procedure Performed Revision right hip hemiarthroplasty Procedure Details Procedure Details: Pt brought into the OR, general anestheisa, placed in left aleteral decubitus position, stabilized with pegs, well padded, head in anatomic position, arms well paded, pillows beneath and between both legs. time out perofremed, confirmation right side correct side and revision ryan vs conversion to MARYSE correct porcedure after review of consent, H and P, and my initials on righ buttock. All present in OR agreed right side correct and revision ryan hip correct procedure. Incision made through prior zac langenbach incision, rosa to deep fascia, deep fasica dividec, charnley retractor placed wbtween TFL and gluteus briana muscles, biploar outer shell was found posterior iwth poastic component in shell. this was removed. Inner ball was seen to be stable to trocar. there was no evidence of damage to the acetabulum, the sciatic ner was decompressed digitally, a new Bj 53 bipolar head was tapped in place, reduction was performed, stability assessed with excellent stability with flexion 90, adduction 20 , IR to 90. I was able to fully extend the hip. Irrigation performed, vanco powder placed, posterior capsule repaired, deep fasica closed with 0 vicryl, skin closed with 2.0 vicryl, no drains sepcimens, complication of dislocated ryan hip arthroplasty. Specimen: none Condition Stable Condition at Discharge: Stable Final Diagnosis/Problems List dislocated right hip hemiarthroplasty status post surgery, physical deconditioning Secondary Diagnosis: Assessment/Plan Acute on chronic hypoxic respiratory failure Chronic obstructive pulmonary disease Septic shock Acute metabolic encephalopathy Pneumonia, RML, likely GNR/GPC Acute kidney injury Anemia, normocytic Marijuana use Elevated D-dimer Discharge Disposition: Hospice - Home Discharge Instruct/Medications Diet: Consistent carbohydrate, Cardiac 2g Na,low cholest Activity: See Comment Activity comment: Weight-bearing as tolerated with assistance/walker. To remove right leg brace for ambulation then to place it back at rest Follow Up/Referral: Dr. Leone orthopedic surgeon after two weeks post patient hip surgery follow up Medications: As prescribed and home medications and other medications per hospice Scheduled Amlodipine Besylate (Amlodipine Besylate), 1 TAB PO QAM, (Reported) Aspirin (Aspirin), 1 TAB PO QAM, (Reported) Atorvastatin Calcium (Lipitor), 1 TAB PO QPM, (Reported) Cefdinir (Cefdinir), 1 CAP PO BID Finasteride (Finasteride), 5 MG PO DAILY, (Reported) Latanoprost (Latanoprost), 1 DROP EACHEYE QPM, (Reported) Mupirocin (Pseudomonas Fluores (Mupirocin), 1 APPLIC EACHNOSTRI BID Timolol Maleate (Timolol Maleate Ophthalmi), 1 DROP RIGHTEYE BID, (Reported) Scheduled PRN Oxycodone W/ Acetaminophen (Percocet 5/325MG), 1 TAB PO TID PRN Discontinued Medications Clindamycin Hcl (Clindamycin Hcl), 300 MG PO QID Discharge Statement: "Patient was advised to return to the ER or call 911 if any headaches, dizziness, shortness of breath, chest pain, abdominal pain, bleeding, fevers, or worsening of medical condition. Patient was counseled about treatment plan, medications, possible side effects, patientverbalized understanding. All questions were answered to the best of my ability. This discharge took greater then 30 minutes in planning, reviewing documentation, counseling the patient, and discussing with other team members." ASSESSMENT ASSESSMENT Assessment dislocated right hip hemiarthroplasty status post surgery, physical deconditioning CAMMY RUSSELL MD Jun 16, 2025 13:51
[2025-06-16] MEDS ORDERED: MUPI2OIN2 EACHNOSTRI (13:52)
== END 2025-06-16 15:42 | disposition hospice, home (50) | DRG 466 ==
LOC: ER 22:16 → EDBD 22:16 → OVERFLOW 06-10 02:01 → TELE-EAST 06-10 02:07 → DOU IN ADS 06-11 00:55 → TELE-WESTW 06-11 14:21 → EAST 06-11 14:54 → DOU IN ADS 06-11 16:56 → TELE-EAST 06-14 18:36
PROVIDERS: ADMIT Hospitalist; ATTEND Hospitalist
PROC: 0QS6XZZ Reposition Right Upper Femur, External Approach (ICD-10-PCS; 2025-06-12)
PROC: 0SUA09Z Supplement Right Hip Joint, Acetabular Surface with Liner, Open Approach (ICD-10-PCS; 2025-06-13)
PROC: 0SP909Z Removal of Liner from Right Hip Joint, Open Approach (ICD-10-PCS; principal; 2025-06-13 07:38)
DX: T84.020A Dislocation of internal right hip prosthesis, initial encounter (principal); A41.9 Sepsis, unspecified organism; G93.41 Metabolic encephalopathy; J96.21 Acute and chronic respiratory failure with hypoxia; R65.21 Severe sepsis with septic shock; J15.69 Pneumonia due to other Gram-negative bacteria; J15.9 Unspecified bacterial pneumonia; J44.1 Chronic obstructive pulmonary disease with (acute) exacerbation; J44.0 Chronic obstructive pulmonary disease with (acute) lower respiratory infection; N17.9 Acute kidney failure, unspecified; L03.115 Cellulitis of right lower limb; N18.9 Chronic kidney disease, unspecified; R79.89 Other specified abnormal findings of blood chemistry; D64.9 Anemia, unspecified; E66.9 Obesity, unspecified; E78.5 Hyperlipidemia, unspecified; F17.210 Nicotine dependence, cigarettes, uncomplicated; I12.9 Hypertensive chronic kidney disease with stage 1 through stage 4 chronic kidney disease, or unspecified chronic kidney disease; Z68.21 Body mass index [BMI] 21.0-21.9, adult; I25.10 Atherosclerotic heart disease of native coronary artery without angina pectoris; I73.9 Peripheral vascular disease, unspecified; N40.0 Benign prostatic hyperplasia without lower urinary tract symptoms; Y79.2 Prosthetic and other implants, materials and accessory orthopedic devices associated with adverse incidents; I25.2 Old myocardial infarction; Z82.0 Family history of epilepsy and other diseases of the nervous system; Z82.49 Family history of ischemic heart disease and other diseases of the circulatory system; Z83.3 Family history of diabetes mellitus; Z88.0 Allergy status to penicillin; Z88.2 Allergy status to sulfonamides; Z95.5 Presence of coronary angioplasty implant and graft; Z99.81 Dependence on supplemental oxygen; Z79.82 Long term (current) use of aspirin; Z90.49 Acquired absence of other specified parts of digestive tract
CPT/HCPCS: 36415; 36600; 70450; 71045; 72170; 73501; 73502; 76000; 76775; 80048; 80053; 80202; 80307; 80320; 81001; 82565; 82607; 82728; 82805; 83540; 83550; 83605; 83690; 83735; 83880; 84100; 84443; 84484; 85007; 85014; 85018; 85025; 85027; 85379; 85610; 85730; 86850; 86900; 86901; 86920; 87040; 87081; 87086; 87088; 87426; 87804; 93005; 94640; 96365; 96367; 96368; 97110; 97116; 97163; A4565; G0378; J0131; J1100; J1756; J1956; J2405; J2704; J3490

== ENCOUNTER 2025-08-21 19:02 | Emergency (ER) | payer OTHER ==
[~2025-08-21] VITALS: Ht 172.7 cm; Wt 75.0 kg
[~2025-08-21 19:02] MED LIST changes: -CLIN1CAP70 PO; +MUPI2OIN2 EACHNOSTRI; +PERCOT PO
--- NOTE | 2025-08-21 19:17 | ED.PDOC ---
History of Present Illness HPI Comments 79-year-old male who came to ER via EMS for syncope. Patient has history of hypertension, COPD, recently underwent stent insertion at [facility]. Had an unwitnessed syncopal at that at home, as patient was seen laying with the ground. As paramedics came, patient's blood pressure was 86/55 mm Hg. Patient was given 500 cc IV fluids needed improve to 105/60 mm Hg. Blood sugar was 108 Chief Complaint: Syncope Time Seen by MD: 19:16 Reviewed Notes: [employer]ipe Notes Allergies: Coded Allergies: Penicillins (Verified Allergy, Intermediate, HIVES, 05/13/25) Sulfa Antibiotics (Verified Allergy, Intermediate, HIVES, 05/01/25) Home Meds Active Scripts Mupirocin (Pseudomonas Fluores (Mupirocin) 2 % Oin, 1 APPLIC EACHNOSTRI BID for 14 Days, #1 OIN Prov:CAMMY RUSSELL MD 06/16/25 Oxycodone W/ Acetaminophen (Percocet 5/325MG) 1 Tab Tb, 1 TAB PO TID PRN, #14 TAB Prov:CAMMY RUSSELL MD 06/16/25 Cefdinir (Cefdinir) 300 Mg Cap, 1 CAP PO BID for 14 Days, #28 CAP Prov:JENNI MATOS MD 06/08/25 Reported Medications Finasteride (Finasteride) 5 Mg Tab, 5 MG PO DAILY for ENLARGED PROSTATE for 30 Days, MG 05/15/25 Timolol Maleate (Timolol Maleate Ophthalmi) 0.5 % Xuan, 1 DROP RIGHTEYE BID for GLAUCOMA 05/01/25 Latanoprost (LATANOPROST) 0.005 % Xuan, 1 DROP EACHEYE QPM for GLAUCOMA 05/01/25 Aspirin (Aspirin) 81 Mg Tab, 1 TAB PO QAM for HEART DISEASE 05/01/25 Atorvastatin Calcium (Lipitor) 20 Mg Tab, 1 TAB PO QPM for HIGH CHOLESTEROL 05/01/25 Amlodipine Besylate (Amlodipine Besylate) 10 Mg Tab, 1 TAB PO QAM for H YPERTENSION 05/01/25 Information Source: Patient, Emergency Med Personnel Mode of Arrival: EMS Severity: Moderate Timing: Minutes Duration: Minutes Prehospital treatment: Accucheck, IVF Past Medical History PAST MEDICAL HISTORY: COPD, High Lipids, HTN, DC Surgical History: Appendectomy, PTCA Family History Family History: Family hx of DM Social History Smoker: Cigarettes Alcohol: Occasionally Drugs: Denies Drug Use Lives In: Home Constitutional: reports: weakness; denies: chills, diaphoresis, fatigue, fever, malaise, sweats, others EENTM: denies: blurred vision, double vision, ear bleeding, ear discharge, ear drainage, ear pain, ear ringing, eye pain, eye redness, hearing loss, mouth pain, mouth swelling, nasal discharge, nose bleeding, nose congestion, nose pain, photophobia, tearing, throat pain, throat swelling, voice changes, others Respiratory: denies: cough, hemoptysis, orthopnea, SOB at rest, shortness of breath, SOB with excertion, stridor, wheezing, others Cardiovascular: denies: chest pain, dizzy spells, diaphoresis, Dyspnea on exertion, edema, irregular heart beat, left arm pain, lightheadedness, palpitations, PND, syncope, others Gastrointestinal: denies: abdomen distended, abdominal pain, blood streaked bowels, constipated, diarrhea, dysphagia, difficulty swallowing, hematemesis, melena, nausea, poor appetite, poor fluid intake, rectal bleeding, rectal pain, vomiting, others Genitourinary: denies: burning, dysuria, flank pain, frequency, hematuria, incontinence, penile discharge, penile sore, pain, testicle pain, testicle swelling, urgency, others Neurological: denies: dizziness, fainting, headache, left sided numbness, left sided weakness, numbness, paresthesia, pre-existing deficit, right sided numbness, right sided weakness, seizure, speech problems, tingling, tremors, weakness, others Musculoskeletal: denies: back pain, gout, joint pain, joint swelling, muscle pa in, muscle stiffness, neck pain, others Integumetry: denies: bruises, change in color, change in hair/nails, dryness, laceration, lesions, lumps, rash, wounds, others Allergic/Immunocompromised: denies: Difficulty Healing, Frequent Infections, Hives, Itching, others Hematologic/Lymphatic: denies: anemia, blood clots, easy bleeding, easy bruising, swollen glands, others Endocrine: denies: excessive hunger, excessive sweating, excessive thirst, excessive urination, flushing, intolerance to cold, intolerance to heat, unexplained weight gain, unexplained weight loss, others Psychiatric: denies: anxiety, bipolar disorder, depression, hopeless, panic disorder, schizophrenia, sleepless, suicidal, others Physical Exam General Appearance: No Apparent Distress, Normal HEENT: Normal ENT Inspection, Pharynx Normal, TMs Normal Neck: Full Range of Motion, Non-Tender, Normal, Normal Inspection Respiratory: Chest Non-Tender, Lungs Clear, No Accessory Muscle Use, No Respiratory Distress, Normal Breath Sounds Cardiovascular: No Edema, No JVD, No Murmur, No Gallop, Normal Peripheral Pulses, Regular Rate/Rhythm Breast Exam: Deferred Gastrointestinal: No Organomegaly, Non Tender, No Pulsatile Mass, Normal Bowel Sounds, Soft Genitalia: Deferred Pelvic: Deferred Rectal: Deferred Extremities: No calf tenderness, Normal capillary refill, Normal inspection, Normal range of motion, Non-tender, No pedal edema Musculoskeletal : Apperance: Normal Neurologic: Alert, sales record clerk II-XII nml as Tested, No Motor Deficits, Normal Affect, Normal Mood, No Sensory Deficits Cerebellar Function: Normal Reflexes: Normal Skin: Dry, Normal Color, Warm, Wounds (Right foot) Lymphatic: No Adenopathy Was a procedure done? Was a procedure done?: No Differential Dx Considerations may include: Anemia, electrolyte imbalance, syncope, fall injury, hypotension X-Ray, Labs, Meds, VS Vital Signs Date Time Temp Pulse Resp B/P (MAP) Pulse Ox O2 Delivery O2 Flow Rate FiO2 08/21/25 19:31 97.9 69 12 127/62 (83) 98 97.9 08/21/25 19:06 98.6 76 17 100/64 97 98.6 Lab Test 08/21/25 20:25 08/21/25 19:45 Range/Units Troponin I High Sensitivity 4 4 </=54 ng/L White Blood Count 10.7 4.4-10.8 10^3/uL Red Blood Count 3.03 L 4.5-5.90 10^6/uL Hemoglobin 9.3 L 13.5-17.5 g/dL Hematocrit 28.1 L 41.0-53.0 % Mean Corpuscular Volume 92.8 80.0-100.0 fL Mean Corpuscular Hemoglobin 30.7 28.0-32.0 pg Mean Corpuscular Hemoglobin Concent 33.1 32.0-36.0 g/dL Red Cell Distribution Width 16.0 H 11.8-14.3 % Platelet Count 441 140-450 10^3/uL Mean Platelet Volume 7.2 6.9-10.8 fL Neutrophils (%) (Auto) 67.4 37.0-80.0 % Lymphocytes (%) (Auto) 17.8 10.0-50.0 % Monocytes (%) (Auto) 8.5 0.0-12.0 % Eosinophils (%) (Auto) 5.1 0.0-7.0 % Basophils (%) (Auto) 1.2 0.0-2.0 % Neutrophils # (Auto) 7.2 1.6-8.6 10 ^3/uL Lymphocytes # (Auto) 1.9 0.4-5.4 10 ^3/uL Monocytes # (Auto) 0.9 0-1.3 10 ^3/uL Eosinophils # (Auto) 0.5 0-0.8 10 ^3/uL Basophils # (Auto) 0.1 0-0.2 10 ^3/uL Nucleated Red Blood Cells 0.0 % Sodium Level 140 136-145 mmol/L Potassium Level 4.1 3.5-5.1 mmol/L Chloride Level 108 H 98-107 mmol/L Carbon Dioxide Level 26 20-31 mmol/L Anion Gap 6 5-15 Blood Urea Nitrogen 19 9-23 mg/dL Creatinine 1.03 0.700-1.30 mg/dL Glomerular Filtration Rate Calc 73 >90 mL/min BUN/Creatinine Ratio 18.4 10.0-20.0 Serum Glucose 99 74-106 mg/dL Lactic Acid Level 1.5 0.4-2.0 mmol/L Calcium Level 8.7 8.7-10.4 mg/dL Total Bilirubin 0.5 0.2-1.0 mg/dL Aspartate Amino Transferase (AST) 19 13-40 U/L Alanine Aminotransferase (ALT) 13 7-40 U/L Alkaline Phosphatase 102 46-116 U/L B-Type Natriuretic Peptide 126.52 0-100 pg/mL Total Protein 6.7 5.7-8.2 g/dL Albumin 3.5 3.2-4.8 g/dL Current Medications Medications (Trade) Dose Ordered Sig/Promise Route Start Time Stop Time Status Last Admin Sodium Chloride 1,000 ml @ 500 mls/hr Q2H ONCE IVB 08/21/25 19:15 08/21/25 21:14 DC 08/21/25 19:45 Pregabalin (Lyrica Capsule) 100 mg ONCE ONCE PO 08/21/25 20:15 08/21/25 20:16 DC 08/21/25 20:14 Time of 1ST Reevaluation: 19:13 Reevaluation 1ST: Unchanged Patient Education/Counseling: Diagnosis, Treatment Family Education/Counseling: No Family Present SEPSIS Sepsis Screen Physician Orders Electrocardigram (08/21/25 19:13) Chest Xray 1 View (08/21/25 19:13) Blood Culture (08/21/25 19:13) Vital Signs Date Time Temp Pulse Resp B/P (MAP) Pulse Ox O2 Delivery O2 Flow Rate FiO2 08/21/25 19:31 97.9 69 12 127/62 (83) 98 97.9 08/21/25 19:06 98.6 76 17 100/64 97 98.6 Laboratory Tests Test 08/21/25 19:45 Lactic Acid Level 1.5 mmol/L (0.4-2.0) White Blood Count 10.7 10^3/uL (4.4-10.8) Medications Medications Dose Ordered Sig/Promise Route Start Time Stop Time Status Last Admin Dose Admin Pregabalin 100 mg ONCE ONCE PO 08/21/25 20:15 08/21/25 20:16 DC 08/21/25 20:14 Sodium Chloride 1,000 ml @ 500 mls/hr Q2H ONCE IVB 08/21/25 19:15 08/21/25 21:14 DC 08/21/25 19:45 Departure 1 Departure Time of Disposition: 21:37 Impression: Primary Impression: Syncope Additional Impression: Normocytic anemia Disposition: 07 LEFT AGAINST MEDICAL ADVICE (Risks explained including and disability) Condition: Stable Discharged With: Self Critical Care Note Critical Care Time?: No Stability Stability form required: No Heart Score Heart Score: Heart Score Response (Comments) Value History N/A 0 EKG N/A 0 Age N/A 0 Risk Factors N/A 0 Troponin N/A 0 Total 0 I personally scribed for HAWK ANDREWS MD ([email or web address]) on 08/21/25 at 19:17. Electronically submitted by Gregory AnneRCARRILLO). HAWK ANDREWS MD Aug 21, 2025 19:17
[2025-08-21 19:31] VITALS: BP 127/62; PULSE 69; RESP 12; TEMP 97.9; O2SAT 98
[2025-08-21] MEDS: SODIUM CHLORIDE 0.9% 1,000 ML IVB ONE (19:45)
[2025-08-21 20:02] LABS: Hematocrit 28.1 % (41.0-53.0); Hemoglobin 9.3 g/dL (13.5-17.5); Mean Corpuscular Hemoglobin 30.7 pg (28.0-32.0); Mean Corpuscular Volume 92.8 fL (80.0-100.0); Nucleated Red Blood Cells % 0.0 %
--- NOTE | 2025-08-21 20:11 | DVH ---
CHEST RADIOGRAPH Indication: chest pain Technique: Single frontal view of the chest was obtained COMPARISON: XY CHEST PORTABLE on DOS: 06/14/25, XY CHEST PORTABLE on DOS: 06/11/25, XY CHEST XRAY 1 VIEW on DOS: 06/09/25, XY CHEST PORTABLE on DOS: 06/04/25, CT CT ANGIO CHEST CONTRAST on DOS: 05/15/25 FINDINGS: Lungs and pleural spaces are clear. Chronic fibrotic changes bilaterally Cardiac silhouette and bari are within normal limits. Bones and soft tissues demonstrate no significant abnormality. IMPRESSION: No acute disease.
[2025-08-21] MEDS: PREGABALIN 25 MG CAP PO ONE (20:14)
[2025-08-21 20:23] LABS: Alanine Aminotransferase 13 U/L (7-40); Albumin 3.5 g/dL (3.2-4.8); Alkaline Phosphatase 102 U/L (46-116); Anion Gap 6 (5-15); BUN/Creatinine Ratio 18.4 (10.0-20.0); Blood Urea Nitrogen 19 mg/dL (9-23); Calcium 8.7 mg/dL (8.7-10.4); Carbon Dioxide 26 mmol/L (20-31); Glucose 99 mg/dL (74-106); Potassium 4.1 mmol/L (3.5-5.1); Sodium 140 mmol/L (136-145); Total Protein 6.7 g/dL (5.7-8.2)
[2025-08-21 20:24] LABS: Bilirubin, Total 0.5 mg/dL (0.2-1.0)
[2025-08-21 20:26] LABS: Chloride 108 mmol/L (98-107)
--- NOTE | 2025-08-22 03:00 | ECG ---
[facility] Test Date: 2025-08-21 Test Time: 19:13:30 Pat Name: BONILLA ALCANTARA Department: [facility] ED Patient ID: [facility]-[id number] Room: Gender: M Sports Reporter: ems : 1945 Requested By: HAWK ANDREWS Order Number: [id number] Reading MD: Trenton Ramirez Measurements Intervals [place] Rate: 67 P: 74 MD: 166 QRS: -63 QRSD: 111 T: 67 QT: 445 QTc: 470 Interpretive Statements Sinus rhythm Left anterior fascicular block Abnormal R-wave progression, early transition Electronically Signed On 08-22-2025 18:50:02 PDT by Trenton Ramirez Please click the below link to view image of tracing.
== END 2025-08-21 21:36 | disposition left against medical advice (07) ==
LOC: ER 19:02 → EDBD 19:02 → ER 21:36
DX: D64.9 Anemia, unspecified (principal); R55 Syncope and collapse; F17.210 Nicotine dependence, cigarettes, uncomplicated; F10.90 Alcohol use, unspecified, uncomplicated; E78.5 Hyperlipidemia, unspecified; J44.9 Chronic obstructive pulmonary disease, unspecified; I10 Essential (primary) hypertension; I25.2 Old myocardial infarction; Z79.899 Other long term (current) drug therapy; Z90.49 Acquired absence of other specified parts of digestive tract; Z88.2 Allergy status to sulfonamides; Z88.0 Allergy status to penicillin; Z79.891 Long term (current) use of opiate analgesic; Z79.82 Long term (current) use of aspirin
CPT/HCPCS: 36415; 71045; 80053; 83605; 83880; 84484; 85025; 87040; 93005; 96360; 96361; 99285; J7030

== ENCOUNTER 2025-10-23 02:53 | Inpatient (IN) | payer OTHER ==
[~2025-10-23] VITALS: Ht 170.2 cm; Wt 62.2 kg
--- NOTE | 2025-10-23 03:26 | ED.PDOC ---
History of Present Illness HPI Comments 79-year-old male who came to ER with a urinary retention. Patient underwent amputation of toes of the right foot 2 days ago at [facility] and since then patient is unable to urinate. Complaining of abdominal distention and suprapubic pain. History taken from patient's . REVIEW OF SYSTEMS: General: No fever, no chills, or fatigue HEENT: No sore throat, no earache, no congestion, no neck pain. Cardiac: No chest pain. No palpitations. Lungs: No shortness of breath, no cough. GI: No nausea, no vomiting, no diarrhea, no constipation, (+) abdominal pain : No dysuria, frequency, or urgency. No hematuria.(+) urinary retention Musculoskeletal: No joint pain , no joint swelling, no extremity edema. Skin: No rash, no itching. Neuro: No headache, no dizziness, no weakness EXAM: General: Awake, alert and oriented. No acute distress. Skin: Skin in warm, dry and intact. Appropriate color for ethnicity. HEENT: The head is normocephalic and atraumatic. Conjunctivae are clear without exudates or hemorrhage. Sclera is non-icteric. EOM are intact. No signs of nystagmus. Eyelids are normal in appearance without swelling or lesions. Oral mucosa is pink and moist Neck: The neck is supple with normal range of motion. No JVD. Cardiac: Heart rate and rhythm are normal. No murmurs, gallops, or rubs are aus cultated. Respiratory: No signs of respiratory distress. Lung sounds are clear in all lobes bilaterally without rales, rhonchi, or wheezes. Abdominal: Lower abdomen is tender, firm and distended. Bladder significantly distended on bedside ultrasound. Extremities: Upper and lower extremities are atraumatic in appearance without deformity or edema. Neurological: The patient is awake, alert Speech is clear. There is no facial asymmetry. Chief Complaint: Urinary Time Seen by MD: 03:26 Reviewed Notes: Nurses Notes Allergies: Coded Allergies: Penicillins (Verified Allergy, Intermediate, HIVES, 05/13/25) Sulfa Antibiotics (Verified Allergy, Intermediate, HIVES, 05/01/25) Home Meds Active Scripts Mupirocin (Pseudomonas Fluores (Mupirocin) 2 % Oin, 1 APPLIC EACHNOSTRI BID for 14 Days, #1 OIN Prov:GANAPAVARAPU,CAMMY MD 06/16/25 Oxycodone W/ Acetaminophen (Percocet 5/325MG) 1 Tab Tb, 1 TAB PO TID PRN, #14 TAB Prov:CAMMY RUSSELL MD 06/16/25 Cefdinir (Cefdinir) 300 Mg Cap, 1 CAP PO BID for 14 Days, #28 CAP Prov:JENNI MATOS MD 06/08/25 Reported Medications Finasteride (Finasteride) 5 Mg Tab, 5 MG PO DAILY for ENLARGED PROSTATE for 30 Days, MG 05/15/25 Timolol Maleate (Timolol Maleate Ophthalmi) 0.5 % Xuan, 1 DROP RIGHTEYE BID for GLAUCOMA 05/01/25 Latanoprost (LATANOPROST) 0.005 % Xuan, 1 DROP EACHEYE QPM for GLAUCOMA 05/01/25 Aspirin (Aspirin) 81 Mg Tab, 1 TAB PO QAM for HEART DISEASE 05/01/25 Atorvastatin Calcium (Lipitor) 20 Mg Tab, 1 TAB PO QPM for HIGH CHOLESTEROL 05/01/25 Amlodipine Besylate (Amlodipine Besylate) 10 Mg Tab, 1 TAB PO QAM for HYPERTENSION 05/01/25 Information Source: Patient, Spouse Mode of Arrival: Ambulatory Past Medical History PAST MEDICAL HISTORY: COPD, High Lipids, HTN, DE Surgical History: Appendectomy, PTCA Surgical History (Other): Status post amputation of toes right foot,, hip surgery Family History Family History: Family hx of DM Social History Smoker: Cigarettes Alcohol: Occasionally Drugs: Denies Drug Use Lives In: Home Was a procedure done? Was a procedure done?: No Differential Dx Considerations may include: Urinary tract infection, urinary retention, benign prostate hypertrophy X-Ray, Labs, Meds, VS Vital Signs Date Time Temp Pulse Resp B/P (MAP) Pulse Ox O2 Delivery O2 Flow Rate FiO2 10/23/25 15:30 98.1 65 14 117/50 (72) 100 98.1 10/23/25 14:00 66 17 118/49 (72) 99 10/23/25 12:00 65 110/45 (66) 10/23/25 12:00 65 16 100 Room Air* 0 21 10/23/25 11:55 66 16 111/43 10/23/25 10:19 68 18 109/41 10/23/25 07:46 70 14 107/48 10/23/25 07:20 97.9 68 16 115/48 (70) 98 97.9 10/23/25 07:19 Room Air* 0 21 10/23/25 07:16 68 16 123/53 10/23/25 06:00 72 12 129/55 (79) 98 10/23/25 04:00 98.1 79 16 135/61 (85) 94 98.1 10/23/25 03:15 Room Air* 0 21 10/23/25 03:01 97.1 100 16 103/61 96 97.1 Lab Test 10/23/25 10:38 10/23/25 03:36 10/23/25 03:35 Range/Units Lactic Acid Level 0.9 0.4-2.0 mmol/L Urine Color Yellow Yellow Urine Clarity Turbid H Clear Urine pH 6.0 5.0-9.0 Urine Specific [place] 1.015 1.001-1.035 Urine Protein 1+ H Negative Urine Ketones Negative Negative Urine Blood Negative Negative /uL Urine Nitrite Negative Negative Urine Bilirubin Negative Negative Urine Urobilinogen Normal Negative mg/dL Urine Leukocyte Esterase 3+ Negative /uL Urine RBC None seen 0 - 3 /hpf Urine Microscopic WBC 368 H 0-3 /HPF Urine Squamous Epithelial Cells None seen <5 /hpf Urine Bacteria None seen None Seen /hpf Urine Glucose Normal Normal mg/dL White Blood Count 15.0 H 4.4-10.8 10^3/uL Red Blood Count 4.23 L 4.5-5.90 10^6/uL Hemoglobin 12.2 L 13.5-17.5 g/dL Hematocrit 38.1 L 41.0-53.0 % Mean Corpuscular Volume 90.1 80.0-100.0 fL Mean Corpuscular Hemoglobin 28.9 28.0-32.0 pg Mean Corpuscular Hemoglobin Concent 32.1 32.0-36.0 g/dL Red Cell Distribution Width 15.7 H 11.8-14.3 % Platelet Count 326 140-450 10^3/uL Mean Platelet Volume 7.4 6.9-10.8 fL Neutrophils (%) (Auto) 68.6 37.0-80.0 % Lymphocytes (%) (Auto) 17.1 10.0-50.0 % Monocytes (%) (Auto) 10.2 0.0-12.0 % Eosinophils (%) (Auto) 3.4 0.0-7.0 % Basophils (%) (Auto) 0.7 0.0-2.0 % Neutrophils # (Auto) 10.3 H 1.6-8.6 10 ^3/uL Lymphocytes # (Auto) 2.6 0.4-5.4 10 ^3/uL Monocytes # (Auto) 1.5 H 0-1.3 10 ^3/uL Eosinophils # (Auto) 0.5 0-0.8 10 ^3/uL Basophils # (Auto) 0.1 0-0.2 10 ^3/uL Nucleated Red Blood Cells 0.0 % Sodium Level 138 136-145 mmol/L Potassium Level 4.7 3.5-5.1 mmol/L Chloride Level 104 98-107 mmol/L Carbon Dioxide Level 23 20-31 mmol/L Anion Gap 11 5-15 Blood Urea Nitrogen 35 H 9-23 mg/dL Creatinine 2.46 H 0.700-1.30 mg/dL Glomerular Filtration Rate Calc 26 >90 mL/min BUN/Creatinine Ratio 14.2 10.0-20.0 Serum Glucose 98 74-106 mg/dL Calcium Level 9.5 8.7-10.4 mg/dL Current Medications Medications (Trade) Dose Ordered Sig/Promise Route Start Time Stop Time Status Last Admin Sodium Chloride 500 ml @ 500 mls/hr Q1H ONCE IV 10/23/25 04:45 10/23/25 05:44 DC 10/23/25 05:16 Levofloxacin/ Dextrose 100 ml @ 100 mls/hr ONCE ONCE IV 10/23/25 04:45 10/23/25 05:44 DC 10/23/25 05:15 Morphine Sulfate 4 mg ONCE ONCE IV 10/23/25 07:15 10/23/25 07:16 DC 10/23/25 07:16 Ondansetron HCl (Zofran) 4 mg ONCE ONCE IV 10/23/25 07:15 10/23/25 07:16 DC 10/23/25 07:12 Morphine Sulfate 4 mg ONCE ONCE IV 10/23/25 10:15 10/23/25 10:16 DC 10/23/25 10:19 Sodium Chloride 1,000 ml @ 75 mls/hr [id number] IV 10/23/25 16:00 10/23/25 16:19 Time of 1ST Reevaluation: 03:22 Reevaluation 1ST: Unchanged Patient Education/Counseling: Need For Follow Up Family Education/Counseling: No Family Present SEPSIS Sepsis Screen Date sepsis recognized/suspect: Oct 23, 2025 Time Sepsis recognized/suspect: 305 Recent Procedure: No On Antibiotic Therapy: No Respiratory Rate >20: No Heart Rate >90: Yes Temp<36 C (96.8 F) or >38.3 C: No SBP <90 or MAP <65 mmHG: No New Acute Mental Status Change: No Is the patient on CPAP, BIPAP,: No Physician Orders Insert Miller Catheter QSHIFT (10/23/25 03:17) Blood Culture (10/23/25 10:29) Urine Bacterial Culture (10/23/25 10:29) Admit (10/23/25 15:48) Code Status (10/23/25 15:48) Chest Xray 1 View (10/23/25 15:48) R Foot 2 View Xray (10/23/25 15:48) Sodium Chloride 0.9% (10/23/25 16:00) Levofloxacin 500mg (Levaquin 500mg/ 100m (10/24/25 10:00) Aspirin Enteric Coated Tablet (Ecotrin E (10/24/25 07:00) Atorvastatin (Lipitor) (10/23/25 22:00) Finasteride Tablet (Proscar Tablet) (10/24/25 10:00) Latanoprost (Xalatan) (10/23/25 22:00) Mupirocin 2% Ointment (Bactroban 2% Oint (10/23/25 22:00) Timolol 0.5% Opth Soln (Timoptic 0.5%) (10/23/25 22:00) Tamsulosin Hydrochloride (Flomax) (10/23/25 16:00) Ondansetron Hcl (Zofran) (10/23/25 16:00) Heparin Sodium (Porcine) (10/24/25 10:00) Pantoprazole (Protonix) (10/24/25 10:00) Vital Signs Date Time Temp Pulse Resp B/P (MAP) Pulse Ox O2 Delivery O2 Flow Rate FiO2 10/23/25 15:30 98.1 65 14 117/50 (72) 100 98.1 10/23/25 14:00 66 17 118/49 (72) 99 10/23/25 12:00 65 110/45 (66) 10/23/25 12:00 65 16 100 Room Air* 0 21 10/23/25 11:55 66 16 111/43 10/23/25 10:19 68 18 109/41 10/23/25 07:46 70 14 107/48 10/23/25 07:20 97.9 68 16 115/48 (70) 98 97.9 10/23/25 07:19 Room Air* 0 21 10/23/25 07:16 68 16 123/53 10/23/25 06:00 72 12 129/55 (79) 98 10/23/25 04:00 98.1 79 16 135/61 (85) 94 98.1 10/23/25 03:15 Room Air* 0 21 10/23/25 03:01 97.1 100 16 103/61 96 97.1 Laboratory Tests Test 10/23/25 03:35 10/23/25 10:38 White Blood Count 15.0 10^3/uL (4.4-10.8) H Lactic Acid Level 0.9 mmol/L (0.4-2.0) Medications Medications Dose Ordered Sig/Promise Route Start Time Stop Time Status Last Admin Dose Admin Morphine Sulfate 4 mg ONCE ONCE IV 10/23/25 10:15 10/23/25 10:16 DC 10/23/25 10:19 Sodium Chloride 1,000 ml @ 75 mls/hr [id number] IV 10/23/25 16:00 10/23/25 16:19 Departure 1 Departure Time of Disposition: 04:40 Impression: Primary Impression: SHEILA (acute kidney injury) Additional Impressions: Urinary retention UTI (urinary tract infection) Disposition: ADMITTED INPATIENT Condition: Stable Discharged With: Significant Other Comments 79-year-old male who presents with a urinary retention status post surgical procedure. Miller catheter placed in the emergency department. Urine appeared purulent. Antibiotics, IV fluids initiated. Patient admitted to hospitalist service for further treatment, evaluation and monitoring. Critical Care Note Critical Care Time?: No Stability Stability form required: No Heart Score Heart Score: Heart Score Response (Comments) Value History N/A 0 EKG N/A 0 Age N/A 0 Risk Factors N/A 0 Troponin N/A 0 Total 0 I personally scribed for BLAIR HAND MD ([email or web address]) on 10/23/25 at 03:26. Electronically submitted by Gregory Pink ([email or web address]). BLAIR HAND MD Oct 23, 2025 03:26
[2025-10-23 04:20] LABS: Hematocrit 38.1 % (41.0-53.0); Hemoglobin 12.2 g/dL (13.5-17.5); Mean Corpuscular Hemoglobin 28.9 pg (28.0-32.0); Mean Corpuscular Volume 90.1 fL (80.0-100.0); Nucleated Red Blood Cells % 0.0 %
[2025-10-23 04:23] LABS: Chloride 104 mmol/L (98-107); Potassium 4.7 mmol/L (3.5-5.1); Sodium 138 mmol/L (136-145)
[2025-10-23 04:24] LABS: Anion Gap 11 (5-15); Calcium 9.5 mg/dL (8.7-10.4); Carbon Dioxide 23 mmol/L (20-31)
[2025-10-23 04:26] LABS: Urine Protein, UAD 1+ (Negative)
[2025-10-23 04:29] LABS: BUN/Creatinine Ratio 14.2 (10.0-20.0); Blood Urea Nitrogen 35 mg/dL (9-23); Glucose 98 mg/dL (74-106)
[2025-10-23] MEDS: SODIUM CHLORIDE 0.9% 500 ML IV ONE (05:16)
[2025-10-23] MEDS: ONDANSETRON HCL 4 MG/2 ML VIAL IV ONE (07:12)
[2025-10-23] MEDS: MORPHINE SULFATE 4 MG/ML SYR/VIAL IV ONE ×2 (07:16→10:19)
[2025-10-23 12:00] VITALS: PULSE 65; RESP 16; O2SAT 100
[2025-10-23] MEDS ORDERED: TAMSULOSIN HYDROCHLORIDE 0.4 MG CAP PO NR (16:00)
[2025-10-23] MEDS ORDERED: ONDANSETRON HCL 4 MG/2 ML VIAL IV PRN (16:00)
[2025-10-23] MEDS ORDERED: MORPHINE SULFATE 4 MG/ML SYR/VIAL IV PRN (16:15)
[2025-10-23] MEDS: SODIUM CHLORIDE 0.9% 1,000 ML IV SCH (16:19)
--- NOTE | 2025-10-23 16:23 | DVHHPRES ---
History of Present Illness Resident Creating Document: [employer]Y [employer] RESIDENT History of Present Illness 79-year-old male with a past medical history of hypertension, hyperlipidemia, BPH, CKD, glaucoma, macular degeneration, 1 episode of AR, & urinary retention with a surgical history of bilateral hip replacement and right 5th toe amputation has come to the ER with chief complaints of urinary retention. Patient is hard of hearing and history was taken from his . reports that patient underwent amputation of the right 5th toe on 10/19/2025 and was discharged home with antibiotics. She reports that since discharge he has been increasingly hypersomnolent, she noted urine in the diapers for the first 2 days but since yesterday evening, his diaper has been dry, and she noted that his abdomen was distended and hard which prompted the ER visit. On inquiry, states that patient had a hip replacement surgery in May and was given a boot to wear, and sent to rehab, where he got sores and his toe got infected. He was told that the bone was infected for which amputation was done on Sunday. denies any fever, or that he has been complaining of nausea, headache, chest pain, abdominal pain. She reports that urinary retention has happened before when he had the hip surgery in May as well. In the ER on initial arrival, patient was septic with heart rate of 100 and WBC count 22472. UA is positive for UTI. Vitals on admission are stable, diastolic BP is on the softer side. PMH: As stated above PSH: As stated above Family history: Reviewed, noncontributory to the management of this case Social history: Patient used to smoke more than 1 pack all his life, smokes 5-6 cigarettes per day , used to be a heavy drinker (vodka and water) previously, stopped in May this year, denies any illicit drug abuse. He lives at home with family. Allergies: Sulfa, penicillin PCP: Dr. Greenberg Code status: Full code Review of Systems Constitutional: No: Fever, Chills, Sweats, Weakness, Malaise, Other Eyes: No: Pain, Vision change, Conjunctivae inflammation, Eyelid inflammation, Other, Redness ENT: No: Ear pain, Ear discharge, Nose pain, Nose discharge, Nose congestion, Mouth pain, Mouth swelling, Throat pain, Throat swelling, Other Respiratory: No: Cough, Dry, Shortness of breath, SOB with excertion, Wheezing, Hemoptysis, Pleuritic Pain, Sputum, Wheezing, Other Cardiovascular: No: Chest Pain, Palpitations, Orthopnea, Paroxysmal Noc. Dyspnea, Edema, Lt Headedness, Other Gastrointestinal: No: Nausea, Vomiting, Abdominal Pain, Diarrhea, Constipation, Melena, Hematochezia, Other Genitourinary: No Dysuria, No Frequency, No Incontinence, No Hematuria; Retention; No Other Musculoskeletal: No: other, neck pain, shoulder pain, arm pain, back pain, hand pain, leg pain, foot pain Skin: No: Rash, Lesions, Jaundice, Bruising, Other Neurological: No: Weakness, Numbness, Incoordination, Change in speech, Confusion, Seizures, Other Allergies: Coded Allergies: Penicillins (Verified Allergy, Intermediate, HIVES, 05/13/25) Sulfa Antibiotics (Verified Allergy, Intermediate, HIVES, 05/01/25) Exam Vital Signs Vital Signs Date Time Temp Pulse Resp B/P (MAP) Pulse Ox O2 Delivery O2 Flow Rate FiO2 10/23/25 14:00 66 17 118/49 (72) 99 10/23/25 12:00 Room Air* 0 21 10/23/25 07:20 97.9 97.9 Exam Pt is lying on bed General Appearance: Alert, Oriented X3, Cooperative, in acute distress, hard of hearing HEENT: Atraumatic, Mucous membranes moist/pink Respiratory: Clear to auscultation, Normal air movement, No added sounds Cardiovascular: Regular rate, Normal S1, Normal S2, No murmurs Abdominal: Active bowel sounds, Soft, no distention, mild tenderness in suprapubic region Extremities: No edema, Normal pulses, tenderness in right lower extremity, bandage placed over right lower foot, no seepage or soakage Skin: No Significant rash, except past surgical scars Neuro: Normal speech, sensorimotor deficits none Psych/Mental Status: Mental status NL, Mood NL Nurse was there as rotor blade installer during examination Labs/Xrays Labs Test 10/23/25 10:38 10/23/25 03:36 10/23/25 03:35 Range/Units Lactic Acid Level 0.9 0.4-2.0 mmol/L Urine Color Yellow Yellow Urine Clarity Turbid H Clear Urine pH 6.0 5.0-9.0 Urine Specific [place] 1.015 1.001-1.035 Urine Protein 1+ H Negative Urine Ketones Negative Negative Urine Blood Negative Negative /uL Urine Nitrite Negative Negative Urine Bilirubin Negative Negative Urine Urobilinogen Normal Negative mg/dL Urine Leukocyte Esterase 3+ Negative /uL Urine RBC None seen 0 - 3 /hpf Urine Microscopic WBC 368 H 0-3 /HPF Urine Squamous Epithelial Cells None seen <5 /hpf Urine Bacteria None seen None Seen /hpf Urine Glucose Normal Normal mg/dL White Blood Count 15.0 H 4.4-10.8 10^3/uL Red Blood Count 4.23 L 4.5-5.90 10^6/uL Hemoglobin 12.2 L 13.5-17.5 g/dL Hematocrit 38.1 L 41.0-53.0 % Mean Corpuscular Volume 90.1 80.0-100.0 fL Mean Corpuscular Hemoglobin 28.9 28.0-32.0 pg Mean Corpuscular Hemoglobin Concent 32.1 32.0-36.0 g/dL Red Cell Distribution Width 15.7 H 11.8-14.3 % Platelet Count 326 140-450 10^3/uL Mean Platelet Volume 7.4 6.9-10.8 fL Neutrophils (%) (Auto) 68.6 37.0-80.0 % Lymphocytes (%) (Auto) 17.1 10.0-50.0 % Monocytes (%) (Auto) 10.2 0.0-12.0 % Eosinophils (%) (Auto) 3.4 0.0-7.0 % Basophils (%) (Auto) 0.7 0.0-2.0 % Neutrophils # (Auto) 10.3 H 1.6-8.6 10 ^3/uL Lymphocytes # (Auto) 2.6 0.4-5.4 10 ^3/uL Monocytes # (Auto) 1.5 H 0-1.3 10 ^3/uL Eosinophils # (Auto) 0.5 0-0.8 10 ^3/uL Basophils # (Auto) 0.1 0-0.2 10 ^3/uL Nucleated Red Blood Cells 0.0 % Sodium Level 138 136-145 mmol/L Potassium Level 4.7 3.5-5.1 mmol/L Chloride Level 104 98-107 mmol/L Carbon Dioxide Level 23 20-31 mmol/L Anion Gap 11 5-15 Blood Urea Nitrogen 35 H 9-23 mg/dL Creatinine 2.46 H 0.700-1.30 mg/dL Glomerular Filtration Rate Calc 26 >90 mL/min BUN/Creatinine Ratio 14.2 10.0-20.0 Serum Glucose 98 74-106 mg/dL Calcium Level 9.5 8.7-10.4 mg/dL SEPSIS Sepsis Screen Date sepsis recognized/suspect: Oct 23, 2025 Time Sepsis recognized/suspect: 1200 Recent Procedure: No On Antibiotic Therapy: No Respiratory Rate >20: No Heart Rate >90: No Temp<36 C (96.8 F) or >38.3 C: No SBP <90 or MAP <65 mmHG: No New Acute Mental Status Change: No Is the patient on CPAP, BIPAP,: No Physician Orders Blood Culture (10/23/25 10:29) Urine Bacterial Culture (10/23/25 10:29) Admit (10/23/25 15:48) Code Status (10/23/25 15:48) Chest Xray 1 View (10/23/25 15:48) R Foot 2 View Xray (10/23/25 15:48) Covid19 Antigen Estefanía (10/23/25 ) Rapid Influenza A&B (10/23/25 15:48) NS (10/23/25 16:00) Levofloxacin Levaquin (10/24/25 10:00) Aspirin Enteric Coated Tablet (Ecotrin E (10/24/25 07:00) Atorvastatin (Lipitor) (10/23/25 18:00) Finasteride Tablet (Proscar Tablet) (10/24/25 10:00) Latanoprost (Xalatan) (10/23/25 18:00) Mupirocin 2% Ointment (Bactroban 2% Oint (10/23/25 22:00) (Nf) Timolol Maleate (Timolol Maleate Op (10/23/25 22:00) Tamsulosin Hydrochloride (Flomax) (10/23/25 16:00) Morphine Sulfate Injection (10/23/25 16:00) Ondansetron Hcl (Zofran) (10/23/25 16:00) Heparin Sodium (Porcine) (10/24/25 10:00) Pantoprazole (Protonix) (10/24/25 10:00) Vital Signs Date Time Temp Pulse Resp B/P (MAP) Pulse Ox O2 Delivery O2 Flow Rate FiO2 10/23/25 14:00 66 17 118/49 (72) 99 10/23/25 12:00 65 110/45 (66) 10/23/25 12:00 65 16 100 Room Air* 0 21 10/23/25 11:55 66 16 111/43 10/23/25 10:19 68 18 109/41 Laboratory Tests Test 10/23/25 10:38 Lactic Acid Level 0.9 mmol/L (0.4-2.0) Medications Medications Dose Ordered Sig/Promise Route Start Time Stop Time Status Last Admin Dose Admin Levofloxacin/ Dextrose 100 ml @ 100 mls/hr ONCE ONCE IV 10/23/25 04:45 10/23/25 05:44 DC 10/23/25 05:15 100 MLS/HR Morphine Sulfate 4 mg ONCE ONCE IV 10/23/25 07:15 10/23/25 07:16 DC 10/23/25 07:16 4 MG Morphine Sulfate 4 mg ONCE ONCE IV 10/23/25 10:15 10/23/25 10:16 DC 10/23/25 10:19 4 MG Ondansetron HCl 4 mg ONCE ONCE IV 10/23/25 07:15 10/23/25 07:16 DC 10/23/25 07:12 4 MG Sodium Chloride 500 ml @ 500 mls/hr Q1H ONCE IV 10/23/25 04:45 10/23/25 05:44 DC 10/23/25 05:16 500 MLS/HR Assessment/Plan Assessment/Plan #Sepsis due to UTI #Acute urinary retention #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 -x-ray foot #Hypertensive heart disease due to possible systolic/diastolic heart failure #History of CAD -antihypertensives held at this moment SBP is on the soft side -Continue home medication aspirin 81 mg daily #Hyperlipidemia -Continue home medication atorvastatin 20 mg daily #History of Glaucoma #History of Macular degeneration -Continue home medication latanoprost and timolol eye droplets GI prophylaxis: Protonix DVT prophylaxis: Heparin Goals of care discussed with the patient for more than 27 minutes: Full code status Case discussed with , patient and nurse. Plan discussed with: Patient, Spouse, Other (rn) My Orders Orders - [employer]Y [employer] RESIDENT Procedure Category Date Status Time Admit ADMIT 10/23/25 Verified 15:48 Code Status CODE 10/23/25 Verified 15:48 Chest Xray 1 View XY 10/23/25 Verified 15:48 R Foot 2 View Xray XY 10/23/25 Verified 15:48 Covid19 Antigen Estefanía LAB 10/23/25 Verified Rapid Influenza A&B LAB 10/23/25 Verified 15:48 NS PHA 10/23/25 Verified 16:00 Levofloxacin Levaquin PHA 10/24/25 Verified 10:00 Aspirin Enteric PHA 10/24/25 Verified Coated Tablet 07:00 Atorvastatin (Lipitor) PHA 10/23/25 Verified 18:00 Finasteride Tablet PHA 10/24/25 Verified (Proscar Tablet) 10:00 Latanoprost (Xalatan) PHA 10/23/25 Verified 18:00 Mupirocin 2% Ointment PHA 10/23/25 Verified (Bactroban 2% Oint 22:00 (Nf) Timolol Maleate PHA 10/23/25 Verified (Timolol Maleate Op 22:00 Tamsulosin PHA 10/23/25 Verified Hydrochloride (Flomax) 16:00 Morphine Sulfate PHA 10/23/25 Verified Injection 16:00 Ondansetron Hcl PHA 10/23/25 Verified (Zofran) 16:00 Heparin Sodium PHA 10/24/25 Verified (Porcine) 10:00 Pantoprazole PHA 10/24/25 Verified (Protonix) 10:00 Visit Coding STANDARD RES Billing Provider: KAYCE SANCHEZ MD Date of Service if different f: Oct 23, 2025 Common Visit Codes: 56705-ECEEMHG INP/OBS CARE (HIGH) Secondary Visit Codes: 70420-[id number] CARE PLAN [address] Oct 23, 2025 16:23 KAYCE SANCHEZ MD Oct 24, 2025 09:59
--- NOTE | 2025-10-23 17:00 | DVH ---
EXAM: XY CHEST XRAY 1 VIEW HISTORY: sob COMPARISON: XR CHEST 1 VIEW on DOS: 10/19/25, XY CHEST XRAY 1 VIEW on DOS: 08/21/25, XY CHEST PORTABLE on DOS: 06/14/25, XY CHEST PORTABLE on DOS: 06/11/25, XY CHEST XRAY 1 VIEW on DOS: 06/09/25 TECHNIQUE: Portable upright AP views of the chest were performed. FINDINGS: There is increased hazy interstitial opacity in the right mid to lower lung. No pneumothorax, although skin folds simulate pneumothorax on both sides. Of consolidative infiltrates. The heart is not enlarged. IMPRESSION: Increased hazy interstitial opacity in the right mid to lower lung is likely due to interstitial pneumonia, Less likely Reactive airways disease or asymmetric CHF.
--- NOTE | 2025-10-23 17:02 | DVH ---
CLINICAL INDICATION: s/p right fifth toe amputation TECHNIQUE: 2 radiographic views of the amputation right 5th toe were obtained. COMPARISON: None FINDINGS/IMPRESSION: Absence of the 5th toe and 5th metatarsal is noted. Skin closure chris are visualized.
[2025-10-23 17:10] LABS: COVID19 ANTIGEN SOFIA FIA NEGATIVE (NEGATIVE)
[2025-10-23 18:28] VITALS: BP 133/59; PULSE 67; RESP 17; TEMP 98.2; O2SAT 97
[2025-10-23 20:00] VITALS: PULSE 67; RESP 18; O2SAT 96
[2025-10-23 21:00] VITALS: BP 124/59; PULSE 66; RESP 16; TEMP 98.2; O2SAT 96
[2025-10-23] MEDS: ATORVASTATIN 20 MG TAB PO SCH (21:01)
[2025-10-23] MEDS: TIMOLOL MAL 0.5% OPTH(EYE) SOL 5ML RIGHTEYE SCH (21:06)
[2025-10-23] MEDS: LATANOPROST 0.005 % OPTH(EYE) SOL 2.5ML EACHEYE SCH (21:08)
[2025-10-23] MEDS ORDERED: MUPIROCIN 2% OINT 15gm or 22gm EACHNOSTRI SCH (22:00)
[2025-10-23] MEDS: OXYCODONE W/ ACETAMINOPHEN 5/325MG TABLET PO PRN (22:32)
[2025-10-24] VITALS (8 sets, daily range): BP systolic 108–150; BP diastolic 58–77; PULSE 59–67; RESP 16–19; TEMP 79.9–98.4; O2SAT 95–99
[2025-10-24] MEDS: ASPirin-EC 81 mg tab PO SCH (06:33)
[2025-10-24] MEDS ORDERED: HEPARIN SODIUM (PORCINE) 5000 UNITS/ML 1ML VIAL IV SCH (10:00)
[2025-10-24] MEDS: FINASTERIDE 5 MG TAB PO SCH (10:04)
[2025-10-24] MEDS: PANTOPRAZOLE 40 MG/10 ML VIAL INJ IV SCH (10:04)
--- NOTE | 2025-10-24 16:36 | DVHDS2 ---
Discharge Summary Date of Admission Oct 23, 2025 at 16:04 Date of Discharge: Oct 24, 2025 Labs/Diagnostic Data: Laboratory Results Test 10/23/25 16:10 10/23/25 10:38 10/23/25 03:36 10/23/25 03:35 Influenza Type A Antigen Negative (Negative) Influenza Type B Antigen Negative (Negative) SARS-CoV-2 Antigen (Rapid) Negative (NEGATIVE) Lactic Acid Level 0.9 mmol/L (0.4-2.0) Urine Color Yellow (Yellow) Urine Clarity Turbid (Clear) Urine pH 6.0 (5.0-9.0) Urine Specific [place] 1.015 (1.001-1.035) Urine Protein 1+ (Negative) Urine Ketones Negative (Negative) Urine Blood Negative /uL (Negative) Urine Nitrite Negative (Negative) Urine Bilirubin Negative (Negative) Urine Urobilinogen Normal mg/dL (Negative) Urine Leukocyte Esterase 3+ /uL (Negative) Urine RBC None seen /hpf (0 - 3) Urine Microscopic WBC 368 /HPF (0-3) Urine Squamous Epithelial Cells None seen /hpf (<5) Urine Bacteria None seen /hpf (None Seen) Urine Glucose Normal mg/dL (Normal) White Blood Count 15.0 10^3/uL (4.4-10.8) Red Blood Count 4.23 10^6/uL (4.5-5.90) Hemoglobin 12.2 g/dL (13.5-17.5) Hematocrit 38.1 % (41.0-53.0) Mean Corpuscular Volume 90.1 fL (80.0-100.0) Mean Corpuscular Hemoglobin 28.9 pg (28.0-32.0) Mean Corpuscular Hemoglobin Concent 32.1 g/dL (32.0-36.0) Red Cell Distribution Width 15.7 % (11.8-14.3) Platelet Count 326 10^3/uL (140-450) Mean Platelet Volume 7.4 fL (6.9-10.8) Neutrophils (%) (Auto) 68.6 % (37.0-80.0) Lymphocytes (%) (Auto) 17.1 % (10.0-50.0) Monocytes (%) (Auto) 10.2 % (0.0-12.0) Eosinophils (%) (Auto) 3.4 % (0.0-7.0) Basophils (%) (Auto) 0.7 % (0.0-2.0) Neutrophils # (Auto) 10.3 10 ^3/uL (1.6-8.6) Lymphocytes # (Auto) 2.6 10 ^3/uL (0.4-5.4) Monocytes # (Auto) 1.5 10 ^3/uL (0-1.3) Eosinophils # (Auto) 0.5 10 ^3/uL (0-0.8) Basophils # (Auto) 0.1 10 ^3/uL (0-0.2) Nucleated Red Blood Cells 0.0 % Sodium Level 138 mmol/L (136-145) Potassium Level 4.7 mmol/L (3.5-5.1) Chloride Level 104 mmol/L (98-107) Carbon Dioxide Level 23 mmol/L (20-31) Anion Gap 11 (5-15) Blood Urea Nitrogen 35 mg/dL (9-23) Creatinine 2.46 mg/dL (0.700-1.30) Glomerular Filtration Rate Calc 26 mL/min (>90) BUN/Creatinine Ratio 14.2 (10.0-20.0) Serum Glucose 98 mg/dL (74-106) Calcium Level 9.5 mg/dL (8.7-10.4) Other Laboratory Tests 10/23/25 03:35 Brief Hx & Hospital Course: 79-year-old male with a known history of hypertension, dyslipidemia, BPH, CKD, glaucoma, urinary retention status post Miller catheter placement, possible UTI, recent history of hip replacement currently on clindamycin presented to the hospital with a chief complaint of urinary retention eventually patient was placed on Miller catheter patient was found to have sepsis secondary to mild UTI as well as patient's has a urinary retention status post Miller catheter placement patient does have acute kidney injury with a underlying CKD stage 4. Patient's blood cultures are negative to date urine culture shows less [place] [id number] colonies. Patient will be given some Levaquin for home with the home health home safety evaluation. Patient will be discharged home with a Miller catheter with a leg bag. Home health home safety evaluation. Condition at Discharge: Stable Final Diagnosis/Problems List 1. Urinary retention status post Miller catheter placement 2. UTI 3. AKIwith a underlying CKD 4. Prostate enlargement 5. Hypertension 6. Recent history of hip replacement currently on clindamycin. Discharge Disposition: Home with Health Services SNF Discharge Will this Physician continue t: No Discharge Instruct/Medications New Medications: Levofloxacin Hemihydrate (Levaquin 500 Mg) 500 Mg Tab 1 TAB PO EOD, #5 TAB Continued Medications: Amlodipine Besylate (Amlodipine Besylate) 10 Mg Tab 1 TAB PO QAM for HYPERTENSION Aspirin (Aspirin) 81 Mg Tab 1 TAB PO QAM for HEART DISEASE Atorvastatin Calcium (Lipitor) 20 Mg Tab 1 TAB PO QPM for HIGH CHOLESTEROL Finasteride (Finasteride) 5 Mg Tab 5 MG PO DAILY for ENLARGED PROSTATE for 30 Days, MG Latanoprost (Latanoprost) 0.005 % Xuan 1 DROP EACHEYE QPM for GLAUCOMA Mupirocin (Pseudomonas Fluores (Mupirocin) 2 % Oin 1 APPLIC EACHNOSTRI BID for 14 Days, #1 OIN Oxycodone W/ Acetaminophen (Percocet 5/325MG) 1 Tab Tb 1 TAB PO TID PRN, #14 TAB Timolol Maleate (Timolol Maleate Ophthalmi) 0.5 % Xuan 1 DROP RIGHTEYE BID for GLAUCOMA Discontinued Medications: Cefdinir (Cefdinir) 300 Mg Cap 1 CAP PO BID for 14 Days, #28 CAP Scheduled Amlodipine Besylate (Amlodipine Besylate), 1 TAB PO QAM, (Reported) Aspirin (Aspirin), 1 TAB PO QAM, (Reported) Atorvastatin Calcium (Lipitor), 1 TAB PO QPM, (Reported) Cefdinir (Cefdinir), 1 CAP PO BID Finasteride (Finasteride), 5 MG PO DAILY, (Reported) Latanoprost (Latanoprost), 1 DROP EACHEYE QPM, (Reported) Levofloxacin Hemihydrate (Levaquin 500 Mg), 1 TAB PO EOD Mupirocin (Pseudomonas Fluores (Mupirocin), 1 APPLIC EACHNOSTRI BID Timolol Maleate (Timolol Maleate Ophthalmi), 1 DROP RIGHTEYE BID, (Reported) Scheduled PRN Oxycodone W/ Acetaminophen (Percocet 5/325MG), 1 TAB PO TID PRN Discharge Statement: "Patient was advised to return to the ER or call 911 if any headaches, dizziness, shortness of breath, chest pain, abdominal pain, bleeding, fevers, or worsening of medical condition. Patient was counseled about treatment plan, medications, possible side effects, patientverbalized understanding. All questions were answered to the best of my ability. This discharge took greater then 30 minutes in planning, reviewing documentation, counseling the patient, and discussing with other team members." ASSESSMENT ASSESSMENT Assessment Date of Service: Oct 24, 2025 Billing Provider: JENNI MATOS MD Common Visit Codes: 28937-BRR/OBS DISCH DAY >30min JENNI MATOS MD Oct 24, 2025 16:36
[2025-10-24] MEDS ORDERED: LEVO500T91 PO (16:40)
[2025-10-24] MEDS ORDERED: POLYETHYLENE GLYCOL 17 GM PWDR PO ONE (20:15)
[2025-10-25 01:00] VITALS: BP 112/51; PULSE 60; RESP 18; TEMP 98.2; O2SAT 96
[2025-10-25 05:00] VITALS: BP 125/65; PULSE 63; RESP 17; TEMP 97.5; O2SAT 98
[2025-10-25 08:00] VITALS: PULSE 60; RESP 18
[2025-10-25 09:00] VITALS: BP 148/62; PULSE 63; RESP 17; TEMP 97.4; O2SAT 99
[2025-10-25 10:12] LABS: Hematocrit 33.7 % (41.0-53.0); Hemoglobin 11.1 g/dL (13.5-17.5); Mean Corpuscular Hemoglobin 29.1 pg (28.0-32.0); Mean Corpuscular Volume 88.8 fL (80.0-100.0); Nucleated Red Blood Cells % 0.1 %
[2025-10-25 11:00] VITALS: TEMP 36.3
[2025-10-25 13:00] VITALS: BP 121/46; PULSE 56; RESP 16; TEMP 98; O2SAT 99
--- NOTE | 2025-10-25 14:32 | DVHPNRES ---
Progress Note Date Seen: Oct 25, 2025 Resident Creating Document: SWEETIE VENTURA Medical Necessity Reason Pt with a Central, PICC or Fol: Yes The following are medically ne: Miller Catheter Subjective Review of Systems Patient was seen and examined at bedside today. Overnight events were reviewed. He reports improvement in his symptoms. Patient denies chest pain, shortness of breath, fever, cough, urinary symptoms or any other complaints. No other new complaints reported. Objective vital signs Vital Sign Date Time Temp Pulse Resp B/P (MAP) Pulse Ox O2 Delivery O2 Flow Rate FiO2 10/25/25 13:00 98.0 56 16 121/46 (71) 99 98.0 10/25/25 08:00 Nasal Cannula* 2 28 Total Intake and Output 10/24/25 10/24/25 10/25/25 15:00 23:00 07:00 Intake Total 1700 ml 480 ml Output Total 700 ml 600 ml Balance 1000 ml -120 ml medications Current Medications Medications Dose Ordered Sig/Promise Route Start Time Stop Time Status Last Admin Dose Admin Sodium Chloride 1,000 ml @ 75 mls/hr [id number] IV 10/23/25 16:00 10/25/25 04:45 75 MLS/HR Levofloxacin/ Dextrose 100 ml @ 100 mls/hr Q48H IV 10/24/25 10:00 10/24/25 10:04 100 MLS/HR Aspirin 81 mg QAM PO 10/24/25 07:00 10/25/25 06:02 81 MG Atorvastatin Calcium 20 mg HS PO 10/23/25 22:00 10/24/25 20:46 20 MG Finasteride 5 mg DAILY PO 10/24/25 10:00 10/25/25 09:16 5 MG Latanoprost 1 drop HS EACHEYE 10/23/25 22:00 10/24/25 20:46 1 DROP Mupirocin 1 applic BID EACHNOSTRI 10/23/25 22:00 Hold Timolol Maleate 1 drop BID RIGHTEYE 10/23/25 22:00 10/25/25 09:16 1 DROP Tamsulosin HCl 0.4 mg ONCE PO 10/23/25 16:00 10/25/25 15:59 Hold Morphine Sulfate 2 mg Q4HPRN PRN IV 10/23/25 16:15 Hold Ondansetron HCl 4 mg Q4HPRN PRN IV 10/23/25 16:00 Pantoprazole Sodium 40 mg DAILY IV 10/24/25 10:00 10/25/25 09:15 40 MG Oxycodone/ Acetaminophen 1 tab TIDP PRN PO 10/23/25 21:30 10/24/25 20:54 1 TAB Examination Pt is lying on bed General Appearance: Alert, Oriented X3, Cooperative, Mild distress HEENT: Atraumatic, Mucous membranes moist/pink Respiratory: Clear to auscultation, Normal air movement, No added sounds Cardiovascular: Regular rate, Normal S1, Normal S2, No murmurs Abdominal/ : Active bowel sounds, Soft, no distention, no tenderness, Miller's catheter in place Extremities: No edema, Normal pulses, No tenderness/swelling Skin: No Significant rash, except past surgical scars Neuro: Normal speech, sensorimotor deficits none Psych/Mental Status: Mental status NL, Mood NL Nurse was there as front desk attendant during examination laboratory and microbiology Laboratory Tests 10/25/25 09:19 10/23/25 03:35 Test 10/23/25 03:35 Range/Units Serum Glucose 98 74-106 mg/dL Microbiology Date/Time Source Procedure Growth Status 10/23/25 10:43 Blood Blood Culture - Preliminary NO GROWTH AFTER 48 HOURS OF INCUBATION. Resulted 10/23/25 03:36 Voided Urine Urine Culture - Final Complete Labs and/or images reviewed: Labs reviewed by me, Image(s) reviewed by me Problem List/Assessment/Plan Problem List/Assessment/Plan #Sepsis due to UTI #Acute urinary retention #SHEILA on CKD stage IV due to VMN -HR 100, WBC 74158, UA positive -GFR 26, creatinine 2.46 -UA shows turbidity, protein 1+, leukocyte esterase 3+, WBC 368 -Miller's catheter in place -levofloxacin 500 mg IV daily -ondansetron 4 mg IV q.4 PRN -lactic acid 0.9 -urine culture -blood culture -chest x-ray -IV fluid in his 0.9% 1 L bolus and 75 cc/hour continuous -avoid nephrotoxic agents #BPH -continue home medication finasteride 5 mg daily -tamsulosin 0.4 mg p.o. 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 -x-ray foot #Hypertensive heart disease due to possible systolic/diastolic heart failure #History of CAD -antihypertensives held at this moment SBP is on the soft side -Continue home medication aspirin 81 mg daily #Hyperlipidemia -Continue home medication atorvastatin 20 mg daily #History of Glaucoma #History of Macular degeneration -Continue home medication latanoprost and timolol eye droplets GI prophylaxis: Protonix DVT prophylaxis: Heparin Plan discussed with: Patient, Other (RN ) Visit Coding STANDARD RES Billing Provider: SWEETIE VENTURA Date of Service if different f: Oct 25, 2025 Common Visit Codes: 90567-QXN/OBS DISCH DAY >30min SWEETIE VENTURA Oct 25, 2025 14:32
--- NOTE | 2025-10-25 16:19 | DVHPN2 ---
Subjective Patient's discharge was held yesterday. Patient Miller catheter was removed this morning but he still retaining urine, Miller catheter was placed pack and then patient can be discharged with a leg bag with the outpatient follow up with the Urology. Changes from previous H/P or p: No Changes Eyes: No Pain, No Vision change, No Conjunctivae inflammation, No Eyelid inflammation, No Other, No Redness ENT: No Ear pain, No Ear discharge, No Nose pain, No Nose discharge, No Nose congestion, No Mouth pain, No Mouth swelling, No Throat pain, No Throat swelling, No Other Cardiovascular: No Chest Pain, No Palpitations, No Orthopnea, No Paroxysmal Noc. Dyspnea, No Edema, No Lt Headedness, No Other Respiratory: No Cough, No Dry, No Shortness of breath, No SOB with excertion, No Wheezing, No Hemoptysis, No Pleuritic Pain, No Sputum, No Other Gastrointestinal: No Nausea, No Vomiting, No Abdominal Pain, No Diarrhea, No Constipation, No Melena, No Hematochezia, No Other Genitourinary: No Dysuria, No Frequency, No Incontinence, No Hematuria; R etention; No Other Musculoskeletal: No other, No neck pain, No shoulder pain, No arm pain, No back pain, No hand pain, No leg pain, No foot pain Skin: No Rash, No Lesions, No Jaundice, No Bruising, No Other Objective Vitals Vital Signs Date Time Temp Pulse Resp B/P (MAP) Pulse Ox O2 Delivery O2 Flow Rate FiO2 10/25/25 13:00 98.0 56 16 121/46 (71) 99 98.0 10/25/25 08:00 Nasal Cannula* 2 28 Intake/Output Intake and Output 10/25/25 07:00 Intake Total 2180 ml Output Total 1300 ml Balance 880 ml Intake Oral 2180 ml Output Urine Total 1300 ml # Bowel Movements 1 Exam HEENT pupils are reactive Neck is supple CV is S1-S2 regular rate and rhythm Diminished breath sounds bases GI positive bowel sound Extremity no edema AUDITOR INTERNAL no motor deficit Medications Current Medications Medications Dose Ordered Sig/Promise Route Start Time Stop Time Status Last Admin Dose Admin Sodium Chloride 1,000 ml @ 75 mls/hr [id number] IV 10/23/25 16:00 10/25/25 04:45 75 MLS/HR Levofloxacin/ Dextrose 100 ml @ 100 mls/hr Q48H IV 12/20/25 10:00 10/24/25 10:04 100 MLS/HR Aspirin 81 mg QAM PO 10/24/25 07:00 10/25/25 06:02 81 MG Atorvastatin Calcium 20 mg HS PO 10/23/25 22:00 10/24/25 20:46 20 MG Finasteride 5 mg DAILY PO 10/24/25 10:00 10/25/25 09:16 5 MG Latanoprost 1 drop HS EACHEYE 10/23/25 22:00 10/24/25 20:46 1 DROP Mupirocin 1 applic BID EACHNOSTRI 10/23/25 22:00 Hold Timolol Maleate 1 drop BID RIGHTEYE 10/23/25 22:00 10/25/25 09:16 1 DROP Morphine Sulfate 2 mg Q4HPRN PRN IV 10/23/25 16:15 Hold Ondansetron HCl 4 mg Q4HPRN PRN IV 10/23/25 16:00 Pantoprazole Sodium 40 mg DAILY IV 10/24/25 10:00 10/25/25 09:15 40 MG Oxycodone/ Acetaminophen 1 tab TIDP PRN PO 10/23/25 21:30 10/24/25 20:54 1 TAB Laboratory Results Laboratory Tests 10/23/25 03:35 10/25/25 09:19 Urinalysis Test 10/23/25 03:36 Urine Color Yellow (Yellow) Urine Clarity Turbid (Clear) H Urine pH 6.0 (5.0-9.0) Urine Specific [place] 1.015 (1.001-1.035) Urine Protein 1+ (Negative) H Urine Ketones Negative (Negative) Urine Blood Negative /uL (Negative) Urine Nitrite Negative (Negative) Urine Bilirubin Negative (Negative) Urine Urobilinogen Normal mg/dL (Negative) Urine Leukocyte Esterase 3+ /uL (Negative) Urine RBC None seen /hpf (0 - 3) Urine Microscopic WBC 368 /HPF (0-3) H Urine Squamous Epithelial Cells None seen /hpf (<5) Urine Bacteria None seen /hpf (None Seen) Urine Glucose Normal mg/dL (Normal) Microbiology Microbiology Date/Time Source Procedure Growth Status 10/23/25 10:43 Blood Blood Culture - Preliminary NO GROWTH AFTER 48 HOURS OF INCUBATION. Resulted 10/23/25 03:36 Voided Urine Urine Culture - Final Complete Assessment/Plan Assessment/Plan 1. Urinary retention status post Miller catheter placement 2. UTI 3. AKIwith a underlying CKD 4. Prostate enlargement 5. Hypertension 6. Recent history of hip replacement currently on clindamycin. -patient is retaining urine again after Miller catheter removal. Patient's we will be discharged with a Miller catheter with a leg bag outpatient follow up with the Urology. Plan discussed with: Patient My Orders Orders - JENNI MATOS MD Procedure Category Date Status Time Discharge DISCHARGE 10/24/25 Transmitted 16:42 * Traffic Line Painter CONS 10/24/25 Transmitted Consult Date of Service: Oct 25, 2025 Billing Provider: JENNI MATOS MD Common Visit Codes: [id number] INP/OBS CARE(MOD) JENNI MATOS MD Oct 25, 2025 16:19
== END 2025-10-25 16:33 | disposition home health service (06) | DRG 871 ==
LOC: ER 02:53 → OVERFLOW 16:04 → TELE-EAST 17:57
PROVIDERS: ATTEND Emergency Medicine
DX: A41.9 Sepsis, unspecified organism (principal); N17.0 Acute kidney failure with tubular necrosis; N18.4 Chronic kidney disease, stage 4 (severe); I50.42 Chronic combined systolic (congestive) and diastolic (congestive) heart failure; N39.0 Urinary tract infection, site not specified; I13.0 Hypertensive heart and chronic kidney disease with heart failure and stage 1 through stage 4 chronic kidney disease, or unspecified chronic kidney disease; E78.5 Hyperlipidemia, unspecified; F17.210 Nicotine dependence, cigarettes, uncomplicated; N40.0 Benign prostatic hyperplasia without lower urinary tract symptoms; I25.10 Atherosclerotic heart disease of native coronary artery without angina pectoris; Z89.421 Acquired absence of other right toe(s); Z96.649 Presence of unspecified artificial hip joint; Z79.899 Other long term (current) drug therapy; Z88.0 Allergy status to penicillin; Z88.2 Allergy status to sulfonamides; Z83.3 Family history of diabetes mellitus
CPT/HCPCS: 36415; 71045; 73620; 80048; 81001; 83605; 85025; 87040; 87086; 87426; 87804; G0378; J1956; J2405; J2470